=== PATIENT | female | born 1945 | race Caucasian/White ===

== ENCOUNTER → 2016-10-11 | Outpatient (CLI) | payer OTHER ==
[~2016-10-11] MED LIST: GLIP5TAB3 PO; ROSU5TAB PO
--- NOTE | 2016-10-12 06:15 | PAP/PSG TECHNICIAN REPORT ---
[facility] Low Pressure Firer Polysomnogram Report Study name: None Report date: 10/12/2016 Study date: 10/11/2016 Referring Physician: Dennis ROMERO M.D. Name: TINOMICA Interpreting Physician: Avani Romero M.D. Date of : 1945 Low Pressure Firer: Tim Briggs RPSGT. Sex: Female Age: 71 StudyType: PSG Weight: 298 lbs 17.75 INCHES Height: 71 years, Height 5' 6" Neck Circum: BMI: 48.09 Medications: ATIVAN 1 MG, METFORMIN ER 500 MG, ULTRAM 50 MG, GLUCOTROL XL 10 MG, ASPIRIN 81 MG, CRESTOR 5 MG, ACCUPRIL 5 MG, NEXIUM 20 MG Patient History PATIENT HAS HISTORY OF DAYTIME SLEEPINESS AND DIFFICULTY MAINTAINING SLEEP THROUGHOUT THE NIGHT. SHE USUALLY ONLY SLEEPS FOR A COUPLE HOURS AT A TIME AND WILL MOVE FROM RECLINER TO BED. SHE HAS GAINED A SIGNIFICANT AMOUNT OF WEIGHT OVER THE PAST 5 YEARS. SHE IS HERE TODAY FOR AN EVALUATION OF LASHAWN. ESS = 6 RM 7 Parameters Monitored NPSG: E1-M2, E2-M1, Fp1-M2, Fp2-M1, F3-M2, F4-M2, F4-M1, C3-M2, C4-M2, C4-M1, O1-M2, O2-M2, O2-M1, T3-M2, T4-M1, P3-M2, P4-M1, CHIN1, CHIN2, HR, EKG, Legs, PFLOW, SNOR, FLOW, CFLOW, Tidal Volume, THOR, ABDO, SpO2, PLTH, CPRESS, ETCO2 Wave, ETCO2, pH Sleep Architecture Sleep Stages Time at Lights Off 8:45:45 PM STAGES Time (min.) TST (%) Time at Lights On 4:30:45 AM Wake 168.0 -- Total Recording Time (TRT) 465.50 min. N1 64.0 22 Total Sleep Period (TSP) 392.0 min. N2 173.5 58 Total Sleep Time (TST) 297.0min. N3 29.5 10 Awake Time 168.5 min. REM 30.0 10 Wake after Sleep Onset 112.0 min. Sleep Efficiency (SE) 64 % Sleep Onset Latency (LUI) 56.0 min. Number of Stage 1 Shifts None Awakenings 23 Stage Changes 97 Number of REM periods 3 REM 30.0 10 REM Latency 207.0 min. NREM 267.0 90 Body Position Analysis Supine Right Left Side Prone Vertical Total Sleep Time (min.) 151.3 181.5 74.8 256.35 0.0 0.0 Total Sleep Time (%) 14% 61% 25% 86 0% N/A% Total Sleep Time REM (min.) 0.0 30.0 0.0 None 0.0 0.0 Total Sleep Time NREM (min.) 40.7 151.5 74.8 None 0.0 0.0 Intermittent Wake (min.) 110.7 52.8 4.5 None 0.0 0.0 Total Sleep Period (%) 24% None None None None None Arousals Myoclonus (PLM) * Events Count Index Events Count Index Spontaneous 37 7 Events Awake (PLMW) 170 60.7 Respiratory 86 17.6 Events Asleep w/ Arousal (PLMA) 28 5.7 PLM 28 6 Events Asleep w/o Arousal (PLMS) 250 50.5 Snoring 42 8 Total Asleep 278 56.2 Total 192 39 Total 448 58 Respiratory Analysis * CA OA MA CH H RERA Total Count 0 5 0 0 216 1 221 Index 0.0 1.0 0.0 0 43.6 0 44.8 Mean Duration 0.0 34.7 0.0 0.00 16.8 17.3 17.2 Longest Duration 0.0 42.6 0.0 0.00 0.0 17.3 54.3 Respiratory Event Summary Total Supine ~Supine Right Left Prone REM NREM Apneas Count 5 0 5 5 0 N/A 5 0 Index 1.0 0 1 1.7 0.0 N/A 10 0 Hypopneas (4% Desat) Count 216 66 150 122 28 N/A 29 187 Index 43.6 97.4 35 40.3 22.4 N/A 58.0 42.0 Apneas & All Hypopneas Count 221 66 155 127 28 N/A 34 187 Index 44.6 97 36 42 22 N/A 68.0 42.0 Respiratory Events (Binder Sorter+All Hyp+RERA) Count 221 66 156 127 29 N/A 34 187 Index 44.8 97 37 42.0 23.2 N/A 68.0 42.2 Respiratory Related Arousal Count 86 66 46 38 8 N/A 20 67 Index 17.6 61 11 13 6 N/A 40 15 Snoring Analysis Supine Right Left Prone REM NREM Total Snore duration 71.3 min Snores count 157 2,058 755 N/A 197 2,773 2,970 Snore mean duration 1.4 Sec Snores index 232 680 605 N/A 394.0 623.1 600.0 TST with snoring (%) 24.0% SpO2 Analysis Total REM NREM Awake <50% 0.0 min. 0.0 min. 0.0 min. 0.0 min. 51 - 60% 0.0 min. 0.0 min. 0.0 min. 0.0 min. 61 - 70% 0.1 min. 0.1 min. 0.0 min. 0.0 min. 71 - 80% 9.3 min. 5.4 min. 3.8 min. 0.1 min. 81 - 90% 271.8 min. 19.8 min. 217.6 min. 34.4 min. 91 - 100% 152.3 min. 2.2 min. 45.3 min. 104.9 min. Average 88 84 87 91 Minimum SpO2 70 70 77 80 Desaturation Event Index 39.5 76.0 47.4 20.7 # Desat. Events below 89% 249 37 179 33 Time(%) with Saturation below 89% 43.8 5.0 36.7 2.1 Time(min.) with Saturation below 89% 189.8 21.6 159.2 9.0 Heart Rate Analysis End Tidal CO2 Analysis Min (bpm) Max (bpm) Average (bpm) TSP (mins) % of TSP Awake 57 127 76 Above 55 mmHg 200.6 67.6 NREM 54 92 71 50-55 mmHg 26.9 9.1 REM 59 127 72 45-50 mmHg 15.5 5.2 Overall 54 127 72 40-45 mmHg 12.3 4.1 35-40 mmHg 8.7 2.9 30-35 mmHg 12.2 4.1 Average ETCO2 0.1 Supplemental O2 Values Minimum O2 level: None Value Start Time End Time Low Pressure Firer Comments Mrs. Meade slept in the right, left and supine positions. No cardiac arrhythmia noted. Leg movements noted. No bruxism noted. Snoring was noted and scored as a 3 on a scale of 1 through 5. (0=no snoring, 5=snoring loud enough to be heard through a closed door or down the riojas way) Mrs. Meade awoke to use the restroom 4 times during the night. Mrs. Meade stated I slept as well as I do when I am in my own bed. The final report will be interpreted and signed by a sleep physician. The completed physician report will then be placed in the patient medical record. Therapy (cm H2O) 0 TIB (min.) 465.0 TST (min.) 297.0 Sleep Onset (min.) 56.0 REM Onset From Sleep (min.) 207.0 Sleep Efficiency % 64 Wakefulness (%) 36 Wakefulness (min.) 168.5 NREM 1 (%) 22 NREM 1 (min.) 64.0 NREM 2 (%) 58 NREM 2 (min.) 173.5 NREM 3 (%) 10 NREM 3 (min.) 29.5 REM (%) 10 REM (min.) 30.0 # Arousals 192 Arousal Index 39 # Snore 2,970 Snore Index 600.0 AHI 44.6 AHI Supine 97 AHI Non-Supine 36 NREM AHI 42.0 REM AHI 68.0 RDI 44.8 # Obstructive Apnea 5 # Central Apnea 0 # Mixed Apnea 0 # Hypopneas 216 RERAs 1 Total Respiratory Events 232 Time Below SpO2 89% (min.) 180.8 Mean NREM SpO2 (%) 87 Mean REM SpO2 (%) 84 Mean Sleep SpO2 (%) 87 Min NREM SpO2 (%) 77 Min REM SpO2 (%) 70 Position Supine (min.) 151.3 Position Non-supine (min.) 256.3 LM Index Sleep 56.2 LM Index NREM 53.5 LM Index REM 80.0 Mean Heart Rate (bpm) 72 Min Heart Rate (bpm) 54
--- NOTE | 2016-10-23 07:12 | POLYSOMNOGRAPH REPORT ---
REFERRING PERSON: Dr. Ashley Romero. CURATOR [employer]: Tim Briggs. Ms. Meade is a 71-year-old female sent to the sleep lab for a baseline sleep study. She has difficulty with excessive daytime sleepiness and sleep maintenance insomnia. She often relocates from her bed to recliner during the night. She has gained a significant amount of weight over the past 5 years. [place] sleepiness scale score on the evening of this study is 6. BMI is 48.09. Following the technical and digital specifications of the [place] [employer] (AASM) a standard diagnostic polysomnogram was performed monitoring EEG, EOG, EMG (chin and leg deviations), oxygen saturation, body position, digital video, respiratory effort and airflow. The sleep Stage and event scoring was based on the AASM Manual for the Scoring of Sleep and Associated Events 2007 edition. Apneas are defined as a drop in the peak thermal sensor excursion by >90% of baseline for at least 10 seconds. Hypopneas were scored using the 4% oxygen desaturation rule (4A-[employer]ic[employer]) and a decrease in the nasal pressure excursions by >30% of baseline for at least 10 seconds. Respiratory effort-related arousal (RERA's) is defined as a sequence of breaths lasting at least 10 seconds characterized by increasing respiratory effort or flattening of the nasal pressure waveform leading to an arousal from sleep when the sequence of breaths does not meet criteria for an apnea or hypopnea. Apnea Hypopnea index (AHI) is defined as the number of apneas and hypopneas occurring in an hour of sleep. Respiratory disturbance index (RDI) is defined as the number of apneas, hypopneas, and RERA's occurring in an hour of sleep. Ms. Meade's total sleep period time was 392 minutes. Total sleep time was 297 minutes. Sleep efficiency was 64%. Latency to sleep onset was 56 minutes with wake after sleep onset of 112 minutes. Total non-REM sleep time was 267 minutes. She spent 22% of that time in N1 sleep, 58% in N2 sleep and 10% in N3 sleep. REM latency was 207 minutes. Total REM sleep time was 30 minutes or 10% of total sleep time. There were 192 cortical arousals from sleep. Thirty-seven of these arousals were spontaneous, 86 were due to respiratory events, 28 due to periodic limb movements of sleep and 42 were due to snoring. There were 278 periodic limb movements noted on this test. Limb movement index was 56.2. Limb movement with arousal index was 5.7. There were no central, 5 obstructive and no mixed apneas on this test. There were 216 hypopneas. Apnea-hypopnea index was 44.6, consistent with severe sleep apnea. 2970 snoring events were recorded. Total sleep time with snoring was 24%. Mean saturation during sleep was low at 88%. Saturations dropped as low as 70% with a respiratory event. The most significant desaturations occurred during an epoch of REM sleep. Saturations were less than 89 for 189.8 minutes of sleep time. There was no cardiac ectopy noted on this study. Heart rates ranged from a low of 54 beats per minute to a high of 127 beats per minute. End-tidal CO2 was recorded on this test. End-tidal CO2s were between 30 and 35 mmHg for 4.1% of total sleep period time, between 35 and 40 mmHg for 2.9%, between 40 and 45 mmHg for 4.1%, between 45 and 50 mmHg for 5.2%, between 50 and 55 mmHg for 9.1% and over 55 mmHg for 67.6% of total sleep period time. This is suggestive of obesity hypoventilation. IMPRESSION AND PLAN: A 71-year-old female with evidence of severe sleep apnea, significant nocturnal hypoxemia and end-tidal CO2 recording suggestive of obesity hypoventilation syndrome. 1. This patient would likely benefit from positive airway pressure therapy. She should return to the sleep lab for a full-night titration and then based on those results be started on equipment at home. A download from her machine should be reviewed in 1 month, both to check compliance as well as AHI and further pressure adjustments can be made at that time. 2. Should this patient be unwilling or unable to tolerate CPAP therapy, she should be referred to ear, nose and throat or oral surgery/dental medicine (if appropriate) to discuss alternative treatments for sleep-disordered breathing. She should be started on oxygen as she waits that evaluation. 3. Weight loss should be strongly encouraged.
== END | disposition home or self-care (01) ==
LOC: C.NEUR 20:00
PROVIDERS: ATTEND Family Medicine
DX: G47.34 Idiopathic sleep related nonobstructive alveolar hypoventilation (principal); G47.10 Hypersomnia, unspecified

== ENCOUNTER 2020-03-03 10:26 | Observation (INO) ==
[2020-03-03] MEDS ORDERED: NITROGLYCERIN 2% OINTMENT 30GM TUBE EXT STA (10:40)
[2020-03-03] MEDS ORDERED: ASPIRIN CHEW 324 MG PO STA (10:40)
--- NOTE | 2020-03-03 10:45 | Emergency Department Note ---
History of Present Illness General Chief complaint: Cardiac Assessment Stated complaint: CARDIAC ASSESSMENT Time Seen by Provider: 03/03/20 10:34 Source: patient History of Present Illness Provider complaint: Chest discomfort Onset (ago): day(s) Location: chest and left Radiation: neck and extremity (Left arm) Severity: mild Pain Consistency: + intermittent Maximum Pain Intensity: 0 Quality: + aching Relieved By: + none Exacerbated By: + none Associated symptoms: + shortness of breath; no chest pain, no fever/chills, no headaches and no nausea/vomiting Treatments prior to arrival: none This is a 74-year-old female who presents with chest discomfort for the past several days. She describes it as an aching sensation in the left side of her chest with radiation to her left arm and left neck. It is associated with shortness of breath. It is intermittent. No worsening or alleviating factors. Is not affected by food or exertion but she states she gets short of breath when she exerts herself. She denies any leg swelling or pain, fever, cough, abdominal pain, vomiting or diarrhea or known exposure to COVID-19. She has had no prior history of cardiac disease. She called her doctor's office today and they referred her to the emergency department. Home Medications Home Medications Medication Instructions Recorded Confirmed Type duloxetine 20 mg PO QAM 09/30/19 03/03/20 History glipizide 5 mg PO QAM 09/30/19 03/03/20 History levothyroxine 50 mcg PO QAM 09/30/19 03/03/20 History metformin 500 mg PO QAM 09/30/19 03/03/20 History quinapril 20 mg PO QAM 09/30/19 03/03/20 History aspirin [Aspir-81] 81 mg PO DAILY 03/03/20 03/03/20 History trazodone 50 mg PO HS PRN 03/03/20 03/03/20 History Allergies Allergy/AdvReac Type Severity Reaction Status Date / Time ranitidine Allergy Unknown HIVES, Unverified 03/03/20 10:41 REDNESS rosuvastatin Allergy Unknown Verified 03/03/20 12:37 simvastatin Allergy Unknown Verified 03/03/20 12:37 Past Med/Surg History Medical History Acid reflux (Chronic) Depression Diabetes HLD (hyperlipidemia) Hypertension Obesity (Chronic) LASHAWN on CPAP Surgical History (Updated 03/03/20 @ 13:55 by Mayte Dejesus PA-C) H/O: hysterectomy History of left knee replacement History of right knee joint replacement History of right oophorectomy History of tonsillectomy Family History (Updated 03/03/20 @ 13:55 by Mayte Dejesus PA-C) Sister Breast cancer Denies family history of Coronary heart disease Social History (Updated 03/03/20 @ 13:57 by Mayte Dejesus PA-C) Preferred Language: Bel[place]ian Communication Ability: Effective marital status: Current Living Situation: Alone current occupational status: employed 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 and A total of 10 systems reviewed and were otherwise negative Physical Exam Vital Signs Vital Signs - 24 hr 03/03/20 10:28 03/03/20 10:40 03/03/20 10:44 Temperature 36.8 C Temperature Source Oral Pulse Rate 79 80 67 Pulse Rate from SpO2 Sensor Pulse Rhythm Regular Respiratory Rate 20 20 19 Respiratory Effort / Characteristics Non-Labored Non-Labored Respiratory Depth Normal Normal Blood Pressure 162/94 H 159/88 H Blood Pressure Mean 116 108 Blood Pressure Position Sitting Pulse Oximetry 93 95 Oxygen Delivery Method Room Air Room Air Sepsis Recent Fever Within 48 Hours No Sepsis New/Unexplained Change in Mental Status No Sepsis Action Taken by Nursing No Action Required 03/03/20 10:46 03/03/20 11:00 03/03/20 11:15 Temperature Temperature Source Pulse Rate 67 65 70 Pulse Rate from SpO2 Sensor 67 64 71 Pulse Rhythm Respiratory Rate 18 17 20 Respiratory Effort / Characteristics Respiratory Depth Blood Pressure 160/97 H Blood Pressure Mean 127 Blood Pressure Position Pulse Oximetry 96 94 95 Oxygen Delivery Method Room Air Room Air Sepsis Recent Fever Within 48 Hours Sepsis New/Unexplained Change in Mental Status Sepsis Action Taken by Nursing 03/03/20 11:30 03/03/20 11:45 03/03/20 12:00 Temperature Temperature Source Pulse Rate 66 75 70 Pulse Rate from SpO2 Sensor 66 74 67 Pulse Rhythm Respiratory Rate 19 23 17 Respiratory Effort / Characteristics Respiratory Depth Blood Pressure 117/88 93/80 L Blood Pressure Mean 89 83 Blood Pressure Position Pulse Oximetry 95 94 95 Oxygen Delivery Method Room Air Room Air Room Air Sepsis Recent Fever Within 48 Hours Sepsis New/Unexplained Change in Mental Status Sepsis Action Taken by Nursing 03/03/20 12:15 03/03/20 12:30 Temperature Temperature Source Pulse Rate 75 62 Pulse Rate from SpO2 Sensor 75 62 Pulse Rhythm Respiratory Rate 24 16 Respiratory Effort / Characteristics Respiratory Depth Blood Pressure 150/97 H Blood Pressure Mean 122 Blood Pressure Position Pulse Oximetry 95 94 Oxygen Delivery Method Sepsis Recent Fever Within 48 Hours Sepsis New/Unexplained Change in Mental Status Sepsis Action Taken by Nursing Constitutional: Vital signs reviewed. Eyes: Pupils are equal round reactive to light. Conjunctiva are noninjected. ENT: Pharynx is clear without erythema or exudate. Mucous membranes are moist. Neck supple without meningeal signs. Respiratory: Clear to auscultation bilaterally. Breath sounds are equal bilaterally. Cardiovascular: Regular rate and rhythm. No rubs or gallops. GI: Soft, nondistended and nontender. Bowel sounds are present. Musculoskeletal: No peripheral edema. No lower extremity tenderness. Integumentary: No cyanosis. or jaundice. Neurological: The patient is awake and alert. No focal deficits. Psychiatric: Normal affect. Not anxious appearing. Course Administered Medications Discontinued Medications Aspirin (Aspirin) 324 mg PO NOW STA Stop: 03/03/20 10:41 Last Admin: 03/03/20 11:07 Dose: 324 mg Documented by: [id number] Fentanyl Citrate (Fentanyl Citrate) 25 mcg IV NOW STA Stop: 03/03/20 12:41 Last Admin: 03/03/20 13:02 Dose: 25 mcg Documented by: [id number] Nitroglycerin (Nitro-Bid 2%) 0.5 inch EXT NOW STA Stop: 03/03/20 10:41 Last Admin: 03/03/20 11:07 Dose: 0.5 inch Documented by: [id number] Ondansetron HCl (Zofran) 4 mg IV NOW STA Stop: 03/03/20 12:41 Last Admin: 03/03/20 13:02 Dose: 4 mg Documented by: [id number] Medical Decision Making Differential Diagnosis Unstable angina, CO, pleurisy, pneumonia, GERD Medical Records Attestation: I reviewed the patient's medical records. I did perform a limited focused review of portions of the patient's old chart on the electronic medical record. The patient has had no recent pertinent visits to this hospital. Home Medications Current Medication List: was personally reviewed by me Laboratory Data Attestation: I reviewed the patient's lab results. Result diagrams: 03/03/20 10:45 03/03/20 10:45 Lab Results 03/03/20 03/03/20 03/03/20 Range/Units 10:45 10:45 10:45 WBC 6.33 (4.8-10.8) K/uL RBC 4.32 (4.2-5.4) M/uL Hgb 13.1 (12.0-16.0) g/dL Hct 39.5 (37-47) % MCV 91.4 (80-100) fL MCH 30.3 (25-34) pg MCHC 33.2 (32-36) g/dL RDW Std Deviation 44.3 (36.4-46.3) fL RDW Coeff of Brijesh 13.3 (11.5-14.5) % Plt Count 232 (130-400) K/uL MPV 9.4 (7.4-10.4) fL Immature Gran % (Auto) 0.3 % Neut % (Auto) 63.2 % Lymph % (Auto) 26.1 % Prowers % (Auto) 8.4 % Eos % (Auto) 1.7 % Baso % (Auto) 0.3 % Immature Gran # (Auto) 0.02 (0.00-0.02) K/uL Neut # (Auto) 4.00 (1.4-6.5) K/uL Lymph # (Auto) 1.65 (1.2-3.4) K/uL Prowers # (Auto) 0.53 (0.11-0.59) K/uL Eos # (Auto) 0.11 (0-0.5) K/uL Baso # (Auto) 0.02 (0-0.2) K/uL PT 10.6 (9.0-12.0) Seconds INR 1.0 (0.9-1.1) APTT 27.9 (21.0-31.0) Seconds PTT Ratio 1.0 Sodium (136-145) mmol/L Potassium (3.5-5.1) mmol/L Chloride (98-107) mmol/L Carbon Dioxide (21-32) mmol/L Anion Gap (3-11) BUN (7-18) mg/dl Creatinine (0.6-1.2) mg/dl Est Cr Clr Drug Dosing ml/min Est GFR ( Amer) Est GFR (Non-Af Amer) BUN/Creatinine Ratio (10-20) Glucose (70-99) mg/dl Calcium (8.5-10.1) mg/dl Magnesium (1.8-2.4) mg/dl Total Bilirubin (0.2-1) mg/dl AST (15-37) U/L ALT (12-78) U/L Alkaline Phosphatase (45-117) U/L Troponin I Cancelled NT-Pro-B Natriuret Pep (0-900) pg/ml Total Protein (6.4-8.2) gm/dl Albumin (3.4-5.0) gm/dl Globulin (2.5-4.0) gm/dl Albumin/Globulin Ratio (0.9-2) TSH (0.300-4.500) uIu/ml 03/03/20 03/03/20 Range/Units 10:45 10:45 WBC (4.8-10.8) K/uL RBC (4.2-5.4) M/uL Hgb (12.0-16.0) g/dL Hct (37-47) % MCV (80-100) fL MCH (25-34) pg MCHC (32-36) g/dL RDW Std Deviation (36.4-46.3) fL RDW Coeff of Brijesh (11.5-14.5) % Plt Count (130-400) K/uL MPV (7.4-10.4) fL Immature Gran % (Auto) % Neut % (Auto) % Lymph % (Auto) % Prowers % (Auto) % Eos % (Auto) % Baso % (Auto) % Immature Gran # (Auto) (0.00-0.02) K/uL Neut # (Auto) (1.4-6.5) K/uL Lymph # (Auto) (1.2-3.4) K/uL Prowers # (Auto) (0.11-0.59) K/uL Eos # (Auto) (0-0.5) K/uL Baso # (Auto) (0-0.2) K/uL PT (9.0-12.0) Seconds INR (0.9-1.1) APTT (21.0-31.0) Seconds PTT Ratio Sodium 140 (136-145) mmol/L Potassium 4.1 (3.5-5.1) mmol/L Chloride 109 H (98-107) mmol/L Carbon Dioxide 27 (21-32) mmol/L Anion Gap 4.0 (3-11) BUN 17 (7-18) mg/dl Creatinine 0.94 (0.6-1.2) mg/dl Est Cr Clr Drug Dosing 70.3 ml/min Est GFR ( Amer) 68.8 Est GFR (Non-Af Amer) 59.3 BUN/Creatinine Ratio 17.7 (10-20) Glucose 155 H (70-99) mg/dl Calcium 8.5 (8.5-10.1) mg/dl Magnesium 1.9 (1.8-2.4) mg/dl Total Bilirubin 0.5 (0.2-1) mg/dl AST 15 (15-37) U/L ALT 19 (12-78) U/L Alkaline Phosphatase 68 (45-117) U/L Troponin I < 0.015 NT-Pro-B Natriuret Pep 41 (0-900) pg/ml Total Protein 7.1 (6.4-8.2) gm/dl Albumin 3.5 (3.4-5.0) gm/dl Globulin 3.6 (2.5-4.0) gm/dl Albumin/Globulin Ratio 1.0 (0.9-2) TSH 1.740 (0.300-4.500) uIu/ml Imaging Data Radiologist's Impression: XR chest 1V portable CLINICAL HISTORY: Chest Pain dyspnea COMPARISON STUDY: No previous studies for comparison. FINDINGS: Moderate cardiomegaly. Mild prominence of pulmonary vasculature. Diaphragms are smooth. IMPRESSION: Developing congestive heart failure. ACT 112: Negative or not required by law. The above report was generated using voice recognition software. It may contain grammatical, syntax or spelling errors. Electronically signed by: Alejandro York M.D. 03/03/2020 11:01 AM ECG Data Attestation: I personally reviewed and interpreted this ECG as follows: Indication: + chest pain Rate (beats per minute): 67 Rhythm: + normal sinus ECG Intervals/blocks: no Left bundle branch block ECG ST segments: no ST elevation ECG Findings: no PVCs Blood Pressure Blood Pressure Findings: Elevated blood pressure Blood Pressure Disposition: further management by hospitalist ALEIDA Correa I did evaluate the patient as noted above. The patient is presenting with chest discomfort for the past 3 days rating into her neck and her left arm. I did treat the patient with nitroglycerin paste and aspirin 324 mg p.o. IV access was established. I did place an order for continuous cardiac monitoring. The monitor showed normal sinus rhythm rate of 79. I did order and personally review the patient's 12-lead EKG as described above. She has no acute ischemic changes on her twelve-lead EKG. I did order and personally reviewed the images of the patient's chest x-ray as described above. Chest x-ray shows some congestive changes. I did order and review the patient's blood work as noted in the electronic medical record. CBC is unremarkable without leukocytosis or anemia. Electrolytes are unremarkable. First troponin is negative. I did reassess the patient. She states her chest pain is much better but she still has a little bit of discomfort. Her blood pressure dropped to 98 systolic and so the Nitropaste was discontinued. I did treat her with fentanyl 25 mcg IV and Zofran 4 mg IV. I did discuss her test results with her in detail and recomme nded hospitalization for repeat cardiac biomarkers and possible stress test in the morning. At first she did not wish to stay because she had to go to work but after further discussion she was willing to stay and so I did discuss the case with the hospitalist and case management specialist. Impression & Plan Chest pain Discharge Plan Visit Data *Final* Discharge Date/Time: 03/03/20 14:01 Chief Complaint: Cardiac Assessment Stated Complaint: CARDIAC ASSESSMENT ED Provider: Odell Pitts Discharge Problem: Chest pain Patient Disposition: Admitted As Inpatient Discharge Instructions Interventions: ED Discharge Assessment Last Done: 03/03/20 14:01 Discharge Problem: Chest pain Qualifiers: Chest pain type: unspecified Qualified Code(s): R07.9 - Chest pain, unspecified
--- NOTE | 2020-03-03 11:02 | XRay Report ---
XR chest 1V portable CLINICAL HISTORY: Chest Pain dyspnea COMPARISON STUDY: No previous studies for comparison. FINDINGS: Moderate cardiomegaly. Mild prominence of pulmonary vasculature. Diaphragms are smooth. IMPRESSION: Developing congestive heart failure. ACT 112: Negative or not required by law. The above report was generated using voice recognition software. It may contain grammatical, syntax or spelling errors. Electronically signed by: Alejandro York M.D. 03/03/2020 11:01 AM
[2020-03-03 11:04] LABS: Basophils # (auto) 0.02 K/uL (0-0.2); Basophils % (auto) 0.3 %; Eosinophils # (auto) 0.11 K/uL (0-0.5); Eosinophils % (auto) 1.7 %; Hematocrit (blood only) 39.5 % (37-47); Hemoglobin 13.1 g/dL (12.0-16.0); Immature Granulocytes # (auto) 0.02 K/uL (0.00-0.02); Immature Granulocytes % (auto) 0.3 %; Lymphocytes # (auto) 1.65 K/uL (1.2-3.4); Lymphocytes % (auto) 26.1 %; Mean Corpuscular Hemoglobin 30.3 pg (25-34); Mean Corpuscular Hgb Conc 33.2 g/dL (32-36); Mean Corpuscular Volume 91.4 fL (80-100); Mean Platelet Volume 9.4 fL (7.4-10.4); Monocytes # (auto) 0.53 K/uL (0.11-0.59); Monocytes % (auto) 8.4 %; Neutrophils % (auto) 63.2 %; Platelet Count 232 K/uL (130-400); RDW Coefficient of Variation 13.3 % (11.5-14.5); RDW Standard Deviation 44.3 fL (36.4-46.3); Red Blood Count 4.32 M/uL (4.2-5.4); White Blood Count 6.33 K/uL (4.8-10.8)
[2020-03-03 11:21] LABS: Alanine Aminotransferase 19 U/L (12-78); Albumin Level 3.5 gm/dl (3.4-5.0); Aspartate Aminotransferase 15 U/L (15-37); BUN Creatinine Ratio 17.7 (10-20); Blood Urea Nitrogen 17 mg/dl (7-18); Calcium 8.5 mg/dl (8.5-10.1); Carbon Dioxide 27 mmol/L (21-32); Chloride 109 mmol/L (98-107); Creatinine Clr Calc Pharmacy 70.3 ml/min; Est GFR (African American) 68.8; Est GFR (Non-African American) 59.3; Glucose 155 mg/dl (70-99); Potassium 4.1 mmol/L (3.5-5.1); Sodium 140 mmol/L (136-145)
[2020-03-03 11:26] LABS: Alkaline Phosphatase 68 U/L (45-117); Bilirubin,Total 0.5 mg/dl (0.2-1); Globulin 3.6 gm/dl (2.5-4.0); Partial Thromboplastin Time 27.9 Seconds (21.0-31.0); Prothrombin Time 10.6 Seconds (9.0-12.0); Total Protein 7.1 gm/dl (6.4-8.2); Troponin I < 0.015 ng/ml (0-0.045)
[2020-03-03] MEDS ORDERED: ONDANSETRON INJ 2 MG/ML 2 ML VIAL IV STA (12:40)
[2020-03-03] MEDS ORDERED: fentaNYL citrate 100 MCG/2 ML VIAL IV STA (12:40)
[2020-03-03 13:43] LABS: Magnesium 1.9 mg/dl (1.8-2.4); Thyroid Stimulating Hormone 1.74 uIu/ml (0.300-4.500)
--- NOTE | 2020-03-03 14:01 | History & Physical Report ---
Date of Service March 03, 2020 Assessment & Plan (1) Chest pain: This is a 74-year-old female who has significant PMH of HTN, HLD, T2DM, morbid obesity, depression, LASHAWN on CPAP who presents to ED secondary to chest pain off and on times several weeks. In ED she remained hemodynamically stable. CBC, CMP, TSH, proBNP relatively unremarkable except for mild hyperglycemia. Initial troponin was negative. EKG revealed normal sinus rhythm 61 beats per minutes with some flattening and inversion in V2 which was seen previously on EKG in 2007. Chest x-ray significant for developing CHF and moderate cardiomegaly. She did receive 324 mg chewable ASA as well as 0.5 inch Nitropaste. With Nitr opaste she did develop slight hypotension with systolic BPs in the 90s and this was since removed. Upon my evaluation she was chest pain-free. Pt with risk factors including T2DM, HTN, HLD, LASHAWN, AGE for CAD. CXR moderate cardiomegaly and developing CHF; however pt Pro BNP only 41 and no overt volume overload on exam. CP may be exacerbated due to recent fall as she was tender to palpation on my ex am. Admit under observation to rule out ACS/CAD. CP is not pleuritic. admit to tele cycle troponin q6h, repeat ecg obtain echocardiogram monitor vital signs if work up negative discharge home with PCP follow up in a.m. consider pharmacologic stress test in a.m. (2) Diabetes: T2DM NOT insulin dependent Last A1c 7.1 on 02/13/2020 On metformin and glipizide as outpatient Hold oral home hypoglycemics Lantus/NovoLog per protocol (3) Hypertension: blood pressure controlled continue quinapril (4) HLD (hyperlipidemia): Last lipid panel 02/13/2020 revealed total cholesterol 190, HDL 47, LDL 118, triglyceride 124 Patient with allergy to statin including myalgias Diet controlled (5) LASHAWN on CPAP: CPAP at HS last sleep medicine visit 04/2019 settings [id number] with a FFM (6) Depression: continue cymbalta (7) Obesity: Morbid obesity, BMI 44.9 encourage lifestyle modification (8) DVT prophylaxis: SQ Heparin Disposition: admit to tele Follow up: PCP Dr. Mullen upon discharge Pt was seen and examined in collaboration with Dr. Turner, please see addendum History of Present Illness Chief Complaint: Chest pain off and on x several weeks. Primary Care Provider: Chace Mullen MD This is a 74-year-old female who has significant PMH of HTN, HLD, T2DM, morbid obesity, depression, LASHAWN on CPAP who presents to ED secondary to chest pain off and on times several weeks. Chest pain is left-sided, described as a dull ache, waxes and wanes, occasional radiation to the neck, is not made worse with deep breathing, coughing or lying flat. Pain is approximately 5/10. Pain is not worse with exertion,meals and she is not able to pinpoint what makes it better or worse. Currently she is chest pain-free. She states she fell 1 week ago on her chest secondary to losing balance and chest pain has been worse ever since. She does have associated shortness of breath but this has been ongoing for years. She attributes this to being overweight. She does get LEBLANC even with some ADLs. She denies any peripheral edema, orthopnea or PND. She further denies any associated nausea or diaphoresis associated with the chest pain. She has no prior history of CAD or MA. She denies recent illness, fever, chills, sweats, lightheadedness, dizziness, syncope, palpitations, shortness of breath at rest, nausea, vomiting, abdominal pain, change in bowel or urinary habits. She does have sleep apnea and is compliant with her CPAP, although she highly dislikes it. She denies exposure of +COVID 19. No recent travel. In ED she remained hemodynamically stable. CBC, CMP, TSH, proBNP relatively unremarkable except for mild hyperglycemia. Initial troponin was negative. EKG revealed normal sinus rhythm 61 beats per minutes with some flattening and inversion in V2 which was seen previously on EKG in 2007. Chest x-ray significant for developing CHF and moderate cardiomegaly. She did receive 324 mg chewable ASA as well as 0.5 inch Nitropaste. With Nitropaste she did develop slight hypotension with systolic BPs in the 90s and this was since removed. Upon my evaluation she was chest pain-free. Allergies Allergy/AdvReac Type Severity Reaction Status Date / Time ranitidine Allergy Unknown HIVES, Unverified 03/03/20 10:41 REDNESS rosuvastatin Allergy Unknown Verified 03/03/20 12:37 simvastatin Allergy Unknown Verified 03/03/20 12:37 Home Medications Home Medications Medication Instructions Recorded Confirmed Type duloxetine 20 mg PO QAM 09/30/19 03/03/20 History glipizide 5 mg PO QAM 09/30/19 03/03/20 History levothyroxine 50 mcg PO QAM 09/30/19 03/03/20 History metformin 500 mg PO QAM 09/30/19 03/03/20 History quinapril 20 mg PO QAM 09/30/19 03/03/20 History aspirin [Aspir-81] 81 mg PO DAILY 03/03/20 03/03/20 History trazodone 50 mg PO HS PRN 03/03/20 03/03/20 History Past Med/Surg History Medical History Acid reflux (Chronic) Depression Diabetes HLD (hyperlipidemia) Hypertension Obesity (Chronic) LASHAWN on CPAP Surgical History (Updated 03/03/20 @ 13:55 by Mayte Dejesus PA-C) H/O: hysterectomy History of left knee replacement History of right knee joint replacement History of right oophorectomy History of tonsillectomy Family History (Updated 03/03/20 @ 13:55 by Mayte Dejesus PA-C) Sister Breast cancer Denies family history of Coronary heart disease Social History (Updated 03/03/20 @ 13:57 by Mayte Dejesus PA-C) Preferred Language: Japanese Communication Ability: Effective marital status: Current Living Situation: Alone current occupational status: employed 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 Feels Safe at Home: Yes Smoking Status: Never smoker Hx Alcohol Use: No Hx Substance Use: No Review of Systems Review of Systems: All systems reviewed & are unremarkable except as noted in HPI & below Physical Exam Physical Exam: Constitutional: WD/WN, morbidly obese, female, vitals as above, NAD, sitting up in bed, pleasant, conversing easily Head: Normocephalic, Atraumatic Eyes: PERRL, conjunctivae normal, anicteric sclerae ENMT: external ear and nose normal, oropharynx normal Neck: trachea midline, no thyromegaly normal visual inspection Respiratory: normal respiratory effort, lungs clear to auscultation, no wheeze, rales, rhonchi. Normal insp/exp effort, no accessory muscle use Cardiovascular: RRR, no murmur, no edema Vessels: no JVD or carotid bruit Chest: normal inspection of chest, + chest wall pain to palpation of L chest wall and L trapezius Abdomen: Obese abdomen, normal bowel sounds, soft, nontender, no hepatosplenomegaly Musculoskeletal: no cyanosis or clubbing, extremities motor strength 5/5 Skin: no rashes, warm and dry normal turgor Neurologic: PERRL, EOMI, accommodation nl, no face palsy, no dysarthria CN's II-XI intact bilaterally and moves all extremities Psychiatric: A+Ox3, euthymic affect Lymphatic: no cervical or axillary lymphadenopathy : deferred Results & Data Results & Data ([facility]) Vital Signs (Past 12 Hours) Vital Signs Temp Pulse Resp BP Pulse Ox 03/03/20 13:30 65 19 134/66 94 03/03/20 13:15 65 19 91 03/03/20 13:06 63 19 130/72 95 03/03/20 13:02 77 24 130/72 92 03/03/20 12:30 62 16 150/97 H 94 03/03/20 12:15 75 24 95 03/03/20 12:00 70 17 93/80 L 95 03/03/20 11:45 75 23 94 03/03/20 11:30 66 19 117/88 95 03/03/20 11:15 70 20 95 03/03/20 11:00 65 17 160/97 H 94 03/03/20 10:46 67 18 96 03/03/20 10:44 67 19 159/88 H 03/03/20 10:40 80 20 95 03/03/20 10:28 36.8 C 79 20 162/94 H 93 Laboratory Results Short CBC 03/03/20 Range/Units 10:45 WBC 6.33 (4.8-10.8) K/uL Hgb 13.1 (12.0-16.0) g/dL Hct 39.5 (37-47) % Plt Count 232 (130-400) K/uL BMP 03/03/20 10:45 Sodium 140 Potassium 4.1 Chloride 109 H Carbon Dioxide 27 BUN 17 Creatinine 0.94 Glucose 155 H Calcium 8.5 Cardiac Enzymes 03/03/20 03/03/20 Range/Units 10:45 10:45 Troponin I Cancelled < 0.015 Liver Function 03/03/20 Range/Units 10:45 Total Bilirubin 0.5 (0.2-1) mg/dl AST 15 (15-37) U/L ALT 19 (12-78) U/L Alkaline Phosphatase 68 (45-117) U/L Albumin 3.5 (3.4-5.0) gm/dl Diagnostic Findings CXR: IMPRESSION: Developing congestive heart failure. Medications Administered Discontinued Medications Aspirin (Aspirin) 324 mg PO NOW STA Stop: 03/03/20 10:41 Last Admin: 03/03/20 11:07 Dose: 324 mg Documented by: [id number] Fentanyl Citrate (Fentanyl Citrate) 25 mcg IV NOW STA Stop: 03/03/20 12:41 Last Admin: 03/03/20 13:02 Dose: 25 mcg Documented by: [id number] Nitroglycerin (Nitro-Bid 2%) 0.5 inch EXT NOW STA Stop: 03/03/20 10:41 Last Admin: 03/03/20 11:07 Dose: 0.5 inch Documented by: [id number] Ondansetron HCl (Zofran) 4 mg IV NOW STA Stop: 03/03/20 12:41 Last Admin: 03/03/20 13:02 Dose: 4 mg Documented by: [id number] ECG Rate (beats per minute): 67 Rhythm: normal sinus Additional Comments: Flattening and t wave inversion in lead V2, unchanged from ekg in 2007 Code Status & VTE Plan Code Status Full Code VTE Prophylaxis Plan VTE Prophylaxis will be ordered: Yes Supervising Physician Co-Signing Physician Notes I, Dr. Raudel Turner, have seen the patient with physician human resources office assistant an agree with the assessment and plan as above and would like to comment that on exam General: no acute distress Lungs: breathing on room air Chest: reports tenderness to palpation of left chest Heart: regular rhythm, bradycardia Abdomen: truncal obesity, soft, and nontender. Assessment and plan -main issues is that patient with chest discomfort and reports shortness of breath symptom. looks comfortable on room air. no hypoxia. chest pain is atyp ical and may be musculoskeletal in nature. initial troponin negative and EKG does not appear to be grossly ischemic. patient initially did not seem interested in cardiac workup and then she changed her mind for rule out ACS. will trend troponins, monitor on telemetry, obtain echocardiogram -agree with other assessment and plans as documented by physician human resources office assistant for management of other health conditions that can contribute to cardiac problems such as Hypertension, Obstructive sleep apnea on CPAP, and Type 2 diabetes mellitus (without usp current use of insulin) (1) Chest pain Chest pain type: unspecified Qualified Code(s): R07.9 - Chest pain, unspecified
[2020-03-03] MEDS ORDERED: GLUCOSE 10 TABS/TUBE PO PRN (14:33)
[2020-03-03] MEDS ORDERED: CARBOHYDRATES FOR HYPOGLYCEMIA PO PRN (14:33)
[2020-03-03] MEDS ORDERED: GLUCOSE 40% GEL 15 GM TUBE PO PRN (14:33)
[2020-03-03] MEDS ORDERED: DEXTROSE 50% 50 ML SYRINGE IV PRN (14:33)
[2020-03-03] MEDS ORDERED: GLUCAGON FOR INJ 1 MG VIAL SQ PRN (14:33)
[2020-03-03] MEDS ORDERED: TRAZODONE HCL 50 MG TAB PO PRN (14:33)
[2020-03-03] MEDS ORDERED: ONDANSETRON INJ 2 MG/ML 2 ML VIAL IV PRN (14:33)
[2020-03-03] MEDS ORDERED: ALUMINUM/MAGNESIUM SUSP 30 ML UDC PO PRN (14:33)
[2020-03-03] MEDS ORDERED: NITROGLYCERIN SL 0.4 MG/TAB TAB SL PRN (14:33)
[2020-03-03] MEDS ORDERED: ACETAMINOPHEN 325 MG TAB PO PRN (14:33)
--- NOTE | 2020-03-03 14:34 | Electrocardiogram Report ---
Test Reason : Blood Pressure : / mmHG Vent. Rate : 067 BPM Atrial Rate : 067 BPM P-R Int : 206 ms QRS Dur : 086 ms QT Int : 422 ms P-R-T Axes : 019 -12 036 degrees QTc Int : 445 ms Normal sinus rhythm with 1st degree A-V block Cannot rule out Anterior infarct , age undetermined Abnormal ECG When compared with ECG of 24-FEB-2008 18:39, No significant change was found Confirmed by Juan Cardona ([id number]) on 03/03/2020 2:34:17 PM Referred By: ED Confirmed By:Juan Cardona
[2020-03-03] MEDS: HEPARIN SOD 5,000 UNIT/0.5 ML VIAL SQ SCH ×2 (16:24→21:30)
[2020-03-03] MEDS: INSULIN ASPART 100 UNITS/ML 3 ML PEN SC SCH ×2 (16:24→21:30)
--- NOTE | 2020-03-03 16:52 | Electrocardiogram Report ---
Test Reason : Blood Pressure : / mmHG Vent. Rate : 059 BPM Atrial Rate : 059 BPM P-R Int : 206 ms QRS Dur : 088 ms QT Int : 452 ms P-R-T Axes : 032 000 045 degrees QTc Int : 447 ms Sinus bradycardia with 1st degree A-V block Otherwise normal ECG When compared with ECG of 03-MAR-2020 10:42, No significant change was found Confirmed by Juan Cardona ([id number]) on 03/03/2020 4:51:27 PM Referred By: Chace Mullen Confirmed By:Juan Cardona
[2020-03-03] MEDS: INSULIN GLARGINE SOLOSTAR 100 UNITS/ML 3 ML PEN SC SCH (21:30)
[2020-03-04 04:46] LABS: Albumin Level 3.4 gm/dl (3.4-5.0); BUN Creatinine Ratio 16.7 (10-20); Calcium 8.5 mg/dl (8.5-10.1); Creatinine Clr Calc Pharmacy 67.4 ml/min; Est GFR (African American) 65.4; Est GFR (Non-African American) 56.4; Potassium 4.6 mmol/L (3.5-5.1)
[2020-03-04 04:48] LABS: Hematocrit (blood only) 40.2 % (37-47); Hemoglobin 13.3 g/dL (12.0-16.0); Mean Corpuscular Hemoglobin 30.5 pg (25-34); Mean Corpuscular Hgb Conc 33.1 g/dL (32-36); Mean Corpuscular Volume 92.2 fL (80-100); Mean Platelet Volume 9.8 fL (7.4-10.4); Platelet Count 233 K/uL (130-400); RDW Coefficient of Variation 13.2 % (11.5-14.5); RDW Standard Deviation 44.5 fL (36.4-46.3); Red Blood Count 4.36 M/uL (4.2-5.4); White Blood Count 6.09 K/uL (4.8-10.8)
[2020-03-04 04:49] LABS: Albumin Globulin Ratio 0.9 (0.9-2); Bilirubin,Total 0.6 mg/dl (0.2-1); Globulin 3.8 gm/dl (2.5-4.0); Total Protein 7.2 gm/dl (6.4-8.2)
[2020-03-04] MEDS: HEPARIN SOD 5,000 UNIT/0.5 ML VIAL SQ SCH (06:18)
[2020-03-04] MEDS ORDERED: LEVOTHYROXINE SODIUM 50 MCG TABLET PO SCH (06:30)
[2020-03-04] MEDS: INSULIN GLARGINE SOLOSTAR 100 UNITS/ML 3 ML PEN SC SCH (08:42)
[2020-03-04] MEDS ORDERED: DULOXETINE HCL 20 MG CAP PO SCH (09:00)
[2020-03-04] MEDS ORDERED: ASPIRIN 81 MG ECTAB PO SCH (09:00)
[2020-03-04] MEDS ORDERED: ENALAPRIL MALEATE 10 MG TAB PO SCH (09:00)
[2020-03-04] MEDS: INSULIN ASPART 100 UNITS/ML 3 ML PEN SC SCH (09:49)
--- NOTE | 2020-03-04 09:55 | Hospitalist Progress Note ---
Date of Service March 04, 2020 Assessment & Plan (1) Chest pain: Atypical chest pain This is a 74-year-old female who has significant PMH of HTN, HLD, T2DM, morbid obesity, depression, LASHAWN on CPAP who presents to ED secondary to chest pain off and on times several weeks. In ED she remained hemodynamically stable. CBC, CMP, TSH, proBNP relatively unremarkable except for mild hyperglycemia. Initial troponin was negative. EKG revealed normal sinus rhythm 61 beats per minutes with some flattening and inversion in V2 which was seen previously on EKG in 2008. Chest x-ray significant for developing CHF and moderate cardiomegaly. She did receive 324 mg chewable ASA as well as 0.5 inch Nitropaste. With Nitropaste she did develop slight hypotension with systolic BPs in the 90s and this was since removed. Upon my evaluation she was chest pain-free. Pt with risk factors including T2DM, HTN, HLD, LASHAWN, AGE for CAD. CXR moderate cardiomegaly and developing CHF; however pt Pro BNP only 41 and no overt volume overload on exam. CP may be exacerbated due to recent fall as she was tender to palpation on exam. Troponins were negative and echocardiogram shows normal ejection fraction and no wall motion abnormalities. Chest pain symptoms likely musculoskeletal nature. No evidence for chest pain from cardiac etiology. No changes made to home medications on discharge Patient should follow up with outpatient primary medical doctor (2) Diabetes: Type 2 diabetes mellitus without complication without terminal gauger current of insulin Last A1c 7.1 on 02/13/2020 was giving sliding scale insulin while inpatient, can resume home dose diabetes mellitus medication on discharge (3) Hypertension: blood pressure controlled continue quinapril (4) HLD (hyperlipidemia): Last lipid panel 02/13/2020 revealed total cholesterol 190, HDL 47, LDL 118, triglyceride 124 Patient with allergy to statin including myalgias Diet controlled (5) LASHAWN on CPAP: CPAP at HS last sleep medicine visit 04/2019 settings [id number] with a FFM (6) Depression: continue cymbalta (7) Obesity: Morbid obesity, BMI 44.9 encourage lifestyle modification (8) DVT prophylaxis: SQ Heparin Admission and Anticipated Discharge Date Admission Date: March 03, 2020 Subjective no acute events overnight. no chest pain. no shortness of breath. no abdomen pain. no vomiting. no headache. no dizziness. discharge plans discussed at length Review of Systems Review of Systems: All systems reviewed & are unremarkable except as noted in Subjective Physical Exam Constitutional: + obese Eyes: PERRL, conjunctivae normal, anicteric sclerae EOM intact bilaterally ENMT: external ear and nose normal, oropharynx normal Neck: normal visual inspection Respiratory: normal respiratory effort, lungs clear to auscultation Cardiovascular: Rate/Rhythm: regular rate and regular rhythm Gastrointestinal (Abdomen): normal bowel sounds, soft, nontender, no h epatosplenomegaly Musculoskeletal: Head/Neck/Chest: normocephalic and head atraumatic Neurologic: PERRL, EOMI, accommodation nl, no face palsy, no dysarthria CN's II-XI intact bilaterally Psychiatric: A+Ox3, euthymic affect Results & Data Results & Data ([facility]) Vital Signs (Past 12 Hours) Vital Signs Temp Pulse Pulse Resp BP Pulse Ox 03/04/20 08:00 36.8 C 77 19 138/90 93 03/04/20 07:40 79 03/04/20 04:00 36.7 C 67 18 143/59 H 92 03/04/20 00:00 36.6 C 68 22 128/58 L 94 (1) Chest pain Chest pain type: unspecified Qualified Code(s): R07.9 - Chest pain, unspecified
--- NOTE | 2020-03-04 10:05 | Discharge Summary ---
Date of Service March 04, 2020 Admission HPI Per Admitting Provider This is a 74-year-old female who has significant PMH of HTN, HLD, T2DM, morbid obesity, depression, LASHAWN on CPAP who presents to ED secondary to chest pain off and on times several weeks. Chest pain is left-sided, described as a dull ache, waxes and wanes, occasional radiation to the neck, is not made worse with deep breathing, coughing or lying flat. Pain is approximately 5/10. Pain is not worse with exertion,meals and she is not able to pinpoint what makes it better or worse. Currently she is chest pain-free. She states she fell 1 week ago on her chest secondary to losing balance and chest pain has been worse ever since. She does have associated shortness of breath but this has been ongoing for years. She attributes this to being overweight. She does get LEBLANC even with some ADLs. She denies any peripheral edema, orthopnea or PND. She further denies any associated nausea or diaphoresis associated with the chest pain. She has no prior history of CAD or [place]. She denies recent illness, fever, chills, sweats, lightheadedness, dizziness, syncope, palpitations, shortness of breath at rest, nausea, vomiting, abdominal pain, change in bowel or urinary habits. She does have sleep apnea and is compliant with her CPAP, although she highly dislikes it. She denies exposure of +COVID 19. No recent travel. In ED she remained hemodynamically stable. CBC, CMP, TSH, proBNP relatively unremarkable except for mild hyperglycemia. Initial troponin was negative. EKG revealed normal sinus rhythm 61 beats per minutes with some flattening and inversion in V2 which was seen previously on EKG in 2007. Chest x-ray significant for developing CHF and moderate cardiomegaly. She did receive 324 mg chewable ASA as well as 0.5 inch Nitropaste. With Nitropaste she did develop slight hypotension with systolic BPs in the 90s and this was since removed. Upon my evaluation she was chest pain-free. Principal Diagnosis Atypical Chest Pain Type 2 diabetes mellitus without complication without assisted current of insulin Hypertension Obstructive sleep apnea with dependence on CPAP Discharge Exam Constitutional + obese Eyes PERRL, conjunctivae normal, anicteric sclerae EOM intact bilaterally ENMT external ear and nose normal, oropharynx normal Neck normal visual inspection Respiratory normal respiratory effort, lungs clear to auscultation Cardiovascular Rate/Rhythm: regular rate and regular rhythm Gastrointestinal (Abdomen) normal bowel sounds, soft, nontender, no hepatosplenomegaly Musculoskeletal Head/Neck/Chest: normocephalic and head atraumatic Neurologic PERRL, EOMI, accommodation nl, no face palsy, no dysarthria CN's II-XI intact bilaterally Psychiatric A+Ox3, euthymic affect Discharge Data Allergies Allergy/AdvReac Type Severity Reaction Status Date / Time ranitidine Allergy Unknown HIVES, Unverified 03/03/20 10:41 REDNESS rosuvastatin Allergy Unknown Verified 03/03/20 12:37 simvastatin Allergy Unknown Verified 03/03/20 12:37 Consultations 03/03/20 12:40 ED Decision to Admit Stat Hospital Course (1) Chest pain: Atypical chest pain This is a 74-year-old female who has significant PMH of HTN, HLD, T2DM, morbid obesity, depression, LASHAWN on CPAP who presents to ED secondary to chest pain off and on times several weeks. In ED she remained hemodynamically stable. CBC, CMP, TSH, proBNP relatively unremarkable except for mild hyperglycemia. Initial troponin was negative. EKG revealed normal sinus rhythm 61 beats per minutes with some flattening and inversion in V2 which was seen previously on EKG in 2007. Chest x-ray significant for developing CHF and moderate cardiomegaly. She did receive 324 mg chewable ASA as well as 0.5 inch Nitropaste. With Nitropaste she did develop slight hypotension with systolic BPs in the 90s and this was since removed. Upon my evaluation she was chest pain-free. Pt with risk factors including T2DM, HTN, HLD, LASHAWN, AGE for CAD. CXR moderate cardiomegaly and developing CHF; however pt Pro BNP only 41 and no overt volume overload on exam. CP may be exacerbated due to recent fall as she was tender to palpation on exam. Troponins were negative and echocardiogram shows normal ejection fraction and no wall motion abnormalities. Chest pain symptoms likely musculoskeletal nature. No evidence for chest pain from cardiac etiology. No changes made to home medications on discharge Patient should follow up with outpatient primary medical doctor (2) Diabetes: Type 2 diabetes mellitus without complication without assisted current of insulin Last A1c 7.1 on 02/13/2020 was giving sliding scale insulin while inpatient, can resume home dose diabetes mellitus medication on discharge (3) Hypertension: blood pressure controlled continue quinapril (4) HLD (hyperlipidemia): Last lipid panel 02/13/2020 revealed total cholesterol 190, HDL 47, LDL 118, triglyceride 124 Patient with allergy to statin including myalgias Diet controlled (5) LASHAWN on CPAP: CPAP at HS last sleep medicine visit 04/2019 settings [id number] with a FFM (6) Depression: continue cymbalta (7) Obesity: Morbid obesity, BMI 44.9 encourage lifestyle modification (8) DVT prophylaxis: SQ Heparin Total Time Total Time Spent Total Time Spent (In Minutes): 40 minutes Total Time Includes: Examination of the Patient, Discharge Planning, Medication Reconciliation and Communication With Other Providers Discharge Plan Discharge Items Patient Disposition: Home - Self-Care Reason For Visit: ATYPICAL CHEST PAIN Discharge Diagnosis: Atypical chest pain Type 2 diabetes mellitus without complication without terminal computer operator current of insulin Hypertension Obstructive sleep apnea with dependence on CPAP Activity: Resume your previous activity Non-emergency contact: Primary Care Provider Call non-emergency contact if: you have any medication questions Follow-up/Referrals: Chace Mullen MD [Primary Care Provider] - Diet: Carb Consistent or DM2 Addtl Attending Provider Instructions: This is a 74-year-old female who has significant PMH of HTN, HLD, T2DM, morbid obesity, depression, LASHAWN on CPAP who presents to ED secondary to chest pain off and on times several weeks. In ED she remained hemodynamically stable. CBC, CMP, TSH, proBNP relatively unremarkable except for mild hyperglycemia. Initial troponin was negative. EKG revealed normal sinus rhythm 61 beats per minutes with some flattening and inversion in V2 which was seen previously on EKG in 2008. Chest x-ray significant for developing CHF and moderate cardiomegaly. She did receive 324 mg chewable ASA as well as 0.5 inch Nitropaste. With Nit ropaste she did develop slight hypotension with systolic BPs in the 90s and this was since removed. Upon my evaluation she was chest pain-free. Pt with risk factors including T2DM, HTN, HLD, LASHAWN, AGE for CAD. CXR moderate cardiomegaly and developing CHF; however pt Pro BNP only 41 and no overt volume overload on exam. CP may be exacerbated due to recent fall as she was tender to palpation on exam. Troponins were negative and echocardiogram shows normal ejection fraction and no wall motion abnormalities. Chest pain symptoms likely musculoskeletal nature. No evidence for chest pain from cardiac etiology. No changes made to home medications on discharge Patient should follow up with outpatient primary medical doctor Pending Studies at Discharge: No Stand-Alone Forms: My [facility] [employer], Smoking Cessation Medications and DC Order Prescriptions: Continued glipizide 5 mg tablet extended release 24hr 5 mg PO QAM RF: 0 levothyroxine 50 mcg tablet 50 mcg PO QAM RF: 0 quinapril 20 mg tablet 20 mg PO QAM RF: 0 metformin 500 mg tablet extended release 24 hr 500 mg PO QAM RF: 0 duloxetine 20 mg capsule,delayed release(DR/EC) 20 mg PO QAM RF: 0 trazodone 50 mg tablet 50 mg PO HS PRN (Reason: Sleep) RF: 0 aspirin [Aspir-81] 81 mg Tablet,Delayed Release (Dr/Ec) 81 mg PO DAILY RF: 0 Discharge Orders: Discharge Order (Routine); Ordered 03/04/20 Ordered By: Raudel Turner Admission Data Admit Date/Time: 03/03/20 12:54 Attending Provider: Raudel Turner Admit Provider: Raudel Turner Primary Care Provider: Chace Mullen Other Providers: Raudel Turner
--- NOTE | 2020-03-05 06:17 | Electrocardiogram Report ---
Test Reason : Blood Pressure : / mmHG Vent. Rate : 063 BPM Atrial Rate : 063 BPM P-R Int : 214 ms QRS Dur : 094 ms QT Int : 420 ms P-R-T Axes : 045 -15 041 degrees QTc Int : 429 ms Sinus rhythm with 1st degree A-V block Cannot rule out Anterior infarct , age undetermined Abnormal ECG When compared with ECG of 03-MAR-2020 15:23, No significant change was found Confirmed by Alejandro Gupta ([id number]) on 03/05/2020 6:16:59 AM Referred By: Chace Mullen Confirmed By:Alejandro Gupta
== END 2020-03-04 10:29 | disposition home or self-care (01) ==
LOC: ED 10:26 → 1E 10:26

== ENCOUNTER 2022-09-07 18:52 | Inpatient (IN) ==
[2022-09-07] MEDS ORDERED: SODIUM CHLORIDE 0.9% 500 ML IV SCH (19:45)
--- NOTE | 2022-09-07 19:50 | Emergency Department Note ---
Impression & Plan Syncope, Weakness, Abnormal EKG, Elevated troponin I level, Hypomagnesemia, Acute UTI (urinary tract infection) ED Provider Note NAME: MICA JIMÉNEZ AGE: 77 SEX: F : 1945 ARRIVES VIA: Ambulance INFORMANT: Patient, ED PROVIDER(S): Elias Gill DO CHIEF COMPLAINT: Syncope HPI: The patient is a 77-year-old female who presented to the emergency department for an evaluation after having a syncopal episode. The patient had a syncopal episode while trying to get out of her vehicle. She was recently in our facility and discharged after short procedure to have a stent placed in her right ureter for ureteral calculi. The patient states that she has been taking pain medication but she is not taken any medication over the last 24 hours. She denies having any fever. She denies having any chest pain or difficulty b reathing at this time. She denies having any black or bloody bowel moods. She denies having any lower extremity swelling. The patient states that she has been compliant with her outpatient medications otherwise. The patient does not normally wear oxygen at home. ROS: See above HPI for pertinent positives & negatives. A total of 10 systems reviewed and were otherwise negative. PAST MEDICAL HISTORY: See Below PAST SURGICAL HISTORY: See Below FAMILY HISTORY: See Below SOCIAL HISTORY: See Below HOME MEDICATIONS: See Below ALLERGIES: See Below VITALS: See Below PHYSICAL EXAMINATION: GENERAL: The patient is awake and alert. The patient answers questions appropriately. She follows commands well. EYES: The conjunctivae are clear. The pupils are round and reactive. EARS, NOSE, MOUTH AND THROAT: The nose is without any evidence of any deformity. NECK: The neck is nontender and supple. RESPIRATORY: Normal respiratory effort is noted there is no evidence of wheezing rhonchi or rales CARDIOVASCULAR: Regular rate and rhythm noted there no murmurs rubs or gallops normal S1 normal S2. GASTROINTESTINAL: The abdomen is soft. Abdomen is nontender. MUSCULOSKELETAL/EXTREMITIES: There is no evidence of gross deformity full range of motion is noted in the hips and shoulders. SKIN: There is no obvious evidence of any rash. There is no calf tenderness or pedal edema noted. NEUROLOGIC: Patient is awake alert and oriented x3 strength is symmetric patellar reflexes are 2+ bilaterally MEDICAL DECISION MAKING: The patient is a 77-year-old female who presented to the emergency department for an evaluation after having a syncopal episode. The patient was recently discharged from our facility after having a right ureteral stent placed for ureteral calculi. The patient was trying to get out of her vehicle when she had a syncopal episode. The patient initially arrived at the emergency department with tachycardia. She was also somewhat somnolent and her oxygen saturation would drift down below 90 at times. I do not know if this is delayed effects from the patient's sedation for the procedure. I discussed patient's laboratory and radiographic studies with her. Because of the syncope as well as the hypoxia a D-dimer was ordered which was very elevated. This led to a CT of the chest. The CT of the chest does not appear to be consistent with pulmonary emboli. The patient was reevaluated and was much more awake and alert. She does not complain of any back pain at this time. The patient was not hypoxic on room air. She was requesting to be discharged home as she has been in the hospital many times recently because of this kidney stone issue. This reason I did recommend that she rest and avoiding strenuous activity. She was encouraged to call her family doctor in the morning to schedule recheck but return immediately if symptoms change worsen or the need arise. The patient did have an elevation in her high-sensitivity troponin. She recently had a cardiac event and I feel that this could be the reason for the slight elevation today. It is certainly lower than her previous troponin measurements. She also has some changes to her EKG which are likely evolution of her previous cardiac process that occurred in July of this year. Once the patient was discharged to the waiting room her daughter came to pick her up. Her daughter found her to be somewhat confused and she did not appear to be at her baseline. Her daughter brought her back into the emergency department. On reevaluation the patient is now agreeable to being evaluated by the hospitalist for inpatient management. I discussed her condition with the on-call [facility] hospitalist. They have agreed to evaluate the patient in the emergency department for further management and disposition. Triage Nursing notes reviewed. Prior medical records reviewed Vital Signs: reviewed and remarkable for no significant abnormalities Differential diagnosis: Vasovagal event, dehydration, infection, hypoglycemia, electrolyte abno rmalities, cardiac sources, intracerebral event, pulmonary embolism, seizure, toxicologic, neurologic, as well as other pathologies. ER treatment provided: See below Diagnostics interpreted by me: ECG: EKG was obtained in the emergency department. My interpretation is sinus tachycardia at 124 bpm. There were no ectopic beats noted. Anterior Q waves are noted. Very poor R wave progression was noted. This was compared to a tracing from July 14, 2022. The poor R wave progression is new compared to the earlier tracing. Cardiac Monitoring: An order was placed for continuous cardiac monitoring. The monitor shows a rate of 95 bpm with sinus rhythm. Laboratory studies: As stated above and show below. Imaging studies: See below Consultation(s): I discussed this case with Dr. Arias who is on-call for the [facility] hospitalist group. Past Med/Surg History Medical History Acid reflux Anxiety Depression Diabetes NIDDM HLD (hyperlipidemia) Hypertension Hypothyroidism Kidney stones Nausea and vomiting after administration of anesthetic agent Obesity LASHAWN on CPAP Septic shock treated at [facility] inpatient r/t kidney stones and UTI Surgical History H/O: hysterectomy vaginal hysterectomy History of appendectomy History of cataract surgery bilateral History of colonoscopy History of cystoscopy most recent 08/14/22 [facility] with bilateral stent placement History of left knee replacement History of right knee joint replacement History of right oophorectomy History of tonsillectomy Family History Sister Breast cancer Other No family history of adverse response to anesthesia Denies family history of Coronary heart disease Social History Smoking Status: Never smoker Second Hand Exposure: No; Hx Alcohol Use: Yes Alcohol type: hard liquor Hx Substance Use: No Preferred Language: Georgian Communication Ability: Effective [place] Machine Operator Required: No Beliefs That Will Affect Care: None marital status: Single Current Living Situation: Alone current occupational status: employed 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 Feels Safe at Home: Yes Assistive Devices: CPAP Allergies Allergies Allergy/AdvReac Type Severity Reaction Status Date / Time rosuvastatin Allergy Intermediate itching/hiv Verified 09/07/22 12:29 es simvastatin Allergy Intermediate itching/hiv Verified 09/07/22 12:29 es ranitidine Allergy Unknown HIVES, Verified 09/07/22 12:29 REDNESS Home Meds Home Medications Medication Instructions Recorded Confirmed duloxetine 20 mg capsule,delayed 20 mg PO QAM 09/30/19 09/07/22 release glipizide 5 mg tablet, extended 10 mg PO QAM 09/30/19 09/07/22 release 24 hr levothyroxine 50 mcg tablet 50 mcg PO QAM 09/30/19 09/07/22 metformin 500 mg tablet,extended 1,000 mg PO QAM 09/30/19 09/07/22 release 24 hr quinapril 20 mg tablet 20 mg PO QAM 09/30/19 09/07/22 dulaglutide 0.75 mg/0.5 mL 0.75 mg subcut Q7D 07/14/22 09/07/22 subcutaneous pen injector (Trulicity) ezetimibe 10 mg tablet 10 mg PO QAM 07/14/22 09/07/22 latanoprost 0.005 % eye drops 1 drp ophthalmic (eye) HS 07/14/22 09/07/22 L.acidop,casei,lactis,rham-B.lact,agnes 2 cap PO QAM 08/07/22 09/07/22 625 mg (10 billion cell) capsule (Advanced Probiotic) Previous Rx's Medication Instructions Recorded tamsulosin 0.4 mg capsule 0.4 mg PO QAM #30 caps 08/03/22 phenazopyridine 200 mg tablet 200 mg PO Q8H PRN pain #10 tabs 08/14/22 (Pyridium) tamsulosin 0.4 mg capsule 0.4 mg PO HS #30 caps 08/14/22 cephalexin 500 mg capsule 500 mg PO BID 7 days #14 caps 09/07/22 phenazopyridine 200 mg tablet 200 mg PO Q8H PRN pain #10 tabs 09/07/22 (Pyridium) Results & Data (ED) Vital Signs Vital Signs - 24 hr 09/07/22 18:43 09/07/22 19:15 09/07/22 19:31 Temperature 36.8 C Temperature Source Oral Pulse Rate 117 H 116 H Pulse Rate [Right] 119 H Pulse Rate from SpO2 Sensor Respiratory Rate 15 Respiratory Effort / Characteristics Respiratory Depth Normal Blood Pressure Blood Pressure [Right Arm] Blood Pressure Mean Blood Pressure Mean [Right Arm] Pulse Oximetry 95 91 91 Oxygen Delivery Method Room Air Room Air Room Air Sepsis New/Unexplained Change in Mental Status N/A Sepsis Action Taken by Nursing No Action Required 09/07/22 21:15 09/07/22 19:08 09/07/22 19:10 Temperature Temperature Source Pulse Rate 123 H 123 H Pulse Rate [Right] 100 H Pulse Rate from SpO2 Sensor 124 H 123 H Respiratory Rate 14 25 H 22 Respiratory Effort / Characteristics Respiratory Depth Normal Blood Pressure Blood Pressure [Right Arm] 107/63 Blood Pressure Mean Blood Pressure Mean [Right Arm] 77 Pulse Oximetry 92 91 91 Oxygen Delivery Method Room Air Sepsis New/Unexplained Change in Mental Status Sepsis Action Taken by Nursing 09/07/22 19:20 09/07/22 19:30 09/07/22 19:40 Temperature Temperature Source Pulse Rate 120 H 117 H 120 H Pulse Rate [Right] Pulse Rate from SpO2 Sensor 119 H 118 H 123 H Respiratory Rate 27 H 30 H 30 H Respiratory Effort / Characteristics Respiratory Depth Blood Pressure Blood Pressure [Right Arm] Blood Pressure Mean Blood Pressure Mean [Right Arm] Pulse Oximetry 89 L 87 L 90 Oxygen Delivery Method Sepsis New/Unexplained Change in Mental Status Sepsis Action Taken by Nursing 09/07/22 20:04 09/07/22 20:04 09/07/22 20:10 Temperature Temperature Source Pulse Rate 103 H 106 H Pulse Rate [Right] Pulse Rate from SpO2 Sensor 106 H Respiratory Rate 19 27 H Respiratory Effort / Characteristics Respiratory Depth Blood Pressure 112/61 Blood Pressure [Right Arm] Blood Pressure Mean 78 Blood Pressure Mean [Right Arm] Pulse Oximetry 88 L Oxygen Delivery Method Sepsis New/Unexplained Change in Mental Status Sepsis Action Taken by Nursing 09/07/22 20:20 09/07/22 20:30 09/07/22 20:40 Temperature Temperature Source Pulse Rate 104 H 105 H 109 H Pulse Rate [Right] Pulse Rate from SpO2 Sensor 105 H 105 H 106 H Respiratory Rate 27 H 27 H 23 Respiratory Effort / Characteristics Respiratory Depth Blood Pressure Blood Pressure [Right Arm] Blood Pressure Mean Blood Pressure Mean [Right Arm] Pulse Oximetry 91 91 91 Oxygen Delivery Method Sepsis New/Unexplained Change in Mental Status Sepsis Action Taken by Nursing 09/07/22 20:50 09/07/22 21:00 09/07/22 21:10 Temperature Temperature Source Pulse Rate 102 H 98 H 98 H Pulse Rate [Right] Pulse Rate from SpO2 Sensor 102 H 100 H 101 H Respiratory Rate 26 H 24 26 H Respiratory Effort / Characteristics Respiratory Depth Blood Pressure Blood Pressure [Right Arm] Blood Pressure Mean Blood Pressure Mean [Right Arm] Pulse Oximetry 93 93 93 Oxygen Delivery Method Sepsis New/Unexplained Change in Mental Status Sepsis Action Taken by Nursing 09/07/22 21:20 09/07/22 21:20 09/07/22 21:37 Temperature Temperature Source Pulse Rate 99 H Pulse Rate [Right] Pulse Rate from SpO2 Sensor 101 H Respiratory Rate 27 H Respiratory Effort / Characteristics Respiratory Depth Blood Pressure 107/63 Blood Pressure [Right Arm] Blood Pressure Mean 77 Blood Pressure Mean [Right Arm] Pulse Oximetry 92 Oxygen Delivery Method Sepsis New/Unexplained Change in Mental Status Sepsis Action Taken by Nursing 09/07/22 21:40 09/07/22 21:50 09/07/22 22:00 Temperature Temperature Source Pulse Rate 96 H 101 H 95 H Pulse Rate [Right] Pulse Rate from SpO2 Sensor 116 H 101 H 99 H Respiratory Rate 28 H 26 H 27 H Respiratory Effort / Characteristics Respiratory Depth Blood Pressure Blood Pressure [Right Arm] Blood Pressure Mean Blood Pressure Mean [Right Arm] Pulse Oximetry 82 L 93 93 Oxygen Delivery Method Sepsis New/Unexplained Change in Mental Status Sepsis Action Taken by Nursing 09/07/22 22:10 09/07/22 22:20 09/07/22 22:30 Temperature Temperature Source Pulse Rate 94 H 94 H 90 Pulse Rate [Right] Pulse Rate from SpO2 Sensor Respiratory Rate 22 27 H 25 H Respiratory Effort / Characteristics Respiratory Depth Blood Pressure Blood Pressure [Right Arm] Blood Pressure Mean Blood Pressure Mean [Right Arm] Pulse Oximetry Oxygen Delivery Method Sepsis New/Unexplained Change in Mental Status Sepsis Action Taken by Nursing 09/07/22 22:40 09/08/22 00:03 09/07/22 22:48 Temperature Temperature Source Pulse Rate 92 H 87 Pulse Rate [Right] 98 H Pulse Rate from SpO2 Sensor Respiratory Rate 25 H 16 19 Respiratory Effort / Characteristics Non-Labored Respiratory Depth Normal Blood Pressure Blood Pressure [Right Arm] 97/57 L Blood Pressure Mean Blood Pressure Mean [Right Arm] 70 Pulse Oximetry 94 Oxygen Delivery Method Room Air Sepsis New/Unexplained Change in Mental Status Sepsis Action Taken by Nursing 09/07/22 23:54 09/08/22 00:55 09/08/22 00:55 Temperature Temperature Source Pulse Rate 88 Pulse Rate [Right] Pulse Rate from SpO2 Sensor Respiratory Rate 19 Respiratory Effort / Characteristics Respiratory Depth Blood Pressure 97/57 L 66/47 L Blood Pressure [Right Arm] Blood Pressure Mean 70 53 Blood Pressure Mean [Right Arm] Pulse Oximetry Oxygen Delivery Method Sepsis New/Unexplained Change in Mental Status Sepsis Action Taken by Nursing 09/08/22 01:00 09/08/22 01:04 09/08/22 01:04 Temperature Temperature Source Pulse Rate 80 81 Pulse Rate [Right] Pulse Rate from SpO2 Sensor 82 83 Respiratory Rate 24 23 Respiratory Effort / Characteristics Respiratory Depth Blood Pressure 57/45 L Blood Pressure [Right Arm] Blood Pressure Mean 49 Blood Pressure Mean [Right Arm] Pulse Oximetry 93 91 Oxygen Delivery Method Sepsis New/Unexplained Change in Mental Status Sepsis Action Taken by Nursing 09/08/22 01:05 09/08/22 01:05 09/08/22 01:10 Temperature Temperature Source Pulse Rate 78 82 Pulse Rate [Right] Pulse Rate from SpO2 Sensor 79 76 Respiratory Rate 27 H 13 Respiratory Effort / Characteristics Respiratory Depth Blood Pressure 63/40 L Blood Pressure [Right Arm] Blood Pressure Mean 47 Blood Pressure Mean [Right Arm] Pulse Oximetry 93 90 Oxygen Delivery Method Sepsis New/Unexplained Change in Mental Status Sepsis Action Taken by Nursing 09/08/22 01:13 09/08/22 01:13 09/08/22 01:20 Temperature Temperature Source Pulse Rate 81 83 Pulse Rate [Right] Pulse Rate from SpO2 Sensor 78 86 Respiratory Rate 18 22 Respiratory Effort / Characteristics Respiratory Depth Blood Pressure 64/43 L Blood Pressure [Right Arm] Blood Pressure Mean 50 Blood Pressure Mean [Right Arm] Pulse Oximetry 96 97 Oxygen Delivery Method Sepsis New/Unexplained Change in Mental Status Sepsis Action Taken by Nursing 09/08/22 01:29 09/08/22 01:29 09/08/22 01:30 Temperature Temperature Source Pulse Rate 83 82 Pulse Rate [Right] Pulse Rate from SpO2 Sensor 84 84 Respiratory Rate 22 20 Respiratory Effort / Characteristics Respiratory Depth Blood Pressure 72/45 L Blood Pressure [Right Arm] Blood Pressure Mean 54 Blood Pressure Mean [Right Arm] Pulse Oximetry 95 96 Oxygen Delivery Method Sepsis New/Unexplained Change in Mental Status Sepsis Action Taken by Nursing 09/08/22 01:39 09/08/22 01:39 09/08/22 01:40 Temperature Temperature Source Pulse Rate 82 83 Pulse Rate [Right] Pulse Rate from SpO2 Sensor 82 85 Respiratory Rate 19 24 Respiratory Effort / Characteristics Respiratory Depth Blood Pressure 86/49 L Blood Pressure [Right Arm] Blood Pressure Mean 61 Blood Pressure Mean [Right Arm] Pulse Oximetry 94 95 Oxygen Delivery Method Sepsis New/Unexplained Change in Mental Status Sepsis Action Taken by Residential Medications Current Medication List: was personally reviewed by me Laboratory Data Attestation: I reviewed the patient's lab results. Result diagrams: 09/08/22 07:45 09/08/22 05:55 Lab Results 09/07/22 09/07/22 09/07/22 Range/Units Unknown Unknown Unknown WBC 7.31 (4.8-10.8) K/ul RBC 3.85 L (3.93-5.22) M/uL Hgb 11.0 L (12.0-16.0) g/dl Hct 34.7 (34.1-44.9) % MCV 90.1 (80.0-100.0) fL MCH 28.6 (25.0-34.0) pg MCHC 31.7 L (32.0-36.0) g/dL RDW Std Deviation 45.2 (36.4-46.3) fL RDW Coeff of Brijesh 13.9 (11.5-14.5) % Plt Count 333 (130-400) K/uL MPV 8.7 L (9.4-12.3) fL Immature Gran % (Auto) 0.7 % Neut % (Auto) 96.3 % Lymph % (Auto) 2.1 % [place] % (Auto) 0.3 % Eos % (Auto) 0.3 % Baso % (Auto) 0.3 % Neut # (Auto) 7.05 H (1.4-6.5) K/uL Lymph # (Auto) 0.15 L (1.2-3.4) K/uL [place] # (Auto) 0.02 L (0.24-0.82) K/uL Eos # (Auto) 0.02 (0-0.50) K/uL Baso # (Auto) 0.02 (0-0.2) K/uL Immature Gran # (Auto) 0.05 H (0.00-0.02) K/uL Toxic Vacuolation 2+ PT 11.4 Cancelled (9.0-12.0) Seconds INR 1.1 Cancelled (0.9-1.1) APTT 24.8 Cancelled (21.0-31.0) Seconds PTT Ratio 0.9 Cancelled D-Dimer > 93386 H* (0-500) ug/L FEU VBG pH (7.36-7.41) VBG pCO2 (38-50) mmHg VBG pO2 mmHg VBG HCO3 mmol/L VBG O2 Saturation % VBG Base Excess mEq/L Sodium (136-145) mmol/L Potassium (3.5-5.1) mmol/L Chloride (98-107) mmol/L Carbon Dioxide (21-32) mmol/L Anion Gap (3-11) BUN (6-23) mg/dl Creatinine (0.6-1.2) mg/dl Est Cr Clr Drug Dosing ml/min Est GFR ( Amer) ml/min Est GFR (Non-Af Amer) ml/min BUN/Creatinine Ratio (10-20) Glucose (70-99(Fasting)) mg/dl Lactate (0.4-2.0) mmol/L Calcium (8.5-10.1) mg/dl Magnesium (1.7-2.4) mg/dl Total Bilirubin (0.2-1.0) mg/dl AST (13-39) U/L ALT (7-52) U/L Alkaline Phosphatase (34-104) U/L Total Creatine Kinase (26-192) U/L Troponin I High Sens (0-14) pg/ml Total Protein (6.0-8.3) gm/dl Albumin (3.4-5.0) gm/dl Globulin (2.5-4.0) gm/dl Albumin/Globulin Ratio (0.9-2) Procalcitonin (0-0.5) ng/ml TSH (0.300-4.500) uIu/ml Free T4 (0.61-1.60) ng/dl Urine Color Urine Appearance (Clear) Urine pH (4.5-7.5) Ur Specific Dennis (1.000-1.030) Urine Protein (Negative) Urine Glucose (UA) (Negative) Urine Ketones (Negative) Urine Blood (Negative) Urine Nitrite (Negative) Urine Bilirubin (Negative) Urine Urobilinogen (Negative) Ur Leukocyte Esterase (Negative) Urine WBC (Auto) (0-5) /hpf Urine RBC (Auto) (0-4) /hpf U Hyaline Cast (Auto) (0-5) /lpf U Epithel Cells (Auto) (0-5) /lpf Urine Bacteria (Auto) (Negative) SARS-CoV-2, RNA, NAAT (NEGATIVE) 09/07/22 09/07/22 09/08/22 Range/Units Unknown Unknown 01:00 WBC (4.8-10.8) K/ul RBC (3.93-5.22) M/uL Hgb (12.0-16.0) g/dl Hct (34.1-44.9) % MCV (80.0-100.0) fL MCH (25.0-34.0) pg MCHC (32.0-36.0) g/dL RDW Std Deviation (36.4-46.3) fL RDW Coeff of Brijesh (11.5-14.5) % Plt Count (130-400) K/uL MPV (9.4-12.3) fL Immature Gran % (Auto) % Neut % (Auto) % Lymph % (Auto) % [place] % (Auto) % Eos % (Auto) % Baso % (Auto) % Neut # (Auto) (1.4-6.5) K/uL Lymph # (Auto) (1.2-3.4) K/uL [place] # (Auto) (0.24-0.82) K/uL Eos # (Auto) (0-0.50) K/uL Baso # (Auto) (0-0.2) K/uL Immature Gran # (Auto) (0.00-0.02) K/uL Toxic Vacuolation PT (9.0-12.0) Seconds INR (0.9-1.1) APTT (21.0-31.0) Seconds PTT Ratio D-Dimer (0-500) ug/L FEU VBG pH (7.36-7.41) VBG pCO2 (38-50) mmHg VBG pO2 mmHg VBG HCO3 mmol/L VBG O2 Saturation % VBG Base Excess mEq/L Sodium 135 L (136-145) mmol/L Potassium 3.9 (3.5-5.1) mmol/L Chloride 101 (98-107) mmol/L Carbon Dioxide 21 (21-32) mmol/L Anion Gap 13 H (3-11) BUN 16 (6-23) mg/dl Creatinine 1.58 H (0.6-1.2) mg/dl Est Cr Clr Drug Dosing 39.1 ml/min Est GFR ( Amer) 35.9 ml/min Est GFR (Non-Af Amer) 31.0 ml/min BUN/Creatinine Ratio 10.1 (10-20) Glucose 176 H (70-99(Fasting)) mg/dl Lactate (0.4-2.0) mmol/L Calcium 8.8 (8.5-10.1) mg/dl Magnesium 1.4 L (1.7-2.4) mg/dl Total Bilirubin 0.5 (0.2-1.0) mg/dl AST 13 (13-39) U/L ALT 7 (7-52) U/L Alkaline Phosphatase 84 (34-104) U/L Total Creatine Kinase (26-192) U/L Troponin I High Sens 35.3 H D (0-14) pg/ml Total Protein 7.0 (6.0-8.3) gm/dl Albumin 3.2 L (3.4-5.0) gm/dl Globulin 3.8 (2.5-4.0) gm/dl Albumin/Globulin Ratio 0.8 L (0.9-2) Procalcitonin (0-0.5) ng/ml TSH 4.687 H (0.300-4.500) uIu/ml Free T4 0.96 (0.61-1.60) ng/dl Urine Color Urine Appearance (Clear) Urine pH (4.5-7.5) Ur Specific Dennis (1.000-1.030) Urine Protein (Negative) Urine Glucose (UA) (Negative) Urine Ketones (Negative) Urine Blood (Negative) Urine Nitrite (Negative) Urine Bilirubin (Negative) Urine Urobilinogen (Negative) Ur Leukocyte Esterase (Negative) Urine WBC (Auto) (0-5) /hpf Urine RBC (Auto) (0-4) /hpf U Hyaline Cast (Auto) (0-5) /lpf U Epithel Cells (Auto) (0-5) /lpf Urine Bacteria (Auto) (Negative) SARS-CoV-2, RNA, NAAT NEGATIVE (NEGATIVE) 09/08/22 09/08/22 09/08/22 Range/Units 01:03 01:23 01:27 WBC (4.8-10.8) K/ul RBC (3.93-5.22) M/uL Hgb (12.0-16.0) g/dl Hct (34.1-44.9) % MCV (80.0-100.0) fL MCH (25.0-34.0) pg MCHC (32.0-36.0) g/dL RDW Std Deviation (36.4-46.3) fL RDW Coeff of Brijesh (11.5-14.5) % Plt Count (130-400) K/uL MPV (9.4-12.3) fL Immature Gran % (Auto) % Neut % (Auto) % Lymph % (Auto) % [place] % (Auto) % Eos % (Auto) % Baso % (Auto) % Neut # (Auto) (1.4-6.5) K/uL Lymph # (Auto) (1.2-3.4) K/uL [place] # (Auto) (0.24-0.82) K/uL Eos # (Auto) (0-0.50) K/uL Baso # (Auto) (0-0.2) K/uL Immature Gran # (Auto) (0.00-0.02) K/uL Toxic Vacuolation PT (9.0-12.0) Seconds INR (0.9-1.1) APTT (21.0-31.0) Seconds PTT Ratio D-Dimer (0-500) ug/L FEU VBG pH 7.31 L (7.36-7.41) VBG pCO2 40 (38-50) mmHg VBG pO2 65 mmHg VBG HCO3 20 mmol/L VBG O2 Saturation 92.6 % VBG Base Excess -5.8 mEq/L Sodium (136-145) mmol/L Potassium (3.5-5.1) mmol/L Chloride (98-107) mmol/L Carbon Dioxide (21-32) mmol/L Anion Gap (3-11) BUN (6-23) mg/dl Creatinine (0.6-1.2) mg/dl Est Cr Clr Drug Dosing ml/min Est GFR ( Amer) ml/min Est GFR (Non-Af Amer) ml/min BUN/Creatinine Ratio (10-20) Glucose (70-99(Fasting)) mg/dl Lactate 4.6 H* (0.4-2.0) mmol/L Calcium (8.5-10.1) mg/dl Magnesium (1.7-2.4) mg/dl Total Bilirubin (0.2-1.0) mg/dl AST (13-39) U/L ALT (7-52) U/L Alkaline Phosphatase (34-104) U/L Total Creatine Kinase (26-192) U/L Troponin I High Sens (0-14) pg/ml Total Protein (6.0-8.3) gm/dl Albumin (3.4-5.0) gm/dl Globulin (2.5-4.0) gm/dl Albumin/Globulin Ratio (0.9-2) Procalcitonin (0-0.5) ng/ml TSH (0.300-4.500) uIu/ml Free T4 (0.61-1.60) ng/dl Urine Color Red Urine Appearance Cloudy A (Clear) Urine pH 6.0 (4.5-7.5) Ur Specific Dennis 1.012 (1.000-1.030) Urine Protein 3+ H (Negative) Urine Glucose (UA) Negative (Negative) Urine Ketones Negative (Negative) Urine Blood 3+ H (Negative) Urine Nitrite Negative (Negative) Urine Bilirubin Negative (Negative) Urine Urobilinogen Negative (Negative) Ur Leukocyte Esterase 3+ H (Negative) Urine WBC (Auto) >30 H (0-5) /hpf Urine RBC (Auto) >30 H (0-4) /hpf U Hyaline Cast (Auto) 0 (0-5) /lpf U Epithel Cells (Auto) 20-30 H (0-5) /lpf Urine Bacteria (Auto) 4+ H (Negative) SARS-CoV-2, RNA, NAAT (NEGATIVE) 09/08/22 09/08/22 Range/Units 01:27 01:27 WBC (4.8-10.8) K/ul RBC (3.93-5.22) M/uL Hgb (12.0-16.0) g/dl Hct (34.1-44.9) % MCV (80.0-100.0) fL MCH (25.0-34.0) pg MCHC (32.0-36.0) g/dL RDW Std Deviation (36.4-46.3) fL RDW Coeff of Brijesh (11.5-14.5) % Plt Count (130-400) K/uL MPV (9.4-12.3) fL Immature Gran % (Auto) % Neut % (Auto) % Lymph % (Auto) % [place] % (Auto) % Eos % (Auto) % Baso % (Auto) % Neut # (Auto) (1.4-6.5) K/uL Lymph # (Auto) (1.2-3.4) K/uL [place] # (Auto) (0.24-0.82) K/uL Eos # (Auto) (0-0.50) K/uL Baso # (Auto) (0-0.2) K/uL Immature Gran # (Auto) (0.00-0.02) K/uL Toxic Vacuolation PT (9.0-12.0) Seconds INR (0.9-1.1) APTT (21.0-31.0) Seconds PTT Ratio D-Dimer (0-500) ug/L FEU VBG pH (7.36-7.41) VBG pCO2 (38-50) mmHg VBG pO2 mmHg VBG HCO3 mmol/L VBG O2 Saturation % VBG Base Excess mEq/L Sodium 133 L (136-145) mmol/L Potassium 3.7 (3.5-5.1) mmol/L Chloride 103 (98-107) mmol/L Carbon Dioxide 20 L (21-32) mmol/L Anion Gap 10 (3-11) BUN 18 (6-23) mg/dl Creatinine 1.97 H D (0.6-1.2) mg/dl Est Cr Clr Drug Dosing 31.4 ml/min Est GFR ( Amer) 27.5 ml/min Est GFR (Non-Af Amer) 23.8 ml/min BUN/Creatinine Ratio 9.1 L (10-20) Glucose 113 H (70-99(Fasting)) mg/dl Lactate (0.4-2.0) mmol/L Calcium 7.8 L (8.5-10.1) mg/dl Magnesium (1.7-2.4) mg/dl Total Bilirubin (0.2-1.0) mg/dl AST (13-39) U/L ALT (7-52) U/L Alkaline Phosphatase (34-104) U/L Total Creatine Kinase 53 (26-192) U/L Troponin I High Sens 80.6 H* D (0-14) pg/ml Total Protein (6.0-8.3) gm/dl Albumin (3.4-5.0) gm/dl Globulin (2.5-4.0) gm/dl Albumin/Globulin Ratio (0.9-2) Procalcitonin > 200.00 H (0-0.5) ng/ml TSH (0.300-4.500) uIu/ml Free T4 (0.61-1.60) ng/dl Urine Color Urine Appearance (Clear) Urine pH (4.5-7.5) Ur Specific Dennis (1.000-1.030) Urine Protein (Negative) Urine Glucose (UA) (Negative) Urine Ketones (Negative) Urine Blood (Negative) Urine Nitrite (Negative) Urine Bilirubin (Negative) Urine Urobilinogen (Negative) Ur Leukocyte Esterase (Negative) Urine WBC (Auto) (0-5) /hpf Urine RBC (Auto) (0-4) /hpf U Hyaline Cast (Auto) (0-5) /lpf U Epithel Cells (Auto) (0-5) /lpf Urine Bacteria (Auto) (Negative) SARS-CoV-2, RNA, NAAT (NEGATIVE) Administered Medications Duloxetine HCl (Duloxetine Hcl 20 Mg Cap) 20 mg PO [facility] Stop: 10/08/22 08:59 Last Admin: 09/08/22 08:25 Dose: 20 mg Documented By: WOLF Ezetimibe (Ezetimibe 10 Mg Tablet) 10 mg PO [facility] Stop: 10/08/22 08:59 Last Admin: 09/08/22 08:25 Dose: 10 mg Documented By: WOLF Piperacillin Sod/Tazobactam (Sod 4.5 gm/ Dextrose) 120 mls @ 30 mls/hr IV Q8H [facility]; Protocol Stop: 09/18/22 07:59 Last Admin: 09/08/22 07:16 Dose: 30 mls/hr Documented By: WOLF Insulin Aspart (Insulin Aspart Per Unit) [address] [facility] Stop: 10/08/22 02:09 Last Admin: 09/08/22 03:49 Dose: Not Given Documented By: AUBREY Levothyroxine Sodium (Levothyroxine Sodium 50 Mcg Tablet) 50 mcg PO DAILYBB PAM Stop: 10/08/22 06:29 Last Admin: 09/08/22 06:37 Dose: 50 mcg Documented By: AUBREY Discontinued Medications Acetaminophen (Acetaminophen 500 Mg Tab) 1,000 mg PO NOW STA Stop: 09/07/22 20:36 Last Admin: 09/07/22 20:43 Dose: 1,000 mg Documented By: JULIANN Sodium Chloride (Nss) 500 mls @ 999 mls/hr IV .Q31M PAM Stop: 09/07/22 20:15 Last Infusion: 09/07/22 22:02 Dose: 0 mls/hr Documented By: Admin: 09/07/22 20:01 Dose: 999 mls/hr Documented By: JULIANN Magnesium Sulfate/Dextrose (Magnesium Sulfate / D5w) 1 gm in 100 mls @ 100 mls/hr IV NOW STA Stop: 09/07/22 21:10 Last Infusion: 09/07/22 22:02 Dose: 0 mls/hr Documented By: Admin: 09/07/22 20:24 Dose: 100 mls/hr Documented By: JULIANN Sodium Chloride (Nss) 500 mls @ 999 mls/hr IV .Q31M ONE Stop: 09/08/22 00:25 Last Infusion: 09/08/22 00:32 Dose: 0 mls/hr Documented By: Admin: 09/08/22 00:04 Dose: 999 mls/hr Documented By: SUSAN Sodium Chloride (Nss 1000ml) 500 mls @ 999 mls/hr IV .Q31M ONE Stop: 09/08/22 01:12 Last Infusion: 09/08/22 01:38 Dose: 0 mls/hr Documented By: Admin: 09/08/22 00:57 Dose: 999 mls/hr Documented By: KELLI Magnesium Sulfate/Dextrose (Magnesium Sulfate / D5w) 1 gm in 100 mls @ 50 mls/hr IV Q2H PAM Stop: 09/08/22 04:59 Last Infusion: 09/08/22 06:04 Dose: 0 mls/hr Documented By: Admin: 09/08/22 04:04 Dose: 50 mls/hr Documented By: Infusion: 09/08/22 04:04 Dose: 0 mls/hr Documented By: Admin: 09/08/22 02:08 Dose: 50 mls/hr Documented By: SUSAN Piperacillin Sod/Tazobactam Sod (Zosyn) 4.5 gm in 120 mls @ 240 mls/hr IV NOW ONE Stop: 09/08/22 01:26 Last Infusion: 09/08/22 02:37 Dose: 0 mls/hr Documented By: Admin: 09/08/22 02:01 Dose: 240 mls/hr Documented By: SUSAN Sodium Chloride (Nss) 500 mls @ 999 mls/hr IV .Q31M ONE Stop: 09/08/22 01:41 Last Infusion: 09/08/22 02:37 Dose: 0 mls/hr Documented By: Admin: 09/08/22 02:09 Dose: 999 mls/hr Documented By: SUSAN Lactated Ringer's (Lr) 1,000 mls @ 500 mls/hr IV .Q2H ONE Stop: 09/08/22 03:11 Last Infusion: 09/08/22 04:52 Dose: 0 mls/hr Documented By: Admin: 09/08/22 02:34 Dose: 250 mls/hr Documented By: SUSAN Lactated Ringer's (Lr) 1,000 mls @ 200 mls/hr IV .Q5H ONE Stop: 09/08/22 09:29 Last Infusion: 09/08/22 07:02 Dose: 200 mls/hr Documented By: Admin: 09/08/22 04:52 Dose: 200 mls/hr Documented By: AUBREY Ioversol (Optiray 320 500ml) 78 ml IV ONCE ONE Stop: 09/07/22 21:35 Last Admin: 09/07/22 21:34 Dose: 78 ml Documented By: SOLIS Magnesium Sulfate/Dextrose (Magnesium Sulfate 1gm / D5w Bag) Confirm Administered Dose 1 gm IV .STK-MED ONE Stop: 09/08/22 01:01 Last Admin: 09/08/22 01:38 Dose: Not Given Documented By: SUSAN Midodrine (Midodrine Hcl 2.5 Mg Tab) 2.5 mg PO NOW STA Stop: 09/08/22 03:01 Last Admin: 09/08/22 03:42 Dose: 2.5 mg Documented By: AUBREY Tramadol HCl (Tramadol Hcl 50 Mg Tablet) 25 mg PO NOW STA Stop: 09/08/22 02:09 Last Admin: 09/08/22 02:26 Dose: 25 mg Documented By: AW Imaging Data Radiologist's Impression: KUB X-Ray 09/07/22 19:31 KUB CLINICAL HISTORY: Ureteral stent. FINDINGS: 4 AP, portable, supine abdominal radiographs are correlated with abdominal CT dated 07/14/2022. There is a nonobstructed abdominal bowel gas pattern. A right ureteral stent is in place. No calcifications are clearly identified in the right ureter along the course of the stent. There are several nonobstructing calculi projecting over the right kidney which measure up to 7 mm. No left renal calculi are clearly identified. There are numerous phleboliths in the pelvis. The skeletal structures are osteopenic and appear intact. There is moderate lumbosacral spondylosis. IMPRESSION: 1. A right ureteral stent is in place. No calcifications are clearly seen in the right ureter along the course of the stent. 2. Additional nonobstructing calculi project over the right kidney. 3. Nonobstructed abdominal bowel gas pattern. Electronically signed by: Kang Escobar M.D. 09/07/2022 8:26 PM Chest CTA 09/07/22 21:11 CT angio chest PE protocol CT DOSE: 1094.74 mGy.cm HISTORY: 77 years-old Female with PE. Acute shortness of breath TECHNIQUE: Multiple CTA images of the chest were obtained after the intravenous administration of 78 ml Optiray. Coronal and sagittal MIPS were obtained from the axial data set and were submitted for review. All measurements were obtained according to NASCET criteria. A dose lowering technique was utilized adhering to the principles of ALARA. COMPARISON: CT abdomen and pelvis 09/08/2022, 09/30/2019. FINDINGS: CTA: The heart is mildly enlarged. Unremarkable thoracic aorta without aneurysm or dissection. Descending thoracic aortic tortuosity. The opacified pulmonary artery is unremarkable. The segmental and subsegmental branches are not well evaluated secondary to contrast bolus timing and respiratory motion artifact. CT CHEST: Unremarkable thyroid. No lymphadenopathy identified. No pneumothorax, pleural effusion, airspace consolidation or overt pulmonary edema. Mild dependent subsegmental bibasilar atelectasis. Scattered bilateral solid pulmonary nodules (please see bookmarks) measuring up to 6 mm within the right lower lobe. This largest nodule appears stable from 2019. Unremarkable soft tissues. No acute fracture. Degenerative changes of the shoulders and spine. IMPRESSION: 1. No pulmonary emboli are identified. 2. No pleural effusion or airspace consolidation typical for pneumonia. 3. Scattered bilateral subcentimeter pulmonary nodules measure up to 6 mm. Follow-up guidelines provided below. 4. Please refer to the CT abdomen and pelvis study of same day for additional findings. Please refer to below summary of Fleischner criteria recommendations for follow- up of incidental CT nodules (Syd Isaac, Guidelines for management of small pulmonary nodules detected on CT scans: A statement from the Fleischner Society, Radiology 237: [phone].) SOLID NODULES Multiple nodules size: <6 mm * Low risk patients: no routine follow-up * high risk patients: optional CT at 12 months Note: newly detected indeterminate nodule in persons 35 years of age or older. * Low risk patients: minimal or absent history of smoking and/or other known risk factors * high risk patients: history of smoking or of other known risk factors (e.g. first degree relative with lung cancer, or exposure to asbestos, radon, uranium) * if a nodule up to 8 mm is partly solid or is ground glass further follow-up is required after 24 months to exclude possible slow growing adenocarcinoma (CEDRIC) ACT 112: Negative or not required by law. The above report was generated using voice recognition software. It may contain grammatical, syntax or spelling errors. Electronically signed by: Vic Garcia M.D. 09/08/2022 7:57 AM Abdomen/Pelvis CT 09/08/22 01:11 CT OF THE ABDOMEN AND PELVIS WITHOUT CONTRAST CLINICAL HISTORY: Right flank pain. COMPARISON STUDY: CT of the abdomen and pelvis July 14, 2022. KUB September 07, 2022.. TECHNIQUE: Axial images of the abdomen and pelvis were obtained without IV contrast. Images were reviewed in the axial, sagittal, and coronal planes. Automated exposure control was utilized for the study. A dose lowering technique was utilized adhering to the principles of ALARA. FINDINGS: A few nodules within the lower lungs were present on prior CT of July 14, 2022. A 6 lm right lower lobe nodule on image 44 of 493 is new since that exam. Cardiomegaly is present. There is a hiatal hernia. No pneumatosis, free air or portal venous gas is present. Right ureteral stent is appropriately positioned. There is gas within the right collecting system from recent procedure. There is no right hydronephrosis. Stranding within the right renal sinus is present. There are multiple right renal calculi as well as calculi within the right renal pelvis that measure up to 6 mm. No ureteral calculi are identified although this exam is compromised by motion artifact. Renal hyperdensity is due to recent contrast-enhanced chest CT. Note is made of a 6.3 x 2.5 x 5.6 cm right subcapsular renal fluid collection which contains layering hyperdense material. No additional fluid collections are present. There is moderate bilateral renal atrophy. Faint radiodensities within the left collecting system could reflect excreted contrast although calculi could appear similar. There is a 2 mm calculus within lower pole of the left kidney. There are no left ureteral calculi. Left-sided parapelvic cysts are noted. There is no definite hydronephrosis. Rush balloon within the bladder is present. The bladder is collapsed. There are no bladder calculi. Unenhanced images of the liver, adrenal glands and pancreas are unremarkable. Mild splenomegaly is unchanged. The gallbladder is not distended. There is no evidence for a bowel obstruction. Diverticulosis is noted without evidence for acute diverticulitis. A moderate amount stool within the colon is present. No acute fracture within the visualized skeletal structures is present. Prominent retroperitoneal lymph nodes are likely reactive. IMPRESSION: 1. Right ureteral stent in place with collecting system gas related to recent procedure. No hydronephrosis. Multiple right renal pelvis calculi and right- sided nephrolithiasis. No ureteral calculi. 2. 6.3 x 2.5 x 5.6 cm right subcapsular renal fluid collection which contains layering hyperdense material. A subcapsular hematoma is favored. A urinoma containing excreted contrast could appear similar. 3. Small left renal calculi, as above. No left ureteral calculi. Apparent left collecting system dilatation which is likely related to parapelvic cysts. Mild left hydronephrosis could appear similar. 4. No bowel obstruction. No bowel wall thickening on unenhanced exam. 5. Mildly distended gallbladder. ACT 112: Negative or not required by law. Electronically signed by: Kyle Allen M.D. 09/08/2022 7:[address] 09/08/22 01:11 CT head/brain wo con CLINICAL HISTORY: 77 years-old Female with AMS. Acutely altered mental status TECHNIQUE: Multiple axial CT images of the head were obtained without contrast. A dose lowering technique was utilized adhering to the principles of ALARA. CT DOSE: 2875.54 mGy.cm COMPARISON: None. FINDINGS: No acute intracranial hemorrhage, midline shift, intracranial mass, hydrocephalus, territorial ischemia or abnormal extra-axial collection. Motion degraded exam. Involutional changes with ventriculomegaly. White matter hypodensities suggest chronic microvascular ischemic disease. Cerebral vascular calcifications. The calvarium is intact. Prior bilateral lens repair. The paranasal sinuses, mastoid air cells, and middle ear cavities are clear. IMPRESSION: 1. No acute intracranial abnormality. 2. Involutional changes with ventriculomegaly, likely on an ex vacuo basis. 3. White matter hypodensities suggest chronic microvascular ischemic disease. ACT 112: Negative or not required by law. The above report was generated using voice recognition software. It may contain grammatical, syntax or spelling errors. Electronically signed by: Vic Garcia M.D. 09/08/2022 6:57 AM Patient: MICA JIMÉNEZ (Female) : 43 Status: ER Date: 09/07/22 21:38 Room #: History: SOB Slices: [phone] Priors: Tech: Sindy Villar @ [phone] Exams: CTA CHEST Contrast: IV Amt: 78ml Accession Numbers: [id number] Referring Physician: ELIAS GILL Preliminary Findings Only See Final Report For Complete Findings CTA CHEST: Impression: No pulmonary embolism identified. Scattered nodules are seen in the lungs measuring less than 6 mm. Recommend follow-up CT chest in 12 months if patient is at high risk for malignancy per Fleischner criteria. Radiologist: King Corrales MD Study ready at 21:46 and initial results transmitted at 22:00 Discharge Plan Visit Data Chief Complaint: Syncope Stated Complaint: SYNCOPE ED Provider: Elias Gill Discharge Problem: Syncope, Weakness, Abnormal EKG, Elevated troponin I level, Hypomagnesemia, Acute UTI (urinary tract infection) Patient Disposition: Admitted As Inpatient Condition: Good Discharge Instructions Interventions: ED Discharge Assessment Last Done: 09/08/22 02:11
[2022-09-07 19:55] LABS: Hematocrit (blood only) 34.7 % (34.1-44.9); Mean Corpuscular Hemoglobin 28.6 pg (25.0-34.0); Mean Corpuscular Hgb Conc 31.7 g/dL (32.0-36.0); Mean Corpuscular Volume 90.1 fL (80.0-100.0); Mean Platelet Volume 8.7 fL (9.4-12.3); Platelet Count 333 K/uL (130-400); RDW Coefficient of Variation 13.9 % (11.5-14.5); RDW Standard Deviation 45.2 fL (36.4-46.3); Red Blood Count 3.85 M/uL (3.93-5.22); White Blood Count 7.31 K/ul (4.8-10.8)
[2022-09-07 20:08] LABS: Albumin Globulin Ratio 0.8 (0.9-2); Albumin Level 3.2 gm/dl (3.4-5.0); BUN Creatinine Ratio 10.1 (10-20); Bilirubin,Total 0.5 mg/dl (0.2-1.0); Calcium 8.8 mg/dl (8.5-10.1); Creatinine Clr Calc Pharmacy 39.1 ml/min; Est GFR (African American) 35.9 ml/min; Globulin 3.8 gm/dl (2.5-4.0); Magnesium 1.4 mg/dl (1.7-2.4); Potassium 3.9 mmol/L (3.5-5.1)
[2022-09-07 20:11] LABS: Troponin I High Sensitivity 35.3 pg/ml (0-14)
[2022-09-07] MEDS ORDERED: MAGNESIUM SULFATE / D5W 1 GM/100 ML BAG IV STA (20:11)
[2022-09-07 20:16] LABS: INR 1.1 (0.9-1.1); Partial Thromboplastin Ratio 0.9; Partial Thromboplastin Time 24.8 Seconds (21.0-31.0); Prothrombin Time 11.4 Seconds (9.0-12.0)
[2022-09-07 20:20] LABS: Thyroid Stimulating Hormone 4.687 uIu/ml (0.300-4.500)
--- NOTE | 2022-09-07 20:24 | XRay Report ---
SINGLE VIEW CHEST CLINICAL HISTORY: Syncope. FINDINGS: An AP, portable, upright chest radiograph is compared to study dated 07/16/2022. The examina tion is degraded by portable technique, apical lordotic positioning, and patient rotation. The heart is enlarged. There is prominence of the pulmonary vasculature. The lungs and pleural spaces are mayra r noting mild bibasilar scarring/atelectasis. No pneumothorax is seen. The skeletal structures are os teopenic. The bony thorax is grossly intact. IMPRESSION: Cardiomegaly with prominence of the pulmonary vasculature. Correlate clinically for evide nce of fluid overload/mild congestive change. ACT 112: Negative or not required by law. Electronically signed by: Kang Escobar M.D. 09/07/2022 8:23 PM
--- NOTE | 2022-09-07 20:27 | XRay Report ---
KUB CLINICAL HISTORY: Ureteral stent. FINDINGS: 4 AP, portable, supine abdominal radiographs are correlated with abdominal CT dated 07/14/20 22. There is a nonobstructed abdominal bowel gas pattern. A right ureteral stent is in place. No calc ifications are clearly identified in the right ureter along the course of the stent. There are severa l nonobstructing calculi projecting over the right kidney which measure up to 7 mm. No left renal ede culi are clearly identified. There are numerous phleboliths in the pelvis. The skeletal structures ar e osteopenic and appear intact. There is moderate lumbosacral spondylosis. IMPRESSION: 1. A right ureteral stent is in place. No calcifications are clearly seen in the right ureter along t he course of the stent. 2. Additional nonobstructing calculi project over the right kidney. 3. Nonobstructed abdominal bowel gas pattern. Electronically signed by: Kang Escobar M.D. 09/07/2022 8:26 PM
[2022-09-07 20:35] LABS: Basophils # (auto) 0.02 K/uL (0-0.2); Basophils % (auto) 0.3 %; Eosinophils # (auto) 0.02 K/uL (0-0.50); Eosinophils % (auto) 0.3 %; Immature Granulocytes # (auto) 0.05 K/uL (0.00-0.02); Immature Granulocytes % (auto) 0.7 %; Lymphocytes # (auto) 0.15 K/uL (1.2-3.4); Lymphocytes % (auto) 2.1 %; Monocytes # (auto) 0.02 K/uL (0.24-0.82); Monocytes % (auto) 0.3 %; Neutrophils # (auto) 7.05 K/uL (1.4-6.5); Neutrophils % (auto) 96.3 %; Toxic Vacuolation 2+
[2022-09-07] MEDS ORDERED: ACETAMINOPHEN 500 MG TAB PO STA (20:35)
[2022-09-07 20:59] LABS: T4 Free Thyroxine 0.96 ng/dl (0.61-1.60)
[2022-09-07 21:13] LABS: D Dimer > 35200 ug/L FEU (0-500)
[2022-09-07] MEDS ORDERED: OPTIRAY 320 500ml IV ONE (21:34)
[2022-09-07] MEDS ORDERED: SODIUM CHLORIDE 0.9% 500 ML IV ONE (23:55)
[2022-09-08] MEDS ORDERED: SODIUM CHLORIDE 0.9% 1000ML 500 ML IV ONE (00:42)
[2022-09-08] MEDS ORDERED: PIPERACILLIN/TAZOBACTAM 4.5 GM/120 ML BAG IV ONE (00:57)
[2022-09-08] MEDS ORDERED: MAGNESIUM SULFATE 1GM / D5W BAG IV ONE (01:00)
[2022-09-08] MEDS ORDERED: SODIUM CHLORIDE 0.9% 500 ML IV ONE (01:11)
[2022-09-08] MEDS ORDERED: LACTATED RINGER'S 1,000 ML IV ONE ×2 (01:12→04:30)
--- NOTE | 2022-09-08 01:12 | History & Physical Report ---
Date of Service September 08, 2022 Assessment & Plan (1) Hypotension: Plan: Multifactorial : Hypovolemia Complicated UTI, possible sepsis, recent urologic procedure, history recurrent urolithiasis ARF on CKD secondary to illness Troponin elevation secondary to illness in the setting of kidney dysfunction Syncope secondary to illness, postanesthetic effect past hx PSVT valvular heart disease (mild MR/TR, TTE 2021) DM2 on oral medications, reasonable control as of recent hemoglobin A1c of 7.5 last July 2022 hyperlipidemia/statin intolerance hypothyroidism, TSH slightly elevated chronic anemia, hemoglobin at baseline anxiety/mood disorder, at baseline PCU CS,, Zosyn Monitor creatinine and lactic acid response to IVF Hold BP meds, Flomax for now Midodrine 1 dose now (Patient refusing IV vasopressors) Follow troponin, TTE if with progression Urology consult Re: Postop eval Basal bolus insulin, ISS BG goal 1 10-1 40, carb count coverage DVT prophylaxis. Heparin subcu DNR as per patient. Patient [id number] (Ms. Nimisha Meade) updated of plan of care. She requests updates from providers through [phone]. Total critical care time was 45 minutes. Text document was generated using [employer] voice recognition software. It may contain grammatical or spelling errors. Kindly contact undersigned for clarification of any documentation item in question. History of Present Illness Chief Complaint: Syncope as per records Cannot remember as per patient Primary Care Provider: Sindy Weber DO History obtained from patient, family, and records. Patient is a reliable historian. Medical history significant for PSVT, hypertension, valvular heart disease (mild MR/TR, TTE 2021), DM2 on oral medications, hyperlipidemia/statin intolerance, hypothyroidism, CRI (baseline creatinine 1.3), chronic anemia (baseline hemoglobin 9-10), LASHAWN on CPAP, GERD, recurrent urolithiasis, anxiety/mood disorder. Last confinement July 2022 for septic shock secondary to complicated UTI secondary to obstructive uropathy. E. coli on CS. Patient underwent emergent cystoscopy and bilateral ureteral stent placement. Initial ICU stay for pressor Rx. PSVT during confinement. Yesterday, patient underwent elective cystoscopy, left stent removal, right ureteric dilatation with stent exchange at same-day surgery. Patient discharged home with Keflex prescription. Patient noted to be unresponsive on the way home from the hospital after the procedure. No witnessed seizures. EMS called to patient's home. Patient brought to the ER for evaluation last night. Patient denies headache, chest pain, SOB. Usual stent discomfort as per patient. Patient does not recall passing out upon return home from same-day surgery. Abnormal troponin and D-dimer on initial ER testing. CT chest initial read results as follows: No pulmonaryembolismidentified. Scattered nodules are seen in the lungs measuring less than 6 mm. Recommend follow-up CT chest in 12 months if patient is at high risk for malignancyper Fleischner criteria. Patient insisted on returning home despite recommendation of ER provider for patient to be admitted. Patient [id number] was not comfortable taking patient home upon return to ER to orange picker patient at the waiting room. Patient looked weak. SBP 60-90s upon return to ER. Gross hematuria noted on Rush catheter placement. IVF boluses, Zosyn administered at the ER. Patient denies headache, chest pain, SOB. Complaining of usual stent pain. Medical History as above Surgical History : Knee surgery, partial hysterectomy, cataract surgery, right oophorectomy, tonsillectomy, urologic procedures Family History : Breast cancer, Hodgkin's lymphoma, leukemia, asthma, Paz sarcoma Personal/Social history : Non-smoker, occasional EtOH intake, retired [employer] Allergies Allergy/AdvReac Type Severity Reaction Status Date / Time rosuvastatin Allergy Intermediate itching/hiv Verified 09/07/22 12:29 es simvastatin Allergy Intermediate itching/hiv Verified 09/07/22 12:29 es ranitidine Allergy Unknown HIVES, Verified 09/07/22 12:29 REDNESS Home Medications Medication Instructions Recorded Confirmed Type duloxetine 20 mg capsule,delayed 20 mg PO QAM 09/30/19 09/07/22 History release glipizide 5 mg tablet, extended 10 mg PO QAM 09/30/19 09/07/22 History release 24 hr levothyroxine 50 mcg tablet 50 mcg PO QAM 09/30/19 09/07/22 History metformin 500 mg tablet,extended 1,000 mg PO QAM 09/30/19 09/07/22 History release 24 hr quinapril 20 mg tablet 20 mg PO QAM 09/30/19 09/07/22 History dulaglutide 0.75 mg/0.5 mL 0.75 mg subcut Q7D 07/14/22 09/07/22 History subcutaneous pen injector (Trulicity) ezetimibe 10 mg tablet 10 mg PO QAM 07/14/22 09/07/22 History latanoprost 0.005 % eye drops 1 drp ophthalmic (eye) HS 07/14/22 09/07/22 History tamsulosin 0.4 mg capsule 0.4 mg PO QAM #30 caps 08/03/22 09/07/22 Rx L.acidop,casei,lactis,rham-B.lact,agnes 2 cap PO QAM 08/07/22 09/07/22 History 625 mg (10 billion cell) capsule (Advanced Probiotic) phenazopyridine 200 mg tablet 200 mg PO Q8H PRN pain #10 tabs 08/14/22 09/07/22 Rx (Pyridium) tamsulosin 0.4 mg capsule 0.4 mg PO HS #30 caps 08/14/22 09/07/22 Rx cephalexin 500 mg capsule 500 mg PO BID 7 days #14 caps 09/07/22 09/07/22 Rx phenazopyridine 200 mg tablet 200 mg PO Q8H PRN pain #10 tabs 09/07/22 09/07/22 Rx (Pyridium) Past Med/Surg History Medical History Acid reflux Anxiety Depression Diabetes NIDDM HLD (hyperlipidemia) Hypertension Hypothyroidism Kidney stones Nausea and vomiting after administration of anesthetic agent Obesity LASHAWN on CPAP Septic shock treated at [facility] inpatient r/t kidney stones and UTI Surgical History H/O: hysterectomy vaginal hysterectomy History of appendectomy History of cataract surgery bilateral History of colonoscopy History of cystoscopy most recent 08/14/22 [facility] with bilateral stent placement History of left knee replacement History of right knee joint replacement History of right oophorectomy History of tonsillectomy Family History Sister Breast cancer Other No family history of adverse response to anesthesia Denies family history of Coronary heart disease Social History Smoking Status: Never smoker Second Hand Exposure: No; Hx Alcohol Use: Yes Alcohol type: hard liquor Hx Substance Use: No Preferred Language: Egyptian Communication Ability: Effective Customer Service Agent Required: No Beliefs That Will Affect Care: None marital status: Single Current Living Situation: Alone current occupational status: employed 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 Feels Safe at Home: Yes Assistive Devices: CPAP Review of Systems Review of Systems: As per HPI, all other systems reviewed and negative Physical Exam Physical Exam: GENERAL: Slightly uncomfortable, pleasant, morbidly obese, no respiratory distress SKIN: Pallor , warm HEENT: Pale palpebral conjunctivae, no ptosis, dry buccal mucosa NECK : Supple, short neck, no tenderness CHEST : CTA, no tenderness HEART : RRR, no obvious murmurs ABDOMEN: Some distention, minimal hypogastric tenderness EXTREMITIES : Minimal LE swelling, no LE tenderness, no other conspicuous deformities noted NEUROLOGIC : Coherent, no facial asymmetry, gait and stance not assessed Results & Data Results & Data ([facility]) Vital Signs (Past 12 Hours) Vital Signs Temp Pulse Pulse Resp BP BP Pulse Ox 09/08/22 01:10 82 13 90 09/08/22 01:05 63/40 L 09/08/22 01:05 78 27 H 93 09/08/22 01:04 81 23 91 09/08/22 01:04 57/45 L 09/08/22 01:00 80 24 93 09/08/22 00:55 88 19 09/08/22 00:55 66/47 L 09/07/22 23:54 97/57 L 09/07/22 22:48 87 19 09/08/22 00:03 98 H 16 97/57 L 94 09/07/22 22:40 92 H 25 H 09/07/22 22:30 90 25 H 09/07/22 22:20 94 H 27 H 09/07/22 22:10 94 H 22 09/07/22 22:00 95 H 27 H 93 09/07/22 21:50 101 H 26 H 93 09/07/22 21:40 96 H 28 H 82 L 09/07/22 21:37 92 09/07/22 21:20 99 H 27 H 09/07/22 21:20 107/63 09/07/22 21:10 98 H 26 H 93 09/07/22 21:00 98 H 24 93 09/07/22 20:50 102 H 26 H 93 09/07/22 20:40 109 H 23 91 09/07/22 20:30 105 H 27 H 91 09/07/22 20:20 104 H 27 H 91 09/07/22 20:10 106 H 27 H 88 L 09/07/22 20:04 103 H 19 09/07/22 20:04 112/61 09/07/22 19:40 120 H 30 H 90 09/07/22 19:30 117 H 30 H 87 L 09/07/22 19:20 120 H 27 H 89 L 09/07/22 19:10 123 H 22 91 09/07/22 19:08 123 H 25 H 91 09/07/22 21:15 100 H 14 107/63 92 09/07/22 19:31 116 H 91 09/07/22 19:15 119 H 91 09/07/22 18:43 36.8 C 117 H 15 95 O2 Del Method 09/08/22 01:10 09/08/22 01:05 09/08/22 01:05 09/08/22 01:04 09/08/22 01:04 09/08/22 01:00 09/08/22 00:55 09/08/22 00:55 09/07/22 23:54 09/07/22 22:48 09/08/22 00:03 Room Air 09/07/22 22:40 09/07/22 22:30 09/07/22 22:20 09/07/22 22:10 09/07/22 22:00 09/07/22 21:50 09/07/22 21:40 09/07/22 21:37 09/07/22 21:20 09/07/22 21:20 09/07/22 21:10 09/07/22 21:00 09/07/22 20:50 09/07/22 20:40 09/07/22 20:30 09/07/22 20:20 09/07/22 20:10 09/07/22 20:04 09/07/22 20:04 09/07/22 19:40 09/07/22 19:30 09/07/22 19:20 09/07/22 19:10 09/07/22 19:08 09/07/22 21:15 Room Air 09/07/22 19:31 Room Air 09/07/22 19:15 Room Air 09/07/22 18:43 Room Air Laboratory Results Laboratory Results WBC 7.31 K/ul (4.8-10.8) 09/07/22 Unknown RBC 3.85 M/uL (3.93-5.22) L 09/07/22 Unknown Hgb 11.0 g/dl (12.0-16.0) L 09/07/22 Unknown Hct 34.7 % (34.1-44.9) 09/07/22 Unknown MCV 90.1 fL (80.0-100.0) 09/07/22 Unknown MCH 28.6 pg (25.0-34.0) 09/07/22 Unknown MCHC 31.7 g/dL (32.0-36.0) L 09/07/22 Unknown RDW Std Deviation 45.2 fL (36.4-46.3) 09/07/22 Unknown RDW Coeff of Brijesh 13.9 % (11.5-14.5) 09/07/22 Unknown Plt Count 333 K/uL (130-400) 09/07/22 Unknown MPV 8.7 fL (9.4-12.3) L 09/07/22 Unknown Immature Gran % (Auto) 0.7 % 09/07/22 Unknown Neut % (Auto) 96.3 % 09/07/22 Unknown Lymph % (Auto) 2.1 % 09/07/22 Unknown [place] % (Auto) 0.3 % 09/07/22 Unknown Eos % (Auto) 0.3 % 09/07/22 Unknown Baso % (Auto) 0.3 % 09/07/22 Unknown Neut # (Auto) 7.05 K/uL (1.4-6.5) H 09/07/22 Unknown Lymph # (Auto) 0.15 K/uL (1.2-3.4) L 09/07/22 Unknown [place] # (Auto) 0.02 K/uL (0.24-0.82) L 09/07/22 Unknown Eos # (Auto) 0.02 K/uL (0-0.50) 09/07/22 Unknown Baso # (Auto) 0.02 K/uL (0-0.2) 09/07/22 Unknown Immature Gran # (Auto) 0.05 K/uL (0.00-0.02) H 09/07/22 Unknown Toxic Vacuolation 2+ 09/07/22 Unknown PT 11.4 Seconds (9.0-12.0) 09/07/22 Unknown PT Cancelled 09/07/22 Unknown INR 1.1 (0.9-1.1) 09/07/22 Unknown INR Cancelled 09/07/22 Unknown APTT 24.8 Seconds (21.0-31.0) 09/07/22 Unknown APTT Cancelled 09/07/22 Unknown PTT Ratio 0.9 09/07/22 Unknown PTT Ratio Cancelled 09/07/22 Unknown D-Dimer > 53345 ug/L FEU (0-500) H* 09/07/22 Unknown Sodium 135 mmol/L (136-145) L 09/07/22 Unknown Potassium 3.9 mmol/L (3.5-5.1) 09/07/22 Unknown Chloride 101 mmol/L (98-107) 09/07/22 Unknown Carbon Dioxide 21 mmol/L (21-32) 09/07/22 Unknown Anion Gap 13 (3-11) H 09/07/22 Unknown BUN 16 mg/dl (6-23) 09/07/22 Unknown Creatinine 1.58 mg/dl (0.6-1.2) H 09/07/22 Unknown Est Cr Clr Drug Dosing 39.1 ml/min 09/07/22 Unknown Est GFR ( Amer) 35.9 ml/min 09/07/22 Unknown Est GFR (Non-Af Amer) 31.0 ml/min 09/07/22 Unknown BUN/Creatinine Ratio 10.1 (10-20) 09/07/22 Unknown Glucose 176 mg/dl (70-99(Fasting)) H 09/07/22 Unknown Calcium 8.8 mg/dl (8.5-10.1) 09/07/22 Unknown Magnesium 1.4 mg/dl (1.7-2.4) L 09/07/22 Unknown Total Bilirubin 0.5 mg/dl (0.2-1.0) 09/07/22 Unknown AST 13 U/L (13-39) 09/07/22 Unknown ALT 7 U/L (7-52) 09/07/22 Unknown Alkaline Phosphatase 84 U/L (34-104) 09/07/22 Unknown Troponin I High Sens 35.3 pg/ml (0-14) H D 09/07/22 Unknown Total Protein 7.0 gm/dl (6.0-8.3) 09/07/22 Unknown Albumin 3.2 gm/dl (3.4-5.0) L 09/07/22 Unknown Globulin 3.8 gm/dl (2.5-4.0) 09/07/22 Unknown Albumin/Globulin Ratio 0.8 (0.9-2) L 09/07/22 Unknown TSH 4.687 uIu/ml (0.300-4.500) H 09/07/22 Unknown Free T4 0.96 ng/dl (0.61-1.60) 09/07/22 Unknown Impressions KUB X-Ray 09/07/22 19:31 KUB CLINICAL HISTORY: Ureteral stent. FINDINGS: 4 AP, portable, supine abdominal radiographs are correlated with abdominal CT dated 07/14/2022. There is a nonobstructed abdominal bowel gas pattern. A right ureteral stent is in place. No calcifications are clearly identified in the right ureter along the course of the stent. There are several nonobstructing calculi projecting over the right kidney which measure up to 7 mm. No left renal calculi are clearly identified. There are numerous phleboliths in the pelvis. The skeletal structures are osteopenic and appear intact. There is moderate lumbosacral spondylosis. IMPRESSION: 1. A right ureteral stent is in place. No calcifications are clearly seen in the right ureter along the course of the stent. 2. Additional nonobstructing calculi project over the right kidney. 3. Nonobstructed abdominal bowel gas pattern. Electronically signed by: Kang Escobar M.D. 09/07/2022 8:26 PM Chest X-Ray 09/07/22 19:32 SINGLE VIEW CHEST CLINICAL HISTORY: Syncope. FINDINGS: An AP, portable, upright chest radiograph is compared to study dated 07/16/2022. The examination is degraded by portable technique, apical lordotic positioning, and patient rotation. The heart is enlarged. There is prominence of the pulmonary vasculature. The lungs and pleural spaces are clear noting mild bibasilar scarring/atelectasis. No pneumothorax is seen. The skeletal structures are osteopenic. The bony thorax is grossly intact. IMPRESSION: Cardiomegaly with prominence of the pulmonary vasculature. Correlate clinically for evidence of fluid overload/mild congestive change. ACT 112: Negative or not required by law. Electronically signed by: Kang Escobar M.D. 09/07/2022 8:[address] head initial read: No ICH, mass effect or edema. No evidence of acute cortical stroke. Periventricular small vessel ischemic change. Moderate generalized brain atrophy. Visualized sinuses reviewtrace mucosal thickening of the right ethmoid, otherwise paranasal sinuses and mastoid air cells are clear. CT chest initial read: No pulmonaryembolismidentified. Scattered nodules are seen in the lungs measuring less than 6 mm. Recommend follow-up CT chest in 12 months if patient is at high risk for malignancyper Fleischner criteria. CT abdomen pelvis initial read: Mild bilateral subpleural lower lobe atelectasis. Normal cardiac size with coronaryarterycalcifications. Normal liver. Over distended gallbladder. Normal pancreas, spleen and bilateral adrenal glands. Mild hiatal hernia otherwise unremarkable stomach. Nonspecific small bowel. Diverticulosis throughout the colon with no signs of diverticulitis. Nonvisualized appendixwith no inflammation to suggest appendicitis. No free fluid. There is a right-sided ureteral stent in place. There is a right perinephric stranding with hypodense peripheral fluid collection along the subcapsular region of the right kidneywhich mayindicate sequela of previous subcapsular hemorrhage. No high densityseen to suggest acute hemorrhage. Differential diagnosis in pyelonephritis. There is questionable air within the right renal collecting system, which mayindicate recent procedure, differential diagnosis includes air producing infectious process. There are several stoneswithin the right kidneylargest averaging 6 mm. The left kidneyreveals mild left perinephric stranding with fullness of the left ureter, nonspecific. There is no stone along the trajectoryof the left ureter. The urinarybladder is decompressed Via Foleycatheter and therefore difficult to characterize. Degenerative disease of the spin EKG as per my interpretation : Rate 125, sinus tachycardia, LAD, LAFB, no ischemia
[2022-09-08 01:39] LABS: Base Excess VBG -5.8 mEq/L; HCO3 VBG 20 mmol/L; Oxygen Saturation VBG 92.6 %; PCO2 VBG 40 mmHg (38-50); PO2 VBG 65 mmHg; pH VBG 7.31 (7.36-7.41)
[2022-09-08 02:00] LABS: Appearance Urine Cloudy (Clear); Bacteria Urine Automated 4+ (Negative); Bilirubin Urine Negative (Negative); Blood Urine 3+ (Negative); Epithelial Cell Urine Auto 20-30 /lpf (0-5); Glucose Urine UA Negative (Negative); Ketones Urine Negative (Negative); Leukocyte Esterase Urine 3+ (Negative); Nitrite Urine Negative (Negative); Protein Urine 3+ (Negative); RBC Urine Automated >30 /hpf (0-4); Specific Gravity Urine 1.012 (1.000-1.030); Urobilinogen Urine Negative (Negative); WBC Urine Automated >30 /hpf (0-5)
[2022-09-08] MEDS: MAGNESIUM SULFATE / D5W 1 GM/100 ML BAG IV SCH ×2 (02:08→04:04)
[2022-09-08] MEDS ORDERED: traMADol HCL 50 MG TABLET PO STA (02:08)
[2022-09-08] MEDS ORDERED: PROMETHAZINE HCL 12.5 MG in SODIUM CHLORIDE 0.9% 50 ML IV PRN (02:10)
[2022-09-08] MEDS ORDERED: DEXTROSE 50% 50 ML SYRINGE IV PRN (02:10)
[2022-09-08] MEDS ORDERED: PHENAZOPYRIDINE HCL 100 MG TAB PO PRN (02:10)
[2022-09-08] MEDS ORDERED: GLUCOSE 40% GEL 15 GM TUBE PO PRN (02:10)
[2022-09-08] MEDS ORDERED: GLUCAGON FOR INJ 1 MG VIAL SQ PRN (02:10)
[2022-09-08] MEDS ORDERED: GLUCOSE 10 TAB/TUBE PO PRN (02:10)
[2022-09-08] MEDS ORDERED: CARBOHYDRATES FOR HYPOGLYCEMIA PO PRN (02:10)
[2022-09-08 02:17] LABS: Troponin I High Sensitivity 80.6 pg/ml (0-14)
[2022-09-08 02:19] LABS: Color Urine Red
[2022-09-08 02:29] LABS: Cast Urine Automated 0 /lpf (0-5)
[2022-09-08 02:36] LABS: BUN Creatinine Ratio 9.1 (10-20); Calcium 7.8 mg/dl (8.5-10.1); Creatinine Clr Calc Pharmacy 31.4 ml/min; Est GFR (African American) 27.5 ml/min; Est GFR (Non-African American) 23.8 ml/min; Potassium 3.7 mmol/L (3.5-5.1)
[2022-09-08] MEDS ORDERED: MIDODRINE HCL 2.5 MG TAB PO STA (03:00)
[2022-09-08] MEDS: INSULIN ASPART PER UNIT SC SCH ×4 (03:49→16:43)
--- NOTE | 2022-09-08 05:05 | Urology Consultation ---
Date of Consultation September 08, 2022 Assessment & Plan (1) Hydronephrosis with urinary obstruction due to ureteral calculus: Due to the patient's syncopal episode she is being admitted on the [facility] service Urology has been asked to see due to recent procedure There is concern the patient may have underlying urinary tract infection/early sepsis Agree with treating patient with broad-spectrum antibiotics in form of Zosyn which have been administered Agree with intravenous fluid resuscitation Blood and urine cultures have been obtained. Results of these can be followed and antibiotics to be tailored based on these results Is unclear if this is the cause of patient's underlying syncopal episode. We will defer further evaluation of patient's syncope to the primary service. Supervising Physician Co-Signing Physician Notes Reviewed chart, vitals, labs and imaging. Agree with plan. Left hydronephrosis not unexpected after stent removal. Right stent in appropriate position, may have hematoma vs urinoma from procedure but no intervention necessary at this time. Broad spectrum antibiotics and resuscitation. Will discuss case with Dr. Armijo in the morning. History of Present Illness Reason for Consultation: Recent cystoscopy/postoperative evaluation Attending Physician: Josiah Bhakta MD History of Present Illness This is a 77-year-old female who underwent a cystoscopy with removal of left ureteral stent and at the same time underwent a right ureteroscopy with dilatation of the ureter and exchange of a stent on the right side. This was performed Dr. Armijo on 09/07/2022. The patient was to be discharged home after the above-noted procedure. Upon discharge when the patient was trying to get out of her vehicle she had a syncopal episode prompting reevaluation in the emergency department. I question the patient about her syncopal episode and she cannot provide any details. To the best of her knowledge she did not experience any chest pain or shortness of breath prior to her syncopal episode. To the best of her knowledge she also says she is not experiencing any significant back or flank pain prior to this syncopal episode. To the best of her knowledge she has not had any fevers, shakes, or chills. When the patient rate arrived at the emergency department she was found to be tachycardic and somewhat somnolent. The patient underwent diagnostic studies which included a CT scan of the abdomen and pelvis. This showed the patient had a right ureteral stent in place with some perinephric stranding. There is concern the patient had a peripheral fluid collection which may indicate a pre vious subcapsular hematoma but no acute hemorrhage was noted. There was air within the right renal collecting system but this could be sequelae from her above-noted procedure. A CT scan of the head showed no acute intracranial hemorrhage or acute stroke. A CT scan of the chest showed no evidence of pulmonary emboli. Labs include a CBC were white blood cell count and hematocrit were noted to be normal. There was a slight decrease in her hemoglobin at 11.0. Platelet count was noted to be normal. Chemistry profile showed sodium was 133 with a potassium of 3.7. Her BUN was within normal rates and her creatinine was 1.9. Review of labs show the patient's creatinine has run anywhere from 1.5-3.2 over the past several weeks. She was noted to have an elevated lactic acid level at 4.6. There is no elevation of LFTs. There was a slight elevation of her troponin 80.6. Urinalysis showed cloudy urine which was negative for nitrite. There was 3+ leukocyte Estrace and greater than 30 white blood cells per high-power field on the study. There is also 4+ bacteria. A COVID test was negative. The patient was tentatively scheduled for discharge from the emergency department however the patient was again found to be somewhat somnolent and confused not at her baseline and admission was therefore recommended. At the time of my interview with the patient emergency department she was resting comfortably in bed. Again she could not provide any further details regarding her above-noted syncopal episode. At the time of my interview she denied any nausea or vomiting. She denies any abdominal pain at the present time. She denies any back or flank pain. She feels as though she has been urinating without difficulty and denies any dysuria or hematuria. Allergies Allergy/AdvReac Type Severity Reaction Status Date / Time rosuvastatin Allergy Intermediate itching/hiv Verified 09/07/22 12:29 es simvastatin Allergy Intermediate itching/hiv Verified 09/07/22 12:29 es ranitidine Allergy Unknown HIVES, Verified 09/07/22 12:29 REDNESS Home Medications Medication Instructions Recorded Confirmed Type duloxetine 20 mg capsule,delayed 20 mg PO QAM 09/30/19 09/07/22 History release glipizide 5 mg tablet, extended 10 mg PO QAM 09/30/19 09/07/22 History release 24 hr levothyroxine 50 mcg tablet 50 mcg PO QAM 09/30/19 09/07/22 History metformin 500 mg tablet,extended 1,000 mg PO QAM 09/30/19 09/07/22 History release 24 hr quinapril 20 mg tablet 20 mg PO QAM 09/30/19 09/07/22 History dulaglutide 0.75 mg/0.5 mL 0.75 mg subcut Q7D 07/14/22 09/07/22 History subcutaneous pen injector (Trulicity) ezetimibe 10 mg tablet 10 mg PO QAM 07/14/22 09/07/22 History latanoprost 0.005 % eye drops 1 drp ophthalmic (eye) HS 07/14/22 09/07/22 History tamsulosin 0.4 mg capsule 0.4 mg PO QAM #30 caps 08/03/22 09/07/22 Rx L.acidop,casei,lactis,rham-B.lact,agnes 2 cap PO QAM 08/07/22 09/07/22 History 625 mg (10 billion cell) capsule (Advanced Probiotic) phenazopyridine 200 mg tablet 200 mg PO Q8H PRN pain #10 tabs 08/14/22 09/07/22 Rx (Pyridium) tamsulosin 0.4 mg capsule 0.4 mg PO HS #30 caps 08/14/22 09/07/22 Rx cephalexin 500 mg capsule 500 mg PO BID 7 days #14 caps 09/07/22 09/07/22 Rx phenazopyridine 200 mg tablet 200 mg PO Q8H PRN pain #10 tabs 09/07/22 09/07/22 Rx (Pyridium) Patient History Medical History Acid reflux Anxiety Depression Diabetes NIDDM HLD (hyperlipidemia) Hypertension Hypothyroidism Kidney stones Nausea and vomiting after administration of anesthetic agent Obesity LASHAWN on CPAP Septic shock treated at [facility] inpatient r/t kidney stones and UTI Surgical History H/O: hysterectomy vaginal hysterectomy History of appendectomy History of cataract surgery bilateral History of colonoscopy History of cystoscopy most recent 08/14/22 [facility] with bilateral stent placement History of left knee replacement History of right knee joint replacement History of right oophorectomy History of tonsillectomy Family History Sister Breast cancer Other No family history of adverse response to anesthesia Denies family history of Coronary heart disease Social History Smoking Status: Never smoker Second Hand Exposure: No; Hx Alcohol Use: No Hx Substance Use: No Preferred Language: Portuguese Communication Ability: Effective Photography Sales Associate Required: No Beliefs That Will Affect Care: None marital status: Single Current Living Situation: Alone current occupational status: employed 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 Feels Safe at Home: Yes Assistive Devices: Walker Assistive Devices Comment: has a walker, "does not use much" Review of Systems Constitutional: no fever and no chills Eyes: + corrective lenses Ear, Nose, Mouth, Throat: no ear pain Respiratory: no cough and no dyspnea Cardiovascular: no chest pain Gastrointestinal: no abdominal pain, no nausea and no vomiting Genitourinary: no dysuria and no hematuria Musculoskeletal: no back pain Integumentary: no rash Neurologic: no localized weakness Physical Exam Constitutional: WD/WN, vitals as above Eyes: no conjunctival abnormality ENMT: Ears: no hearing impairment and no external ear abnormality Mouth: no oropharynx abnormality Neck: trachea midline Respiratory: normal respiratory effort; no respiratory distress and no labored breathing Cardiovascular: Rate/Rhythm: regular rate and regular rhythm Vessels: dorsalis pedis pulses present Gastrointestinal (Abdomen): Soft, nonrigid, nondistended, nontender to palpation Musculoskeletal: No calf tenderness Skin: no rashes Neurologic: moves all extremities Psychiatric: A+Ox3, euthymic affect Genitourinary: no CVA tenderness Results & Data ([facility]) Vital Signs (Past 12 Hours) Vital Signs Temp Pulse Pulse Resp BP BP Pulse Ox 09/08/22 04:30 85 22 93/46 L 98 09/08/22 04:00 65 20 94/51 L 97 09/08/22 04:00 94/51 L 09/08/22 03:45 78 24 93/54 L 98 09/08/22 03:30 70 22 95 09/08/22 03:30 95/56 L 09/08/22 03:15 76 20 87 L 09/08/22 03:15 88/57 L 09/08/22 03:00 74 24 80/44 L 95 09/08/22 03:46 09/08/22 02:45 68 15 96 09/08/22 02:45 66/45 L 09/08/22 02:30 81/42 L 09/08/22 02:30 70 21 81/42 L 96 09/08/22 02:20 74 20 95 09/08/22 02:15 52 L 22 93 09/08/22 02:15 63/42 L 09/08/22 02:10 69 22 94 09/08/22 02:01 78/38 L 09/08/22 02:01 79 20 94 09/08/22 02:00 0 L 13 94 09/08/22 01:59 92 09/08/22 01:40 83 24 95 09/08/22 01:39 82 19 94 09/08/22 01:39 86/49 L 09/08/22 01:30 82 20 96 09/08/22 01:29 83 22 95 09/08/22 01:29 72/45 L 09/08/22 01:20 83 22 97 09/08/22 01:13 64/43 L 09/08/22 01:13 81 18 96 09/08/22 01:10 82 13 90 09/08/22 01:05 63/40 L 09/08/22 01:05 78 27 H 93 09/08/22 01:04 81 23 91 09/08/22 01:04 57/45 L 09/08/22 01:00 80 24 93 09/08/22 00:55 88 19 09/08/22 00:55 66/47 L 09/07/22 23:54 97/57 L 09/07/22 22:48 87 19 09/08/22 00:03 98 H 16 97/57 L 94 09/07/22 22:40 92 H 25 H 09/07/22 22:30 90 25 H 09/07/22 22:20 94 H 27 H 09/07/22 22:10 94 H 22 09/07/22 22:00 95 H 27 H 93 09/07/22 21:50 101 H 26 H 93 09/07/22 21:40 96 H 28 H 82 L 09/07/22 21:37 92 09/07/22 21:20 99 H 27 H 09/07/22 21:20 107/63 09/07/22 21:10 98 H 26 H 93 09/07/22 21:00 98 H 24 93 09/07/22 20:50 102 H 26 H 93 09/07/22 20:40 109 H 23 91 09/07/22 20:30 105 H 27 H 91 09/07/22 20:20 104 H 27 H 91 09/07/22 20:10 106 H 27 H 88 L 09/07/22 20:04 103 H 19 09/07/22 20:04 112/61 09/07/22 19:40 120 H 30 H 90 09/07/22 19:30 117 H 30 H 87 L 09/07/22 19:20 120 H 27 H 89 L 09/07/22 19:10 123 H 22 91 09/07/22 19:08 123 H 25 H 91 09/07/22 21:15 100 H 14 107/63 92 09/07/22 19:31 116 H 91 09/07/22 19:15 119 H 91 09/07/22 18:43 36.8 C 117 H 15 95 Pulse Ox O2 Del Method O2 Del Method O2 Flow Rate O2 Flow Rate 09/08/22 04:30 09/08/22 04:00 09/08/22 04:00 09/08/22 03:45 Oxymask 3 09/08/22 03:30 09/08/22 03:30 09/08/22 03:15 09/08/22 03:15 09/08/22 03:00 Nasal Cannula 2 09/08/22 03:46 98 Oxymask 3 09/08/22 02:45 09/08/22 02:45 09/08/22 02:30 09/08/22 02:30 09/08/22 02:20 09/08/22 02:15 09/08/22 02:15 09/08/22 02:10 09/08/22 02:01 09/08/22 02:01 09/08/22 02:00 09/08/22 01:59 09/08/22 01:40 09/08/22 01:39 09/08/22 01:39 09/08/22 01:30 09/08/22 01:29 09/08/22 01:29 09/08/22 01:20 09/08/22 01:13 09/08/22 01:13 09/08/22 01:10 09/08/22 01:05 09/08/22 01:05 09/08/22 01:04 09/08/22 01:04 09/08/22 01:00 09/08/22 00:55 09/08/22 00:55 09/07/22 23:54 09/07/22 22:48 09/08/22 00:03 Room Air 09/07/22 22:40 09/07/22 22:30 09/07/22 22:20 09/07/22 22:10 09/07/22 22:00 09/07/22 21:50 09/07/22 21:40 09/07/22 21:37 09/07/22 21:20 09/07/22 21:20 09/07/22 21:10 09/07/22 21:00 09/07/22 20:50 09/07/22 20:40 09/07/22 20:30 09/07/22 20:20 09/07/22 20:10 09/07/22 20:04 09/07/22 20:04 09/07/22 19:40 09/07/22 19:30 09/07/22 19:20 09/07/22 19:10 09/07/22 19:08 09/07/22 21:15 Room Air 09/07/22 19:31 Room Air 09/07/22 19:15 Room Air 09/07/22 18:43 Room Air PG Care Time/CCT Total # of Minutes Spent Total Time Spent with Patient: Total time spent is greater than 50% in coordination of care (as documented) at patient's floor/unit and/or counseling patient: Coding Level of Care Code 25329 Inpt Consult Level 4 Diagnoses Hydronephrosis with urinary obstruction due to ureteral calculus N13.2
[2022-09-08 06:27] LABS: BUN Creatinine Ratio 8.8 (10-20); Calcium 8.1 mg/dl (8.5-10.1); Creatinine Clr Calc Pharmacy 27.2 ml/min; Est GFR (African American) 23.2 ml/min; Magnesium 2.1 mg/dl (1.7-2.4)
[2022-09-08 06:36] LABS: Troponin I High Sensitivity 158.2 pg/ml (0-14)
[2022-09-08] MEDS: LEVOTHYROXINE SODIUM 50 MCG TABLET PO SCH (06:37)
--- NOTE | 2022-09-08 06:58 | CT Scan Report ---
CT head/brain wo con CLINICAL HISTORY: 77 years-old Female with AMS. Acutely altered mental status TECHNIQUE: Multiple axial CT images of the head were obtained without contrast. A dose lowering tech nique was utilized adhering to the principles of ALARA. CT DOSE: 2875.54 mGy.cm COMPARISON: None. FINDINGS: No acute intracranial hemorrhage, midline shift, intracranial mass, hydrocephalus, territorial ischem ia or abnormal extra-axial collection. Motion degraded exam. Involutional changes with ventriculomega ly. White matter hypodensities suggest chronic microvascular ischemic disease. Cerebral vascular calc ifications. The calvarium is intact. Prior bilateral lens repair. The paranasal sinuses, mastoid air cells, and m iddle ear cavities are clear. IMPRESSION: 1. No acute intracranial abnormality. 2. Involutional changes with ventriculomegaly, likely on an ex vacuo basis. 3. White matter hypodensities suggest chronic microvascular ischemic disease. ACT 112: Negative or not required by law. The above report was generated using voice recognition software. It may contain grammatical, syntax o r spelling errors. Electronically signed by: Vic Garcia M.D. 09/08/2022 6:57 AM
[2022-09-08] MEDS ORDERED: LACTATED RINGER'S 1,000 ML IV SCH (07:00)
[2022-09-08] MEDS: PIPERACILLIN/TAZOBACTAM 4.5 GM in DEXTROSE 5% 100 ML IV SCH ×2 (07:16→16:42)
--- NOTE | 2022-09-08 07:21 | CT Scan Report ---
CT OF THE ABDOMEN AND PELVIS WITHOUT CONTRAST CLINICAL HISTORY: Right flank pain. COMPARISON STUDY: CT of the abdomen and pelvis July 14, 2022. KUB September 07, 2022.. TECHNIQUE: Axial images of the abdomen and pelvis were obtained without IV contrast. Images were revi ewed in the axial, sagittal, and coronal planes. Automated exposure control was utilized for the daljit dy. A dose lowering technique was utilized adhering to the principles of ALARA. FINDINGS: A few nodules within the lower lungs were present on prior CT of July 14, 2022. A 6 lm ri ght lower lobe nodule on image 44 of 493 is new since that exam. Cardiomegaly is present. There is a hiatal hernia. No pneumatosis, free air or portal venous gas is present. Right ureteral stent is appr opriately positioned. There is gas within the right collecting system from recent procedure. There is no right hydronephrosis. Stranding within the right renal sinus is present. There are multiple right renal calculi as well as calculi within the right renal pelvis that measure up to 6 mm. No ureteral calculi are identified although this exam is compromised by motion artifact. Renal hyperdensity is du e to recent contrast-enhanced chest CT. Note is made of a 6.3 x 2.5 x 5.6 cm right subcapsular renal fluid collection which contains layering hyperdense material. No additional fluid collections are pre sent. There is moderate bilateral renal atrophy. Faint radiodensities within the left collecting syst em could reflect excreted contrast although calculi could appear similar. There is a 2 mm calculus wi thin lower pole of the left kidney. There are no left ureteral calculi. Left-sided parapelvic cysts a re noted. There is no definite hydronephrosis. Rush balloon within the bladder is present. The bladd er is collapsed. There are no bladder calculi. Unenhanced images of the liver, adrenal glands and pancreas are unremarkable. Mild splenomegaly is un changed. The gallbladder is not distended. There is no evidence for a bowel obstruction. Diverticulos is is noted without evidence for acute diverticulitis. A moderate amount stool within the colon is pr esent. No acute fracture within the visualized skeletal structures is present. Prominent retroperiton eal lymph nodes are likely reactive. IMPRESSION: 1. Right ureteral stent in place with collecting system gas related to recent procedure. No hydroneph rosis. Multiple right renal pelvis calculi and right-sided nephrolithiasis. No ureteral calculi. 2. 6.3 x 2.5 x 5.6 cm right subcapsular renal fluid collection which contains layering hyperdense mat erial. A subcapsular hematoma is favored. A urinoma containing excreted contrast could appear similar . 3. Small left renal calculi, as above. No left ureteral calculi. Apparent left collecting system dila tation which is likely related to parapelvic cysts. Mild left hydronephrosis could appear similar. 4. No bowel obstruction. No bowel wall thickening on unenhanced exam. 5. Mildly distended gallbladder. ACT 112: Negative or not required by law. Electronically signed by: Kyle Allen M.D. 09/08/2022 7:19 AM
--- NOTE | 2022-09-08 07:58 | CT Scan Report ---
CT angio chest PE protocol CT DOSE: 1094.74 mGy.cm HISTORY: 77 years-old Female with PE. Acute shortness of breath TECHNIQUE: Multiple CTA images of the chest were obtained after the intravenous administration of 78 ml Optiray. Coronal and sagittal MIPS were obtained from the axial data set and were submitted for [employer]. All measurements were obtained according to NASCET criteria. A dose lowering technique was ut ilized adhering to the principles of ALARA. COMPARISON: CT abdomen and pelvis 09/08/2022, 09/30/2019. FINDINGS: CTA: The heart is mildly enlarged. Unremarkable thoracic aorta without aneurysm or dissection. Descending thoracic aortic tortuosity. The opacified pulmonary artery is unremarkable. The segmental and subsegm ental branches are not well evaluated secondary to contrast bolus timing and respiratory motion artif act. CT CHEST: Unremarkable thyroid. No lymphadenopathy identified. No pneumothorax, pleural effusion, airspace cons olidation or overt pulmonary edema. Mild dependent subsegmental bibasilar atelectasis. Scattered bila teral solid pulmonary nodules (please see bookmarks) measuring up to 6 mm within the right lower lobe . This largest nodule appears stable from 2019. Unremarkable soft tissues. No acute fracture. Degenerative changes of the shoulders and spine. IMPRESSION: 1. No pulmonary emboli are identified. 2. No pleural effusion or airspace consolidation typical for pneumonia. 3. Scattered bilateral subcentimeter pulmonary nodules measure up to 6 mm. Follow-up guidelines provi ded below. 4. Please refer to the CT abdomen and pelvis study of same day for additional findings. Please refer to below summary of Fleischner criteria recommendations for follow-up of incidental CT n odules (Syd Isaac, Guidelines for management of small pulmonary nodules detected on CT scans: A sta tement from the Fleischner Society, Radiology 237: [id number].) SOLID NODULES Multiple nodules size: <6 mm * Low risk patients: no routine follow-up * high risk patients: optional CT at 12 months Note: newly detected indeterminate nodule in persons 35 years of age or older. * Low risk patients: minimal or absent history of smoking and/or other known risk factors * high risk patients: history of smoking or of other known risk factors (e.g. first degree relative with lung cancer, or exposure to asbestos, radon, uranium) * if a nodule up to 8 mm is partly solid or is ground glass further follow-up is required after 24 m onths to exclude possible slow growing adenocarcinoma (CEDRIC) ACT 112: Negative or not required by law. The above report was generated using voice recognition software. It may contain grammatical, syntax o r spelling errors. Electronically signed by: Vic Garcia M.D. 09/08/2022 7:57 AM
[2022-09-08 08:15] LABS: Hemoglobin 9.2 g/dl (12.0-16.0); Mean Corpuscular Hemoglobin 28.8 pg (25.0-34.0); Mean Corpuscular Hgb Conc 31.7 g/dL (32.0-36.0); Mean Corpuscular Volume 90.9 fL (80.0-100.0); Mean Platelet Volume 8.9 fL (9.4-12.3); Platelet Count 266 K/uL (130-400); RDW Coefficient of Variation 14.2 % (11.5-14.5); RDW Standard Deviation 47.4 fL (36.4-46.3); Red Blood Count 3.19 M/uL (3.93-5.22); White Blood Count 28.57 K/ul (4.8-10.8)
[2022-09-08] MEDS: EZETIMIBE 10 MG TABLET PO SCH (08:25)
[2022-09-08] MEDS: DULoxetine HCL 20 MG CAP PO SCH (08:25)
[2022-09-08 08:44] LABS: Basophils # (auto) 0.07 K/uL (0-0.2); Basophils % (auto) 0.2 %; Echinocytes 1+; Eosinophils # (auto) 0.04 K/uL (0-0.50); Eosinophils % (auto) 0.1 %; Immature Granulocytes # (auto) 1.47 K/uL (0.00-0.02); Immature Granulocytes % (auto) 5.1 %; Lymphocytes # (auto) 0.43 K/uL (1.2-3.4); Lymphocytes % (auto) 1.5 %; Monocytes # (auto) 1.04 K/uL (0.24-0.82); Monocytes % (auto) 3.6 %; Neutrophils # (auto) 25.52 K/uL (1.4-6.5); Neutrophils % (auto) 89.5 %
[2022-09-08] MEDS: traMADol HCL 50 MG TABLET PO PRN (10:32)
--- NOTE | 2022-09-08 11:22 | Urology Progress Note ---
Date of Service September 08, 2022 Assessment & Plan (1) Acute UTI (urinary tract infection): (2) Hydronephrosis with urinary obstruction due to ureteral calculus: Plan 77yo F admitted with suspected early sepsis, complicated UTI. She is s/p cystoscopy with removal of left ureteral stent, right ureteroscopy with dilatation of the ureter and right ureteral stent exchange with Dr. Armijo on 09/07/2022. - CT a/p reviewed - Right stent in good position, right subcapsular fluid alena ection most likely inflammation, hematoma or urinoma possible. - Afebrile, labs reviewed - WBC 28.57, Creatinine 2.27. - Urine and blood cultures are pending. - Maintain Rush catheter for maximum drainage. - Continue supportive care and antibiotic therapy, follow cultures. - Urology will follow. Case reviewed with Dr. Armijo. Admission and Anticipated Discharge Date Admission Date: September 08, 2022 Subjective Pt examined at bedside this AM in ICU with Dr. Armijo. Awake, resting in bed on arrival. No acute distress. Denies any pain or discomfort. Rush catheter intact. Review of Systems Constitutional: as per Subjective / HPI Genitourinary: as per Subjective / HPI Physical Exam Constitutional: no acute distress Respiratory: no respiratory distress and no labored breathing Psychiatric: Orientation: alert and oriented x 3 Genitourinary: Rush catheter intact Results & Data ([facility]) Vital Signs (Past 12 Hours) Vital Signs Temp Pulse Pulse Resp BP BP Pulse Ox 09/08/22 11:00 60 16 88 L 09/08/22 11:00 98/70 L 09/08/22 10:53 106/86 09/08/22 10:53 64 20 09/08/22 10:51 66 24 98/70 L 90 09/08/22 10:30 73 24 09/08/22 11:04 36.5 C 09/08/22 09:45 77 20 88 L 09/08/22 09:31 98 H 20 78 L 09/08/22 09:31 106/65 09/08/22 09:30 63 22 91 09/08/22 09:15 69 23 91 09/08/22 09:00 61 24 92 09/08/22 09:00 95/57 L 09/08/22 08:45 68 23 95 09/08/22 08:30 76 23 96 09/08/22 08:30 66 20 106/56 L 97 09/08/22 07:30 69 19 91/52 L 99 09/08/22 07:15 79 20 99 09/08/22 07:00 77 20 98 09/08/22 07:00 62 20 102/52 L 97 09/08/22 06:38 09/08/22 06:00 79 20 98/60 L 99 09/08/22 05:45 80 22 94/56 L 97 09/08/22 05:30 76 20 91/58 L 97 09/08/22 05:15 78 20 108/59 L 95 09/08/22 05:00 72 20 94/59 L 96 09/08/22 04:30 85 22 93/46 L 98 09/08/22 04:00 65 20 94/51 L 97 09/08/22 04:00 94/51 L 09/08/22 03:45 78 24 93/54 L 98 09/08/22 03:30 70 22 95 09/08/22 03:30 95/56 L 09/08/22 03:15 76 20 87 L 09/08/22 03:15 88/57 L 09/08/22 03:00 74 24 80/44 L 95 09/08/22 03:46 09/08/22 02:45 68 15 96 09/08/22 02:45 66/45 L 09/08/22 02:30 81/42 L 09/08/22 02:30 70 21 81/42 L 96 09/08/22 02:20 74 20 95 09/08/22 02:15 52 L 22 93 09/08/22 02:15 63/42 L 09/08/22 02:10 69 22 94 09/08/22 02:01 78/38 L 09/08/22 02:01 79 20 94 09/08/22 02:00 0 L 13 94 09/08/22 01:59 92 09/08/22 01:40 83 24 95 09/08/22 01:39 82 19 94 09/08/22 01:39 86/49 L 09/08/22 01:30 82 20 96 09/08/22 01:29 83 22 95 09/08/22 01:29 72/45 L 09/08/22 01:20 83 22 97 09/08/22 01:13 64/43 L 12/02/22 01:13 81 18 96 09/08/22 01:10 82 13 90 09/08/22 01:05 63/40 L 09/08/22 01:05 78 27 H 93 09/08/22 01:04 81 23 91 09/08/22 01:04 57/45 L 09/08/22 01:00 80 24 93 09/08/22 00:55 88 19 09/08/22 00:55 66/47 L 09/07/22 23:54 97/57 L 09/08/22 00:03 98 H 16 97/57 L 94 Pulse Ox O2 Del Method O2 Del Method O2 Flow Rate O2 Flow Rate 09/08/22 11:00 09/08/22 11:00 09/08/22 10:53 09/08/22 10:53 09/08/22 10:51 09/08/22 10:30 09/08/22 11:04 09/08/22 09:45 09/08/22 09:31 09/08/22 09:31 09/08/22 09:30 09/08/22 09:15 09/08/22 09:00 09/08/22 09:00 09/08/22 08:45 09/08/22 08:30 09/08/22 08:30 Room Air 09/08/22 07:30 Room Air 09/08/22 07:15 09/08/22 07:00 09/08/22 07:00 Oxymask 09/08/22 06:38 Oxymask 3 09/08/22 06:00 09/08/22 05:45 09/08/22 05:30 09/08/22 05:15 09/08/22 05:00 09/08/22 04:30 09/08/22 04:00 09/08/22 04:00 09/08/22 03:45 Oxymask 3 09/08/22 03:30 09/08/22 03:30 09/08/22 03:15 09/08/22 03:15 09/08/22 03:00 Nasal Cannula 2 09/08/22 03:46 98 Oxymask 3 09/08/22 02:45 09/08/22 02:45 09/08/22 02:30 09/08/22 02:30 09/08/22 02:20 09/08/22 02:15 09/08/22 02:15 09/08/22 02:10 09/08/22 02:01 09/08/22 02:01 09/08/22 02:00 09/08/22 01:59 09/08/22 01:40 09/08/22 01:39 09/08/22 01:39 09/08/22 01:30 09/08/22 01:29 09/08/22 01:29 09/08/22 01:20 09/08/22 01:13 09/08/22 01:13 09/08/22 01:10 09/08/22 01:05 09/08/22 01:05 09/08/22 01:04 09/08/22 01:04 09/08/22 01:00 09/08/22 00:55 09/08/22 00:55 09/07/22 23:54 09/08/22 00:03 Room Air PG Care Time/CCT Total # of Minutes Spent Total Time Spent with Patient: Total time spent is greater than 50% in coordination of care (as documented) at patient's floor/unit and/or counseling patient: Coding Level of Care Code None Diagnoses Acute UTI (urinary tract infection) N39.0 Hydronephrosis with urinary obstruction due to ureteral calculus N13.2
--- NOTE | 2022-09-08 11:26 | Electrocardiogram Report ---
Test Reason : Blood Pressure : / mmHG Vent. Rate : 124 BPM Atrial Rate : 124 BPM P-R Int : 208 ms QRS Dur : 088 ms QT Int : 312 ms P-R-T Axes : 021 -39 027 degrees QTc Int : 448 ms Sinus tachycardia Left axis deviation Anterolateral infarct (cited on or before 04-MAR-2020) Abnormal ECG Confirmed by Armando Fisher ([id number]) on 09/08/2022 11:26:16 AM Referred By: Sindy Weber Confirmed By:Gabriel Fisher
[2022-09-08] MEDS: LACTATED RINGER'S 1,000 ML IV SCH (12:25)
--- NOTE | 2022-09-08 15:12 | Hospitalist Progress Note ---
Date of Service September 08, 2022 Assessment & Plan (1) Sepsis: (2) Hypotension: (3) Complicated UTI (urinary tract infection): (4) Hematuria: (5) CHRIS (acute kidney injury): Plan: Patient had undergone a cystoscopy with removal of left ureteral stent along with right ureteroscopy with dilation of ureter and exchange of a stent on right side on 09/07 Was getting discharged back home; had a syncopal event when trying to get out of the vehicle Presented to the ED Was hypotensive, tachycardic on presentation. Rush placed; found to have hematuria Leukocytosis present, lactic acidosis present CT abdomen showed perinephric fluid collection on the right side. Urinalysis shows 4+ bacteria, 3+ leukocyte esterase Plan; Continue on IV fluids with LR at 100 cc/h -On IV Zosyn; follow-up on urine and blood culture. -Hemoglobin down from 11 to 9.2; 6 X 2.5 X 5.6 cm right subcapsular renal fluid; possible subcapsular hematoma. Will monitor hemoglobin every 8 hours. Urology recommends to monitor Hb; if Hb drops more; to obtain repeat CT. -Trend lactate (6) Demand ischemia: Plan: High-sensitivity troponin elevated to 200s No complaint of chest pain Echo shows EF of 60 to 65% with borderline concentric left ventricular hypertrophy. Plan Chronic conditions; Type 2 diabetes mellitusholding p.o. meds; continue insulin Hypertensionhold off on antihypertensive for now. CODE STATUS DNR/DNI DVT prophylaxis on hold due to hematuria. Admission and Anticipated Discharge Date Admission Date: September 08, 2022 Subjective Patient seen and examined at bedside. She is sitting up on the bed comfortably; not in any distress. She reports back pain and mild shortness of breath. No fever or chills. Rush in place draining red urine Review of Systems Review of Systems: All systems reviewed & are unremarkable except as noted in Subjective Physical Exam Physical Exam: Constitutional: Awake, alert orient x3; not in distress. Morbidly obese Respiratory: normal respiratory effort, lungs clear to auscultation, no wheeze, rales, rhonchi. Normal insp/exp effort, no accessory muscle use Cardiovascular: RRR, no murmur, no edema Vessels: no JVD or carotid bruit Chest: normal inspection of chest Abdomen: normal bowel sounds, soft, nontender, no hepatosplenomegaly. Rush in place draining red urine Musculoskeletal: no cyanosis or clubbing, extremities motor strength 5/5 Skin: no rashes, warm and dry normal turgor Neurologic: PERRL, EOMI, accommodation nl, no face palsy, no dysarthria CN's II- XI intact bilaterally and moves all extremities Psychiatric: A+Ox3, euthymic affect Lymphatic: no cervical or axillary lymphadenopathy : deferred Results & Data Results & Data ([facility]) Vital Signs (Past 12 Hours) Vital Signs Temp Pulse Resp BP Pulse Ox Pulse Ox O2 Del Method 09/08/22 11:00 62 09/08/22 11:24 Room Air 09/08/22 11:00 60 16 88 L 09/08/22 11:00 98/70 L 09/08/22 10:53 106/86 09/08/22 10:53 64 20 09/08/22 10:51 66 24 98/70 L 90 09/08/22 10:30 73 24 09/08/22 11:04 36.5 C 09/08/22 09:45 77 20 88 L 09/08/22 09:31 98 H 20 78 L 09/08/22 09:31 106/65 09/08/22 09:30 63 22 91 09/08/22 09:15 69 23 91 09/08/22 09:00 61 24 92 09/08/22 09:00 95/57 L 09/08/22 08:45 68 23 95 09/08/22 08:30 76 23 96 09/08/22 08:30 66 20 106/56 L 97 Room Air 09/08/22 07:30 69 19 91/52 L 99 Room Air 09/08/22 07:15 79 20 99 09/08/22 07:00 77 20 98 09/08/22 07:00 62 20 102/52 L 97 Oxymask 09/08/22 06:38 Oxymask 09/08/22 06:00 79 20 98/60 L 99 09/08/22 05:45 80 22 94/56 L 97 09/08/22 05:30 76 20 91/58 L 97 09/08/22 05:15 78 20 108/59 L 95 09/08/22 05:00 72 20 94/59 L 96 09/08/22 04:30 85 22 93/46 L 98 09/08/22 04:00 65 20 94/51 L 97 09/08/22 04:00 94/51 L 09/08/22 03:45 78 24 93/54 L 98 Oxymask 09/08/22 03:30 70 22 95 09/08/22 03:30 95/56 L 09/08/22 03:15 76 20 87 L 09/08/22 03:15 88/57 L 09/08/22 03:46 98 O2 Del Method O2 Flow Rate O2 Flow Rate 09/08/22 11:00 09/08/22 11:24 09/08/22 11:00 09/08/22 11:00 09/08/22 10:53 09/08/22 10:53 09/08/22 10:51 09/08/22 10:30 09/08/22 11:04 09/08/22 09:45 09/08/22 09:31 09/08/22 09:31 09/08/22 09:30 09/08/22 09:15 09/08/22 09:00 09/08/22 09:00 09/08/22 08:45 09/08/22 08:30 09/08/22 08:30 09/08/22 07:30 09/08/22 07:15 09/08/22 07:00 09/08/22 07:00 09/08/22 06:38 3 09/08/22 06:00 09/08/22 05:45 09/08/22 05:30 09/08/22 05:15 09/08/22 05:00 09/08/22 04:30 09/08/22 04:00 09/08/22 04:00 09/08/22 03:45 3 09/08/22 03:30 09/08/22 03:30 09/08/22 03:15 09/08/22 03:15 09/08/22 03:46 Oxymask 3 Laboratory Results Laboratory Results WBC 28.57 K/ul (4.8-10.8) H D 09/08/22 07:45 RBC 3.19 M/uL (3.93-5.22) L 09/08/22 07:45 Hgb 9.2 g/dl (12.0-16.0) L 09/08/22 07:45 Hct 29.0 % (34.1-44.9) L 09/08/22 07:45 MCV 90.9 fL (80.0-100.0) 09/08/22 07:45 MCH 28.8 pg (25.0-34.0) 09/08/22 07:45 MCHC 31.7 g/dL (32.0-36.0) L 09/08/22 07:45 RDW Std Deviation 47.4 fL (36.4-46.3) H 09/08/22 07:45 RDW Coeff of Brijesh 14.2 % (11.5-14.5) 09/08/22 07:45 Plt Count 266 K/uL (130-400) 09/08/22 07:45 MPV 8.9 fL (9.4-12.3) L 09/08/22 07:45 Immature Gran % (Auto) 5.1 % 09/08/22 07:45 Neut % (Auto) 89.5 % 09/08/22 07:45 Lymph % (Auto) 1.5 % 09/08/22 07:45 Iron % (Auto) 3.6 % 09/08/22 07:45 Eos % (Auto) 0.1 % 09/08/22 07:45 Baso % (Auto) 0.2 % 09/08/22 07:45 Neut # (Auto) 25.52 K/uL (1.4-6.5) H 09/08/22 07:45 Lymph # (Auto) 0.43 K/uL (1.2-3.4) L 09/08/22 07:45 Iron # (Auto) 1.04 K/uL (0.24-0.82) H 09/08/22 07:45 Eos # (Auto) 0.04 K/uL (0-0.50) 09/08/22 07:45 Baso # (Auto) 0.07 K/uL (0-0.2) 09/08/22 07:45 Immature Gran # (Auto) 1.47 K/uL (0.00-0.02) H 09/08/22 07:45 Absolute Nucleated RBC Cancelled 09/08/22 05:55 Nucleated RBC % (auto) Cancelled 09/08/22 05:55 Neutrophils % (Manual) Cancelled 09/08/22 05:55 Band Neutrophils % Cancelled 09/08/22 05:55 Lymphocytes % (Manual) Cancelled 09/08/22 05:55 Prolymphocyte % Cancelled 09/08/22 05:55 Reactive Lymphs % (Man) Cancelled 09/08/22 05:55 Monocytes % (Manual) Cancelled 09/08/22 05:55 Eosinophils % (Manual) Cancelled 09/08/22 05:55 Basophils % (Manual) Cancelled 09/08/22 05:55 Metamyelocytes % (Man) Cancelled 09/08/22 05:55 Myelocytes % (Man) Cancelled 09/08/22 05:55 Promyelocytes % (Man) Cancelled 09/08/22 05:55 Blast Cells % (Manual) Cancelled 09/08/22 05:55 Plasma Cell % (Manual) Cancelled 09/08/22 05:55 Other Cells % Cancelled 09/08/22 05:55 Nucleated RBC % Cancelled 09/08/22 05:55 Neutrophils # (Manual) Cancelled 09/08/22 05:55 Band Neutrophils # Cancelled 09/08/22 05:55 Total Absolute Neuts Cancelled 09/08/22 05:55 Lymphocytes # (Manual) Cancelled 09/08/22 05:55 Prolymphocyte # Cancelled 09/08/22 05:55 Reactive Lymphs # Cancelled 09/08/22 05:55 Total Abs Lymphocytes Cancelled 09/08/22 05:55 Monocytes # (Manual) Cancelled 09/08/22 05:55 Eosinophils # (Manual) Cancelled 09/08/22 05:55 Basophils # (Manual) Cancelled 09/08/22 05:55 Metamyelocytes # (Man) Cancelled 09/08/22 05:55 Myelocytes # (Manual) Cancelled 09/08/22 05:55 Promyelocytes # (Man) Cancelled 09/08/22 05:55 Blast Cells # (Man) Cancelled 09/08/22 05:55 Plasma Cell # (Manual) Cancelled 09/08/22 05:55 Other Cells # Cancelled 09/08/22 05:55 Nucleated RBCs # (Man) Cancelled 09/08/22 05:55 Hypersegmented Neuts Cancelled 09/08/22 05:55 Hyposegmented Neuts Cancelled 09/08/22 05:55 Hypogranular Neuts Cancelled 09/08/22 05:55 Large Granular Lymphs Cancelled 09/08/22 05:55 # Lrg Granular Lymphs Cancelled 09/08/22 05:55 Hairy Cells Cancelled 09/08/22 05:55 Smudge Cells Cancelled 09/08/22 05:55 Toxic Granulation Cancelled 09/08/22 05:55 Toxic Vacuolation Cancelled 09/08/22 05:55 Dohle Bodies Cancelled 09/08/22 05:55 Puneet Rods Cancelled 09/08/22 05:55 Platelet Estimate Cancelled 09/08/22 05:55 Hypogranular Platelets Cancelled 09/08/22 05:55 Clumped Platelets Cancelled 09/08/22 05:55 Giant Platelets Cancelled 09/08/22 05:55 Platelet Satelliting Cancelled 09/08/22 05:55 RBC Morphology Cancelled 09/08/22 05:55 Polychromasia Cancelled 09/08/22 05:55 Hypochromasia Cancelled 09/08/22 05:55 Poikilocytosis Cancelled 09/08/22 05:55 Basophilic Stippling Cancelled 09/08/22 05:55 Anisocytosis Cancelled 09/08/22 05:55 Microcytosis Cancelled 09/08/22 05:55 Macrocytosis Cancelled 09/08/22 05:55 Spherocytes Cancelled 09/08/22 05:55 Pappenheimer Bodies Cancelled 09/08/22 05:55 Sickle Cells Cancelled 09/08/22 05:55 Target Cells Cancelled 09/08/22 05:55 Tear Drop Cells Cancelled 09/08/22 05:55 Ovalocytes Cancelled 09/08/22 05:55 Stomatocytes Cancelled 09/08/22 05:55 Broussard[place] Bodies Cancelled 09/08/22 05:55 Echinocytes 1+ 09/08/22 07:45 Acanthocytes (Spur) Cancelled 09/08/22 05:55 Rouleaux Cancelled 09/08/22 05:55 RBC Agglutinates Cancelled 09/08/22 05:55 Schistocytes Cancelled 09/08/22 05:55 Sezary Cell Cancelled 09/08/22 05:55 PT 11.4 Seconds (9.0-12.0) 09/07/22 Unknown PT Cancelled 09/07/22 Unknown INR 1.1 (0.9-1.1) 09/07/22 Unknown INR Cancelled 09/07/22 Unknown APTT 24.8 Seconds (21.0-31.0) 09/07/22 Unknown APTT Cancelled 09/07/22 Unknown PTT Ratio 0.9 09/07/22 Unknown PTT Ratio Cancelled 09/07/22 Unknown D-Dimer > 98601 ug/L FEU (0-500) H* 09/07/22 Unknown VBG pH 7.31 (7.36-7.41) L 09/08/22 01:27 VBG pCO2 40 mmHg (38-50) 09/08/22 01:27 VBG pO2 65 mmHg 09/08/22 01:27 VBG HCO3 20 mmol/L 09/08/22 01:27 VBG O2 Saturation 92.6 % 09/08/22 01:27 VBG Base Excess -5.8 mEq/L 09/08/22 01:27 Sodium 131 mmol/L (136-145) L 09/08/22 05:55 Potassium 4.0 mmol/L (3.5-5.1) 09/08/22 05:55 Chloride 101 mmol/L (98-107) 09/08/22 05:55 Carbon Dioxide 21 mmol/L (21-32) 09/08/22 05:55 Anion Gap 9 (3-11) 09/08/22 05:55 BUN 20 mg/dl (6-23) 09/08/22 05:55 Creatinine 2.27 mg/dl (0.6-1.2) H D 09/08/22 05:55 Est Cr Clr Drug Dosing 27.2 ml/min 09/08/22 05:55 Est GFR ( Amer) 23.2 ml/min 09/08/22 05:55 Est GFR (Non-Af Amer) 20.0 ml/min 09/08/22 05:55 BUN/Creatinine Ratio 8.8 (10-20) L 09/08/22 05:55 Glucose 119 mg/dl (70-99(Fasting)) H 09/08/22 05:55 POC Glucose 146 mg/dl (70-99) H 09/08/22 11:33 Lactate 3.3 mmol/L (0.4-2.0) H* 09/08/22 09:54 Calcium 8.1 mg/dl (8.5-10.1) L 09/08/22 05:55 Magnesium 2.1 mg/dl (1.7-2.4) 09/08/22 05:55 Total Bilirubin 0.5 mg/dl (0.2-1.0) 09/07/22 Unknown AST 13 U/L (13-39) 09/07/22 Unknown ALT 7 U/L (7-52) 09/07/22 Unknown Alkaline Phosphatase 84 U/L (34-104) 09/07/22 Unknown Total Creatine Kinase 53 U/L (26-192) 09/08/22 01:27 Troponin I High Sens 202.6 pg/ml (0-14) H* D 09/08/22 09:46 Total Protein 7.0 gm/dl (6.0-8.3) 09/07/22 Unknown Albumin 3.2 gm/dl (3.4-5.0) L 09/07/22 Unknown Globulin 3.8 gm/dl (2.5-4.0) 09/07/22 Unknown Albumin/Globulin Ratio 0.8 (0.9-2) L 09/07/22 Unknown Procalcitonin > 200.00 ng/ml (0-0.5) H 09/08/22 01:27 TSH 4.687 uIu/ml (0.300-4.500) H 09/07/22 Unknown Free T4 0.96 ng/dl (0.61-1.60) 09/07/22 Unknown Urine Color Red 09/08/22 01:23 Urine Appearance Cloudy (Clear) A 09/08/22 01:23 Urine pH 6.0 (4.5-7.5) 09/08/22 01:23 Ur Specific [place] 1.012 (1.000-1.030) 09/08/22 01:23 Urine Protein 3+ (Negative) H 09/08/22 01:23 Urine Glucose (UA) Negative (Negative) 09/08/22 01:23 Urine Ketones Negative (Negative) 09/08/22 01:23 Urine Blood 3+ (Negative) H 09/08/22 01:23 Urine Nitrite Negative (Negative) 09/08/22 01: Urine Bilirubin Negative (Negative) 09/08/22 01:23 Urine Urobilinogen Negative (Negative) 09/08/22 01:23 Ur Leukocyte Esterase 3+ (Negative) H 09/08/22 01:23 Urine WBC (Auto) >30 /hpf (0-5) H 09/08/22 01:23 Urine RBC (Auto) >30 /hpf (0-4) H 09/08/22 01:23 U Hyaline Cast (Auto) 0 /lpf (0-5) 09/08/22 01:23 U Epithel Cells (Auto) 20-30 /lpf (0-5) H 09/08/22 01:23 Urine Bacteria (Auto) 4+ (Negative) H 09/08/22 01:23 SARS-CoV-2, RNA, NAAT NEGATIVE (NEGATIVE) 09/08/22 01:00 Blood Parasites ID Cancelled 09/08/22 05:55 Blood Type O Positive 09/08/22 05:55 Antibody Screen NEGATIVE 09/08/22 05:55 Impressions KUB X-Ray 09/07/22 19:31 KUB CLINICAL HISTORY: Ureteral stent. FINDINGS: 4 AP, portable, supine abdominal radiographs are correlated with abdominal CT dated 07/14/2022. There is a nonobstructed abdominal bowel gas pattern. A right ureteral stent is in place. No calcifications are clearly identified in the right ureter along the course of the stent. There are several nonobstructing calculi projecting over the right kidney which measure up to 7 mm. No left renal calculi are clearly identified. There are numerous phleboliths in the pelvis. The skeletal structures are osteopenic and appear intact. There is moderate lumbosacral spondylosis. IMPRESSION: 1. A right ureteral stent is in place. No calcifications are clearly seen in the right ureter along the course of the stent. 2. Additional nonobstructing calculi project over the right kidney. 3. Nonobstructed abdominal bowel gas pattern. Electronically signed by: Kang Escobar M.D. 09/07/2022 8:26 PM Chest X-Ray 09/07/22 19:32 SINGLE VIEW CHEST CLINICAL HISTORY: Syncope. FINDINGS: An AP, portable, upright chest radiograph is compared to study dated 07/16/2022. The examination is degraded by portable technique, apical lordotic positioning, and patient rotation. The heart is enlarged. There is prominence of the pulmonary vasculature. The lungs and pleural spaces are clear noting mild bibasilar scarring/atelectasis. No pneumothorax is seen. The skeletal structures are osteopenic. The bony thorax is grossly intact. IMPRESSION: Cardiomegaly with prominence of the pulmonary vasculature. Correlate clinically for evidence of fluid overload/mild congestive change. ACT 112: Negative or not required by law. Electronically signed by: Kang Escobar M.D. 09/07/2022 8:23 PM Chest CTA 09/07/22 21:11 CT angio chest PE protocol CT DOSE: 1094.74 mGy.cm HISTORY: 77 years-old Female with PE. Acute shortness of breath TECHNIQUE: Multiple CTA images of the chest were obtained after the intravenous administration of 78 ml Optiray. Coronal and sagittal MIPS were obtained from the axial data set and were submitted for review. All measurements were obtained according to NASCET criteria. A dose lowering technique was utilized adhering to the principles of ALARA. COMPARISON: CT abdomen and pelvis 09/08/2022, 09/30/2019. FINDINGS: CTA: The heart is mildly enlarged. Unremarkable thoracic aorta without aneurysm or dissection. Descending thoracic aortic tortuosity. The opacified pulmonary artery is unremarkable. The segmental and subsegmental branches are not well evaluated secondary to contrast bolus timing and respiratory motion artifact. CT CHEST: Unremarkable thyroid. No lymphadenopathy identified. No pneumothorax, pleural effusion, airspace consolidation or overt pulmonary edema. Mild dependent subsegmental bibasilar atelectasis. Scattered bilateral solid pulmonary nodules (please see bookmarks) measuring up to 6 mm within the right lower lobe. This largest nodule appears stable from 2019. Unremarkable soft tissues. No acute fracture. Degenerative changes of the shoulders and spine. IMPRESSION: 1. No pulmonary emboli are identified. 2. No pleural effusion or airspace consolidation typical for pneumonia. 3. Scattered bilateral subcentimeter pulmonary nodules measure up to 6 mm. Follow-up guidelines provided below. 4. Please refer to the CT abdomen and pelvis study of same day for additional findings. Please refer to below summary of Fleischner criteria recommendations for follow- up of incidental CT nodules (Syd Isaac, Guidelines for management of small pulmonary nodules detected on CT scans: A statement from the Fleischner Society, Radiology 237: [phone].) SOLID NODULES Multiple nodules size: <6 mm * Low risk patients: no routine follow-up * high risk patients: optional CT at 12 months Note: newly detected indeterminate nodule in persons 35 years of age or older. * Low risk patients: minimal or absent history of smoking and/or other known risk factors * high risk patients: history of smoking or of other known risk factors (e.g. first degree relative with lung cancer, or exposure to asbestos, radon, uranium) * if a nodule up to 8 mm is partly solid or is ground glass further follow-up is required after 24 months to exclude possible slow growing adenocarcinoma (CEDRIC) ACT 112: Negative or not required by law. The above report was generated using voice recognition software. It may contain grammatical, syntax or spelling errors. Electronically signed by: Vic Garcia M.D. 09/08/2022 7:57 AM Abdomen/Pelvis CT 09/08/22 01:11 CT OF THE ABDOMEN AND PELVIS WITHOUT CONTRAST CLINICAL HISTORY: Right flank pain. COMPARISON STUDY: CT of the abdomen and pelvis July 14, 2022. KUB September 07, 2022.. TECHNIQUE: Axial images of the abdomen and pelvis were obtained without IV contrast. Images were reviewed in the axial, sagittal, and coronal planes. Automated exposure control was utilized for the study. A dose lowering technique was utilized adhering to the principles of ALARA. FINDINGS: A few nodules within the lower lungs were present on prior CT of July 14, 2022. A 6 lm right lower lobe nodule on image 44 of 493 is new since that exam. Cardiomegaly is present. There is a hiatal hernia. No pneumatosis, free air or portal venous gas is present. Right ureteral stent is appropriately positioned. There is gas within the right collecting system from recent procedure. There is no right hydronephrosis. Stranding within the right renal sinus is present. There are multiple right renal calculi as well as calculi with in the right renal pelvis that measure up to 6 mm. No ureteral calculi are identified although this exam is compromised by motion artifact. Renal hyperdensity is due to recent contrast-enhanced chest CT. Note is made of a 6.3 x 2.5 x 5.6 cm right subcapsular renal fluid collection which contains layering hyperdense material. No additional fluid collections are present. There is moderate bilateral renal atrophy. Faint radiodensities within the left collecting system could reflect excreted contrast although calculi could appear similar. There is a 2 mm calculus within lower pole of the left kidney. There are no left ureteral calculi. Left-sided parapelvic cysts are noted. There is no definite hydronephrosis. Rush balloon within the bladder is present. The bladder is collapsed. There are no bladder calculi. Unenhanced images of the liver, adrenal glands and pancreas are unremarkable. Mild splenomegaly is unchanged. The gallbladder is not distended. There is no evidence for a bowel obstruction. Diverticulosis is noted without evidence for acute diverticulitis. A moderate amount stool within the colon is present. No acute fracture within the visualized skeletal structures is present. Prominent retroperitoneal lymph nodes are likely reactive. IMPRESSION: 1. Right ureteral stent in place with collecting system gas related to recent procedure. No hydronephrosis. Multiple right renal pelvis calculi and right- sided nephrolithiasis. No ureteral calculi. 2. 6.3 x 2.5 x 5.6 cm right subcapsular renal fluid collection which contains layering hyperdense material. A subcapsular hematoma is favored. A urinoma containing excreted contrast could appear similar. 3. Small left renal calculi, as above. No left ureteral calculi. Apparent left collecting system dilatation which is likely related to parapelvic cysts. Mild left hydronephrosis could appear similar. 4. No bowel obstruction. No bowel wall thickening on unenhanced exam. 5. Mildly distended gallbladder. ACT 112: Negative or not required by law. Electronically signed by: Kyle Allen M.D. 09/08/2022 7:[address] 09/08/22 01:11 CT head/brain wo con CLINICAL HISTORY: 77 years-old Female with AMS. Acutely altered mental status TECHNIQUE: Multiple axial CT images of the head were obtained without contrast. A dose lowering technique was utilized adhering to the principles of ALARA. CT DOSE: 2875.54 mGy.cm COMPARISON: None. FINDINGS: No acute intracranial hemorrhage, midline shift, intracranial mass, hydrocephalus, territorial ischemia or abnormal extra-axial collection. Motion degraded exam. Involutional changes with ventriculomegaly. White matter hypodensities suggest chronic microvascular ischemic disease. Cerebral vascular calcifications. The calvarium is intact. Prior bilateral lens repair. The paranasal sinuses, mastoid air cells, and middle ear cavities are clear. IMPRESSION: 1. No acute intracranial abnormality. 2. Involutional changes with ventriculomegaly, likely on an ex vacuo basis. 3. White matter hypodensities suggest chronic microvascular ischemic disease. ACT 112: Negative or not required by law. The above report was generated using voice recognition software. It may contain grammatical, syntax or spelling errors. Electronically signed by: Vic Garcia M.D. 09/08/2022 6:57 AM
[2022-09-08 16:20] LABS: Hematocrit (blood only) 28.6 % (34.1-44.9)
[2022-09-08] MEDS: ACETAMINOPHEN 325 MG TAB PO PRN (16:42)
[2022-09-08] MEDS: LATANOPROST 0.005% OP SOLN 2.5 ML BTL OP SCH (21:00)
[2022-09-08 23:26] LABS: Hematocrit (blood only) 26.8 % (34.1-44.9); Hemoglobin 8.6 g/dl (12.0-16.0)
[2022-09-09] MEDS: LACTATED RINGER'S 1,000 ML IV SCH ×2 (00:01→08:18)
[2022-09-09] MEDS: PIPERACILLIN/TAZOBACTAM 4.5 GM in DEXTROSE 5% 100 ML IV SCH ×4 (00:02→23:54)
[2022-09-09] MEDS: INSULIN ASPART PER UNIT SC SCH ×5 (00:09→20:39)
[2022-09-09 05:19] LABS: Hematocrit (blood only) 26.5 % (34.1-44.9); Hemoglobin 8.4 g/dl (12.0-16.0); Mean Corpuscular Hemoglobin 28.6 pg (25.0-34.0); Mean Corpuscular Hgb Conc 31.7 g/dL (32.0-36.0); Mean Corpuscular Volume 90.1 fL (80.0-100.0); Mean Platelet Volume 8.7 fL (9.4-12.3); Platelet Count 201 K/uL (130-400); RDW Coefficient of Variation 14.2 % (11.5-14.5); RDW Standard Deviation 46.4 fL (36.4-46.3); Red Blood Count 2.94 M/uL (3.93-5.22); White Blood Count 20.74 K/ul (4.8-10.8)
[2022-09-09] MEDS: LEVOTHYROXINE SODIUM 50 MCG TABLET PO SCH (05:39)
[2022-09-09 05:46] LABS: Albumin Globulin Ratio 0.8 (0.9-2); Albumin Level 2.8 gm/dl (3.4-5.0); Bilirubin,Total 0.5 mg/dl (0.2-1.0); Calcium 8.2 mg/dl (8.5-10.1); Creatinine Clr Calc Pharmacy 29.7 ml/min; Est GFR (African American) 25.8 ml/min; Est GFR (Non-African American) 22.2 ml/min; Globulin 3.3 gm/dl (2.5-4.0); Potassium 4.6 mmol/L (3.5-5.1); Total Protein 6.1 gm/dl (6.0-8.3)
[2022-09-09 05:50] LABS: Basophils # (auto) 0.05 K/uL (0-0.2); Basophils % (auto) 0.2 %; Eosinophils # (auto) 0.06 K/uL (0-0.50); Eosinophils % (auto) 0.3 %; Immature Granulocytes # (auto) 1.68 K/uL (0.00-0.02); Immature Granulocytes % (auto) 8.1 %; Lymphocytes # (auto) 0.59 K/uL (1.2-3.4); Lymphocytes % (auto) 2.8 %; Monocytes # (auto) 0.55 K/uL (0.24-0.82); Monocytes % (auto) 2.7 %; Neutrophils # (auto) 17.81 K/uL (1.4-6.5); Neutrophils % (auto) 85.9 %; RBC Morphology Unremarkable
[2022-09-09] MEDS: EZETIMIBE 10 MG TABLET PO SCH (08:15)
[2022-09-09] MEDS: DULoxetine HCL 20 MG CAP PO SCH (08:15)
--- NOTE | 2022-09-09 08:33 | Urology Progress Note ---
Date of Service September 09, 2022 Assessment & Plan (1) Hematuria: Plan: Urine has cleared. There are some question of a subcapsular hematoma on CT scan. Decrease in hemoglobin could be related to this, although I suspect a large component is dilutional as she has gotten 4 to 5 L of fluid. Would recommend continuing to monitor hemoglobin. Should be okay for catheter removal today. (2) Complicated UTI (urinary tract infection): Plan: UTI with preliminary gram-negative rods. She seems to be doing well on Zosyn. We recommend following cultures and tailoring as necessary. Blood cultures neg ative at 24 hours. (3) Sepsis: Plan: Overall seems to be recovering. Lactate, creatinine and leukocytosis are gradually improving. They could be reasonable to stop supplemental IV fluids today, allow her access to oral intake. She should also be getting up out of bed to the chair and ambulating if she feels up to it. Admission and Anticipated Discharge Date Admission Date: September 08, 2022 Subjective Feeling okay, having some flank pain. No issues with catheter overnight, urine has cleared Leukocytosis is improving (WBC down to 20.74 from 28.57) Hemoglobin slightly down as well (8.4 from 9.2) Creatinine improving (2.08 from 2.27) Lactate has been improving as well. Urine culture from 09/08 with preliminary gram-negative rods. Blood cultures negative at 24 hours. She remains on Zosyn. Physical Exam Physical Exam: Resting in bed, NAD Respiratory: Breathing comfortably on room air, no audible wheezing Cardiovascular: Regular rate on telemetry Genitourinary: Rush catheter in good position draining clear yellow urine. Results & Data ([facility]) Vital Signs (Past 12 Hours) Vital Signs Temp Pulse Pulse Resp BP BP Pulse Ox 09/09/22 07:46 09/09/22 07:00 36.7 C 71 21 99/81 L 97 09/09/22 07:38 09/09/22 03:00 36.7 C 72 22 95/61 L 96 09/08/22 23:00 36.6 C 79 16 116/74 96 09/09/22 05:00 79 16 129/73 92 09/09/22 04:00 70 20 95 09/09/22 03:00 72 22 95/61 L 96 09/09/22 02:00 44 L 18 99/68 L 97 09/09/22 01:39 70 23 94 09/09/22 01:00 82 22 115/63 100 09/09/22 00:00 68 17 108/69 88 L 09/08/22 23:00 79 16 116/74 96 09/08/22 22:00 70 24 82/54 L 94 09/08/22 21:00 67 21 86/46 L 92 09/09/22 00:00 73 Pulse Ox O2 Del Method O2 Del Method FiO2 09/09/22 07:46 Room Air, CPAP 09/09/22 07:00 Room Air 09/09/22 07:38 97 Room Air 09/09/22 03:00 CPAP 09/08/22 23:00 Room Air 09/09/22 05:00 09/09/22 04:00 09/09/22 03:00 09/09/22 02:00 09/09/22 01:39 21 09/09/22 01:00 09/09/22 00:00 09/08/22 23:00 09/08/22 22:00 09/08/22 21:00 09/09/22 00:00 PG Care Time/CCT Total # of Minutes Spent Total Time Spent with Patient: Total time spent is greater than 50% in coordination of care (as documented) at patient's floor/unit and/or counseling patient: Coding Level of Care Code 29620 Subseq Hosp Care Lvl 2 Diagnoses Hematuria R31.9 Complicated UTI (urinary tract infection) N39.0 Sepsis A41.9
--- NOTE | 2022-09-09 10:48 | Hospitalist Progress Note ---
Date of Service September 09, 2022 Assessment & Plan (1) Sepsis: (2) Hypotension: (3) Complicated UTI (urinary tract infection): (4) Hematuria: (5) CHRIS (acute kidney injury): Plan: Patient had undergone a cystoscopy with removal of left ureteral stent along with right ureteroscopy with dilation of ureter and exchange of a stent on right side on 09/07 Was getting discharged back home; had a syncopal event when trying to get out of the vehicle Presented to the ED Was hypotensive, tachycardic on presentation. Vásquez placed; found to have hematuria Leukocytosis present, lactic acidosis present CT abdomen showed perinephric fluid collection on the right side. Urinalysis shows 4+ bacteria, 3+ leukocyte esterase Urine Cx- G -ve bacilli. Blood Cx- NGTD On 09/09, creatinine downtrended. Urine output improved. Hematuria cleared. Blood pressure improved. Plan; Stop Iv fluids. encourage oral hydration. - Continue on zosyn. Will await final culture and sensitivity results. - remove vásquez. - monitor Hb and hemodynamics. (6) Demand ischemia: Plan: High-sensitivity troponin elevated to 200s No complaint of chest pain Echo shows EF of 60 to 65% with borderline concentric left ventricular hypertrophy. Plan Chronic conditions; Type 2 diabetes mellitusholding p.o. meds; continue insulin Hypertensionhold off on antihypertensive for now. CODE STATUS DNR/DNI DVT prophylaxis on hold due to hematuria. Will restart tomorrow if she does not have any hematuria. Admission and Anticipated Discharge Date Admission Date: September 08, 2022 Subjective Patient seen and examined in the ICU. She is comfortably sitting up on the bed; not in any distress. Blood pressure has improved. Urine output clear; no sign of hematuria today. Review of Systems Review of Systems: All systems reviewed & are unremarkable except as noted in Subjective Physical Exam Physical Exam: Constitutional: Awake, alert orient x3; not in distress. Morbidly obese Respiratory: normal respiratory effort, lungs clear to auscultation, no wheeze, rales, rhonchi. Normal insp/exp effort, no accessory muscle use Cardiovascular: RRR, no murmur, no edema Vessels: no JVD or carotid bruit Chest: normal inspection of chest Abdomen: normal bowel sounds, soft, nontender, no hepatosplenomegaly. Vásquez in place draining red urine Musculoskeletal: no cyanosis or clubbing, extremities motor strength 5/5 Skin: no rashes, warm and dry normal turgor Neurologic: PERRL, EOMI, accommodation nl, no face palsy, no dysarthria CN's II- XI intact bilaterally and moves all extremities Psychiatric: A+Ox3, euthymic affect Lymphatic: no cervical or axillary lymphadenopathy : deferred Results & Data Results & Data ([facility]) Vital Signs (Past 12 Hours) Vital Signs Temp Pulse Pulse Resp BP BP Pulse Ox 09/09/22 10:00 66 27 H 121/68 91 09/09/22 09:01 68 24 132/87 93 09/09/22 08:00 65 19 143/92 H 94 09/09/22 07:00 68 23 99/81 L 94 09/09/22 06:00 65 25 H 126/77 95 09/09/22 08:00 74 09/09/22 07:46 09/09/22 07:00 36.7 C 71 21 99/81 L 97 09/09/22 07:38 09/09/22 03:00 36.7 C 72 22 95/61 L 96 09/08/22 23:00 36.6 C 79 16 116/74 96 09/09/22 05:00 79 16 129/73 92 09/09/22 04:00 70 20 95 09/09/22 03:00 72 22 95/61 L 96 09/09/22 02:00 44 L 18 99/68 L 97 09/09/22 01:39 70 23 94 09/09/22 01:00 82 22 115/63 100 09/09/22 00:00 68 17 108/69 88 L 09/08/22 23:00 79 16 116/74 96 09/09/22 00:00 73 Pulse Ox O2 Del Method O2 Del Method FiO2 09/09/22 10:00 09/09/22 09:01 09/09/22 08:00 09/09/22 07:00 09/09/22 06:00 09/09/22 08:00 09/09/22 07:46 Room Air, CPAP 09/09/22 07:00 Room Air 09/09/22 07:38 97 Room Air 09/09/22 03:00 CPAP 09/08/22 23:00 Room Air 09/09/22 05:00 09/09/22 04:00 09/09/22 03:00 09/09/22 02:00 09/09/22 01:39 21 09/09/22 01:00 09/09/22 00:00 09/08/22 23:00 09/09/22 00:00 Laboratory Results Laboratory Results WBC 20.74 K/ul (4.8-10.8) H 09/09/22 05:09 RBC 2.94 M/uL (3.93-5.22) L 09/09/22 05:09 Hgb 8.4 g/dl (12.0-16.0) L 09/09/22 05:09 Hct 26.5 % (34.1-44.9) L 09/09/22 05:09 MCV 90.1 fL (80.0-100.0) 09/09/22 05:09 MCH 28.6 pg (25.0-34.0) 09/09/22 05:09 MCHC 31.7 g/dL (32.0-36.0) L 09/09/22 05:09 RDW Std Deviation 46.4 fL (36.4-46.3) H 09/09/22 05:09 RDW Coeff of Brijesh 14.2 % (11.5-14.5) 09/09/22 05:09 Plt Count 201 K/uL (130-400) 09/09/22 05:09 MPV 8.7 fL (9.4-12.3) L 09/09/22 05:09 Immature Gran % (Auto) 8.1 % 09/09/22 05:09 Neut % (Auto) 85.9 % 09/09/22 05:09 Lymph % (Auto) 2.8 % 09/09/22 05:09 Sutter % (Auto) 2.7 % 09/09/22 05:09 Eos % (Auto) 0.3 % 09/09/22 05:09 Baso % (Auto) 0.2 % 09/09/22 05:09 Neut # (Auto) 17.81 K/uL (1.4-6.5) H 09/09/22 05:09 Lymph # (Auto) 0.59 K/uL (1.2-3.4) L 09/09/22 05:09 Sutter # (Auto) 0.55 K/uL (0.24-0.82) 09/09/22 05:09 Eos # (Auto) 0.06 K/uL (0-0.50) 09/09/22 05:09 Baso # (Auto) 0.05 K/uL (0-0.2) 09/09/22 05:09 Immature Gran # (Auto) 1.68 K/uL (0.00-0.02) H 09/09/22 05:09 Absolute Nucleated RBC Cancelled 09/08/22 05:55 Nucleated RBC % (auto) Cancelled 09/08/22 05:55 Neutrophils % (Manual) Cancelled 09/08/22 05:55 Band Neutrophils % Cancelled 09/08/22 05:55 Lymphocytes % (Manual) Cancelled 09/08/22 05:55 Prolymphocyte % Cancelled 09/08/22 05:55 Reactive Lymphs % (Man) Cancelled 09/08/22 05:55 Monocytes % (Manual) Cancelled 09/08/22 05:55 Eosinophils % (Manual) Cancelled 09/08/22 05:55 Basophils % (Manual) Cancelled 09/08/22 05:55 Metamyelocytes % (Man) Cancelled 09/08/22 05:55 Myelocytes % (Man) Cancelled 09/08/22 05:55 Promyelocytes % (Man) Cancelled 09/08/22 05:55 Blast Cells % (Manual) Cancelled 09/08/22 05:55 Plasma Cell % (Manual) Cancelled 09/08/22 05:55 Other Cells % Cancelled 09/08/22 05:55 Nucleated RBC % Cancelled 09/08/22 05:55 Neutrophils # (Manual) Cancelled 09/08/22 05:55 Band Neutrophils # Cancelled 09/08/22 05:55 Total Absolute Neuts Cancelled 09/08/22 05:55 Lymphocytes # (Manual) Cancelled 09/08/22 05:55 Prolymphocyte # Cancelled 09/08/22 05:55 Reactive Lymphs # Cancelled 09/08/22 05:55 Total Abs Lymphocytes Cancelled 09/08/22 05:55 Monocytes # (Manual) Cancelled 09/08/22 05:55 Eosinophils # (Manual) Cancelled 09/08/22 05:55 Basophils # (Manual) Cancelled 09/08/22 05:55 Metamyelocytes # (Man) Cancelled 09/08/22 05:55 Myelocytes # (Manual) Cancelled 09/08/22 05:55 Promyelocytes # (Man) Cancelled 09/08/22 05:55 Blast Cells # (Man) Cancelled 09/08/22 05:55 Plasma Cell # (Manual) Cancelled 09/08/22 05:55 Other Cells # Cancelled 09/08/22 05:55 Nucleated RBCs # (Man) Cancelled 09/08/22 05:55 Hypersegmented Neuts Cancelled 09/08/22 05:55 Hyposegmented Neuts Cancelled 09/08/22 05:55 Hypogranular Neuts Cancelled 09/08/22 05:55 Large Granular Lymphs Cancelled 09/08/22 05:55 # Lrg Granular Lymphs Cancelled 09/08/22 05:55 Hairy Cells Cancelled 09/08/22 05:55 Smudge Cells Cancelled 09/08/22 05:55 Toxic Granulation Cancelled 09/08/22 05:55 Toxic Vacuolation Cancelled 09/08/22 05:55 Dohle Bodies Cancelled 09/08/22 05:55 Puneet Rods Cancelled 09/08/22 05:55 Platelet Estimate Cancelled 09/08/22 05:55 Hypogranular Platelets Cancelled 09/08/22 05:55 Clumped Platelets Cancelled 09/08/22 05:55 Giant Platelets Cancelled 09/08/22 05:55 Platelet Satelliting Cancelled 09/08/22 05:55 RBC Morphology Unremarkable 09/09/22 05:09 Polychromasia Cancelled 09/08/22 05:55 Hypochromasia Cancelled 09/08/22 05:55 Poikilocytosis Cancelled 09/08/22 05:55 Basophilic Stippling Cancelled 09/08/22 05:55 Anisocytosis Cancelled 09/08/22 05:55 Microcytosis Cancelled 09/08/22 05:55 Macrocytosis Cancelled 09/08/22 05:55 Spherocytes Cancelled 09/08/22 05:55 Pappenheimer Bodies Cancelled 09/08/22 05:55 Sickle Cells Cancelled 09/08/22 05:55 Target Cells Cancelled 09/08/22 05:55 Tear Drop Cells Cancelled 09/08/22 05:55 Ovalocytes Cancelled 09/08/22 05:55 Stomatocytes Cancelled 09/08/22 05:55 [place] Bodies Cancelled 09/08/22 05:55 Echinocytes 1+ 09/08/22 07:45 Acanthocytes (Spur) Cancelled 09/08/22 05:55 Rouleaux Cancelled 09/08/22 05:55 RBC Agglutinates Cancelled 09/08/22 05:55 Schistocytes Cancelled 09/08/22 05:55 Sezary Cell Cancelled 09/08/22 05:55 PT 11.4 Seconds (9.0-12.0) 09/07/22 Unknown PT Cancelled 09/07/22 Unknown INR 1.1 (0.9-1.1) 09/07/22 Unknown INR Cancelled 09/07/22 Unknown APTT 24.8 Seconds (21.0-31.0) 09/07/22 Unknown APTT Cancelled 09/07/22 Unknown PTT Ratio 0.9 09/07/22 Unknown PTT Ratio Cancelled 09/07/22 Unknown D-Dimer > 91974 ug/L FEU (0-500) H* 09/07/22 Unknown VBG pH 7.31 (7.36-7.41) L 09/08/22 01:27 VBG pCO2 40 mmHg (38-50) 09/08/22 01:27 VBG pO2 65 mmHg 09/08/22 01:27 VBG HCO3 20 mmol/L 09/08/22 01:27 VBG O2 Saturation 92.6 % 09/08/22 01:27 VBG Base Excess -5.8 mEq/L 09/08/22 01:27 Sodium 132 mmol/L (136-145) L 09/09/22 05:09 Potassium 4.6 mmol/L (3.5-5.1) 09/09/22 05:09 Chloride 100 mmol/L (98-107) 09/09/22 05:09 Carbon Dioxide 25 mmol/L (21-32) 09/09/22 05:09 Anion Gap 7 (3-11) 09/09/22 05:09 BUN 27 mg/dl (6-23) H 09/09/22 05:09 Creatinine 2.08 mg/dl (0.6-1.2) H 09/09/22 05:09 Est Cr Clr Drug Dosing 29.7 ml/min 09/09/22 05:09 Est GFR ( Amer) 25.8 ml/min 09/09/22 05:09 Est GFR (Non-Af Amer) 22.2 ml/min 09/09/22 05:09 BUN/Creatinine Ratio 13.0 (10-20) 09/09/22 05:09 Glucose 105 mg/dl (70-99(Fasting)) H 09/09/22 05:09 POC Glucose 105 mg/dl (70-99) H 09/09/22 07:32 Lactate 2.8 mmol/L (0.4-2.0) H* 09/08/22 17:54 Calcium 8.2 mg/dl (8.5-10.1) L 09/09/22 05:09 Magnesium 2.1 mg/dl (1.7-2.4) 09/08/22 05:55 Total Bilirubin 0.5 mg/dl (0.2-1.0) 09/09/22 05:09 AST 17 U/L (13-39) 09/09/22 05:09 ALT 9 U/L (7-52) 09/09/22 05:09 Alkaline Phosphatase 61 U/L (34-104) 09/09/22 05:09 Total Creatine Kinase 53 U/L (26-192) 09/08/22 01:27 Troponin I High Sens 236.2 pg/ml (0-14) H* 09/08/22 22:58 Total Protein 6.1 gm/dl (6.0-8.3) 09/09/22 05:09 Albumin 2.8 gm/dl (3.4-5.0) L 09/09/22 05:09 Globulin 3.3 gm/dl (2.5-4.0) 09/09/22 05:09 Albumin/Globulin Ratio 0.8 (0.9-2) L 09/09/22 05:09 Procalcitonin > 200.00 ng/ml (0-0.5) H 09/08/22 01:27 TSH 4.687 uIu/ml (0.300-4.500) H 09/07/22 Unknown Free T4 0.96 ng/dl (0.61-1.60) 09/07/22 Unknown Urine Color Red 09/08/22 01: Urine Appearance Cloudy (Clear) A 09/08/22 01: Urine pH 6.0 (4.5-7.5) 09/08/22:23 Ur Specific [place] 1.012 (1.000-1.030) 09/08/22 01:23 Urine Protein 3+ (Negative) H 09/08/22 01:23 Urine Glucose (UA) Negative (Negative) 09/08/22: Urine Ketones Negative (Negative) 09/08/22 01: Urine Blood 3+ (Negative) H 09/08/22 01: Urine Nitrite Negative (Negative) 09/08/22: Urine Bilirubin Negative (Negative) 09/08/22: Urine Urobilinogen Negative (Negative) 09/08/22: Ur Leukocyte Esterase 3+ (Negative) H 09/08/22 01:23 Urine WBC (Auto) >30 /hpf (0-5) H 09/08/22 01: Urine RBC (Auto) >30 /hpf (0-4) H 09/08/22 01: U Hyaline Cast (Auto) 0 /lpf (0-5) 09/08/22 01: U Epithel Cells (Auto) 20-30 /lpf (0-5) H 09/08/22 01:23 Urine Bacteria (Auto) 4+ (Negative) H 09/08/22 01:23 SARS-CoV-2, RNA, NAAT NEGATIVE (NEGATIVE) 09/08/22 01:00 Blood Parasites ID Cancelled 09/08/22 05:55 Blood Type O Positive 09/08/22 05:55 Antibody Screen NEGATIVE 09/08/22 05:55 Impressions KUB X-Ray 09/07/22 19:31 KUB CLINICAL HISTORY: Ureteral stent. FINDINGS: 4 AP, portable, supine abdominal radiographs are correlated with abdominal CT dated 07/14/2022. There is a nonobstructed abdominal bowel gas pattern. A right ureteral stent is in place. No calcifications are clearly identified in the right ureter along the course of the stent. There are several nonobstructing calculi projecting over the right kidney which measure up to 7 mm. No left renal calculi are clearly identified. There are numerous phleboliths in the pelvis. The skeletal structures are osteopenic and appear intact. There is moderate lumbosacral spondylosis. IMPRESSION: 1. A right ureteral stent is in place. No calcifications are clearly seen in the right ureter along the course of the stent. 2. Additional nonobstructing calculi project over the right kidney. 3. Nonobstructed abdominal bowel gas pattern. Electronically signed by: Kang Escobar M.D. 09/07/2022 8:26 PM Chest X-Ray 09/07/22 19:32 SINGLE VIEW CHEST CLINICAL HISTORY: Syncope. FINDINGS: An AP, portable, upright chest radiograph is compared to study dated 07/16/2022. The examination is degraded by portable technique, apical lordotic positioning, and patient rotation. The heart is enlarged. There is prominence of the pulmonary vasculature. The lungs and pleural spaces are clear noting mild bibasilar scarring/atelectasis. No pneumothorax is seen. The skeletal structures are osteopenic. The bony thorax is grossly intact. IMPRESSION: Cardiomegaly with prominence of the pulmonary vasculature. Correlate clinically for evidence of fluid overload/mild congestive change. ACT 112: Negative or not required by law. Electronically signed by: Kang Escobar M.D. 09/07/2022 8:23 PM Chest CTA 09/07/22 21:11 CT angio chest PE protocol CT DOSE: 1094.74 mGy.cm HISTORY: 77 years-old Female with PE. Acute shortness of breath TECHNIQUE: Multiple CTA images of the chest were obtained after the intravenous administration of 78 ml Optiray. Coronal and sagittal MIPS were obtained from the axial data set and were submitted for review. All measurements were obtained according to NASCET criteria. A dose lowering technique was utilized adhering to the principles of ALARA. COMPARISON: CT abdomen and pelvis 09/08/2022, 09/30/2019. FINDINGS: CTA: The heart is mildly enlarged. Unremarkable thoracic aorta without aneurysm or dissection. Descending thoracic aortic tortuosity. The opacified pulmonary artery is unremarkable. The segmental and subsegmental branches are not well evaluated secondary to contrast bolus timing and respiratory motion artifact. CT CHEST: Unremarkable thyroid. No lymphadenopathy identified. No pneumothorax, pleural effusion, airspace consolidation or overt pulmonary edema. Mild dependent subsegmental bibasilar atelectasis. Scattered bilateral solid pulmonary nodules (please see bookmarks) measuring up to 6 mm within the right lower lobe. This largest nodule appears stable from 2019. Unremarkable soft tissues. No acute fracture. Degenerative changes of the shoulders and spine. IMPRESSION: 1. No pulmonary emboli are identified. 2. No pleural effusion or airspace consolidation typical for pneumonia. 3. Scattered bilateral subcentimeter pulmonary nodules measure up to 6 mm. Follow-up guidelines provided below. 4. Please refer to the CT abdomen and pelvis study of same day for additional findings. Please refer to below summary of Fleischner criteria recommendations for follow- up of incidental CT nodules (Syd Isaac, Guidelines for management of small pulmonary nodules detected on CT scans: A statement from the Fleischner Society, Radiology 237: [phone].) SOLID NODULES Multiple nodules size: <6 mm * Low risk patients: no routine follow-up * high risk patients: optional CT at 12 months Note: newly detected indeterminate nodule in persons 35 years of age or older. * Low risk patients: minimal or absent history of smoking and/or other known risk factors * high risk patients: history of smoking or of other known risk factors (e.g. first degree relative with lung cancer, or exposure to asbestos, radon, uranium) * if a nodule up to 8 mm is partly solid or is ground glass further follow-up is required after 24 months to exclude possible slow growing adenocarcinoma (CEDRIC) ACT 112: Negative or not required by law. The above report was generated using voice recognition software. It may contain grammatical, syntax or spelling errors. Electronically signed by: Vic Garcia M.D. 09/08/2022 7:57 AM Abdomen/Pelvis CT 09/08/22 01:11 CT OF THE ABDOMEN AND PELVIS WITHOUT CONTRAST CLINICAL HISTORY: Right flank pain. COMPARISON STUDY: CT of the abdomen and pelvis July 14, 2022. KUB September 07, 2022.. TECHNIQUE: Axial images of the abdomen and pelvis were obtained without IV contrast. Images were reviewed in the axial, sagittal, and coronal planes. Automated exposure control was utilized for the study. A dose lowering technique was utilized adhering to the principles of ALARA. FINDINGS: A few nodules within the lower lungs were present on prior CT of July 14, 2022. A 6 lm right lower lobe nodule on image 44 of 493 is new since that exam. Cardiomegaly is present. There is a hiatal hernia. No pneumatosis, free air or portal venous gas is present. Right ureteral stent is appropriately positioned. There is gas within the right collecting system from recent procedure. There is no right hydronephrosis. Stranding within the right renal sinus is present. There are multiple right renal calculi as well as calculi within the right renal pelvis that measure up to 6 mm. No ureteral calculi are identified although this exam is compromised by motion artifact. Renal hyperdensity is due to recent contrast-enhanced chest CT. Note is made of a 6.3 x 2.5 x 5.6 cm right subcapsular renal fluid collection which contains layering hyperdense material. No additional fluid collections are present. There is moderate bilateral renal atrophy. Faint radiodensities within the left collecting system could reflect excreted contrast although calculi could appear similar. There is a 2 mm calculus within lower pole of the left kidney. There are no left ureteral calculi. Left-sided parapelvic cysts are noted. There is no definite hydronephrosis. Vásquez balloon within the bladder is present. The bladder is collapsed. There are no bladder calculi. Unenhanced images of the liver, adrenal glands and pancreas are unremarkable. Mild splenomegaly is unchanged. The gallbladder is not distended. There is no evidence for a bowel obstruction. Diverticulosis is noted without evidence for acute diverticulitis. A moderate amount stool within the colon is present. No acute fracture within the visualized skeletal structures is present. Prominent retroperitoneal lymph nodes are likely reactive. IMPRESSION: 1. Right ureteral stent in place with collecting system gas related to recent procedure. No hydronephrosis. Multiple right renal pelvis calculi and right- sided nephrolithiasis. No ureteral calculi. 2. 6.3 x 2.5 x 5.6 cm right subcapsular renal fluid collection which contains layering hyperdense material. A subcapsular hematoma is favored. A urinoma containing excreted contrast could appear similar. 3. Small left renal calculi, as above. No left ureteral calculi. Apparent left collecting system dilatation which is likely related to parapelvic cysts. Mild left hydronephrosis could appear similar. 4. No bowel obstruction. No bowel wall thickening on unenhanced exam. 5. Mildly distended gallbladder. ACT 112: Negative or not required by law. Electronically signed by: Kyle Allen M.D. 09/08/2022 7:[address] 09/08/22 01:11 CT head/brain wo con CLINICAL HISTORY: 77 years-old Female with AMS. Acutely altered mental status TECHNIQUE: Multiple axial CT images of the head were obtained without contrast. A dose lowering technique was utilized adhering to the principles of ALARA. CT DOSE: 2875.54 mGy.cm COMPARISON: None. FINDINGS: No acute intracranial hemorrhage, midline shift, intracranial mass, hydrocephalus, territorial ischemia or abnormal extra-axial collection. Motion degraded exam. Involutional changes with ventriculomegaly. White matter hypodensities suggest chronic microvascular ischemic disease. Cerebral vascular calcifications. The calvarium is intact. Prior bilateral lens repair. The paranasal sinuses, mastoid air cells, and middle ear cavities are clear. IMPRESSION: 1. No acute intracranial abnormality. 2. Involutional changes with ventriculomegaly, likely on an ex vacuo basis. 3. White matter hypodensities suggest chronic microvascular ischemic disease. ACT 112: Negative or not required by law. The above report was generated using voice recognition software. It may contain grammatical, syntax or spelling errors. Electronically signed by: Vic Garcia M.D. 09/08/2022 6:57 AM
[2022-09-09] MEDS: ACETAMINOPHEN 325 MG TAB PO PRN ×2 (11:46→20:41)
[2022-09-09 17:50] LABS: A calco-baum cmplx NotReported Not Detected (NotDetected); Bact fragilis Not Reported Not Detected (NotDetected); C auris Not Reported Not Detected (NotDetected); Calbicans Not Reported Not Detected (NotDetected); Candida glabrata Not Reported Not Detected (NotDetected); Candida krusei Not Reported Not Detected (NotDetected); Cneoformans/gatti Not Reported Not Detected (NotDetected); Cparapsilosis Not Reported Not Detected (NotDetected); Ctropicalis Not Reported Not Detected (NotDetected); E cloacae compx Not Reported Not Detected (NotDetected); Efaecalis Not Reported Not Detected (NotDetected); Efaecium Not Reported Not Detected (NotDetected); Enterobacterales Not Reported Not Detected (NotDetected); Escherichia coli Not Reported Not Detected (NotDetected); H influenzae Not Reported Not Detected (NotDetected); K aerogenes Not Reported Not Detected (NotDetected); Koxytoca Not Reported Not Detected (NotDetected); Kpneumoniae grp Not Reported Not Detected (NotDetected); Lmonocyt Not Reported Not Detected (NotDetected); N meningitidis Not Reported Not Detected (NotDetected); P aeruginosa Not Reported Not Detected (NotDetected); Proteus spp Not Reported Not Detected (NotDetected); Salmonella spp Not Reported Not Detected (NotDetected); Smarcescens Not Reported Not Detected (NotDetected); Staph lugdunensis Not Reported Not Detected (NotDetected); Staph spp. Not Reported Not Detected (NotDetected); Staphaureus Not Reported Not Detected (NotDetected); Staphepi Not Reported Not Detected (NotDetected); Stenmaltophilia Not Reported Not Detected (NotDetected); Strep agal(GrpB) Not Reported Not Detected (NotDetected); Strep pneum Not Reported Not Detected (NotDetected); Strep pyog (GrpA) Not Reported Not Detected (NotDetected); Strep spp Not Reported Not Detected (NotDetected)
[2022-09-09] MEDS: LATANOPROST 0.005% OP SOLN 2.5 ML BTL OP SCH (20:42)
[2022-09-10] MEDS: LEVOTHYROXINE SODIUM 50 MCG TABLET PO SCH (05:43)
[2022-09-10 07:19] LABS: Hematocrit (blood only) 27.7 % (34.1-44.9); Hemoglobin 8.9 g/dl (12.0-16.0); Mean Corpuscular Hemoglobin 28.4 pg (25.0-34.0); Mean Corpuscular Hgb Conc 32.1 g/dL (32.0-36.0); Mean Corpuscular Volume 88.5 fL (80.0-100.0); Platelet Count 227 K/uL (130-400); RDW Coefficient of Variation 13.9 % (11.5-14.5); RDW Standard Deviation 45.2 fL (36.4-46.3); Red Blood Count 3.13 M/uL (3.93-5.22)
[2022-09-10 07:42] LABS: Basophils # (auto) 0.05 K/uL (0-0.2); Basophils % (auto) 0.3 %; Eosinophils # (auto) 0.19 K/uL (0-0.50); Eosinophils % (auto) 1.2 %; Immature Granulocytes # (auto) 0.18 K/uL (0.00-0.02); Immature Granulocytes % (auto) 1.1 %; Lymphocytes # (auto) 0.71 K/uL (1.2-3.4); Lymphocytes % (auto) 4.4 %; Monocytes # (auto) 0.46 K/uL (0.24-0.82); Monocytes % (auto) 2.9 %; Neutrophils # (auto) 14.41 K/uL (1.4-6.5); Neutrophils % (auto) 90.1 %
[2022-09-10 07:50] LABS: BUN Creatinine Ratio 13.6 (10-20); Calcium 8.2 mg/dl (8.5-10.1); Creatinine Clr Calc Pharmacy 33.1 ml/min; Est GFR (African American) 27.4 ml/min; Est GFR (Non-African American) 23.6 ml/min; Potassium 4.1 mmol/L (3.5-5.1)
[2022-09-10] MEDS: EZETIMIBE 10 MG TABLET PO SCH (07:59)
[2022-09-10] MEDS: DULoxetine HCL 20 MG CAP PO SCH (07:59)
[2022-09-10] MEDS: INSULIN ASPART PER UNIT SC SCH ×4 (08:06→20:25)
[2022-09-10] MEDS: PIPERACILLIN/TAZOBACTAM 4.5 GM in DEXTROSE 5% 100 ML IV SCH ×2 (08:06→16:04)
--- NOTE | 2022-09-10 08:33 | Urology Progress Note ---
Date of Service September 10, 2022 Assessment & Plan (1) Hematuria: Plan: Urine has cleared. Hemoglobin has increased; low suspicion for ongoing bleeding/subcapsular hematoma. (2) Complicated UTI (urinary tract infection): Plan: Urine cultures with E. coli. At this point I think it be reasonable to transition her to oral antibiotics. (3) Sepsis: Plan: Blood cultures with gram-positive rods. Clinically she is improving. She should continue to work to get out of bed and ambulate. No longer requiring fluid resuscitation. I think it would be reasonable to transition to oral antibiotics and see how she does. Admission and Anticipated Discharge Date Admission Date: September 08, 2022 Subjective Feeling okay, denies any significant pain. Still having some urinary leakage, especially with Valsalva Has been up moving around a little bit Labs are improving (WBC now 16 down from 20, creatinine 1.98.) Blood culture from 09/08 with gram-positive bacilli, urine from 09/08 with E. coli. She remains on Zosyn. Physical Exam Physical Exam: Resting in bed, NAD Respiratory: Breathing comfortably on room air, no audible wheezing Results & Data ([facility]) Vital Signs (Past 12 Hours) Vital Signs Temp Pulse Pulse Resp BP BP Pulse Ox 09/10/22 07:25 36.7 C 60 18 131/74 93 09/10/22 03:50 36.7 C 75 18 125/80 92 09/10/22 00:05 65 26 H 96 09/09/22 23:27 79 119/60 93 09/09/22 22:15 85 09/09/22 23:07 36.7 C 83 18 94/58 L 92 O2 Del Method FiO2 09/10/22 07:25 Room Air 09/10/22 03:50 Room Air 09/10/22 00:05 21 09/09/22 23:27 Room Air 09/09/22 22:15 09/09/22 23:07 Room Air PG Care Time/CCT Total # of Minutes Spent Total Time Spent with Patient: Total time spent is greater than 50% in coordination of care (as documented) at patient's floor/unit and/or counseling patient: Coding Level of Care Code 58275 Subseq Hosp Care Lvl 2 Diagnoses Hematuria R31.9 Complicated UTI (urinary tract infection) N39.0 Sepsis A41.9
[2022-09-10] MEDS: ACETAMINOPHEN 325 MG TAB PO PRN ×2 (08:48→16:03)
--- NOTE | 2022-09-10 11:42 | Hospitalist Progress Note ---
Date of Service September 10, 2022 Assessment & Plan (1) Sepsis: (2) Hypotension: (3) Complicated UTI (urinary tract infection): (4) Hematuria: (5) Anaerobic bacteremia: (6) CHRIS (acute kidney injury): Plan: Patient had undergone a cystoscopy with removal of left ureteral stent along with right ureteroscopy with dilation of ureter and exchange of a stent on right side on 09/07 Was getting discharged back home; had a syncopal event when trying to get out of the vehicle Presented to the ED Was hypotensive, tachycardic on presentation. Rush placed; found to have hematuria Leukocytosis present, lactic acidosis present on admission. CT abdomen showed perinephric fluid collection on the right side. Urinalysis shows 4+ bacteria, 3+ leukocyte esterase Urine Cx- G - E.coli, pansensitive Blood culture 2 out of 4 bottles was positive for lactobacillus species On 09/09, creatinine downtrended. Urine output improved. Hematuria cleared. Blood pressure improved. Plan; Patient is currently on Zosyn; E. coli sensitive to Zosyn. Given her blood culture results; will obtain repeat blood culture. -Will obtain ID consult to determine whether the blood cultures results should be taken into account and be treated. -Encourage oral hydration and mobilization. -Outpatient follow-up with urology at discharge (7) Acute blood loss anemia: Plan: Hb on admission; [address] abdomen shows perinephric fluid collection on the right side; possible subcasular hematoma. Also had hematuria on admission Monitor for now; follow up with PCP. (8) Demand ischemia: Plan: High-sensitivity troponin elevated to 200s No complaint of chest pain Echo shows EF of 60 to 65% with borderline concentric left ventricular hypertrophy. Plan Chronic conditions; Type 2 diabetes mellitusholding p.o. meds; continue insulin Hypertensionhold off on antihypertensive for now. CODE STATUS DNR/DNI DVT prophylaxis heparin Admission and Anticipated Discharge Date Admission Date: September 08, 2022 Subjective Patient seen and examined at bedside. She is comfortable; not in any distress. She has been able to void without any difficulty and has been getting out of the bed. Review of Systems Review of Systems: All systems reviewed & are unremarkable except as noted in Subjective Physical Exam Physical Exam: Constitutional: Awake, alert orient x3; not in distress. Morbidly obese Respiratory: normal respiratory effort, lungs clear to auscultation, no wheeze, rales, rhonchi. Normal insp/exp effort, no accessory muscle use Cardiovascular: RRR, no murmur, no edema Vessels: no JVD or carotid bruit Chest: normal inspection of chest Abdomen: normal bowel sounds, soft, nontender, no hepatosplenomegaly. Rush in place draining red urine Musculoskeletal: no cyanosis or clubbing, extremities motor strength 5/5 Skin: no rashes, warm and dry normal turgor Neurologic: PERRL, EOMI, accommodation nl, no face palsy, no dysarthria CN's II- XI intact bilaterally and moves all extremities Psychiatric: A+Ox3, euthymic affect Lymphatic: no cervical or axillary lymphadenopathy : deferred Results & Data Results & Data ([facility]) Vital Signs (Past 12 Hours) Vital Signs Temp Pulse Pulse Resp BP Pulse Ox O2 Del Method 09/10/22 11:27 36.7 C 72 18 130/73 93 Room Air 09/10/22 10:00 Room Air 09/10/22 08:00 73 09/10/22 07:25 36.7 C 60 18 131/74 93 Room Air 09/10/22 03:50 36.7 C 75 18 125/80 92 Room Air 09/10/22 00:05 65 26 H 96 FiO2 09/10/22 11:27 09/10/22 10:00 09/10/22 08:00 09/10/22 07:25 09/10/22 03:50 09/10/22 00:05 21 Laboratory Results Laboratory Results WBC 16.00 K/ul (4.8-10.8) H 09/10/22 06:45 RBC 3.13 M/uL (3.93-5.22) L 09/10/22 06:45 Hgb 8.9 g/dl (12.0-16.0) L 09/10/22 06:45 Hct 27.7 % (34.1-44.9) L 09/10/22 06:45 MCV 88.5 fL (80.0-100.0) 09/10/22 06:45 MCH 28.4 pg (25.0-34.0) 09/10/22 06:45 MCHC 32.1 g/dL (32.0-36.0) 09/10/22 06:45 RDW Std Deviation 45.2 fL (36.4-46.3) 09/10/22 06:45 RDW Coeff of Brijesh 13.9 % (11.5-14.5) 09/10/22 06:45 Plt Count 227 K/uL (130-400) 09/10/22 06:45 MPV 9.0 fL (9.4-12.3) L 09/10/22 06:45 Immature Gran % (Auto) 1.1 % 09/10/22 06:45 Neut % (Auto) 90.1 % 09/10/22 06:45 Lymph % (Auto) 4.4 % 09/10/22 06:45 Luna % (Auto) 2.9 % 09/10/22 06:45 Eos % (Auto) 1.2 % 09/10/22 06:45 Baso % (Auto) 0.3 % 09/10/22 06:45 Neut # (Auto) 14.41 K/uL (1.4-6.5) H 09/10/22 06:45 Lymph # (Auto) 0.71 K/uL (1.2-3.4) L 09/10/22 06:45 Luna # (Auto) 0.46 K/uL (0.24-0.82) 09/10/22 06:45 Eos # (Auto) 0.19 K/uL (0-0.50) 09/10/22 06:45 Baso # (Auto) 0.05 K/uL (0-0.2) 09/10/22 06:45 Immature Gran # (Auto) 0.18 K/uL (0.00-0.02) H 09/10/22 06:45 Absolute Nucleated RBC Cancelled 09/08/22 05:55 Nucleated RBC % (auto) Cancelled 09/08/22 05:55 Neutrophils % (Manual) Cancelled 09/08/22 05:55 Band Neutrophils % Cancelled 09/08/22 05:55 Lymphocytes % (Manual) Cancelled 09/08/22 05:55 Prolymphocyte % Cancelled 09/08/22 05:55 Reactive Lymphs % (Man) Cancelled 09/08/22 05:55 Monocytes % (Manual) Cancelled 09/08/22 05:55 Eosinophils % (Manual) Cancelled 09/08/22 05:55 Basophils % (Manual) Cancelled 09/08/22 05:55 Metamyelocytes % (Man) Cancelled 09/08/22 05:55 Myelocytes % (Man) Cancelled 09/08/22 05:55 Promyelocytes % (Man) Cancelled 09/08/22 05:55 Blast Cells % (Manual) Cancelled 09/08/22 05:55 Plasma Cell % (Manual) Cancelled 09/08/22 05:55 Other Cells % Cancelled 09/08/22 05:55 Nucleated RBC % Cancelled 09/08/22 05:55 Neutrophils # (Manual) Cancelled 09/08/22 05:55 Band Neutrophils # Cancelled 09/08/22 05:55 Total Absolute Neuts Cancelled 09/08/22 05:55 Lymphocytes # (Manual) Cancelled 09/08/22 05:55 Prolymphocyte # Cancelled 09/08/22 05:55 Reactive Lymphs # Cancelled 09/08/22 05:55 Total Abs Lymphocytes Cancelled 09/08/22 05:55 Monocytes # (Manual) Cancelled 09/08/22 05:55 Eosinophils # (Manual) Cancelled 09/08/22 05:55 Basophils # (Manual) Cancelled 09/08/22 05:55 Metamyelocytes # (Man) Cancelled 09/08/22 05:55 Myelocytes # (Manual) Cancelled 09/08/22 05:55 Promyelocytes # (Man) Cancelled 09/08/22 05:55 Blast Cells # (Man) Cancelled 09/08/22 05:55 Plasma Cell # (Manual) Cancelled 09/08/22 05:55 Other Cells # Cancelled 09/08/22 05:55 Nucleated RBCs # (Man) Cancelled 09/08/22 05:55 Hypersegmented Neuts Cancelled 09/08/22 05:55 Hyposegmented Neuts Cancelled 09/08/22 05:55 Hypogranular Neuts Cancelled 09/08/22 05:55 Large Granular Lymphs Cancelled 09/08/22 05:55 # Lrg Granular Lymphs Cancelled 09/08/22 05:55 Hairy Cells Cancelled 09/08/22 05:55 Smudge Cells Cancelled 09/08/22 05:55 Toxic Granulation Cancelled 09/08/22 05:55 Toxic Vacuolation Cancelled 09/08/22 05:55 Dohle Bodies Cancelled 09/08/22 05:55 Puneet Rods Cancelled 09/08/22 05:55 Platelet Estimate Cancelled 09/08/22 05:55 Hypogranular Platelets Cancelled 09/08/22 05:55 Clumped Platelets Cancelled 09/08/22 05:55 Giant Platelets Cancelled 09/08/22 05:55 Platelet Satelliting Cancelled 09/08/22 05:55 RBC Morphology Unremarkable 09/09/22 05:09 Polychromasia Cancelled 09/08/22 05:55 Hypochromasia Cancelled 09/08/22 05:55 Poikilocytosis Cancelled 09/08/22 05:55 Basophilic Stippling Cancelled 09/08/22 05:55 Anisocytosis Cancelled 09/08/22 05:55 Microcytosis Cancelled 09/08/22 05:55 Macrocytosis Cancelled 09/08/22 05:55 Spherocytes Cancelled 09/08/22 05:55 Pappenheimer Bodies Cancelled 09/08/22 05:55 Sickle Cells Cancelled 09/08/22 05:55 Target Cells Cancelled 09/08/22 05:55 Tear Drop Cells Cancelled 09/08/22 05:55 Ovalocytes Cancelled 09/08/22 05:55 Stomatocytes Cancelled 09/08/22 05:55 [place] Bodies Cancelled 09/08/22 05:55 Echinocytes 1+ 09/08/22 07:45 Acanthocytes (Spur) Cancelled 09/08/22 05:55 Rouleaux Cancelled 09/08/22 05:55 RBC Agglutinates Cancelled 09/08/22 05:55 Schistocytes Cancelled 09/08/22 05:55 Sezary Cell Cancelled 09/08/22 05:55 PT 11.4 Seconds (9.0-12.0) 09/07/22 Unknown PT Cancelled 09/07/22 Unknown INR 1.1 (0.9-1.1) 09/07/22 Unknown INR Cancelled 09/07/22 Unknown APTT 24.8 Seconds (21.0-31.0) 09/07/22 Unknown APTT Cancelled 09/07/22 Unknown PTT Ratio 0.9 09/07/22 Unknown PTT Ratio Cancelled 09/07/22 Unknown D-Dimer > 79654 ug/L FEU (0-500) H* 09/07/22 Unknown VBG pH 7.31 (7.36-7.41) L 09/08/22 01:27 VBG pCO2 40 mmHg (38-50) 09/08/22 01:27 VBG pO2 65 mmHg 09/08/22 01:27 VBG HCO3 20 mmol/L 09/08/22 01:27 VBG O2 Saturation 92.6 % 09/08/22 01:27 VBG Base Excess -5.8 mEq/L 09/08/22 01:27 Sodium 134 mmol/L (136-145) L 09/10/22 06:45 Potassium 4.1 mmol/L (3.5-5.1) 09/10/22 06:45 Chloride 102 mmol/L (98-107) 09/10/22 06:45 Carbon Dioxide 25 mmol/L (21-32) 09/10/22 06:45 Anion Gap 7 (3-11) 09/10/22 06:45 BUN 27 mg/dl (6-23) H 09/10/22 06:45 Creatinine 1.98 mg/dl (0.6-1.2) H 09/10/22 06:45 Est Cr Clr Drug Dosing 33.1 ml/min 09/10/22 06:45 Est GFR ( Amer) 27.4 ml/min 09/10/22 06:45 Est GFR (Non-Af Amer) 23.6 ml/min 09/10/22 06:45 BUN/Creatinine Ratio 13.6 (10-20) 09/10/22 06:45 Glucose 109 mg/dl (70-99(Fasting)) H 09/10/22 06:45 POC Glucose 144 mg/dl (70-99) H 09/10/22 11:25 Lactate 2.8 mmol/L (0.4-2.0) H* 09/08/22 17:54 Calcium 8.2 mg/dl (8.5-10.1) L 09/10/22 06:45 Magnesium 2.1 mg/dl (1.7-2.4) 09/08/22 05:55 Total Bilirubin 0.5 mg/dl (0.2-1.0) 09/09/22 05:09 AST 17 U/L (13-39) 09/09/22 05:09 ALT 9 U/L (7-52) 09/09/22 05:09 Alkaline Phosphatase 61 U/L (34-104) 09/09/22 05:09 Total Creatine Kinase 53 U/L (26-192) 09/08/22 01:27 Troponin I High Sens 236.2 pg/ml (0-14) H* 09/08/22 22:58 Total Protein 6.1 gm/dl (6.0-8.3) 09/09/22 05:09 Albumin 2.8 gm/dl (3.4-5.0) L 09/09/22 05:09 Globulin 3.3 gm/dl (2.5-4.0) 09/09/22 05:09 Albumin/Globulin Ratio 0.8 (0.9-2) L 09/09/22 05:09 Procalcitonin > 200.00 ng/ml (0-0.5) H 09/08/22 01:27 TSH 4.687 uIu/ml (0.300-4.500) H 09/07/22 Unknown Free T4 0.96 ng/dl (0.61-1.60) 09/07/22 Unknown Urine Color Red 09/08/22 01: Urine Appearance Cloudy (Clear) A 09/08/22 01: Urine pH 6.0 (4.5-7.5) 09/08/22 01:23 Ur Specific [place] 1.012 (1.000-1.030) 09/08/22 01:23 Urine Protein 3+ (Negative) H 09/08/22 01:23 Urine Glucose (UA) Negative (Negative) 09/08/22 01: Urine Ketones Negative (Negative) 09/08/22 01: Urine Blood 3+ (Negative) H 09/08/22 01: Urine Nitrite Negative (Negative) 09/08/22 01: Urine Bilirubin Negative (Negative) 09/08/22 01: Urine Urobilinogen Negative (Negative) 09/08/22 01: Ur Leukocyte Esterase 3+ (Negative) H 09/08/22 01:23 Urine WBC (Auto) >30 /hpf (0-5) H 09/08/22 01:23 Urine RBC (Auto) >30 /hpf (0-4) H 09/08/22 01:23 U Hyaline Cast (Auto) 0 /lpf (0-5) 09/08/22 01:23 U Epithel Cells (Auto) 20-30 /lpf (0-5) H 09/08/22 01:23 Urine Bacteria (Auto) 4+ (Negative) H 09/08/22 01:23 Nasal Screen MRSA (PCR) Negative (Negative) 09/09/22 09:43 SARS-CoV-2, RNA, NAAT NEGATIVE (NEGATIVE) 09/08/22 01:00 Bld Cult ID Panel PCR PCR Panel Negative (NotDetected) 09/08/22 01:03 Blood Parasites ID Cancelled 09/08/22 05:55 Blood Type O Positive 09/08/22 05:55 Antibody Screen NEGATIVE 09/08/22 05:55 Impressions KUB X-Ray 09/07/22 19:31 KUB CLINICAL HISTORY: Ureteral stent. FINDINGS: 4 AP, portable, supine abdominal radiographs are correlated with abdominal CT dated 07/14/2022. There is a nonobstructed abdominal bowel gas pattern. A right ureteral stent is in place. No calcifications are clearly identified in the right ureter along the course of the stent. There are several nonobstructing calculi projecting over the right kidney which measure up to 7 mm. No left renal calculi are clearly identified. There are numerous phleboliths in the pelvis. The skeletal structures are osteopenic and appear intact. There is moderate lumbosacral spondylosis. IMPRESSION: 1. A right ureteral stent is in place. No calcifications are clearly seen in the right ureter along the course of the stent. 2. Additional nonobstructing calculi project over the right kidney. 3. Nonobstructed abdominal bowel gas pattern. Electronically signed by: Kang Escobar M.D. 09/07/2022 8:26 PM Chest X-Ray 09/07/22 19:32 SINGLE VIEW CHEST CLINICAL HISTORY: Syncope. FINDINGS: An AP, portable, upright chest radiograph is compared to study dated 07/16/2022. The examination is degraded by portable technique, apical lordotic positioning, and patient rotation. The heart is enlarged. There is prominence of the pulmonary vasculature. The lungs and pleural spaces are clear noting mild bibasilar scarring/atelectasis. No pneumothorax is seen. The skeletal structures are osteopenic. The bony thorax is grossly intact. IMPRESSION: Cardiomegaly with prominence of the pulmonary vasculature. Correlate clinically for evidence of fluid overload/mild congestive change. ACT 112: Negative or not required by law. Electronically signed by: Kang Escobar M.D. 09/07/2022 8:23 PM Chest CTA 09/07/22 21:11 CT angio chest PE protocol CT DOSE: 1094.74 mGy.cm HISTORY: 77 years-old Female with PE. Acute shortness of breath TECHNIQUE: Multiple CTA images of the chest were obtained after the intravenous administration of 78 ml Optiray. Coronal and sagittal MIPS were obtained from the axial data set and were submitted for review. All measurements were obtained according to NASCET criteria. A dose lowering technique was utilized adhering to the principles of ALARA. COMPARISON: CT abdomen and pelvis 09/08/2022, 09/30/2019. FINDINGS: CTA: The heart is mildly enlarged. Unremarkable thoracic aorta without aneurysm or dissection. Descending thoracic aortic tortuosity. The opacified pulmonary artery is unremarkable. The segmental and subsegmental branches are not well evaluated secondary to contrast bolus timing and respiratory motion artifact. CT CHEST: Unremarkable thyroid. No lymphadenopathy identified. No pneumothorax, pleural effusion, airspace consolidation or overt pulmonary edema. Mild dependent subsegmental bibasilar atelectasis. Scattered bilateral solid pulmonary nodules (please see bookmarks) measuring up to 6 mm within the right lower lobe. This largest nodule appears stable from 2019. Unremarkable soft tissues. No acute fracture. Degenerative changes of the shoulders and spine. IMPRESSION: 1. No pulmonary emboli are identified. 2. No pleural effusion or airspace consolidation typical for pneumonia. 3. Scattered bilateral subcentimeter pulmonary nodules measure up to 6 mm. Follow-up guidelines provided below. 4. Please refer to the CT abdomen and pelvis study of same day for additional findings. Please refer to below summary of Fleischner criteria recommendations for follow- up of incidental CT nodules (Syd Isaac, Guidelines for management of small pulmonary nodules detected on CT scans: A statement from the Fleischner Society, Radiology 237: [phone].) SOLID NODULES Multiple nodules size: <6 mm * Low risk patients: no routine follow-up * high risk patients: optional CT at 12 months Note: newly detected indeterminate nodule in persons 35 years of age or older. * Low risk patients: minimal or absent history of smoking and/or other known risk factors * high risk patients: history of smoking or of other known risk factors (e.g. first degree relative with lung cancer, or exposure to asbestos, radon, uranium) * if a nodule up to 8 mm is partly solid or is ground glass further follow-up is required after 24 months to exclude possible slow growing adenocarcinoma (CEDRIC) ACT 112: Negative or not required by law. The above report was generated using voice recognition software. It may contain grammatical, syntax or spelling errors. Electronically signed by: Vic Garcia M.D. 09/08/2022 7:57 AM Abdomen/Pelvis CT 09/08/22 01:11 CT OF THE ABDOMEN AND PELVIS WITHOUT CONTRAST CLINICAL HISTORY: Right flank pain. COMPARISON STUDY: CT of the abdomen and pelvis July 14, 2022. KUB September 07, 2022.. TECHNIQUE: Axial images of the abdomen and pelvis were obtained without IV contrast. Images were reviewed in the axial, sagittal, and coronal planes. Automated exposure control was utilized for the study. A dose lowering tech nique was utilized adhering to the principles of ALARA. FINDINGS: A few nodules within the lower lungs were present on prior CT of July 14, 2022. A 6 lm right lower lobe nodule on image 44 of 493 is new since that exam. Cardiomegaly is present. There is a hiatal hernia. No pneumatosis, free air or portal venous gas is present. Right ureteral stent is appropriately positioned. There is gas within the right collecting system from recent procedure. There is no right hydronephrosis. Stranding within the right renal sinus is present. There are multiple right renal calculi as well as calculi within the right renal pelvis that measure up to 6 mm. No ureteral calculi are identified although this exam is compromised by motion artifact. Renal hyperdensity is due to recent contrast-enhanced chest CT. Note is made of a 6.3 x 2.5 x 5.6 cm right subcapsular renal fluid collection which contains layering hyperdense material. No additional fluid collections are present. There is moderate bilateral renal atrophy. Faint radiodensities within the left collecting system could reflect excreted contrast although calculi could appear similar. There is a 2 mm calculus within lower pole of the left kidney. There are no left ureteral calculi. Left-sided parapelvic cysts are noted. There is no definite hydronephrosis. Rush balloon within the bladder is present. The bladder is collapsed. There are no bladder calculi. Unenhanced images of the liver, adrenal glands and pancreas are unremarkable. Mild splenomegaly is unchanged. The gallbladder is not distended. There is no evidence for a bowel obstruction. Diverticulosis is noted without evidence for acute diverticulitis. A moderate amount stool within the colon is present. No acute fracture within the visualized skeletal structures is present. Prominent retroperitoneal lymph nodes are likely reactive. IMPRESSION: 1. Right ureteral stent in place with collecting system gas related to recent procedure. No hydronephrosis. Multiple right renal pelvis calculi and right- sided nephrolithiasis. No ureteral calculi. 2. 6.3 x 2.5 x 5.6 cm right subcapsular renal fluid collection which contains layering hyperdense material. A subcapsular hematoma is favored. A urinoma containing excreted contrast could appear similar. 3. Small left renal calculi, as above. No left ureteral calculi. Apparent left collecting system dilatation which is likely related to parapelvic cysts. Mild left hydronephrosis could appear similar. 4. No bowel obstruction. No bowel wall thickening on unenhanced exam. 5. Mildly distended gallbladder. ACT 112: Negative or not required by law. Electronically signed by: Kyle Allen M.D. 09/08/2022 7:[address] 09/08/22 01:11 CT head/brain wo con CLINICAL HISTORY: 77 years-old Female with AMS. Acutely altered mental status TECHNIQUE: Multiple axial CT images of the head were obtained without contrast. A dose lowering technique was utilized adhering to the principles of ALARA. CT DOSE: 2875.54 mGy.cm COMPARISON: None. FINDINGS: No acute intracranial hemorrhage, midline shift, intracranial mass, hydrocephalus, territorial ischemia or abnormal extra-axial collection. Motion degraded exam. Involutional changes with ventriculomegaly. White matter hypodensities suggest chronic microvascular ischemic disease. Cerebral vascular calcifications. The calvarium is intact. Prior bilateral lens repair. The paranasal sinuses, mastoid air cells, and middle ear cavities are clear. IMPRESSION: 1. No acute intracranial abnormality. 2. Involutional changes with ventriculomegaly, likely on an ex vacuo basis. 3. White matter hypodensities suggest chronic microvascular ischemic disease. ACT 112: Negative or not required by law. The above report was generated using voice recognition software. It may contain grammatical, syntax or spelling errors. Electronically signed by: Vic Garcia M.D. 09/08/2022 6:57 AM
[2022-09-10] MEDS: HEPARIN SOD 5,000 UNIT/0.5 ML VIAL SQ SCH ×2 (14:37→22:08)
[2022-09-10] MEDS: traMADol HCL 50 MG TABLET PO PRN ×2 (18:32→22:12)
[2022-09-10] MEDS: LATANOPROST 0.005% OP SOLN 2.5 ML BTL OP SCH (20:19)
[2022-09-10 22:20] LABS: A calco-baum cmplx NotReported Not Detected (NotDetected); Bact fragilis Not Reported Not Detected (NotDetected); C auris Not Reported Not Detected (NotDetected); Candida glabrata Not Reported Not Detected (NotDetected); Candida krusei Not Reported Not Detected (NotDetected); Cneoformans/gatti Not Reported Not Detected (NotDetected); Cparapsilosis Not Reported Not Detected (NotDetected); Ctropicalis Not Reported Not Detected (NotDetected); E cloacae compx Not Reported Not Detected (NotDetected); Efaecalis Not Reported Not Detected (NotDetected); Efaecium Not Reported Not Detected (NotDetected); Enterobacterales Not Reported Not Detected (NotDetected); Escherichia coli Not Reported Not Detected (NotDetected); H influenzae Not Reported Not Detected (NotDetected); K aerogenes Not Reported Not Detected (NotDetected); Koxytoca Not Reported Not Detected (NotDetected); Kpneumoniae grp Not Reported Not Detected (NotDetected); Lmonocyt Not Reported Not Detected (NotDetected); N meningitidis Not Reported Not Detected (NotDetected); P aeruginosa Not Reported Not Detected (NotDetected); Proteus spp Not Reported Not Detected (NotDetected); Salmonella spp Not Reported Not Detected (NotDetected); Smarcescens Not Reported Not Detected (NotDetected); Staph lugdunensis Not Reported Not Detected (NotDetected); Staph spp. Not Reported Not Detected (NotDetected); Staphaureus Not Reported Not Detected (NotDetected); Staphepi Not Reported Not Detected (NotDetected); Stenmaltophilia Not Reported Not Detected (NotDetected); Strep agal(GrpB) Not Reported Not Detected (NotDetected); Strep pneum Not Reported Not Detected (NotDetected); Strep pyog (GrpA) Not Reported Not Detected (NotDetected); Strep spp Not Reported Not Detected (NotDetected)
[2022-09-10 22:28] LABS: Calbicans Not Reported DETECTED (NotDetected); Candida albicans DETECTED (NotDetected)
--- NOTE | 2022-09-10 23:05 | Communication Note ---
Date of Service: September 10, 2022 Notified by RN of yeast on blood cultures on admission AP Fungemia Follow final blood CS Caspofungin Repeat blood CS in a.m. Await ID opinion.
[2022-09-10] MEDS ORDERED: CASPOFUNGIN 70 MG in SODIUM CHLORIDE 0.9% 250 ML IV STA (23:16)
[2022-09-11] MEDS: PIPERACILLIN/TAZOBACTAM 4.5 GM in DEXTROSE 5% 100 ML IV SCH ×4 (00:30→23:59)
[2022-09-11] MEDS: traMADol HCL 50 MG TABLET PO PRN ×2 (04:03→23:28)
[2022-09-11] MEDS: ACETAMINOPHEN 325 MG TAB PO PRN (04:03)
[2022-09-11] MEDS: LEVOTHYROXINE SODIUM 50 MCG TABLET PO SCH (05:58)
[2022-09-11] MEDS: HEPARIN SOD 5,000 UNIT/0.5 ML VIAL SQ SCH ×3 (05:58→21:18)
[2022-09-11 06:53] LABS: Hematocrit (blood only) 31.5 % (34.1-44.9); Hemoglobin 9.9 g/dl (12.0-16.0); Mean Corpuscular Hemoglobin 27.7 pg (25.0-34.0); Mean Corpuscular Hgb Conc 31.4 g/dL (32.0-36.0); Mean Corpuscular Volume 88.2 fL (80.0-100.0); Platelet Count 266 K/uL (130-400); RDW Coefficient of Variation 13.8 % (11.5-14.5); RDW Standard Deviation 44.8 fL (36.4-46.3); Red Blood Count 3.57 M/uL (3.93-5.22)
[2022-09-11 07:17] LABS: BUN Creatinine Ratio 12.3 (10-20); Calcium 8.7 mg/dl (8.5-10.1); Creatinine Clr Calc Pharmacy 33.7 ml/min; Est GFR (African American) 27.9 ml/min; Potassium 4.2 mmol/L (3.5-5.1)
[2022-09-11 07:24] LABS: Basophils # (auto) 0.05 K/uL (0-0.2); Basophils % (auto) 0.4 %; Echinocytes 1+; Eosinophils # (auto) 0.13 K/uL (0-0.50); Immature Granulocytes % (auto) 2.4 %; Lymphocytes # (auto) 1.02 K/uL (1.2-3.4); Lymphocytes % (auto) 8.2 %; Monocytes # (auto) 0.54 K/uL (0.24-0.82); Monocytes % (auto) 4.4 %; Neutrophils # (auto) 10.36 K/uL (1.4-6.5); Neutrophils % (auto) 83.6 %; Polychromasia 1+
[2022-09-11] MEDS: DULoxetine HCL 20 MG CAP PO SCH (08:13)
[2022-09-11] MEDS: EZETIMIBE 10 MG TABLET PO SCH (08:13)
[2022-09-11] MEDS: INSULIN ASPART PER UNIT SC SCH ×4 (08:16→21:04)
--- NOTE | 2022-09-11 09:10 | Urology Progress Note ---
Date of Service September 11, 2022 Assessment & Plan (1) Hematuria: (2) Complicated UTI (urinary tract infection): Plan: Patient afebrile, lab work reviewedcreatinine and WBC downtrending, hemoglobin improved to 9.9. Urine has cleared. Hemoglobin has increased; low suspicion for ongoing bleeding/subcapsular hematoma. Blood culture from 09/08 with yeast, urine from 09/08 with E. coli. She remains on Zosyn, Caspofungin added. Repeat blood cultures are pending. Tolerating right ureteral stent with minimal bother. Continue supportive care, antibiotics, and management per primary service. Expected clinical course reviewed, all questions answered. We will arrange outpatient follow-up with our service for further management. will follow peripherally. Contact our service with any questions or changes in patient's status. Admission and Anticipated Discharge Date Admission Date: September 08, 2022 Subjective Patient seen and examined at bedside this morning. She is awake and sitting up in bedside chair. Subjectively doing okay. She reports some right flank discomfort. Voiding spontaneously. No dysuria or hematuria. Has been up moving around a little bit. No fever or chills. No nausea or vomiting. Labs are improving (WBC now 12.40, creatinine 1.95) Blood culture from 09/08 with yeast, urine from 09/08 with E. coli. She remains on Zosyn. Caspofungin added. Repeat blood cultures from 09/10 and 09/11 are pending. Review of Systems Constitutional: as per Subjective / HPI Gastrointestinal: as per Subjective / HPI Genitourinary: as per Subjective / HPI Physical Exam Constitutional: well developed and well nourished; no acute distress Respiratory: normal respiratory effort; no respiratory distress and no labored breathing Gastrointestinal (Abdomen): Inspection/Auscultation: abdomen normal to inspection; abdomen not distended Psychiatric: Orientation: alert and oriented x 3 Results & Data ([facility]) Vital Signs (Past 12 Hours) Vital Signs Temp Pulse Pulse Resp BP Pulse Ox O2 Del Method 09/11/22 07:41 94 H 09/11/22 06:57 36.9 C 79 18 102/71 92 Room Air 09/11/22 03:20 36.8 C 100 H 18 131/83 92 Room Air 09/10/22 22:58 36.6 C 82 18 146/91 H 95 Room Air PG Care Time/CCT Total # of Minutes Spent Total Time Spent with Patient: Total time spent is greater than 50% in coordination of care (as documented) at patient's floor/unit and/or counseling patient: Coding Level of Care Code 24509 Subseq Hosp Care Lvl 2 Diagnoses Hematuria R31.9 Complicated UTI (urinary tract infection) N39.0
--- NOTE | 2022-09-11 17:11 | Electrocardiogram Report ---
Test Reason : Blood Pressure : / mmHG Vent. Rate : 076 BPM Atrial Rate : 079 BPM P-R Int : 000 ms QRS Dur : 094 ms QT Int : 400 ms P-R-T Axes : 000 -07 063 degrees QTc Int : 450 ms Poor data quality, interpretation may be adversely affected Normal sinus rhythm with 1st degree A-V block Low voltage QRS Nonspecific T wave abnormality Abnormal ECG When compared with ECG of 07-SEP-2022 19:05, Vent. rate has decreased BY 48 BPM Criteria for Anterior infarct are no longer Present Criteria for Anterolateral infarct are no longer Present T wave inversion now evident in Anterior leads Confirmed by Juan Cardona ([id number]) on 09/11/2022 5:10:59 PM Referred By: Sindy Weber Confirmed By:Juan Cardona
--- NOTE | 2022-09-11 18:20 | Hospitalist Progress Note ---
Date of Service September 11, 2022 Assessment & Plan (1) Sepsis: (2) Hypotension: (3) Complicated UTI (urinary tract infection): (4) Hematuria: (5) Anaerobic bacteremia: (6) CHRIS (acute kidney injury): Plan: Complicated UTI Patient had undergone a cystoscopy with removal of left ureteral stent along with right ureteroscopy with dilation of ureter and exchange of a stent on right side on 09/07 Was getting discharged back home; had a syncopal event when trying to get out of the vehicle Presented to the ED Was hypotensive, tachycardic on presentation. Rush placed; found to have hematuria Leukocytosis present, lactic acidosis present on admission. CT abdomen showed perinephric fluid collection on the right side. Urinalysis shows 4+ bacteria, 3+ leukocyte esterase Urine Cx- G - E.coli, pansensitive Blood culture 2 out of 4 bottles was positive for lactobacillus species Repeat blood cx no growth WBC continue to trend down to 12K Currently on IV Zosyn ID consult pending -Outpatient follow-up with urology at discharge CHRIS Creatinine peaked to 2.2 Received gentle IVF on admission Creatinine 1.9 today continue to avoid nephrotoxic agents Continue monitor Fungemia Blood cx grew mone albicans She was starting on caspofungin Repeat blood cx pending Waiting for ID if it is true infection (7) Acute blood loss anemia: Plan: Hb on admission; [address] abdomen shows perinephric fluid collection on the right side; possible subcasular hematoma. Also had hematuria on admission Monitor for now; follow up with PCP. (8) Demand ischemia: Plan: High-sensitivity troponin elevated to 200s No complaint of chest pain Echo shows EF of 60 to 65% with borderline concentric left ventricular hypertrophy. Plan Type 2 diabetes mellitus Recent Hba1c 7.5 on 07/29 Continue to hold PO diabetes Continue Lantus and insulin sliding scale Continue monitor BS Hypertension BP starts to elevate Continue to hold Quinapril due to elevate creatinine continue to monitor BP CODE STATUS DNR/DNI DVT prophylaxis heparin Admission and Anticipated Discharge Date Admission Date: September 08, 2022 Subjective Pt was seen and examined for follow up Sitting in chair with no acute distress She said that she has mild pain while seating She said that she is feeling better Review of Systems Review of Systems: All systems reviewed & are unremarkable except as noted in Subjective Physical Exam 2 Physical Exam: General- No acute distress Head- atraumatic Eyes- PERRL, EOMI, ENT- oropharynx clear Neck- supple, no JVD Lungs- clear to auscultation Heart- regular rhythm; no murmur Abdomen- normal bowel sounds, soft, nontender Extremities- no calf tenderness Neuro- alert, oriented x 3; PERRL, EOMI; no facial palsy; no dysarthria Skin- warm & dry Results & Data Results & Data ([facility]) Vital Signs (Past 12 Hours) Vital Signs Temp Pulse Pulse Resp BP Pulse Ox O2 Del Method 09/11/22 16:44 36.5 C 82 18 158/85 H 94 Room Air 09/11/22 15:00 85 09/11/22 11:25 36.5 C 72 18 128/78 95 Room Air 09/11/22 07:41 94 H 09/11/22 06:57 36.9 C 79 18 102/71 92 Room Air
[2022-09-11] MEDS: LATANOPROST 0.005% OP SOLN 2.5 ML BTL OP SCH (21:18)
[2022-09-12] MEDS ORDERED: CASPOFUNGIN 50 MG in SODIUM CHLORIDE 0.9% 250 ML IV SCH
[2022-09-12] MEDS: LEVOTHYROXINE SODIUM 50 MCG TABLET PO SCH (06:18)
[2022-09-12] MEDS: HEPARIN SOD 5,000 UNIT/0.5 ML VIAL SQ SCH ×3 (06:18→21:14)
[2022-09-12] MEDS: INSULIN ASPART PER UNIT SC SCH ×4 (07:52→21:08)
[2022-09-12] MEDS: PIPERACILLIN/TAZOBACTAM 4.5 GM in DEXTROSE 5% 100 ML IV SCH ×2 (07:53→17:18)
[2022-09-12] MEDS: DULoxetine HCL 20 MG CAP PO SCH (07:53)
[2022-09-12] MEDS: EZETIMIBE 10 MG TABLET PO SCH (07:53)
[2022-09-12 09:09] LABS: Hematocrit (blood only) 31.1 % (34.1-44.9); Hemoglobin 9.9 g/dl (12.0-16.0); Mean Corpuscular Hemoglobin 28.4 pg (25.0-34.0); Mean Corpuscular Hgb Conc 31.8 g/dL (32.0-36.0); Mean Corpuscular Volume 89.4 fL (80.0-100.0); Mean Platelet Volume 8.8 fL (9.4-12.3); Platelet Count 243 K/uL (130-400); RDW Coefficient of Variation 14.1 % (11.5-14.5); RDW Standard Deviation 45.8 fL (36.4-46.3); Red Blood Count 3.48 M/uL (3.93-5.22); White Blood Count 9.86 K/ul (4.8-10.8)
[2022-09-12 09:32] LABS: BUN Creatinine Ratio 11.2 (10-20); Calcium 8.6 mg/dl (8.5-10.1); Creatinine Clr Calc Pharmacy 31.8 ml/min; Est GFR (African American) 26.1 ml/min; Est GFR (Non-African American) 22.5 ml/min; Potassium 4.2 mmol/L (3.5-5.1)
[2022-09-12] MEDS: LATANOPROST 0.005% OP SOLN 2.5 ML BTL OP SCH (21:11)
[2022-09-12] MEDS: ACETAMINOPHEN 325 MG TAB PO PRN (22:22)
--- NOTE | 2022-09-12 23:08 | Hospitalist Progress Note ---
Date of Service September 12, 2022 Assessment & Plan (1) Sepsis: (2) Hypotension: (3) Complicated UTI (urinary tract infection): (4) Hematuria: (5) Anaerobic bacteremia: (6) CHRIS (acute kidney injury): Plan: Bacteremia Complicated UTI Patient had undergone a cystoscopy with removal of left ureteral stent along with right ureteroscopy with dilation of ureter and exchange of a stent on right side on 09/07 Was getting discharged back home; had a syncopal event when trying to get out of the vehicle Presented to the ED Was hypotensive, tachycardic on presentation. Rush placed; found to have hematuria Leukocytosis present, lactic acidosis present on admission. CT abdomen showed perinephric fluid collection on the right side. Urinalysis shows 4+ bacteria, 3+ leukocyte esterase Urine Cx- G - E.coli, pansensitive Blood culture 2 out of 4 bottles was positive for lactobacillus species Repeat blood cx no growth WBC normalized at 9.8K ID recommended continue IV Zosyn for total of 10 days course to cover both E. coli and lactobacillus species (end date 09/17) Spoke to cardiology to review echocardiogram that was done on 09/08/22-as per cardiology no evidence of vegetation noted on echocardiogram Outpatient follow-up with urology on discharge Not sure if patient will be able to administer IV Zosyn at home, will discuss this option with case management cannot assess baseline creatinine CHRIS on CKD Creatinine 2.06 today Received gentle IVF on admission continue to avoid nephrotoxic agents Continue monitor BMP Fungemia Blood cx grew mone albicans She was starting on caspofungin Repeat blood cx no growth ID on board recommend to discontinue caspofungin then started on fluconazole 800 mg daily to complete a total of 14 days course Lung nodules CT chest showed scattered bilateral subcentimeter pulmonary nodules measure up to [address] finding discussed with patient at bedside Will need outpatient follow-up CT chest follow-up pulmonary nodules (7) Acute blood loss anemia: Plan: Hb on admission; [address] abdomen shows perinephric fluid collection on the right side; possible subcasular hematoma. Also had hematuria on admission Monitor for now; follow up with PCP. (8) Demand ischemia: Plan: High-sensitivity troponin elevated to 200s No complaint of chest pain Echo shows EF of 60 to 65% with borderline concentric left ventricular hypertrophy. Plan Type 2 diabetes mellitus Recent Hba1c 7.5 on 07/29 Continue to hold PO diabetes Continue Lantus and insulin sliding scale Continue monitor BS Hypertension BP has been fluctuated Continue to hold Quinapril due to elevate creatinine continue to monitor BP CODE STATUS DNR/DNI DVT prophylaxis heparin Admission and Anticipated Discharge Date Admission Date: September 08, 2022 Subjective Pt was seen and examined for follow up bacteremia/ infected wound Sitting in chair with no acute distress watching TV Patient said that she feels bored and is looking forward to go home She is not interested to go to SNF or rehab to complete the course of the IV and probably will antibiotic Denies any chest pain, palpitation, dizziness, shortness of breath. Review of Systems Review of Systems: All systems reviewed & are unremarkable except as noted in Subjective Physical Exam Physical Exam: General- No acute distress Head- atraumatic Eyes- PERRL, EOMI, ENT- oropharynx clear Neck- supple, no JVD Lungs- clear to auscultation Heart- regular rhythm; no murmur Abdomen- normal bowel sounds, soft, nontender Extremities- no calf tenderness Neuro- alert, oriented x 3; PERRL, EOMI; no facial palsy; no dysarthria Skin- warm & dry Results & Data Results & Data ([facility]) Vital Signs (Past 12 Hours) Vital Signs Temp Pulse Resp BP BP Pulse Ox O2 Del Method 09/12/22 19:21 37 C 79 18 175/96 H 93 Room Air 09/12/22 15:22 36.8 C 72 17 153/96 H 95 Room Air 09/12/22 11:55 37.5 C 81 17 158/81 H 97 Room Air
[2022-09-13] MEDS: PIPERACILLIN/TAZOBACTAM 4.5 GM in DEXTROSE 5% 100 ML IV SCH ×3 (00:07→16:40)
[2022-09-13] MEDS: LEVOTHYROXINE SODIUM 50 MCG TABLET PO SCH (05:37)
[2022-09-13] MEDS: HEPARIN SOD 5,000 UNIT/0.5 ML VIAL SQ SCH ×3 (05:37→20:24)
[2022-09-13 07:38] LABS: BUN Creatinine Ratio 10.6 (10-20); Calcium 8.8 mg/dl (8.5-10.1); Creatinine Clr Calc Pharmacy 36.4 ml/min; Est GFR (African American) 30.7 ml/min; Est GFR (Non-African American) 26.5 ml/min; Potassium 3.9 mmol/L (3.5-5.1)
[2022-09-13] MEDS: INSULIN ASPART PER UNIT SC SCH ×4 (07:44→20:24)
[2022-09-13] MEDS: DULoxetine HCL 20 MG CAP PO SCH (08:00)
[2022-09-13] MEDS: EZETIMIBE 10 MG TABLET PO SCH (08:00)
[2022-09-13] MEDS ORDERED: FLUCONAZOLE 100 MG TAB PO SCH (09:00)
--- NOTE | 2022-09-13 15:20 | Hospitalist Progress Note ---
Date of Service September 13, 2022 Assessment & Plan (1) Sepsis: (2) Hypotension: (3) Complicated UTI (urinary tract infection): (4) Hematuria: (5) Anaerobic bacteremia: (6) CHRIS (acute kidney injury): Plan: Bacteremia Complicated UTI Patient had undergone a cystoscopy with removal of left ureteral stent along with right ureteroscopy with dilation of ureter and exchange of a stent on right side on 09/07 Was getting discharged back home; had a syncopal event when trying to get out of the vehicle Presented to the ED Was hypotensive, tachycardic on presentation. Rush placed; found to have hematuria Leukocytosis present, lactic acidosis present on admission. CT abdomen showed perinephric fluid collection on the right side. Urinalysis shows 4+ bacteria, 3+ leukocyte esterase Urine Cx- G - E.coli, pansensitive Blood culture 2 out of 4 bottles was positive for lactobacillus species Repeat blood cx no growth WBC normalized at 9.8K ID recommended continue IV Zosyn for total of 10 days course to cover both E. coli and lactobacillus species (end date 09/17) Spoke to cardiology to review echocardiogram that was done on 09/08/22-as per cardiology no evidence of vegetation noted on echocardiogram Outpatient follow-up with urology on discharge Not sure if patient will be able to administer IV Zosyn at home Script given to case management to work on outpatient abx infusion CHRIS on CKD Creatinine 1.5 on admission Creatinine 1.8 today, baseline creatinine 1.3 Received Contrast on admission (CTA chest) Received gentle IVF on admission continue to avoid nephrotoxic agents Continue monitor BMP Fungemia Blood cx grew mone albicans She was starting on caspofungin Repeat blood cx no growth so far ID on board recommend to discontinue caspofungin, then transition to renal dose fluconazole 400 mg daily to complete a total of 14 days course Lung nodules CT chest showed scattered bilateral subcentimeter pulmonary nodules measure up to [address] finding discussed with patient at bedside Will need outpatient follow-up CT chest follow-up pulmonary nodules (7) Acute blood loss anemia: Plan: Hb on admission; [address] abdomen shows perinephric fluid collection on the right side; possible subcasular hematoma. Also had hematuria on admission Monitor for now; follow up with PCP. (8) Demand ischemia: Plan: High-sensitivity troponin elevated to 200s No complaint of chest pain Echo shows EF of 60 to 65% with borderline concentric left ventricular hypertrophy. Plan Type 2 diabetes mellitus Recent Hba1c 7.5 on 07/29 Continue to hold PO diabetes Continue Lantus and insulin sliding scale Continue monitor BS Hypertension BP has been fluctuated Continue to hold Quinapril due to elevate creatinine continue to monitor BP CODE STATUS DNR/DNI DVT prophylaxis heparin Disposition Plan to discharge home with HH services once case management arranges for abx home infusion Admission and Anticipated Discharge Date Admission Date: September 08, 2022 Subjective Pt was seen and examined for follow up bacteremia Sitting in chair with no acute distress watching TV She said that she feels ok She said that she does have friends that can help her to administer the IV abx Script already given to case management to arrange for IV abx on discharge Spoke to daughter over the phone in details and answered all her questions Case management will call daughter in the morning Denies any chest pain, palpitation, dizziness, shortness of breath. Review of Systems Review of Systems: All systems reviewed & are unremarkable except as noted in Subjective Physical Exam Physical Exam: General- No acute distress Head- atraumatic Eyes- PERRL, EOMI, ENT- oropharynx clear Neck- supple, no JVD Lungs- clear to auscultation Heart- regular rhythm; no murmur Abdomen- normal bowel sounds, soft, nontender Extremities- no calf tenderness Neuro- alert, oriented x 3; PERRL, EOMI; no facial palsy; no dysarthria Skin- warm & dry Results & Data Results & Data ([facility]) Vital Signs (Past 12 Hours) Vital Signs Temp Pulse Pulse Resp BP BP Pulse Ox 09/13/22 12:20 169/88 H 09/13/22 11:57 36.5 C 72 20 184/90 H 95 09/13/22 07:58 36.4 C L 75 18 168/88 H 94 09/13/22 07:56 09/13/22 06:57 70 09/13/22 03:28 36.7 C 71 18 150/78 H 94 O2 Del Method 09/13/22 12:20 09/13/22 11:57 Room Air 09/13/22 07:58 Room Air 09/13/22 07:56 Room Air 09/13/22 06:57 09/13/22 03:28 Room Air
[2022-09-13] MEDS ORDERED: hydrALAZINE HCL 20 MG/ML VIAL IV PRN (16:07)
[2022-09-13] MEDS: LATANOPROST 0.005% OP SOLN 2.5 ML BTL OP SCH (20:23)
[2022-09-14] MEDS: PIPERACILLIN/TAZOBACTAM 4.5 GM in DEXTROSE 5% 100 ML IV SCH ×2 (00:08→09:11)
[2022-09-14] MEDS: traMADol HCL 50 MG TABLET PO PRN (00:08)
[2022-09-14] MEDS: HEPARIN SOD 5,000 UNIT/0.5 ML VIAL SQ SCH (05:15)
[2022-09-14] MEDS: LEVOTHYROXINE SODIUM 50 MCG TABLET PO SCH (05:15)
[2022-09-14 07:10] LABS: Hematocrit (blood only) 29.8 % (34.1-44.9); Hemoglobin 9.6 g/dl (12.0-16.0); Mean Corpuscular Hemoglobin 28.2 pg (25.0-34.0); Mean Corpuscular Hgb Conc 32.2 g/dL (32.0-36.0); Mean Corpuscular Volume 87.4 fL (80.0-100.0); Mean Platelet Volume 8.8 fL (9.4-12.3); Platelet Count 254 K/uL (130-400); RDW Coefficient of Variation 14.1 % (11.5-14.5); RDW Standard Deviation 44.6 fL (36.4-46.3); Red Blood Count 3.41 M/uL (3.93-5.22); White Blood Count 10.71 K/ul (4.8-10.8)
[2022-09-14 07:39] LABS: BUN Creatinine Ratio 9.4 (10-20); Calcium 8.7 mg/dl (8.5-10.1); Creatinine Clr Calc Pharmacy 38.4 ml/min; Est GFR (African American) 32.7 ml/min; Est GFR (Non-African American) 28.2 ml/min; Potassium 3.5 mmol/L (3.5-5.1)
[2022-09-14] MEDS ORDERED: FLUCONAZOLE 100 MG TAB PO SCH (09:00)
[2022-09-14] MEDS: DULoxetine HCL 20 MG CAP PO SCH (09:14)
[2022-09-14] MEDS: EZETIMIBE 10 MG TABLET PO SCH (09:14)
[2022-09-14] MEDS: INSULIN ASPART PER UNIT SC SCH ×2 (09:26→12:03)
--- NOTE | 2022-09-14 11:40 | Discharge Summary ---
Date of Service September 14, 2022 Admission HPI Per Admitting Provider History obtained from patient, family, and records. Patient is a reliable historian. Medical history significant for PSVT, hypertension, valvular heart disease (mild MR/TR, TTE 2021), DM2 on oral medications, hyperlipidemia/statin intolerance, hypothyroidism, CRI (baseline creatinine 1.3), chronic anemia (baseline hemoglobin 9-10), LASHAWN on CPAP, GERD, recurrent urolithiasis, anxiety/mood disorder. Last confinement July 2022 for septic shock secondary to complicated UTI secondary to obstructive uropathy. E. coli on CS. Patient underwent emergent cystoscopy and bilateral ureteral stent placement. Initial ICU stay for pressor Rx. PSVT during confinement. Yesterday, patient underwent elective cystoscopy, left stent removal, right ureteric dilatation with stent exchange at same-day surgery. Patient discharged home with Keflex prescription. Patient noted to be unresponsive on the way home from the hospital after the procedure. No witnessed seizures. EMS called to patient's home. Patient brought to the ER for evaluation last night. Patient denies headache, chest pain, SOB. Usual stent discomfort as per patient. Patient does not recall passing out upon return home from same-day surgery. Abnormal troponin and D-dimer on initial ER testing. CT chest initial read results as follows: No pulmonaryembolismidentified. Scattered nodules are seen in the lungs measuring less than 6 mm. Recommend follow-up CT chest in 12 months if patient is at high risk for malignancyper Fleischner criteria. Patient insisted on returning home despite recommendation of ER provider for patient to be admitted. Patient [id number] was not comfortable taking patient home upon return to ER to sisal picker patient at the waiting room. Patient looked weak. SBP 60-90s upon return to ER. Gross hematuria noted on Rush catheter placement. IVF boluses, Zosyn administered at the ER. Patient denies headache, chest pain, SOB. Complaining of usual stent pain. Medical History as above Surgical History : Knee surgery, partial hysterectomy, cataract surgery, right oophorectomy, tonsillectomy, urologic procedures Family History : Breast cancer, Hodgkin's lymphoma, leukemia, asthma, Paz sarcoma Personal/Social history : Non-smoker, occasional EtOH intake, retired [employer] Admission Exam Per Admitting Provider GENERAL: Slightly uncomfortable, pleasant, morbidly obese, no respiratory distress SKIN: Pallor , warm HEENT: Pale palpebral conjunctivae, no ptosis, dry buccal mucosa NECK : Supple, short neck, no tenderness CHEST : CTA, no tenderness HEART : RRR, no obvious murmurs ABDOMEN: Some distention, minimal hypogastric tenderness EXTREMITIES : Minimal LE swelling, no LE tenderness, no other conspicuous deformities noted NEUROLOGIC : Coherent, no facial asymmetry, gait and stance not assessed Principal Diagnosis Bacteremia Complicated UTI CHRIS on CKD Fungemia Demand ischemia Discharge Exam General- No acute distress Head- atraumatic Eyes- PERRL, EOMI, ENT- oropharynx clear Neck- supple, no JVD Lungs- clear to auscultation Heart- regular rhythm; no murmur Abdomen- normal bowel sounds, soft, nontender Extremities- no calf tenderness Neuro- alert, oriented x 3; PERRL, EOMI; no facial palsy; no dysarthria Skin- warm & dry Discharge Data Allergies Allergy/AdvReac Type Severity Reaction Status Date / Time rosuvastatin Allergy Intermediate itching/hiv Verified 09/07/22 12:29 es simvastatin Allergy Intermediate itching/hiv Verified 09/07/22 12:29 es ranitidine Allergy Unknown HIVES, Verified 09/07/22 12:29 REDNESS Consultations 09/08/22 00:47 ED Decision to Admit Stat 09/08/22 03:12 Consult Urology Routine 09/10/22 11:07 Consult Infectious Diseases Routine Ordered Studies 09/07/22 21:11 CT angio chest PE protocol Urgent 09/08/22 01:11 CT abd pelvis wo con Stat CT head/brain wo con Stat Hospital Course (1) Sepsis: (2) Hypotension: (3) Complicated UTI (urinary tract infection): (4) Hematuria: (5) Anaerobic bacteremia: (6) CHRIS (acute kidney injury): (7) Acute blood loss anemia: (8) Demand ischemia: Plan Patient had undergone a cystoscopy with removal of left ureteral stent along with right ureteroscopy with dilation of ureter and exchange of a stent on right side on 09/07. She was getting discharged back home; had a syncopal event when trying to get out of the vehicle and was brought to the ED. On presentation to the ED, she was hypotensive, tachycardic on presentation. Rush placed; found to have hematuria. Leukocytosis and lactic acidosis present on admission. Patient was admitted to PCU for further care. Patient's urine culture was positive for E. coli. Her blood culture was positive for lactobacillus in 2 out of 4 bottles during the admission. She was treated with IV Zosyn during the hospitalization. ID recommended to continue IV Zosyn for 10-day course to cover for both E. coli and lactobacillus. On the day after discharge, discussion was done with infectious disease; was okay with trial of oral third-generation antibiotic with caution. Patient was discharged on 4 more days of cefdinir. Patient's blood culture was also positive for Linda albicans. She underwent transthoracic echo as per recommendation by infectious disease; no sign of vegetation on the echo. She was recommended to be placed on fluconazole for total of 14 days. She was also found to have acute kidney injury on CKD. Her creatinine down trended during the hospitalization from 2.2 to 1.7 on discharge. Patient's home medication quinapril, metformin and glipizide were kept on hold due to the CHRIS. She was started on amlodipine for high blood pressure. She will follow-up with her primary care doctor next week and get a repeat BMP. On admission, CT abdomen had shown perinephric fluid collection on the right side, likely related to recent procedure. Urology was on board. Patient to ve outpatient follow-up with urology. Total Time Total Time Spent Total Time Spent (In Minutes): 40 Total Time Includes: Examination of the Patient, Discharge Planning, Medication Reconciliation, Communication With Other Providers and Other Discharge Plan Discharge Items Patient Disposition: Home - Self-Care Reason For Visit: HYPOTENSION Discharge Diagnosis: Bacteremia Complicated UTI CHRIS on CKD Fungemia Demand ischemia Condition on Discharge: Good Activity: Resume your previous activity Non-emergency contact: Primary Care Provider Call non-emergency contact if: you have any medication questions and your symptoms worsen Follow-up/Referrals: Sindy Weber DO [Primary Care Provider] - Diet: Regular Addtl Attending Provider Instructions: You are admitted to the hospital and treated for following conditions: 1) E. coli UTI and Lactobacillus in blood cx: -You were treated with IV antibiotic( Zosyn) while you were here. A prescription for cefdinir 300 mg twice daily is sent to your pharmacy to be taken for 4 more days. 2) Linda albicans in blood culture -You are started on antifungal (Fluconazole). Please continue to take fluconazole 400 mg once daily for 9 more days. 3) Acute kidney injury: You were treated with IV hydration. Your creatinine today at discharge is 1.71. It was 2.27 on admission. Please do not take glipizide, metformin and quinapril as your kidney function is not back to baseline. You will need BMP when you see your primary care doctor and reintroduce the medication depending on the kidney function. Your blood glucose was in the range of 1 20-140 while you were hospitalized. You are started on amlodipine 5 mg for high blood pressure as an alternative to quinapril. Please measure blood pressure at home and follow-up with her primary care doctor. You have follow-up with your primary care doctor on 18 September at 1 PM. Please follow-up with urology. Pending Studies at Discharge: No Stand-Alone Forms: My [facility] [employer], Smoking Cessation Medications and DC Order Prescriptions: New acetaminophen 325 mg Tablet 650 mg PO Q4H PRN (Reason: pain) Qty: 30 0RF cefdinir 300 mg capsule 300 mg PO BID 4 Days Qty: 8 0RF amlodipine 5 mg tablet 5 mg PO DAILY Qty: 30 0RF fluconazole 200 mg tablet 400 mg PO DAILY 9 Days Qty: 18 0RF Continued tamsulosin 0.4 mg capsule 0.4 mg PO HS Qty: 30 0RF levothyroxine 50 mcg tablet 50 mcg PO QAM duloxetine 20 mg capsule,delayed release(DR/EC) 20 mg PO QAM Advanced Probiotic 625 mg (10 billion cell) capsule 2 cap PO QAM phenazopyridine [Pyridium] 200 mg tablet 200 mg PO Q8H PRN (Reason: pain) Qty: 10 0RF phenazopyridine [Pyridium] 200 mg tablet 200 mg PO Q8H PRN (Reason: pain) Qty: 10 0RF latanoprost 0.005 % drops 1 drp ophthalmic (eye) HS Rx Instructions: Both eyes ezetimibe 10 mg tablet 10 mg PO QAM Trulicity 0.75 mg/0.5 mL pen injector 0.75 mg SUBCUT Q7D Discontinued glipizide 5 mg tablet extended release 24hr 10 mg PO QAM Rx Instructions: Take 30 minutes before a meal daily quinapril 20 mg tablet 20 mg PO QAM metformin 500 mg tablet extended release 24 hr 1,000 mg PO QAM cephalexin 500 mg capsule 500 mg PO BID 7 Days Qty: 14 0RF Discharge Orders: Discharge Order (Routine); Ordered 09/14/22 Ordered By: Josiah Bhakta Admission Data Admit Date/Time: 09/08/22 01:47 Attending Provider: Josiah Bhakta Admit Provider: Michael Reeves Primary Care Provider: Sindy Weber Other Providers: Michael Reeves ; Sly Jimenez ; Ubaldo Goode ; Armando Hilton ; Fariha Conklin ; Jd Armijo ; Cathy Pate ; Daniela Bhardwaj ; Xu Gore ; Latisha Page ; Gudelia Gordon ; Odell Rivas ; Benoit Palomo ; Manuel Arndt ; Bijan Mcgraw ; Elías Arreguin I. ; Giovani Romero II ; Shruti Morris ; Alejandro Garcia ; Ibrahima Parrish ; Tracee Gaffney ; Josiah Bhakta ; [facility] ; [facility] Other Interventions: Discharge Summary Assessment (RN) Last Done: 09/14/22 11:26
== END 2022-09-14 13:18 | disposition home or self-care (01) | DRG 872 ==
LOC: ED 18:52 → EDINP 09-08 01:47 → SUATTDRO 09-08 01:47 → 1E 09-08 02:11 → 2E 09-09 19:05

== ENCOUNTER 2024-06-26 11:15 | Inpatient (IN) ==
[2024-06-26 11:49] LABS: Hematocrit (blood only) 40.6 % (37.0-47.0); Hemoglobin 13.1 g/dl (12.0-16.0); Mean Corpuscular Hemoglobin 29.2 pg (25.0-34.0); Mean Corpuscular Hgb Conc 32.3 g/dL (32.0-36.0); Mean Corpuscular Volume 90.6 fL (80.0-100.0); Mean Platelet Volume 9.6 fL (9.4-12.4); Platelet Count 225 K/uL (130-400); RDW Coefficient of Variation 12.8 % (11.5-14.5); Red Blood Count 4.48 M/uL (4.20-5.40); White Blood Count 15.78 K/ul (4.8-10.8)
[2024-06-26 12:04] LABS: Alanine Aminotransferase 9 U/L (7-52); Albumin Globulin Ratio 1.3 (0.9-2); Albumin Level 4.4 gm/dl (3.4-5.0); Alkaline Phosphatase 94 U/L (34-104); Anion Gap 8 (3-11); Aspartate Aminotransferase 15 U/L (13-39); BUN Creatinine Ratio 16.8 (10-20); Bilirubin,Total 0.7 mg/dl (0.2-1.0); Blood Urea Nitrogen 24 mg/dl (6-23); Calcium 9.6 mg/dl (8.6-10.3); Carbon Dioxide 27 mmol/L (21-32); Chloride 101 mmol/L (98-107); Est GFR (Non-African American) 34.5 ml/min; Globulin 3.3 gm/dl (2.5-4.0); Glucose 168 mg/dl (70-99(Fasting)); Potassium 4.7 mmol/L (3.5-5.1); Sodium 136 mmol/L (136-145); Total Protein 7.7 gm/dl (6.0-8.3)
[2024-06-26 12:08] LABS: Basophils # (auto) 0.04 K/uL (0.00-0.20); Basophils % (auto) 0.3 %; Eosinophils # (auto) 0.08 K/uL (0.00-0.50); Eosinophils % (auto) 0.5 %; Immature Granulocytes # (auto) 0.07 K/uL (0.01-0.20); Immature Granulocytes % (auto) 0.4 %; Lymphocytes # (auto) 0.32 K/uL (1.20-3.40); Monocytes # (auto) 0.46 K/uL (0.11-0.59); Monocytes % (auto) 2.9 %; Neutrophils # (auto) 14.81 K/uL (1.40-6.50); Neutrophils % (auto) 93.9 %
--- NOTE | 2024-06-26 12:24 | Emergency Department Note ---
Impression & Plan Pyelonephritis of right kidney, Failure of outpatient treatment ED Provider Note Name: MICA JIMÉNEZ Age: 79 Sex: Female Arrives Via: Walk-In Informant: Patient and patient's daughter ED Provider: Xu Berg MD Chief Complaint: Infection Impression: As per impressions above Medical Decision Makin-year-old female history of CKD, renal stones, previous kidney infections arrives for evaluation of fevers, chills, urinary symptoms last several days now severe weakness fatigue body aches. On arrival tachycardic febrile with rigors. Blood cultures obtained and she was empirically given IV Rocephin for treatment of possible sepsis. Laboratory workup does reveal an elevated white blood cell count. Patient is not hypotensive she does not require 30/kg IV fluids but rather was given 1 L normal saline bolus as to avoid fluid overload. I did review the chart which reveals E. coli UTI which is fluoroquinolone resistant. Patient did have an episode of which she said was itching following the Rocephin. On examination though she says she thinks she had a panic attack. It is resolved on my evaluation. Given patient's history of septic shock hospitalized previously in ICU for UTIs and her findings on arrival I think it is in the best interest of the patient to bring her in for further management and monitoring. Hospitalist consulted for further management Triage/Nursing Notes reviewed by Me External Chart Review by me: 05/20/2024 urology visit outpatient note reviewed by me discussing her previous infections and kidney issues. Differential:Renal colic, pyelonephritis, UTI, infected stone, sepsis, intra- abdominal infection, other causes of sepsis amongst others. Vital Signs: reviewed and remarkable for febrile, tachycardic Interventions: Normal Saline bolus 1 L IV, Rocephin 2 g IV, Tylenol 1 g IV Labs:ED labs Reviewed by me and remarkable for elevated white blood cell count EKG:As per my interpretation. Indication sepsis. Normal sinus rhythm with first-degree AV block at 94 bpm QTc of 442. There is no ectopy nor ischemia. When compared to EKG of 09/11/2022 there is no significant change. Cardiac/Tele Monitoring: Cardiac Monitoring: An Order was placed for continuous cardiac monitoring. The monitor shows a rate of 110 with a sinus tach rhythm. Consults:Discussed with [facility] hospitalist who will bring in for further management. Plan: Disposition:Hospitalization. Condition: Good History of Present Illness: 79-year-old female arrives for evaluation of illness. Patient with a long history of kidney disease including kidney infections, renal stones, CKD. Notes increasing urinary symptoms over the last few days. Diagnosed with UTI yesterday and started on Macrobid. Noticing worsening pains aches fatigue at home. Arrives to the ER for further evaluation. Primarily discomfort is in the right flank. Associated with fevers, chills. Denies any falls, trauma, injuries. No nausea, vomiting, other abdominal pain, other concerning signs or symptoms. Other than Macrobid no as needed medications taken at home. Past Medical History:See Below Home Medications:See Below Allergies:See Below Vitals:Blood Pressure: 136/65, Pulse 115, RR 20, T 37.8C, O2 94% on RA Physical Exam: GENERAL: Patient is unwell appearing and in moderate distress. Rigors noted RESPIRATORY: No dyspnea. Clear to auscultation and equal bilaterally. CARDIOVASCULAR: Tachy.No murmur appreciated. GASTROINTESTINAL: Abdomen soft, non-tender, no peritonitis. BACK: No midline tenderness, mild right CVA tenderness EXTREMITIES: Normal motion all extremities, no cyanosis, no edema. NEUROLOGIC: Alert and oriented. No focal neurologic deficits appreciated SKIN: No rash, no jaundice, no diaphoresis. PSYCH: Appropriate GCS: 15 ED Course: Times/Reassessments: Patient's heart rate is much improved with IV fluids and Tylenol. She is agreeable to hospitalization. Xu Berg MD Past Med/Surg History Problem List (Updated 06/26/24 @ 16:37 by Xu Berg MD) Failure of outpatient treatment (Acute) Pyelonephritis of right kidney (Acute) Sepsis Recurrent UTI (urinary tract infection) Encounter for pre-operative examination Acute blood loss anemia Anaerobic bacteremia Hematuria Demand ischemia Complicated UTI (urinary tract infection) Acute UTI (urinary tract infection) (Acute) Hypotension Hypomagnesemia (Acute) Elevated troponin I level (Acute) Abnormal EKG (Acute) Weakness (Acute) Syncope (Acute) Acute UTI (Acute) Hydronephrosis with urinary obstruction due to ureteral calculus (Acute) Septic shock treated at [facility] inpatient r/t kidney stones and UTI Acute left flank pain CHRIS (acute kidney injury) UTI (urinary tract infection) Left ureteral calculus DVT prophylaxis Chest pain (Acute) Arthritis Kidney stones recurrent kidney stones. Sepsis 09/08/22 after last cystoscopy procedure @ [facility]--pt admitted and treated--resolved LASHAWN on CPAP Depression HLD (hyperlipidemia) Diabetes NIDDM Hypertension Obesity (Chronic) BMI 43.5 Acid reflux (Chronic) Medical History History of anesthesia reaction SVT (supraventricular tachycardia) Glaucoma CKD (chronic kidney disease) stage 3, GFR 30-59 ml/min Hx of renal calculi Nausea and vomiting after administration of anesthetic agent Hypothyroidism Anxiety Surgical History Hx of cardiac catheterization S/P cystoscopy with ureteral stent placement History of cystoscopy History of cataract surgery History of appendectomy History of colonoscopy History of tonsillectomy History of right oophorectomy History of right knee joint replacement H/O: hysterectomy History of left knee replacement Family History Sister Breast cancer Other No family history of adverse response to anesthesia Denies family history of Coronary heart disease Social History Smoking Status: Never smoker Second Hand Exposure: Yes (hx in the workplace years ago); Do You Dip or Chew Tobacco: No; Hx Alcohol Use: Yes Alcohol type: hard liquor Hx Substance Use: No Preferred Language: Kinyarwanda Communication Ability: Effective Beer Runner Required: No Beliefs That Will Affect Care: None marital status: Current Living Situation: Alone current occupational status: employed 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 Feels Safe at Home: Yes Assistive Devices: Glasses Allergies Allergies Allergy/AdvReac Type Severity Reaction Status Date / Time ranitidine Allergy Intermediate HIVES, Verified 05/21/24 08:52 REDNESS rosuvastatin Allergy Intermediate itching/hiv Verified 05/21/24 08:52 es simvastatin Allergy Intermediate itching/hiv Verified 05/21/24 08:52 es Home Meds Home Medications Medication Instructions Recorded Confirmed levothyroxine 50 mcg tablet 50 mcg PO QAM 09/30/19 06/26/24 dulaglutide 0.75 mg/0.5 mL 0.75 mg subcut Q7D diabetes 07/14/22 06/26/24 subcutaneous pen injector (Trulicity) ezetimibe 10 mg tablet 10 mg PO QAM 07/14/22 06/26/24 latanoprost 0.005 % eye drops 1 drp ophthalmic (eye) HS 07/14/22 06/26/24 amlodipine 5 mg tablet 5 mg PO QAM 09/29/22 06/26/24 naproxen sodium 220 mg tablet 220 mg PO Q12H PRN Pain 05/17/23 06/26/24 (Aleve) cholecalciferol (vitamin D3) 50 50 mcg PO QAM 05/28/23 06/26/24 mcg (2,000 unit) capsule (Vitamin D3) lisinopril 20 mg tablet 20 mg PO QAM 09/17/23 06/26/24 trazodone 50 mg tablet 50 mg PO HS 06/26/24 06/26/24 Previous Rx's Medication Instructions Recorded nitrofurantoin 100 mg PO Q12H 5 days #10 caps 06/24/24 monohydrate/macrocrystals 100 mg capsule (Macrobid) Results & Data (ED) Vital Signs Vital Signs - 24 hr 06/26/24 11:21 06/26/24 12:54 06/26/24 13:06 Temperature 37.8 C H Temperature Source Temporal Artery Scan Pulse Rate 115 H 87 88 Pulse Rate from SpO2 Sensor 90 Respiratory Rate 20 29 H Respiratory Effort / Characteristics Non-Labored Spontaneous Respiratory Depth Normal Respiratory Pattern Regular Blood Pressure 136/65 124/92 Blood Pressure Mean 88 102 Blood Pressure Position Sitting Pulse Oximetry 94 95 Oxygen Delivery Method Room Air Room Air Sepsis Recent Fever Within 48 Hours Yes Sepsis New/Unexplained Change in Mental Status No Sepsis Action Taken by Nursing No Action Required 06/26/24 13:30 06/26/24 14:00 06/26/24 15:33 Temperature Temperature Source Pulse Rate 85 85 88 Pulse Rate from SpO2 Sensor 88 85 Respiratory Rate 14 21 29 H Respiratory Effort / Characteristics Respiratory Depth Respiratory Pattern Blood Pressure 117/92 121/99 Blood Pressure Mean 100 106 Blood Pressure Position Pulse Oximetry 90 96 Oxygen Delivery Method Sepsis Recent Fever Within 48 Hours Sepsis New/Unexplained Change in Mental Status Sepsis Action Taken by Nursing Laboratory Data 06/26/24 11:35 06/26/24 11:35 Lab Results 06/26/24 06/26/24 Range/Units 11:35 12:54 WBC 15.78 H (4.8-10.8) K/ul RBC 4.48 (4.20-5.40) M/uL Hgb 13.1 (12.0-16.0) g/dl Hct 40.6 (37.0-47.0) % MCV 90.6 (80.0-100.0) fL MCH 29.2 (25.0-34.0) pg MCHC 32.3 (32.0-36.0) g/dL RDW Std Deviation 42.0 (36.4-46.3) fL RDW Coeff of Brijesh 12.8 (11.5-14.5) % Plt Count 225 (130-400) K/uL MPV 9.6 (9.4-12.4) fL Immature Gran % (Auto) 0.4 % Neut % (Auto) 93.9 % Lymph % (Auto) 2.0 % Barnes % (Auto) 2.9 % Eos % (Auto) 0.5 % Baso % (Auto) 0.3 % Neut # (Auto) 14.81 H (1.40-6.50) K/uL Lymph # (Auto) 0.32 L (1.20-3.40) K/uL Barnes # (Auto) 0.46 (0.11-0.59) K/uL Eos # (Auto) 0.08 (0.00-0.50) K/uL Baso # (Auto) 0.04 (0.00-0.20) K/uL Immature Gran # (Auto) 0.07 (0.01-0.20) K/uL Sodium 136 (136-145) mmol/L Potassium 4.7 (3.5-5.1) mmol/L Chloride 101 (98-107) mmol/L Carbon Dioxide 27 (21-32) mmol/L Anion Gap 8 (3-11) BUN 24 H (6-23) mg/dl Creatinine 1.43 H (0.6-1.2) mg/dl Est Cr Clr Drug Dosing Not Reportable Est GFR ( Amer) 40.0 ml/min Est GFR (Non-Af Amer) 34.5 ml/min BUN/Creatinine Ratio 16.8 (10-20) Glucose 168 H (70-99(Fasting)) mg/dl Lactate 1.1 (0.4-2.0) mmol/L Calcium 9.6 (8.6-10.3) mg/dl Total Bilirubin 0.7 (0.2-1.0) mg/dl AST 15 (13-39) U/L ALT 9 (7-52) U/L Alkaline Phosphatase 94 (34-104) U/L Total Protein 7.7 (6.0-8.3) gm/dl Albumin 4.4 (3.4-5.0) gm/dl Globulin 3.3 (2.5-4.0) gm/dl Albumin/Globulin Ratio 1.3 (0.9-2) Procalcitonin < 0.02 (0-0.5) ng/ml Administered Medications Discontinued Medications Sodium Chloride (Nss) 1,000 mls @ 999 mls/hr IV .Q1H1M ONE Stop: 06/26/24 13:21 Last Infusion: 06/26/24 14:01 Dose: Infused Documented By: Admin: 06/26/24 12:28 Dose: 999 mls/hr Documented By: CEF Acetaminophen (Ofirmev) 1,000 mg in 100 mls @ 400 mls/hr IV NOW STA Stop: 06/26/24 12:35 Last Infusion: 06/26/24 12:48 Dose: Infused Documented By: Admin: 06/26/24 12:31 Dose: 400 mls/hr Documented By: CEF Ceftriaxone Sodium (Rocephin) 2,000 mg in 50 mls @ 100 mls/hr IV NOW STA Stop: 06/26/24 12:50 Last Infusion: 06/26/24 13:27 Dose: Infused Documented By: Admin: 06/26/24 12:51 Dose: 100 mls/hr Documented By: CEF Imaging Data Radiologist's Impression: Abdomen/Pelvis CT 06/26/24 14:[address] WITHOUT CONTRAST CT DOSE: 1718.86 mGy.cm HISTORY: Acute sepsis with generalized abdominal pain sepsis, r/o obstructive stone TECHNIQUE: Multiaxial CT images of the abdomen and pelvis were performed without contrast. A dose lowering technique was utilized adhering to the principles of ALARA. COMPARISON STUDY: 04/14/2023 FINDINGS: Cardiomegaly. Mild bibasilar atelectasis. There are a few scattered by basilar solid pulmonary nodules measuring up to 3-4 mm which are of low clinical suspicion abdomen appear stable. No free air. The unenhanced spleen, mildly atrophic pancreas, gallbladder, adrenal glands and liver appear unremarkable. Cortical thinning of the kidneys. Mild bilateral perinephric stranding. Punctate nonobstructing calculus of the posterior interpolar left kidney. There is bilateral pelviectasis with mild urothelial thickening of the renal pelves. No ureteral calculi identified. Urinary bladder wall thickening with partial distention. Hysterectomy. Atherosclerosis of the aorta without aneurysm. No pathologically enlarged lymph nodes identified. Mild nonspecific distal esophageal wall thickening. Colonic diverticulosis. No evidence of acute diverticulitis. Mild to moderate colonic fecal retention. No CT evidence of acute appendicitis. Mild irregularity along the anterosuperior endplate of L1 with mild superior endplate compression and no significant paravertebral edema represents a change from prior study. There is less than 20% vertebral body height loss. IMPRESSION: 1. Punctate nonobstructing left renal calculus. 2. No ureteral calculi or hydronephrosis. 3. Equivocal urothelial thickening of the renal collecting systems. Correlate with urinalysis. 4. Colonic diverticulosis. 5. Minimal superior endplate compression deformity at L1 with less than 20% vertebral body height loss and no retropulsion. This is age-indeterminate however is new from 04/14/2023. Correlate with point tenderness. ACT 112: Negative or not required by law. The above report was generated using voice recognition software. It may contain grammatical, syntax or spelling errors. Electronically signed by: Vic Garcia M.D. 06/26/2024 3:55 PM Discharge Plan Visit Data Chief Complaint: Urinary Symptoms Stated Complaint: UTI, BONES ACHE ED Provider: Xu Berg Discharge Problem: Pyelonephritis of right kidney, Failure of outpatient treatment Forms Stand Alone Forms: [employer] Prescriptions Prescriptions: No Action nitrofurantoin monohyd/m-cryst [Macrobid] 100 mg capsule 100 mg PO Q12H 5 Days Qty: 10 0RF Rx Instructions: must administer with a meal/food levothyroxine 50 mcg tablet 50 mcg PO QAM amlodipine 5 mg tablet 5 mg PO QAM naproxen sodium [Aleve] 220 mg Tablet 220 mg PO Q12H PRN (Reason: Pain) cholecalciferol (vitamin D3) [Vitamin D3] 50 mcg (2,000 unit) Capsule 50 mcg PO QAM lisinopril 20 mg Tablet 20 mg PO QAM latanoprost 0.005 % drops 1 drp ophthalmic (eye) HS Rx Instructions: Both eyes ezetimibe 10 mg tablet 10 mg PO QAM Trulicity 0.75 mg/0.5 mL pen injector 0.75 mg SUBCUT Q7D Patient Comments: on sundays trazodone 50 mg tablet 50 mg PO HS Referrals Referrals: Sindy Weber DO [Outside Practitioners] -
[2024-06-26] MEDS: SODIUM CHLORIDE 0.9% 1,000 ML IV ONE (12:28)
[2024-06-26] MEDS: ACETAMINOPHEN 1,000 MG/100 ML VIAL IV STA (12:31)
[2024-06-26] MEDS: cefTRIAXone SODIUM 2,000 MG/50 ML BAG IV STA (12:51)
--- NOTE | 2024-06-26 14:10 | History & Physical Report ---
Date of Service June 26, 2024 Assessment & Plan (1) Sepsis: Plan: This is an 79 y/o female with history of recurrent UTI, nephrolithiasis, episode of septic shock secondary to complicated UTI/obstructive uropathy, hypothyroidism, LASHAWN on CPAP, GERD, DM2 on Trulicity, CKD, PSVT, HTN, hyperlipidemia/statin intolerance, and other history as outlined below who presents to the ED today with worsening malaise, aches, chills since yesterday. Outpatient urine culture from 06/23 is growing >100,000 CFU/ml of E. coli so patient was started on Macrobid 100 mg BID yesterday and has taken two doses thus far. Upon presentation to the ED today, she meets sepsis criteria based on tachycardia, leukocytosis, and known UTI. Lactate was normal. Creatinine is at baseline. Pt received one liter of IVF in the ED with marked improvement in her clinical status - HR normalized, BP remains normotensive, reports feeling improved. Pt was referred for admission for further management of complicated UTI with early sepsis. - Admit to med telemetry - Urgent non-contrast CT abd/pelvis to evaluate for potential obstructive uropathy in view of pt's complex urologic history - Received one dose of ceftriaxone in the ED - pt noted some itching towards the end of the dose but is unsure if this is related, has tolerated ceftriaxone previously. Further antibiotics to be determined pending CT - Will keep patient NPO for now until CT results back - may need to consult with urology pending results - Gentle IVF at 80 cc/hr for at least one more liter - Labs in the AM - CBC, BMP (2) Complicated UTI (urinary tract infection): Plan: See plan for #1 (3) LASHAWN on CPAP: Plan: Chronic, stable Continue CPAP at HS (4) Diabetes: Plan: Last A1c on 04/24/24 was 7.2 Diabetic diet once no longer NPO BSG ACHS Insulin sliding scale (5) Hypertension: Plan: Chronic, stable Continue outpatient regimen with holds for SBP <100 Plan Pt seen and reviewed with collaborating physician, Dr. Croonel. Plan of care discussed and as outlined above. Code status; DNR/DNI DVT prophylaxis: subq heparin Admit to med telemetry, eventual PT/OT evaluations prior to d/c Milagro Bo PA-C History of Present Illness Chief Complaint: "it hurts all over" Primary Care Provider: NO PCP This is an 79 y/o female with history of recurrent UTI, nephrolithiasis, episode of septic shock secondary to complicated UTI/obstructive uropathy, hypothyroidism, LASHAWN on CPAP, GERD, DM2 on Trulicity, CKD, PSVT, HTN, hyperlipidemia/statin intolerance, and other history as outlined below who presents to the ED today with worsening malaise, aches, chills since yesterday. Pt reports 2-3 days ago she developed right flank pain, which she has had with UTIs previously so she went for a urine culture on 06/23. She was started on nitrofurantoin yesterday and had two doses, with last dose this morning. Overnight, she developed chills, nausea, generalized achiness, fatigue, and continued right flank pain so she came to the ED for evaluation. Outpatient urine culture from 06/23 shows >100,000 CFU/ml of E. coli that is resistant to ampicillin, ciprofloxacin, and levofloxacin, intermediate to amp/sulbactam. Upon initial evaluated in the ED, she was found to be tachycardic with a temp of 37.8C, leukocytosis on labs, normal lactate. She was given IVF and IV Rocephin with clinical improvement. Currently, pt's main concern is the generalized aches and pains that she attributes to her arthritis. She denies dysuria, hematuria, urinary frequency, or suprapubic pain/pressure. She checks her sugars regularly at home and reports no unexplained elevations. Her last urology follow-up with Dr. Armijo was in May, and she was reportedly doing well with no evidence of stone on renal ultrasound. Allergies Allergy/AdvReac Type Severity Reaction Status Date / Time ranitidine Allergy Intermediate HIVES, Verified 05/21/24 08:52 REDNESS rosuvastatin Allergy Intermediate itching/hiv Verified 05/21/24 08:52 es simvastatin Allergy Intermediate itching/hiv Verified 05/21/24 08:52 es Home Medications Medication Instructions Recorded Confirmed Type levothyroxine 50 mcg tablet 50 mcg PO QAM 09/30/19 06/26/24 History dulaglutide 0.75 mg/0.5 mL 0.75 mg subcut Q7D diabetes 07/14/22 06/26/24 [facility] ezetimibe 10 mg tablet 10 mg PO QAM 07/14/22 06/26/24 History latanoprost 0.005 % eye drops 1 drp ophthalmic (eye) HS 07/14/22 06/26/24 H istory amlodipine 5 mg tablet 5 mg PO QAM 09/29/22 06/26/24 History naproxen sodium 220 mg tablet 220 mg PO Q12H PRN Pain 05/17/23 06/26/24 History (Aleve) cholecalciferol (vitamin D3) 50 50 mcg PO QAM 05/28/23 06/26/24 History mcg (2,000 unit) capsule (Vitamin D3) lisinopril 20 mg tablet 20 mg PO QAM 09/17/23 06/26/24 History nitrofurantoin 100 mg PO Q12H 5 days #10 caps 06/24/24 06/26/24 Rx monohydrate/macrocrystals 100 mg capsule (Macrobid) trazodone 50 mg tablet 50 mg PO HS 06/26/24 06/26/24 History Past Med/Surg History Problem List (Updated 06/26/24 @ 16:37 by Xu Berg MD) Failure of outpatient treatment (Acute) Pyelonephritis of right kidney (Acute) Sepsis Recurrent UTI (urinary tract infection) Encounter for pre-operative examination Acute blood loss anemia Anaerobic bacteremia Hematuria Demand ischemia Complicated UTI (urinary tract infection) Acute UTI (urinary tract infection) (Acute) Hypotension Hypomagnesemia (Acute) Elevated troponin I level (Acute) Abnormal EKG (Acute) Weakness (Acute) Syncope (Acute) Acute UTI (Acute) Hydronephrosis with urinary obstruction due to ureteral calculus (Acute) Septic shock treated at [facility] inpatient r/t kidney stones and UTI Acute left flank pain CHRIS (acute kidney injury) UTI (urinary tract infection) Left ureteral calculus DVT prophylaxis Chest pain (Acute) Arthritis Kidney stones recurrent kidney stones. Sepsis 09/08/22 after last cystoscopy procedure @ [facility]--pt admitted and treated--r esolved LASHAWN on CPAP Depression HLD (hyperlipidemia) Diabetes NIDDM Hypertension Obesity (Chronic) BMI 43.5 Acid reflux (Chronic) Medical History History of anesthesia reaction SVT (supraventricular tachycardia) Glaucoma CKD (chronic kidney disease) stage 3, GFR 30-59 ml/min Hx of renal calculi Nausea and vomiting after administration of anesthetic agent Hypothyroidism Anxiety Surgical History Hx of cardiac catheterization S/P cystoscopy with ureteral stent placement History of cystoscopy History of cataract surgery History of appendectomy History of colonoscopy History of tonsillectomy History of right oophorectomy History of right knee joint replacement H/O: hysterectomy History of left knee replacement Family History Sister Breast cancer Other No family history of adverse response to anesthesia Denies family history of Coronary heart disease Social History Smoking Status: Never smoker Second Hand Exposure: Yes (hx in the workplace years ago); Do You Dip or Chew Tobacco: No; Hx Alcohol Use: Yes Alcohol type: hard liquor Hx Substance Use: No Preferred Language: Latvian Communication Ability: Effective Tire Specialist Required: No Beliefs That Will Affect Care: None marital status: Current Living Situation: Alone current occupational status: employed 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 Feels Safe at Home: Yes Assistive Devices: Glasses Review of Systems Review of Systems: All systems reviewed & are unremarkable except as noted in Subjective Physical Exam Physical Exam: General: awake, alert, NAD HEENT: no scleral icterus, moist oral mucosa Heart: RRR Lungs: CTA bilaterally Abdomen: soft, obese, +BS, +right flank tenderness Extremities: no pedal edema, distal pulses intact and equal Skin: warm, dry, no jaundice Neurologic: no confusion or dysarthria, moving all extremities Results & Data Results & Data Vital Signs (Past 12 Hours) Vital Signs Temp Pulse Resp BP Pulse Ox O2 Del Method 06/26/24 12:54 87 06/26/24 11:21 37.8 C H 115 H 20 136/65 94 Room Air Laboratory Results Lab Results 06/26/24 06/26/24 Range/Units 11:35 12:54 WBC 15.78 H (4.8-10.8) K/ul RBC 4.48 (4.20-5.40) M/uL Hgb 13.1 (12.0-16.0) g/dl Hct 40.6 (37.0-47.0) % MCV 90.6 (80.0-100.0) fL MCH 29.2 (25.0-34.0) pg MCHC 32.3 (32.0-36.0) g/dL RDW Std Deviation 42.0 (36.4-46.3) fL RDW Coeff of Brijesh 12.8 (11.5-14.5) % Plt Count 225 (130-400) K/uL MPV 9.6 (9.4-12.4) fL Immature Gran % (Auto) 0.4 % Neut % (Auto) 93.9 % Lymph % (Auto) 2.0 % Garrett % (Auto) 2.9 % Eos % (Auto) 0.5 % Baso % (Auto) 0.3 % Neut # (Auto) 14.81 H (1.40-6.50) K/uL Lymph # (Auto) 0.32 L (1.20-3.40) K/uL Garrett # (Auto) 0.46 (0.11-0.59) K/uL Eos # (Auto) 0.08 (0.00-0.50) K/uL Baso # (Auto) 0.04 (0.00-0.20) K/uL Immature Gran # (Auto) 0.07 (0.01-0.20) K/uL Sodium 136 (136-145) mmol/L Potassium 4.7 (3.5-5.1) mmol/L Chloride 101 (98-107) mmol/L Carbon Dioxide 27 (21-32) mmol/L Anion Gap 8 (3-11) BUN 24 H (6-23) mg/dl Creatinine 1.43 H (0.6-1.2) mg/dl Est Cr Clr Drug Dosing Not Reportable Est GFR ( Amer) 40.0 ml/min Est GFR (Non-Af Amer) 34.5 ml/min BUN/Creatinine Ratio 16.8 (10-20) Glucose 168 H (70-99(Fasting)) mg/dl Lactate 1.1 (0.4-2.0) mmol/L Calcium 9.6 (8.6-10.3) mg/dl Total Bilirubin 0.7 (0.2-1.0) mg/dl AST 15 (13-39) U/L ALT 9 (7-52) U/L Alkaline Phosphatase 94 (34-104) U/L Total Protein 7.7 (6.0-8.3) gm/dl Albumin 4.4 (3.4-5.0) gm/dl Globulin 3.3 (2.5-4.0) gm/dl Albumin/Globulin Ratio 1.3 (0.9-2) Procalcitonin < 0.02 (0-0.5) ng/ml Medications Administered Discontinued Medications Sodium Chloride (Nss) 1,000 mls @ 999 mls/hr IV .Q1H1M ONE Stop: 06/26/24 13:21 Last Infusion: 06/26/24 14:01 Dose: Infused Documented By: Admin: 06/26/24 12:28 Dose: 999 mls/hr Documented By: CEF Acetaminophen (Ofirmev) 1,000 mg in 100 mls @ 400 mls/hr IV NOW STA Stop: 06/26/24 12:35 Last Infusion: 06/26/24 12:48 Dose: Infused Documented By: Admin: 06/26/24 12:31 Dose: 400 mls/hr Documented By: CEF Ceftriaxone Sodium (Rocephin) 2,000 mg in 50 mls @ 100 mls/hr IV NOW STA Stop: 06/26/24 12:50 Last Infusion: 06/26/24 13:27 Dose: Infused Documented By: Admin: 06/26/24 12:51 Dose: 100 mls/hr Documented By: CEF Supervising Physician Co-Signing Physician Notes Pt was seen and examined by myself, Natty Coronel MD on the day of service. Care was coordinated with April Bo PA-C. 79-year-old female with past medical history significant for recurrent obstructive kidney stones with stent placement, septic shock presenting with concern for another urinary tract infection. States that she has been having chills and shakes at home, did see her PCP who ordered a UA that was suggestive of infection. She was started on Macrobid yesterday.However given worsening symptoms presented for further evaluation. On exam patient is alert, oriented, resting comfortably. On presentation tachycardic with leukocytosis of about 15,000, patient noting fevers at home. Patient meets criteria for sepsis in the setting of a complicated urinary tract infection. Abdomen is soft and tender in the right upper and lower quadrants. Given sepsis CT abdomen pelvis obtained CT abdomen pelvis with no obstructive kidney stones, or hydronephrosis Urine culture from June 23 growing E. coli resistant to fluoroquinolones Continue with IV Rocephin Follow blood cultures that are pending Otherwise as above. 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
[2024-06-26] MEDS ORDERED: CARBOHYDRATES FOR HYPOGLYCEMIA PO PRN (14:31)
[2024-06-26] MEDS ORDERED: DEXTROSE 50% 50 ML SYRINGE IV PRN (14:31)
[2024-06-26] MEDS ORDERED: GLUCAGON FOR INJ 1 MG VIAL SQ PRN (14:31)
[2024-06-26] MEDS ORDERED: GLUCOSE 40% GEL 15 GM TUBE PO PRN (14:31)
[2024-06-26] MEDS ORDERED: GLUCOSE 10 TAB/TUBE PO PRN (14:31)
--- NOTE | 2024-06-26 14:49 | Electrocardiogram Report ---
Test Reason : Blood Pressure : */* mmHG Vent. Rate : 94 BPM Atrial Rate : 94 BPM P-R Int : 252 ms QRS Dur : 88 ms QT Int : 354 ms P-R-T Axes : 51 -17 38 degrees QTcB Int : 442 ms Sinus rhythm with 1st degree A-V block Possible Old Anterolateral infarct Abnormal ECG When compared with ECG of 11-Sep-2022 11:32, Borderline criteria for Anterior infarct are now Present Nonspecific T wave abnormality no longer present Confirmed by Don Larry ([id number]) on 06/26/2024 2:49:44 PM Referred By: REFERRED SELF Confirmed By: Don Larry
--- NOTE | 2024-06-26 15:56 | CT Scan Report ---
ABDOMEN AND PELVIS CT WITHOUT CONTRAST CT DOSE: 1718.86 mGy.cm HISTORY: Acute sepsis with generalized abdominal pain sepsis, r/o obstructive stone TECHNIQUE: Multiaxial CT images of the abdomen and pelvis were performed without contrast. A dose lo wering technique was utilized adhering to the principles of ALARA. COMPARISON STUDY: 04/14/2023 FINDINGS: Cardiomegaly. Mild bibasilar atelectasis. There are a few scattered by basilar solid pulmon margarito nodules measuring up to 3-4 mm which are of low clinical suspicion abdomen appear stable. No free air. The unenhanced spleen, mildly atrophic pancreas, gallbladder, adrenal glands and liver appear u nremarkable. Cortical thinning of the kidneys. Mild bilateral perinephric stranding. Punctate nonobst ructing calculus of the posterior interpolar left kidney. There is bilateral pelviectasis with mild u rothelial thickening of the renal pelves. No ureteral calculi identified. Urinary bladder wall thicke pawan with partial distention. Hysterectomy. Atherosclerosis of the aorta without aneurysm. No patholo gically enlarged lymph nodes identified. Mild nonspecific distal esophageal wall thickening. Colonic diverticulosis. No evidence of acute dive rticulitis. Mild to moderate colonic fecal retention. No CT evidence of acute appendicitis. Mild irre gularity along the anterosuperior endplate of L1 with mild superior endplate compression and no signi ficant paravertebral edema represents a change from prior study. There is less than 20% vertebral bod y height loss. IMPRESSION: 1. Punctate nonobstructing left renal calculus. 2. No ureteral calculi or hydronephrosis. 3. Equivocal urothelial thickening of the renal collecting systems. Correlate with urinalysis. 4. Colonic diverticulosis. 5. Minimal superior endplate compression deformity at L1 with less than 20% vertebral body height los s and no retropulsion. This is age-indeterminate however is new from 04/14/2023. Correlate with point t enderness. ACT 112: Negative or not required by law. The above report was generated using voice recognition software. It may contain grammatical, syntax o r spelling errors. Electronically signed by: Vic Garcia M.D. 06/26/2024 3:55 PM
[2024-06-26] MEDS: INSULIN ASPART PER UNIT CHARGE SC SCH (18:43)
[2024-06-26] MEDS: SODIUM CHLORIDE 0.9% 1,000 ML IV SCH (20:26)
[2024-06-26] MEDS: LATANOPROST 0.005% OP SOLN 2.5 ML BTL OPB SCH (20:32)
[2024-06-26] MEDS: traZODone HCL 50 MG TAB PO SCH (20:32)
[2024-06-26] MEDS: HEPARIN SOD 5,000 UNIT/0.5 ML VIAL SQ SCH (21:23)
[2024-06-27 03:33] LABS: Appearance Urine Clear (Clear); Bacteria Urine Automated None Seen (None Seen); Bilirubin Urine Negative (Negative); Blood Urine Negative (Negative); Cast Urine Automated 0-2 /lpf (0-2); Color Urine Yellow; Epithelial Cell Urine Auto 0-2 /hpf (0-2); Glucose Urine UA Negative (Negative); Ketones Urine Negative (Negative); Leukocyte Esterase Urine 1+ (Negative); Nitrite Urine Negative (Negative); Protein Urine Negative (Negative); RBC Urine Automated 0-2 /hpf (0-2); Specific Gravity Urine 1.011 (1.000-1.030); Urobilinogen Urine Negative (Negative); WBC Urine Automated 0-5 /hpf (0-5)
[2024-06-27 05:53] LABS: Basophils # (auto) 0.03 K/uL (0.00-0.20); Basophils % (auto) 0.3 %; Eosinophils # (auto) 0.29 K/uL (0.00-0.50); Hematocrit (blood only) 34.1 % (37.0-47.0); Hemoglobin 11.2 g/dl (12.0-16.0); Immature Granulocytes # (auto) 0.04 K/uL (0.01-0.20); Immature Granulocytes % (auto) 0.4 %; Lymphocytes # (auto) 0.74 K/uL (1.20-3.40); Lymphocytes % (auto) 7.6 %; Mean Corpuscular Hemoglobin 29.7 pg (25.0-34.0); Mean Corpuscular Hgb Conc 32.8 g/dL (32.0-36.0); Mean Corpuscular Volume 90.5 fL (80.0-100.0); Mean Platelet Volume 9.7 fL (9.4-12.4); Monocytes # (auto) 0.42 K/uL (0.11-0.59); Monocytes % (auto) 4.3 %; Neutrophils # (auto) 8.23 K/uL (1.40-6.50); Neutrophils % (auto) 84.4 %; Platelet Count 196 K/uL (130-400); RDW Coefficient of Variation 12.9 % (11.5-14.5); RDW Standard Deviation 42.3 fL (36.4-46.3); Red Blood Count 3.77 M/uL (4.20-5.40); White Blood Count 9.75 K/ul (4.8-10.8)
[2024-06-27 06:05] LABS: BUN Creatinine Ratio 15.6 (10-20); Calcium 8.7 mg/dl (8.6-10.3); Creatinine Clr Calc Pharmacy 45.3 ml/min; Est GFR (African American) 42.9 ml/min; Potassium 4.2 mmol/L (3.5-5.1)
[2024-06-27] MEDS: LEVOTHYROXINE SODIUM 50 MCG TABLET PO SCH (06:32)
[2024-06-27] MEDS: lisinopril 20 MG TAB PO SCH (08:26)
[2024-06-27] MEDS: CHOLECALCIFEROL 25 MCG (1000 UNITS) TAB PO SCH (08:26)
[2024-06-27] MEDS: EZETIMIBE 10 MG TAB PO SCH (08:26)
[2024-06-27] MEDS: amLODIPine BESYLATE 5 MG TAB PO SCH (12:00)
[2024-06-27] MEDS: cefTRIAXone SODIUM 2,000 MG/50 ML BAG IV SCH (12:17)
--- NOTE | 2024-06-27 12:19 | Hospitalist Progress Note ---
Date of Service June 27, 2024 Assessment & Plan (1) Sepsis: Plan 79 y/o female with history of recurrent UTI, nephrolithiasis, episode of septic shock secondary to complicated UTI/obstructive uropathy, hypothyroidism, LASHAWN on CPAP, GERD, DM2 on Trulicity, CKD, PSVT, HTN, hyperlipidemia/statin intolerance, and other history as outlined below who presents to the ED with worsening malaise, aches, chills since 1 day ago [employer]. Outpatient urine culture from 06/23 is growing >100,000 CFU/ml of E. coli so patient was started on Macrobid 100 mg BID and has taken two doses before arrival. Upon presentation to the ED, she met sepsis criteria based on tachycardia, leukocytosis, and known UTI. Lactate was normal. Creatinine is at baseline. Pt received one liter of IVF in the ED with marked improvement in her clinical status - HR normalized, BP remains normotensive, reports feeling improved. Pt was referred for admission for further management of complicated UTI with early sepsis. She is being managed for the following: Sepsis POA 2/2 Complicated UTI - c/i w/ septic picture. CTAP reviewed. - c/w rocephin 06/26. - f/u blood culture. - pt reports feeling better. LASHAWN on CPAP: Chronic, stable, Continue CPAP at Diabetes: Last A1c on 04/24/24 was 7.2. Diabetic diet. SSI while inpatient. Hypertension: Chronic, stable. Continue outpatient regimen with holds for SBP <100 Code status; DNR/DNI DVT prophylaxis: subq heparin PT/OT eval, likely dc once bl cx neg 48 hrs. Admission and Anticipated Discharge Date Admission Date: June 26, 2024 Subjective Patient was seen and examined at bedside. Patient was sitting up in chair, on room air, NAD, resting comfortably. Patient reports feeling better, reports improvement in her lower back pain. Patient reports eating okay and moving bowels okay. Physical Exam Physical Exam: General: awake, alert, NAD HEENT: no scleral icterus, moist oral mucosa Heart: RRR Lungs: CTA bilaterally Abdomen: soft, obese, +BS, +right flank tenderness --> Improving. Extremities: no pedal edema, distal pulses intact and equal Skin: warm, dry, no jaundice Neurologic: no confusion or dysarthria, moving all extremities Results & Data Results & Data Vital Signs (Past 12 Hours) Vital Signs Temp Pulse Pulse Resp BP BP Pulse Ox 06/27/24 11:30 37.0 C 61 18 122/69 95 06/27/24 07:38 37.0 C 83 18 142/86 H 93 06/27/24 04:10 94 06/27/24 04:10 23 06/27/24 03:49 84 27 H 93 06/27/24 02:42 37.4 C 90 18 127/73 93 O2 Del Method FiO2 06/27/24 11:30 Room Air 06/27/24 07:38 Room Air 06/27/24 04:10 CPAP 06/27/24 04:10 CPAP 06/27/24 03:49 21 06/27/24 02:42 CPAP (1) Sepsis Sepsis type: sepsis due to unspecified organism Sepsis acute organ dysfunction status: without acute organ dysfunction Qualified Code(s): A41.9 - Sepsis, unspecified organism
[2024-06-27] MEDS: ACETAMINOPHEN 325 MG TAB PO PRN (20:37)
[2024-06-27] MEDS: DICLOFENAC SOD 1% GEL 100 GM TUBE EXT PRN (21:38)
[2024-06-27] MEDS: MELATONIN 3 MG TAB PO PRN (22:08)
[2024-06-27] MEDS: oxyCODONE HCL IR 5 MG TAB (IMMEDIATE RELEASE) PO STA (22:08)
[2024-06-28 06:43] LABS: Hematocrit (blood only) 39.8 % (37.0-47.0); Hemoglobin 12.6 g/dl (12.0-16.0); Mean Corpuscular Hemoglobin 29.1 pg (25.0-34.0); Mean Corpuscular Hgb Conc 31.7 g/dL (32.0-36.0); Mean Corpuscular Volume 91.9 fL (80.0-100.0); Platelet Count 217 K/uL (130-400); RDW Coefficient of Variation 12.8 % (11.5-14.5); RDW Standard Deviation 42.9 fL (36.4-46.3); Red Blood Count 4.33 M/uL (4.20-5.40); White Blood Count 5.01 K/ul (4.8-10.8)
[2024-06-28 07:05] LABS: BUN Creatinine Ratio 17.8 (10-20); Calcium 9.2 mg/dl (8.6-10.3); Creatinine Clr Calc Pharmacy 38.5 ml/min; Est GFR (African American) 35.7 ml/min; Est GFR (Non-African American) 30.8 ml/min; Magnesium 1.9 mg/dl (1.7-2.4); Potassium 4.4 mmol/L (3.5-5.1)
--- NOTE | 2024-06-28 08:52 | Cardiology Consultation ---
Date of Consultation June 28, 2024 Assessment & Plan (1) Second degree AV block, Mobitz type I: (2) Second degree Mobitz type II incomplete atrioventricular block: (3) Acute UTI (urinary tract infection): (4) Sepsis: Plan Assessment: 79 year old female admitted for acute UTI, sepsis. Found to have asymptomatic transient Second degree AV block both mobitz I and II Plan: -Patient's underlying rhythm upon review of telemetry shows SR with intermittent Second degree Mobitz I with very short transient episodes of Mobitz II, 2-3 complexes. Remains asymptomatic. -No prior history of heart block. -suspect in the setting of acute infectious process. -Serum electrolytes within normal limits. HS troponin negative -Admission EKG with no acute ST-T wave changes. -Can not exclude untreated sleep apnea as a contributing factor. -Continue with close monitoring on telemetry -Continue with IV Rocephin as managed by primary team. -Continue Lisinopril and Amlodipine at this time. -Will reassess telemetry in the morning -If intermittent episodes resolve, may give consideration to outpatient ZIO monitor for further monitoring OP Case has been discussed with Dr. Scott. Further recommendations regarding plan of care as per his assessment. I spent a total of 40 minutes on the date of service in preparation, delivery, documentation of the care provided to the patient excluding any time spent in the performance of separately billed services. KERON Torres [facility] Cardiology [facility] Supervising Physician Co-Signing Physician Notes I have reviewed the advanced practitioner's documentation on the date of service referenced in note, and I agree with, and take responsibility for the plan of care. I spent a total of [30] minutes coordinating, documenting, and providing care for this patient excluding time spent in the performance of separately billed services or time spent by another provider. 79 F admitted with UTI sepsis, LASHAWN, known history of Mobitz type 1 block , overnight showed episodes of Mobitz second degree AV block during night secondary to sleep apnea , has not used bipap at night through out . Telemetry reviewed morning heart rate stable Avoid AVN blockers Use Bipap overnight. Zio monitor as outpatient will monitor telemetry History of Present Illness Reason for Consultation: heart block Requesting Physician: [facility] hospitalist Attending Physician: Filiberto Cottrell MD History of Present Illness HPI: Patient is a 79 year old female with PMHx as stated below that presented to the ED with worsening UTI symptoms. patient has a known history of recurrent UTI's. She had a recent UA collected by PCP office that was suggestive of infection and therefore started on oral antibiotics on 2 days prior to admission. Patient reports that her symptoms seem to get worse including fever with chills prompting her to present. Cardiology has been consulted for concerns of high grade heart block. History includes: 1. SVT in the setting of severe urosepsis, no recurrence 2. Recurrent renal calculi 3. Diabetes 4. Dyslipidemia with statin intolerance 5. Hypertension 6. Depression 7. Abnormal nuclear stress test - false positive 8. Normal coronary arteries per cath January 2023. last seen by General cardiology OP 01/24/2023 EKG on admission 01/25/24: SR with 1st degree AVB, possible old anterolateral infarct. Rate 94bpm EKG obtained this morning SR with second degree Mobitz type I AVB. Rate 57bpm Patient is resting comfortably in bed at time of visit. Denies any cardiac comp laints. No chest pain, pressure, palpitations, no dizziness or lightheadedness, no syncope and no edema. history of LASHAWN in which she wears a CPAP at home, but is not tolerating here. For echocardiogram today Allergies Allergy/AdvReac Type Severity Reaction Status Date / Time ranitidine Allergy Intermediate HIVES, Verified 05/21/24 08:52 REDNESS rosuvastatin Allergy Intermediate itching/hiv Verified 05/21/24 08:52 es simvastatin Allergy Intermediate itching/hiv Verified 05/21/24 08:52 es Home Medications Medication Instructions Recorded Confirmed Type levothyroxine 50 mcg tablet 50 mcg PO QAM 09/30/19 06/26/24 History dulaglutide 0.75 mg/0.5 mL 0.75 mg subcut Q7D diabetes 07/14/22 06/26/24 History subcutaneous pen injector (Trulicity) ezetimibe 10 mg tablet 10 mg PO QAM 07/14/22 06/26/24 History latanoprost 0.005 % eye drops 1 drp ophthalmic (eye) HS 07/14/22 06/26/24 History amlodipine 5 mg tablet 5 mg PO QAM 09/29/22 06/26/24 History naproxen sodium 220 mg tablet 220 mg PO Q12H PRN Pain 05/17/23 06/26/24 History (Aleve) cholecalciferol (vitamin D3) 50 50 mcg PO QAM 05/28/23 06/26/24 History mcg (2,000 unit) capsule (Vitamin D3) lisinopril 20 mg tablet 20 mg PO QAM 09/17/23 06/26/24 History nitrofurantoin 100 mg PO Q12H 5 days #10 caps 06/24/24 06/26/24 Rx monohydrate/macrocrystals 100 mg capsule (Macrobid) trazodone 50 mg tablet 50 mg PO HS 06/26/24 06/26/24 History Patient History Medical History History of anesthesia reaction SVT (supraventricular tachycardia) Glaucoma CKD (chronic kidney disease) stage 3, GFR 30-59 ml/min Hx of renal calculi Nausea and vomiting after administration of anesthetic agent Hypothyroidism Anxiety Surgical History Hx of cardiac catheterization S/P cystoscopy with ureteral stent placement History of cystoscopy History of cataract surgery History of appendectomy History of colonoscopy History of tonsillectomy History of right oophorectomy History of right knee joint replacement H/O: hysterectomy History of left knee replacement Family History Sister Breast cancer Other No family history of adverse response to anesthesia Denies family history of Coronary heart disease Social History Smoking Status: Never smoker Second Hand Exposure: No; Do You Dip or Chew Tobacco: No; Tobacco Cessation Education Requested by Patient: No Hx Alcohol Use: No Hx Substance Use: No Preferred Language: Wolof Communication Ability: Effective Director Sanitation Bureau Required: No Beliefs That Will Affect Care: None marital status: Current Living Situation: Alone current occupational status: employed 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 Other Information That Helps Us Care for You: No Feels Safe at Home: Yes Safety Concerns: Feels Safe At This Time Assistive Devices: Cane, CPAP and Glasses Review of Systems Review of Systems: All systems reviewed & are unremarkable except as noted in HPI & below Physical Exam Constitutional: + obese; no acute distress and not ill a ppearing Neck: normal visual inspection and trachea midline Respiratory: normal respiratory effort, lungs clear to auscultation no r espiratory distress, no labored breathing and no cough Auscultation: lungs clear to auscultation bilaterally Cardiovascular: Rate/Rhythm: regular rate and + bradycardic (intermittent second degree type I and II) Heart Sounds: normal S1 and normal S2; no murmur Vessels: dorsalis pedis pulses present; no JVD Extremities: no edema Skin: no rashes, warm and dry Psychiatric: A+Ox3, euthymic affect Results & Data Vital Signs (Past 12 Hours) Vital Signs Temp Pulse Pulse Resp BP BP Pulse Ox 06/28/24 08:00 06/28/24 07:59 36.7 C 62 18 121/72 95 06/28/24 07:23 73 06/28/24 03:13 36.4 C L 69 18 157/91 H 92 06/28/24 01:15 73 20 91 06/28/24 00:11 36.8 C 71 20 111/67 92 06/27/24 22:53 60 06/27/24 21:29 O2 Del Method 06/28/24 08:00 Room Air, CPAP 06/28/24 07:59 Room Air 06/28/24 07:23 06/28/24 03:13 Room Air 06/28/24 01:15 06/28/24 00:11 Room Air 06/27/24 22:53 06/27/24 21:29 Room Air Laboratory Results Cardiac Enzymes 06/28/24 Range/Units 06:13 Troponin I High Sens 5.9 (0-14) pg/ml CBC 06/28/24 Range/Units 06:13 WBC 5.01 (4.8-10.8) K/ul RBC 4.33 (4.20-5.40) M/uL Hgb 12.6 (12.0-16.0) g/dl Hct 39.8 (37.0-47.0) % Plt Count 217 (130-400) K/uL Comprehensive Metabolic Panel 06/28/24 Range/Units 06:13 Sodium 137 (136-145) mmol/L Potassium 4.4 (3.5-5.1) mmol/L Chloride 103 (98-107) mmol/L Carbon Dioxide 26 (21-32) mmol/L BUN 28 H (6-23) mg/dl Creatinine 1.57 H (0.6-1.2) mg/dl Glucose 111 H (70-99(Fasting)) mg/dl Calcium 9.2 (8.6-10.3) mg/dl Intake and Output 06/28/24 06/28/24 06/28/24 06:59 14:59 22:59 Intake Total 200 / 1830 50 / 530 480 / 530 Output Total 150 / 150 Balance 200 / 1380 50 / 380 330 / 380 Intake: IV 50 / 50 [id number] SODIUM 2,000 mg In 50 / 50 50 ml @ 100 mls/hr IV Q24H [facility] Rx#:[id number] Oral 200 / 780 480 / 480 Output: Urine 150 / 150 Other: # Unmeasured Voids 2 Weight 124.2 kg Weight Measurement Method Standing Scale Diagnostic Findings Echocardiogram today: LVEF 55-60% Mild concentric LVH RV mild to moderately dilated (4) Sepsis Sepsis acute organ dysfunction status: without acute organ dysfunction Sepsis type: sepsis due to unspecified organism Qualified Code(s): A41.9 - Sepsis, unspecified organism
[2024-06-28 10:21] LABS: Troponin I High Sensitivity 5.9 pg/ml (0-14)
[2024-06-28 10:31] LABS: Thyroid Stimulating Hormone 5.259 uIu/ml (0.300-4.500)
[2024-06-28 11:06] LABS: T4 Free Thyroxine 1.02 ng/dl (0.61-1.60)
--- NOTE | 2024-06-28 16:28 | Hospitalist Progress Note ---
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 Outpatient urine culture from 06/23 is growing >100,000 CFU/ml of E. coli so patient was started on Macrobid 100 mg BID and has taken two doses before arrival. Upon presentation to the ED, she met sepsis criteria based on tachycardia, leukocytosis, and known UTI. Lactate was normal. Creatinine is at baseline. Pt received one liter of IVF in the ED with marked improvement in her clinical status - HR normalized, BP remains normotensive, reports feeling improved. Pt was referred for admission for further management of complicated UTI with early sepsis. She is being managed for the following: Sepsis POA 2/2 Complicated UTI - c/i w/ septic picture. CTAP reviewed. - c/w rocephin 06/26. - f/u blood culture. No growth so far - pt reports feeling better. Second degree HB: Telereview w/ mobitz 1, pt w/ complain of skipping heart beat, has HR dropped to 30s on tele review. Cardio consult. echo. continue tele monitoring. LASHAWN on CPAP: Chronic, stable, Continue CPAP at HS Diabetes: Last A1c on 04/24/24 was 7.2. Diabetic diet. SSI while inpatient. Hypertension: Chronic, stable. Continue outpatient regimen with holds for SBP <100 Code status; DNR/DNI DVT prophylaxis: subq heparin PT/OT eval pending. await cardio eval. Admission and Anticipated Discharge Date Admission Date: June 26, 2024 Subjective Patient was seen and examined at bedside. Patient was lying in bed, on room air, NAD, resting comfortably. Patient reports feeling better, reports improvement in her lower back pain. Patient reports eating okay and moving bowels okay. Telemetry reveals 2nd degree AV pietro, Mobitz I. Pt no current chest complaints but complains of sensation of skipping beats on/off. HR dipped into 30s overnight and in AM occasionally. cardio consulted, echo ordered. Physical Exam Physical Exam: General: awake, alert, NAD HEENT: no scleral icterus, moist oral mucosa Heart: RRR Lungs: CTA bilaterally Abdomen: soft, obese, +BS, +right flank tenderness --> Improving. Extremities: no pedal edema, distal pulses intact and equal Skin: warm, dry, no jaundice Neurologic: no confusion or dysarthria, moving all extremities Results & Data Results & Data Vital Signs (Past 12 Hours) Vital Signs Temp Pulse Pulse Resp BP Pulse Ox O2 Del Method 06/28/24 11:20 37.0 C 65 18 108/72 94 Room Air 06/28/24 08:00 Room Air, CPAP 06/28/24 07:59 36.7 C 62 18 121/72 95 Room Air 06/28/24 07:23 73 (1) Sepsis Sepsis type: sepsis due to unspecified organism Sepsis acute organ dysfunction status: without acute organ dysfunction Qualified Code(s): A41.9 - Sepsis, unspecified organism
[2024-06-28] MEDS: MICONAZOLE NITRATE POWDER 85 GM EXT PRN (18:24)
[2024-06-28] MEDS: NAPROXEN 250 MG TAB PO PRN (23:23)
[2024-06-29 06:21] LABS: Mean Corpuscular Hemoglobin 29.3 pg (25.0-34.0); Mean Corpuscular Hgb Conc 32.4 g/dL (32.0-36.0); Mean Corpuscular Volume 90.5 fL (80.0-100.0); Mean Platelet Volume 9.8 fL (9.4-12.4); Platelet Count 233 K/uL (130-400); RDW Coefficient of Variation 12.7 % (11.5-14.5); RDW Standard Deviation 41.6 fL (36.4-46.3); Red Blood Count 4.09 M/uL (4.20-5.40); White Blood Count 5.27 K/ul (4.8-10.8)
[2024-06-29 06:35] LABS: BUN Creatinine Ratio 21.8 (10-20); Calcium 9.7 mg/dl (8.6-10.3); Creatinine Clr Calc Pharmacy 41.2 ml/min; Est GFR (African American) 38.7 ml/min; Est GFR (Non-African American) 33.4 ml/min; Magnesium 1.9 mg/dl (1.7-2.4); Phosphorus 3.8 mg/dl (2.5-4.9); Potassium 4.6 mmol/L (3.5-5.1)
--- NOTE | 2024-06-29 08:14 | Cardiology Progress Note ---
Date of Service June 29, 2024 Assessment & Plan (1) Second degree AV block, Mobitz type I: (2) Second degree Mobitz type II incomplete atrioventricular block: (3) Acute UTI (urinary tract infection): (4) Sepsis: Plan Assessment: 79 year old female admitted for acute UTI, sepsis. Found to have asymptomatic transient Second degree AV block both mobitz I and II Plan: -Patient's underlying rhythm upon review of telemetry shows SR with intermittent Second degree Mobitz I with very short transient episodes of Mobitz II, 2-3 complexes. Remains asymptomatic. -No prior history of heart block. -suspect in the setting of acute infectious process. -Serum electrolytes within normal limits. HS troponin negative -Admission EKG with no acute ST-T wave changes. -Can not exclude untreated sleep apnea as a contributing factor. -Continue with close monitoring on telemetry -Continue with IV Rocephin as managed by primary team. -Continue Lisinopril and Amlodipine at this time. -Will reassess telemetry in the morning -If intermittent episodes resolve, may give consideration to outpatient ZIO monitor for further monitoring OP Case has been discussed with Dr. Scott. Further recommendations regarding plan of care as per his assessment. I spent a total of 40 minutes on the date of service in preparation, delivery, documentation of the care provided to the patient excluding any time spent in the performance of separately billed services. KERON Torres [facility] Cardiology [facility] Admission and Anticipated Discharge Date Admission Date: June 26, 2024 Subjective 06/29/2024: Patient seen and examined in follow up today. Feeling Labs, vitals, diagnostics, telemetry and documentation reviewed. Telemetry reviewed showing Physical Exam Constitutional: + obese; no acute distress and not ill a ppearing Neck: normal visual inspection and trachea midline Respiratory: normal respiratory effort, lungs clear to auscultation no respiratory distress, no labored breathing and no cough Auscultation: lungs clear to auscultation bilaterally Cardiovascular: Rate/Rhythm: regular rate and + bradycardic (intermittent second degree type I and II) Heart Sounds: normal S1 and normal S2; no murmur Vessels: dorsalis pedis pulses present; no JVD Extremities: no edema Skin: no rashes, warm and dry Psychiatric: A+Ox3, euthymic affect Results & Data Vital Signs (Past 12 Hours) Vital Signs Temp Pulse Pulse Resp BP Pulse Ox O2 Del Method 06/29/24 03:26 36.6 C 72 20 104/51 L 93 Room Air 06/28/24 23:59 36.7 C 68 18 130/69 94 Room Air, CPAP 06/28/24 22:45 76 23 90 06/28/24 21:44 72 06/28/24 20:44 76 06/28/24 20:41 Room Air (4) Sepsis Sepsis type: sepsis due to unspecified organism Sepsis acute organ dysfunction status: without acute organ dysfunction Qualified Code(s): A41.9 - Sepsis, unspecified organism
[2024-06-29 12:11] VITALS: RESP 18
--- NOTE | 2024-06-29 12:11 | Electrocardiogram Report ---
Test Reason : Blood Pressure : */* mmHG Vent. Rate : 57 BPM Atrial Rate : 73 BPM P-R Int : * ms QRS Dur : 90 ms QT Int : 450 ms P-R-T Axes : 64 -1 58 degrees QTcB Int : 438 ms Sinus rhythm with 2nd degree A-V block (Mobitz I) Low voltage QRS Cannot rule out Anterior infarct (cited on or before 26-Jun-2024) Abnormal ECG When compared with ECG of 26-Jun-2024 11:36, Sinus rhythm is now with 2nd degree A-V block (Mobitz I) Vent. rate has decreased by 37 bpm Confirmed by Juan Cardona ([id number]) on 06/29/2024 12:11:13 PM Referred By: REFERRED SELF Confirmed By: Juan Cardona
--- NOTE | 2024-06-29 14:07 | Hospitalist Progress Note ---
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 Outpatient urine culture from 06/23 is growing >100,000 CFU/ml of E. coli so patient was started on Macrobid 100 mg BID and has taken two doses before arrival. Upon presentation to the ED, she met sepsis criteria based on tachycardia, leukocytosis, and known UTI. Lactate was normal. Creatinine is at baseline. Pt received one liter of IVF in the ED with marked improvement in her clinical status - HR normalized, BP remains normotensive, reports feeling improved. Pt was referred for admission for further management of complicated UTI with early sepsis. She is being managed for the following: Sepsis POA 2/2 Complicated UTI - c/i w/ septic picture. CTAP reviewed. - c/w rocephin 06/26. - f/u blood culture. No growth so far - pt reports feeling better. Second degree HB: Telereview w/ mobitz 1 w/ episodes of Mobitz II during night 06/27-06/28, pt w/ complain of skipping heart beat. Cardio evaled, tele monitoring and likely zio as an OP. LASHAWN on CPAP: Chronic, stable, Continue CPAP at Diabetes: Last A1c on 04/24/24 was 7.2. Diabetic diet. SSI while inpatient. Hypertension: Chronic, stable. Continue outpatient regimen with holds for SBP <100 Code status; DNR/DNI DVT prophylaxis: subq heparin PT/OT. cm to assist w/ dc plan. pending cardio clearance. Admission and Anticipated Discharge Date Admission Date: June 26, 2024 Subjective Patient was seen and examined at bedside. Patient was lying in bed, on room air, NAD, resting comfortably. Patient reports feeling better, reports improvement in her lower back pain. Patient reports eating okay and moving bowels okay. Pt denies new issues. Physical Exam Physical Exam: General: awake, alert, NAD HEENT: no scleral icterus, moist oral mucosa Heart: RRR Lungs: CTA bilaterally Abdomen: soft, obese, +BS, +right flank tenderness --> improved. Extremities: no pedal edema, distal pulses intact and equal Skin: warm, dry, no jaundice Neurologic: no confusion or dysarthria, moving all extremities Results & Data Results & Data Vital Signs (Past 12 Hours) Vital Signs Temp Pulse Pulse Resp BP Pulse Ox O2 Del Method 06/29/24 12:10 36.9 C 89 18 104/60 91 Room Air 06/29/24 10:31 97/65 L 06/29/24 08:59 36.9 C 67 16 102/68 88 L Room Air 06/29/24 08:15 63 06/29/24 03:26 36.6 C 72 20 104/51 L 93 Room Air (1) Sepsis Sepsis type: sepsis due to unspecified organism Sepsis acute organ dysfunction status: without acute organ dysfunction Qualified Code(s): A41.9 - Sepsis, unspecified organism
[2024-06-29 15:48] VITALS: BP 112/76; TEMP 98.8; O2SAT 96
--- NOTE | 2024-06-29 16:31 | Cardiology Progress Note ---
Date of Service June 29, 2024 Assessment & Plan (1) Second degree AV block, Mobitz type I: (2) Second degree Mobitz type II incomplete atrioventricular block: (3) Acute UTI (urinary tract infection): (4) Sepsis: Plan Urinary tract infection Sepsis Intermittent Mobitz 2 AV block and Mobitz type I Obstructive sleep apnea not using CPAP Hypertension Intermittent second-degree Mobitz type I and II AV block Telemetry reviewed most of the episodes have occurred during the night patient unable to use his CPAP provided with a hospital Daytime # sinus bradycardia no second-degree AV block noted Avoid AV zeinab blockers no indication for pacemaker at this time Zio patch monitor as outpatient Follow-up with cardiology in 1 month after ZIO monitor Please call with questions Cardiology will sign off Admission and Anticipated Discharge Date Admission Date: June 26, 2024 Supervising Physician Co-Signing Physician Notes . Review of Systems Constitutional: + fatigue; no fever Respiratory: + dyspnea Cardiovascular: + dyspnea on exertion; no chest pain wit h activity, no dyspnea at rest, no paroxysmal nocturnal dyspnea and no lightheadedness Gastrointestinal: no nausea Physical Exam Constitutional: well developed and + obese; no acute distress Neck: trachea midline, no thyromegaly Respiratory: normal respiratory effort, lungs clear to auscultation Cardiovascular: Rate/Rhythm: regular rate Heart Sounds: normal S1 and normal S2; no gallop, no murmur and no cardiac rub Gastrointestinal (Abdomen): Percussion/Palpation: abdomen soft Results & Data Vital Signs (Past 12 Hours) Vital Signs Temp Pulse Pulse Resp BP BP Pulse Ox 06/29/24 16:00 78 06/29/24 15:47 37.1 C 41 L 18 112/76 96 06/29/24 12:10 36.9 C 89 18 104/60 91 06/29/24 10:31 97/65 L 06/29/24 08:59 36.9 C 67 16 102/68 88 L 06/29/24 08:15 63 O2 Del Method 06/29/24 16:00 06/29/24 15:47 Room Air 06/29/24 12:10 Room Air 06/29/24 10:31 06/29/24 08:59 Room Air 06/29/24 08:15 (4) Sepsis Sepsis type: sepsis due to unspecified organism Sepsis acute organ dysfunction status: without acute organ dysfunction Qualified Code(s): A41.9 - Sepsis, unspecified organism
--- NOTE | 2024-06-29 17:28 | Discharge Summary ---
Date of Service June 29, 2024 Admission HPI Per Admitting Provider This is an 79 y/o female with history of recurrent UTI, nephrolithiasis, episode of septic shock secondary to complicated UTI/obstructive uropathy, hypothyroidism, LASHAWN on CPAP, GERD, DM2 on Trulicity, CKD, PSVT, HTN, hyperlipidemia/statin intolerance, and other history as outlined below who presents to the ED today with worsening malaise, aches, chills since yesterday. Pt reports 2-3 days ago she developed right flank pain, which she has had with UTIs previously so she went for a urine culture on 06/23. She was started on nitrofurantoin yesterday and had two doses, with last dose this morning. Overnight, she developed chills, nausea, generalized achiness, fatigue, and continued right flank pain so she came to the ED for evaluation. Outpatient urine culture from 06/23 shows >100,000 CFU/ml of E. coli that is resistant to ampicillin, ciprofloxacin, and levofloxacin, intermediate to amp/sulbactam. Upon initial evaluated in the ED, she was found to be tachycardic with a temp of 37.8C, leukocytosis on labs, normal lactate. She was given IVF and IV Rocephin with clinical improvement. Currently, pt's main concern is the generalized aches and pains that she attributes to her arthritis. She denies dysuria, hematuria, urinary frequency, or suprapubic pain/pressure. She checks her sugars regularly at home and reports no unexplained elevations. Her last urology follow-up with Dr. Armijo was in May, and she was reportedly doing well with no evidence of stone on renal ultrasound. Admission Exam Per Admitting Provider General: awake, alert, NAD HEENT: no scleral icterus, moist oral mucosa Heart: RRR Lungs: CTA bilaterally Abdomen: soft, obese, +BS, +right flank tenderness Extremities: no pedal edema, distal pulses intact and equal Skin: warm, dry, no jaundice Neurologic: no confusion or dysarthria, moving all extremities Principal Diagnosis Sepsis POA secondary to complicated UTI Secondary to heart block, Mobitz type I and type II LASHAWN on CPAP, noncompliant. Discharge Exam General: awake, alert, NAD HEENT: no scleral icterus, moist oral mucosa Heart: RRR Lungs: CTA bilaterally Abdomen: soft, obese, +BS, +right flank tenderness --> improved. Extremities: no pedal edema, distal pulses intact and equal Skin: warm, dry, no jaundice Neurologic: no confusion or dysarthria, moving all extremities Discharge Data Allergies Allergy/AdvReac Type Severity Reaction Status Date / Time ranitidine Allergy Intermediate HIVES, Verified 05/21/24 08:52 REDNESS rosuvastatin Allergy Intermediate itching/hiv Verified 05/21/24 08:52 es simvastatin Allergy Intermediate itching/hiv Verified 05/21/24 08:52 es Consultations 06/26/24 14:06 ED Decision to Admit Stat 06/28/24 08:21 Consult Cardiology Routine Ordered Studies 06/26/24 14:29 CT abd pelvis wo con Urgent Hospital Course (1) Sepsis: Plan 79 y/o female with history of recurrent UTI, nephrolithiasis, episode of septic shock secondary to complicated UTI/obstructive uropathy, hypothyroidism, LASHAWN on CPAP, GERD, DM2 on Trulicity, CKD, PSVT, HTN, hyperlipidemia/statin intolerance, and other history as outlined below who presents to the ED with worsening malaise, aches, chills since 1 day ago [employer]. Outpatient urine culture from 06/23 is growing >100,000 CFU/ml of E. coli so patient was started on Macrobid 100 mg BID and has taken two doses before arrival. Upon presentation to the ED, she met sepsis criteria based on tachycardia, leukocytosis, and known UTI. Lactate was normal. Creatinine is at baseline. Pt received one liter of IVF in the ED with marked improvement in her clinical status - HR normalized, BP remains normotensive, reports feeling improved. Pt was referred for admission for further management of complicated UTI with early sepsis. She was managed for the following: Sepsis POA 2/2 Complicated UTI - c/i w/ septic picture. CTAP reviewed. - c/w rocephin 06/26. - f/u blood culture. No growth so far - pt reports feeling better. Second degree HB: Telereview w/ mobitz 1 w/ episodes of Mobitz II during night 06/27-06/28, pt w/ complain of skipping heart beat. Cardio evaled, can dc and likely zio as an OP. LASHAWN on CPAP: Chronic, stable, Continue CPAP at Diabetes: Last A1c on 04/24/24 was 7.2. Diabetic diet. SSI while inpatient. Hypertension: Chronic, stable. Continue outpatient regimen with holds for SBP <100 Code status; DNR/DNI DVT prophylaxis: subq heparin PT/OT. cm to assist w/ dc plan. pending cardio clearance. Patient is being discharged home with family support with following instruction at the point of discharge: Follow-up with your primary care physician within a week time and likely you will need labs CBC/CMP/magnesium/phosphorus. You will be discharged on antibiotic to complete the course for UTI. You are also noted to have second-degree heart block Mobitz type II, cardiology evaluated you. Follow-up with cardiology in a week time upon discharge. Likely you will need zio patch monitor. Please maintain compliance with CPAP . Wear CPAP throughout the night as tolerated. Take your medications as prescribed. Please make sure that you are able to get your medications today by calling your pharmacy before you leave the hospital so that your treatment continuity is not broken. Home Health Attestation I certify that this patient is under my care and that I, or a physicians support assistant working with me, had a face to-face encounter that meets the home health [id number] encounter requirements with this patient. The encounter with the patient was in whole, or in part, for the following medical condition, which is the primary reason for home health care (list medical condition): I certify that, based on my findings, the following services are medically necessary home health services: My clinical findings support the need for the above services because: Further, I certify that my clinical findings support that this patient is homebound (i.e. absences from home require considerable and taxing effort and are for medical reasons or yazidism services or infrequently or of short duration when for other reasons) because: Certification for Home Health Services: Based on the above findings, I certify that this patient is confined to the home and needs intermittent senior living care, physical therapy and/or speech therapy or continues to need occupational therapy. The patient is under my care, and I have initiated the establishment of the plan of care. This patient will be followed by a physician who will periodically review the plan of care. Total Time Total Time Spent Total Time Spent (In Minutes): 45 Discharge Plan Discharge Items Patient Disposition: Home - Self-Care Reason For Visit: UTI, SEPSIS Discharge Diagnosis: Sepsis POA secondary to complicated UTI Secondary to heart block, Mobitz type I and type II LASHAWN on CPAP, noncompliant. Activity: Resume your previous activity Non-emergency contact: Primary Care Provider Call non-emergency contact if: you have any medication questions, your symptoms worsen and your temperature is above 101 Follow-up/Referrals: PCP,NO [Primary Care Provider] - Diet: Carb Consistent or DM2 Addtl Attending Provider Instructions: Follow-up with your primary care physician within a week time and likely you will need labs CBC/CMP/magnesium/phosphorus. You will be discharged on antibiotic to complete the course for UTI. You are also noted to have second-degree heart block Mobitz type II, cardiology evaluated you. Follow-up with cardiology in a week time upon discharge. Likely you will need zio patch monitor. Please maintain compliance with CPAP . Wear CPAP throughout the night as tolerated. Take your medications as prescribed. Please make sure that you are able to get your medications today by calling your pharmacy before you leave the hospital so that your treatment continuity is not broken. Pending Studies at Discharge: Yes Stand-Alone Forms: [facility], Smoking Cessation Medications and DC Order Prescriptions: New cefdinir 300 mg capsule 300 mg PO BID 4 Days Qty: 8 0RF Probiotic 3 billion cell capsule 3,000 mmu cells PO DAILY 7 Days Qty: 7 0RF Rx Instructions: administer with a meal Continued levothyroxine 50 mcg tablet 50 mcg PO QAM amlodipine 5 mg tablet 5 mg PO QAM naproxen sodium [Aleve] 220 mg Tablet 220 mg PO Q12H PRN (Reason: Pain) cholecalciferol (vitamin D3) [Vitamin D3] 50 mcg (2,000 unit) Capsule 50 mcg PO QAM lisinopril 20 mg Tablet 20 mg PO QAM latanoprost 0.005 % drops 1 drp ophthalmic (eye) HS Rx Instructions: Both eyes ezetimibe 10 mg tablet 10 mg PO QAM Trulicity 0.75 mg/0.5 mL pen injector 0.75 mg SUBCUT Q7D Patient Comments: on sundays trazodone 50 mg tablet 50 mg PO HS Discontinued nitrofurantoin monohyd/m-cryst [Macrobid] 100 mg capsule 100 mg PO Q12H 5 Days Qty: 10 0RF Rx Instructions: must administer with a meal/food Discharge Orders: Discharge Order (Routine); Ordered 06/29/24 Ordered By: Filiberto Cottrell Admission Data Admit Date/Time: 06/26/24 14:39 Attending Provider: Filiberto Cottrell Admit Provider: Natty Coronel Primary Care Provider: PCP,NO Other Providers: Natty Coronel; Sayra Scott
[2024-06-29 18:00] VITALS: PULSE 98
== END 2024-06-29 18:52 | disposition home or self-care (01) | DRG 872 ==
LOC: ED 11:15 → 2N 14:39 → SUATTDRO 14:39 → 2N 18:23

== ENCOUNTER 2024-10-23 16:21 | Observation (INO) ==
[2024-10-23 17:18] LABS: Hematocrit (blood only) 38.5 % (37.0-47.0); Hemoglobin 12.5 g/dl (12.0-16.0); Mean Corpuscular Hemoglobin 28.9 pg (25.0-34.0); Mean Corpuscular Hgb Conc 32.5 g/dL (32.0-36.0); Mean Corpuscular Volume 89.1 fL (80.0-100.0); Mean Platelet Volume 9.9 fL (9.4-12.4); Platelet Count 187 K/uL (130-400); RDW Coefficient of Variation 13.2 % (11.5-14.5); Red Blood Count 4.32 M/uL (4.20-5.40); White Blood Count 14.74 K/ul (4.8-10.8)
--- NOTE | 2024-10-23 17:20 | Emergency Department Note ---
Impression & Plan Sepsis, Acute UTI (urinary tract infection), Leukocytosis, Elevated procalcitonin, Influenza A H1N1 infection ED Provider Note HISTORY OF PRESENT ILLNESS: Patient is an 79-year-old female presenting with shortness of breath and malaise. Patient reports that she was diagnosed with UTI 48 hours ago. She was prescribed Macrobid and has been taking that. She states that starting last night she woke up drenched in sweat and has been having subjective fevers and chills ever since. Reports that she overall does not feel well. She has had multiple episodes of nausea and vomiting. Denies any diarrhea. She is complaining of lower back pain. She states that she is always short of breath, but feels slightly more short of breath over the last 48 hours. She has had a cough it has been nonproductive. She took Tylenol around noon for her subjective fevers and chills. She denies any recent sick contact exposures. Patient denies any chest pain. ROS: as above PHYSICAL EXAM: Constitutional: Patient appears in no acute distress. HENT: Head: Normocephalic and atraumatic. Eyes: EOMI, PERRL Mouth/Throat: Mucous membranes moist. Neck: Trachea midline. Neck supple. Cardiovascular: RRR, No murmurs, rubs or gallops. Intact distal pulses. Pulmonary/Chest: No respiratory distress. Breath sounds clear and equal bilaterally. No wheezes or rales. Abdominal: Abdomen soft, no tenderness, rebound or guarding. Musculoskeletal: No edema, tenderness or deformity noted. Skin: Warm and dry. No rash, erythema, pallor or cyanosis Psychiatric: Appropriate mood and affect for situation. Neurological: Alert and keenly responsive. CN II-XII grossly intact, moving all extremities equally and fully. MDM: - Vitals signs showed fever and tachycardia. - History obtained via patient. History as above. - Chronic conditions affecting care: recurrent kidney stones; DM-2; HTN; HLD; obesity - Differential diagnoses include, but are not limited to: UTI; ureteral stent; pyelonephritis; bacteremia; viral syndrome; pneumonia - Order placed for continuous cardiac monitoring. At this time, monitor showed rate of 88 bpm with normal sinus rhythm, per my interpretation. - External medical records reviewed. Discharge summary dated 06/29/2024 was reviewed. Patient was admitted at that time for sepsis secondary to a complicated UTI. On review of patient's microbiology, her urine culture from 10/20/2024 grew E. coli. - EKG interpreted by myself showed normal sinus rhythm. Rate 91 bpm. QT 372. No acute ischemic changes. Noted to have a first-degree AV block that has been noted on previous EKGs. - Laboratory workup interpreted by myself showed leukocytosis (WBC 14.74); hyponatremia (Na 132); CKD (Cr 1.46 - about baseline); hyperglycemia (glucose 182); normal troponin; normal AST/ALT - Given patient's history, procalcitonin, lactate and blood cultures added to workup - Procalcitonin elevated at 8.07. [] - 2L NS ordered for fluid resuscitation. Patient sepsis volume fluid calculation based on ideal body weight is 1772.70 mL - Given 2g IV rocephin, as patient's E coli from urine culture on 10/20/2024 is sensitive to ceftriaxone - Given patient's history of recurrent kidney stones in the setting of her UTI and low back pain, CT abdomen/pelvis with IV contrast obtained. - CT abdomen/pelvis with IV contrast showed acute or subacute mild compression fracture of superior endplate of L1. Noted to have stable mild prominence of the bilateral renal pelvises which could be a potential low-grade UPJ obstruction/stenosis. No stones noted. - CXR negative for pneumonia - Viral respiratory panel positive for H1N1 influenza A. - Discussion was had with case resource manager about patient's case and need for admission - Hospitalist consulted for admission - [facility] ASSESSMENT AND PLAN: Diagnosis: sepsis; acute UTI; leukocytosis; elevated procalcitonin; influenza A Plan: admit Past Med/Surg History Problem List (Updated 10/23/24 @ 19:09 by Kendra Duffy MD) Influenza A H1N1 infection (Acute) Elevated procalcitonin (Acute) Leukocytosis (Acute) Acute UTI (urinary tract infection) (Acute) Sepsis (Acute) Second degree Mobitz type II incomplete atrioventricular block Second degree AV block, Mobitz type I Failure of outpatient treatment (Acute) Pyelonephritis of right kidney (Acute) Sepsis Recurrent UTI (urinary tract infection) Encounter for pre-operative examination Acute blood loss anemia Anaerobic bacteremia Hematuria Demand ischemia Complicated UTI (urinary tract infection) Acute UTI (urinary tract infection) (Acute) Hypotension Hypomagnesemia (Acute) Elevated troponin I level (Acute) Abnormal EKG (Acute) Weakness (Acute) Syncope (Acute) Acute UTI (Acute) Hydronephrosis with urinary obstruction due to ureteral calculus (Acute) Septic shock treated at [facility] inpatient r/t kidney stones and UTI Acute left flank pain CHRIS (acute kidney injury) UTI (urinary tract infection) Left ureteral calculus DVT prophylaxis Chest pain (Acute) Arthritis Kidney stones recurrent kidney stones. Sepsis 09/08/22 after last cystoscopy procedure @ [facility]--pt admitted and treated--resolved LASHAWN on CPAP Depression HLD (hyperlipidemia) Diabetes NIDDM Hypertension Obesity (Chronic) BMI 43.5 Acid reflux (Chronic) Medical History History of anesthesia reaction SVT (supraventricular tachycardia) Glaucoma CKD (chronic kidney disease) stage 3, GFR 30-59 ml/min Hx of renal calculi Nausea and vomiting after administration of anesthetic agent Hypothyroidism Anxiety Surgical History Hx of cardiac catheterization S/P cystoscopy with ureteral stent placement History of cystoscopy History of cataract surgery History of appendectomy History of colonoscopy History of tonsillectomy History of right oophorectomy History of right knee joint replacement H/O: hysterectomy History of left knee replacement Family History Sister Breast cancer Other No family history of adverse response to anesthesia Denies family history of Coronary heart disease Social History Smoking Status: Never smoker Second Hand Exposure: No; Do You Dip or Chew Tobacco: No; Hx Alcohol Use: No Hx Substance Use: No Preferred Language: Mauritian Communication Ability: Effective Real Estate Teacher Required: No Beliefs That Will Affect Care: None marital status: Current Living Situation: Alone current occupational status: employed 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 Feels Safe at Home: Yes Assistive Devices: Cane, CPAP and Glasses Allergies Allergies Allergy/AdvReac Type Severity Reaction Status Date / Time ranitidine Allergy Intermediate HIVES, Verified 05/21/24 08:52 REDNESS rosuvastatin Allergy Intermediate itching/hiv Verified 05/21/24 08:52 es simvastatin Allergy Intermediate itching/hiv Verified 05/21/24 08:52 es Home Meds Home Medications Medication Instructions Recorded Confirmed levothyroxine 50 mcg tablet 50 mcg PO QAM 09/30/19 10/23/24 dulaglutide 0.75 mg/0.5 mL 0.75 mg subcut Q7D diabetes 07/14/22 10/23/24 subcutaneous pen injector (Trulicity) ezetimibe 10 mg tablet 10 mg PO QAM 07/14/22 10/23/24 latanoprost 0.005 % eye drops 1 drp OPB HS 07/14/22 10/23/24 amlodipine 5 mg tablet 5 mg PO QAM 09/29/22 10/23/24 naproxen sodium 220 mg tablet 220 mg PO Q12H PRN Pain 05/17/23 10/23/24 (Aleve) cholecalciferol (vitamin D3) 50 50 mcg PO QAM 05/28/23 10/23/24 mcg (2,000 unit) capsule (Vitamin D3) lisinopril 20 mg tablet 20 mg PO QAM 09/17/23 10/23/24 trazodone 50 mg tablet 50 mg PO HS 06/26/24 10/23/24 Previous Rx's Medication Instructions Recorded nitrofurantoin 100 mg PO Q12H 7 days #14 caps 10/22/24 monohydrate/macrocrystals 100 mg capsule (Macrobid) Results & Data (ED) Vital Signs Vital Signs - 24 hr 10/23/24 16:32 10/23/24 17:01 10/23/24 17:23 Temperature 37.6 C H Temperature Source Temporal Artery Scan Pulse Rate 95 H 88 Pulse Rate [Right Finger] 88 Respiratory Rate 20 20 Respiratory Effort / Characteristics Non-Labored Non-Labored Spontaneous Respiratory Depth Normal Normal Respiratory Pattern Regular Blood Pressure 120/77 Blood Pressure [Left Arm] 130/85 Blood Pressure Mean 91 Blood Pressure Mean [Left Arm] 100 Pulse Oximetry 92 91 Oxygen Delivery Method Room Air Room Air Sepsis Recent Fever Within 48 Hours Yes Sepsis New/Unexplained Change in Mental Status No Sepsis Action Taken by Nursing No Action Required Laboratory Data 10/23/24 16:54 10/23/24 16:54 Lab Results 10/23/24 10/23/24 10/23/24 Range/Units 16:54 17:25 18:34 WBC 14.74 H (4.8-10.8) K/ul RBC 4.32 (4.20-5.40) M/uL Hgb 12.5 (12.0-16.0) g/dl Hct 38.5 (37.0-47.0) % MCV 89.1 (80.0-100.0) fL MCH 28.9 (25.0-34.0) pg MCHC 32.5 (32.0-36.0) g/dL RDW Std Deviation 43.0 (36.4-46.3) fL RDW Coeff of Brijesh 13.2 (11.5-14.5) % Plt Count 187 (130-400) K/uL MPV 9.9 (9.4-12.4) fL Immature Gran % (Auto) 0.7 % Neut % (Auto) 93.0 % Lymph % (Auto) 3.1 % [place] % (Auto) 3.1 % Eos % (Auto) 0.0 % Baso % (Auto) 0.1 % Neut # (Auto) 13.71 H (1.40-6.50) K/uL Lymph # (Auto) 0.46 L (1.20-3.40) K/uL [place] # (Auto) 0.45 (0.11-0.59) K/uL Eos # (Auto) 0.00 (0.00-0.50) K/uL Baso # (Auto) 0.01 (0.00-0.20) K/uL Immature Gran # (Auto) 0.11 (0.01-0.20) K/uL Sodium 132 L (136-145) mmol/L Potassium 4.2 (3.5-5.1) mmol/L Chloride 99 (98-107) mmol/L Carbon Dioxide 26 (21-32) mmol/L Anion Gap 7 (3-11) BUN 19 (6-23) mg/dl Creatinine 1.46 H (0.6-1.2) mg/dl Est Cr Clr Drug Dosing 42.2 ml/min eGFR 36.16 BUN/Creatinine Ratio 13.0 (10-20) Glucose 182 H (70-99(Fasting)) mg/dl Lactate 1.4 (0.4-2.0) mmol/L Calcium 9.2 (8.6-10.3) mg/dl Total Bilirubin 0.6 (0.2-1.0) mg/dl AST 16 (13-39) U/L ALT 9 (7-52) U/L Alkaline Phosphatase 67 (34-104) U/L Troponin I High Sens 11.9 (0-14) pg/ml Total Protein 7.5 (6.0-8.3) gm/dl Albumin 4.3 (3.4-5.0) gm/dl Globulin 3.2 (2.5-4.0) gm/dl Albumin/Globulin Ratio 1.3 (0.9-2) Procalcitonin 8.07 H (0-0.5) ng/ml Nasal Influ A H1 2008 PCR DETECTED A (NotDetected) Adenovirus (PCR) Not Detected (NotDetected) B. pertussis DNA (PCR) Not Detected (NotDetected) B.parapertussis DNA PCR Not Detected (NotDetected) C. pneumoniae DNA (PCR) Not Detected (NotDetected) Coronavirus OC43 (PCR) Not Detected (NotDetected) Coronavirus HKU1 (PCR) Not Detected (NotDetected) Coronavirus 229E (PCR) Not Detected (NotDetected) SARS-CoV-2 (PCR) Not Detected (NotDetected) Coronavirus NL63 (PCR) Not Detected (NotDetected) Human Metapneumovir PCR Not Detected (NotDetected) Influenza Type B (PCR) Not Detected (NotDetected) M. pneumoniae (PCR) Not Detected (NotDetected) Parainfluenza 1 (PCR) Not Detected (NotDetected) Parainfluenza 2 (PCR) Not Detected (NotDetected) Parainfluenza 3 (PCR) Not Detected (NotDetected) Parainfluenza 4 (PCR) Not Detected (NotDetected) RSV (PCR) Not Detected (NotDetected) Entero/Rhino (PCR) Not Detected (NotDetected) Administered Medications Discontinued Medications Acetaminophen (Ofirmev) 1,000 mg in 100 mls @ 400 mls/hr IV NOW STA Stop: 10/23/24 17:11 Last Infusion: 10/23/24 18:22 Dose: Infused Documented By: Admin: 10/23/24 17:26 Dose: 400 mls/hr Documented By: NRB Sodium Chloride (Nss) 1,000 mls @ 999 mls/hr IV .Q1H1M ONE Stop: 10/23/24 17:57 Last Infusion: 10/23/24 18:27 Dose: Infused Documented By: Admin: 10/23/24 17:26 Dose: 999 mls/hr Documented By: NRB Ceftriaxone Sodium (Rocephin) 2,000 mg in 50 mls @ 100 mls/hr IV NOW STA Stop: 10/23/24 18:06 Last Infusion: 10/23/24 19:04 Dose: Infused Documented By: Admin: 10/23/24 18:36 Dose: 100 mls/hr Documented By: NRB Sodium Chloride (Nss) 1,000 mls @ 999 mls/hr IV .Q1H1M ONE Stop: 10/23/24 18:43 Last Admin: 10/23/24 18:24 Dose: 999 mls/hr Documented By: NRB Ioversol (Optiray 320 100ml) 95 ml IV ONCE ONE Stop: 10/23/24 18:13 Last Admin: 10/23/24 18:12 Dose: 95 ml Documented By: EAB Imaging Data Radiologist's Impression: Chest X-Ray 10/23/24 16:38 EXAM: Radiograph of the Chest 1 View INDICATION: Cough. TECHNIQUE: Frontal view of the chest. COMPARISON: 07/16/2022 and 09/07/2022 FINDINGS: Lungs and pleural spaces: Hyperinflation and stable interstitial scarring. No consolidation or pulmonary edema. No pleural effusion or pneumothorax. Heart: Stable large cardiac shadow. Mediastinum: Normal contour. Bones/joints: Degenerative changes noted throughout the spine and both shoulders. No lytic or blastic lesions noted. Soft tissues: No abnormality noted. No radiopaque foreign body noted. Upper abdomen: No abnormality noted. IMPRESSION: Stable chronic changes. No acute disease. ACT 112: Negative or not required by law. Electronically signed by Shonna Cortes 10-23-2024 6:04 PM Abdomen/Pelvis CT 10/23/24 17:27 EXAM: CT Abdomen and Pelvis With Intravenous Contrast INDICATION: Urinary tract infection. History of kidney stones. Low back pain. TECHNIQUE: Axial computed tomography images of the abdomen and pelvis with intravenous contrast. Sagittal and coronal reformatted images were created and reviewed. This CT exam was performed using one or more of the following dose reduction techniques: automated exposure control, adjustment of the mA and/or kV according to patient size, and/or use of iterative reconstruction technique. CONTRAST: 95ml of Optiray 320 was administered intravenously. COMPARISON: 05/04/2023 FINDINGS: Limitations: None. Lung bases: Stable 3 mm oval nodule in the left lower lobe. No further assessment required given size and location. Pleural space: No visualized pleural effusion or pneumothorax. Heart: No abnormality noted. Mediastinum: No abnormality noted. ABDOMEN: Liver: No abnormality noted. Gallbladder and bile ducts: No calcified stones or surrounding fluid. Pancreas: Homogeneous enhancement. No mass, inflammation or ductal dilation. Spleen: No significant abnormality noted. Adrenals: No significant abnormality noted. Kidneys and ureters: Stable mild bilateral renal pelvic dilatation. No ureteral dilatation. No kidney or ureteral stone. Right ureteral stent longer present. There is stable mild left parapelvic and perinephric edema. No urinary gas. Stomach and bowel: Redundant sigmoid colon with extensive diverticulosis. No inflammation, intestinal thickening or obstruction. PELVIS: Appendix: No findings to suggest acute appendicitis. Bladder: Incompletely distended urinary bladder grossly unremarkable. No gas or stones. Reproductive: Hysterectomy. Stable dense calcification of the right ovary. No mass noted. ABDOMEN and PELVIS: Intraperitoneal space: No free air. No significant fluid collection. Bones/joints: There is an acute or subacute mild compression fracture of the superior endplate of L1 without retropulsion or stenosis. There is diffuse moderate degenerative change of the visualized thoracolumbar vertebra. Soft tissues: No significant abnormality noted. Vasculature: Atherosclerotic calcification of the aorta and branches. No aneurysm. Lymph nodes: No pathologically enlarged lymph nodes. IMPRESSION: 1. There is an acute or subacute mild compression fracture of the superior endplate of L1 without retropulsion or stenosis. 2. Stable mild prominence of the bilateral renal pelves which could reflect low-grade UPJ obstruction/stenosis. There is stable, mild acute and/or chronic inflammation of the left renal pelvis. No stones. ACT 112: Negative or not required by law. Electronically signed by Shonna Cortes 10-23-2024 6:26 PM Discharge Plan Visit Data Chief Complaint: Urinary Symptoms Stated Complaint: UTI, ABD PAIN, CHEST PAIN, NAUSEA ED Provider: Kendra Duffy Discharge Problem: Sepsis, Acute UTI (urinary tract infection), Leukocytosis, Elevated procalcitonin, Influenza A H1N1 infection Forms Stand Alone Forms: [facility] Prescriptions Prescriptions: No Action nitrofurantoin monohyd/m-cryst [Macrobid] 100 mg capsule 100 mg PO Q12H 7 Days Qty: 14 0RF Rx Instructions: must administer with a meal/food levothyroxine 50 mcg tablet 50 mcg PO QAM amlodipine 5 mg tablet 5 mg PO QAM naproxen sodium [Aleve] 220 mg Tablet 220 mg PO Q12H PRN (Reason: Pain) cholecalciferol (vitamin D3) [Vitamin D3] 50 mcg (2,000 unit) Capsule 50 mcg PO QAM lisinopril 20 mg Tablet 20 mg PO QAM latanoprost 0.005 % drops 1 drp OPB HS Rx Instructions: Both eyes ezetimibe 10 mg tablet 10 mg PO QAM Trulicity 0.75 mg/0.5 mL pen injector 0.75 mg SUBCUT Q7D Patient Comments: on sundays trazodone 50 mg tablet 50 mg PO HS Referrals Referrals: Andrews Eden MD [Primary Care Provider] -
[2024-10-23 17:25] LABS: Albumin Globulin Ratio 1.3 (0.9-2); Albumin Level 4.3 gm/dl (3.4-5.0); Bilirubin,Total 0.6 mg/dl (0.2-1.0); Calcium 9.2 mg/dl (8.6-10.3); Creatinine Clr Calc Pharmacy 42.2 ml/min; Globulin 3.2 gm/dl (2.5-4.0); Potassium 4.2 mmol/L (3.5-5.1); Total Protein 7.5 gm/dl (6.0-8.3)
[2024-10-23] MEDS: SODIUM CHLORIDE 0.9% 1,000 ML IV ONE ×2 (17:26→18:24)
[2024-10-23] MEDS: ACETAMINOPHEN 1,000 MG/100 ML VIAL IV STA (17:26)
[2024-10-23 17:31] LABS: Troponin I High Sensitivity 11.9 pg/ml (0-14)
--- NOTE | 2024-10-23 18:04 | XRay Report ---
EXAM: Radiograph of the Chest 1 View INDICATION: Cough. TECHNIQUE: Frontal view of the chest. COMPARISON: 07/16/2022 and 09/07/2022 FINDINGS: Lungs and pleural spaces: Hyperinflation and stable interstitial scarring. No consolidation or pulmonary edema. No pleural effusion or pneumothorax. Heart: Stable large cardiac shadow. Mediastinum: Normal contour. Bones/joints: Degenerative changes noted throughout the spine and both shoulders. No lytic or blastic lesions noted. Soft tissues: No abnormality noted. No radiopaque foreign body noted. Upper abdomen: No abnormality noted. IMPRESSION: Stable chronic changes. No acute disease. ACT 112: Negative or not required by law. Electronically signed by Shonna Cortes 10-23-2024 6:04 PM
[2024-10-23] MEDS: OPTIRAY 320 100ml IV ONE (18:12)
--- NOTE | 2024-10-23 18:26 | CT Scan Report ---
EXAM: CT Abdomen and Pelvis With Intravenous Contrast INDICATION: Urinary tract infection. History of kidney stones. Low back pain. TECHNIQUE: Axial computed tomography images of the abdomen and pelvis with intravenous contrast. Sagittal and coronal reformatted images were created and reviewed. This CT exam was performed using one or more of the following dose reduction techniques: automated exposure control, adjustment of the mA and/or kV according to patient size, and/or use of iterative reconstruction technique. CONTRAST: 95ml of Optiray 320 was administered intravenously. COMPARISON: 05/04/2023 FINDINGS: Limitations: None. Lung bases: Stable 3 mm oval nodule in the left lower lobe. No further assessment required given size and location. Pleural space: No visualized pleural effusion or pneumothorax. Heart: No abnormality noted. Mediastinum: No abnormality noted. ABDOMEN: Liver: No abnormality noted. Gallbladder and bile ducts: No calcified stones or surrounding fluid. Pancreas: Homogeneous enhancement. No mass, inflammation or ductal dilation. Spleen: No significant abnormality noted. Adrenals: No significant abnormality noted. Kidneys and ureters: Stable mild bilateral renal pelvic dilatation. No ureteral dilatation. No kidney or ureteral stone. Right ureteral stent longer present. There is stable mild left parapelvic and perinephric edema. No urinary gas. Stomach and bowel: Redundant sigmoid colon with extensive diverticulosis. No inflammation, intestinal thickening or obstruction. PELVIS: Appendix: No findings to suggest acute appendicitis. Bladder: Incompletely distended urinary bladder grossly unremarkable. No gas or stones. Reproductive: Hysterectomy. Stable dense calcification of the right ovary. No mass noted. ABDOMEN and PELVIS: Intraperitoneal space: No free air. No significant fluid collection. Bones/joints: There is an acute or subacute mild compression fracture of the superior endplate of L1 without retropulsion or stenosis. There is diffuse moderate degenerative change of the visualized thoracolumbar vertebra. Soft tissues: No significant abnormality noted. Vasculature: Atherosclerotic calcification of the aorta and branches. No aneurysm. Lymph nodes: No pathologically enlarged lymph nodes. IMPRESSION: 1. There is an acute or subacute mild compression fracture of the superior endplate of L1 without retropulsion or stenosis. 2. Stable mild prominence of the bilateral renal pelves which could reflect low-grade UPJ obstruction/stenosis. There is stable, mild acute and/or chronic inflammation of the left renal pelvis. No stones. ACT 112: Negative or not required by law. Electronically signed by Shonna Cortes 10-23-2024 6:26 PM
[2024-10-23 18:33] LABS: Adenovirus PCR Not Detected (NotDetected); Bordetella parapertussis PCR Not Detected (NotDetected); Bordetella pertussis PCR Not Detected (NotDetected); Chlamydia pneumoniae PCR Not Detected (NotDetected); Coronavirus 229E PCR Not Detected (NotDetected); Coronavirus CoV-2 (COVID19)PCR Not Detected (NotDetected); Coronavirus HKU1 PCR Not Detected (NotDetected); Coronavirus NL63 PCR Not Detected (NotDetected); Coronavirus OC43PCR Not Detected (NotDetected); Human Metapneumovirus PCR Not Detected (NotDetected); Influenza A (H1 2009) PCR DETECTED (NotDetected); Influenza B PCR Not Detected (NotDetected); Mycoplasma pneumoniae PCR Not Detected (NotDetected); Parainfluenza Virus 1 PCR Not Detected (NotDetected); Parainfluenza Virus 2 PCR Not Detected (NotDetected); Parainfluenza Virus 3 PCR Not Detected (NotDetected); Parainfluenza Virus 4 PCR Not Detected (NotDetected); Respiratory Syncytial VirusPCR Not Detected (NotDetected); Rhinovirus/Enterovirus PCR Not Detected (NotDetected)
[2024-10-23] MEDS: cefTRIAXone SODIUM 2,000 MG/50 ML BAG IV STA (18:36)
[2024-10-23 18:55] LABS: Basophils # (auto) 0.01 K/uL (0.00-0.20); Basophils % (auto) 0.1 %; Immature Granulocytes # (auto) 0.11 K/uL (0.01-0.20); Immature Granulocytes % (auto) 0.7 %; Lymphocytes # (auto) 0.46 K/uL (1.20-3.40); Lymphocytes % (auto) 3.1 %; Monocytes # (auto) 0.45 K/uL (0.11-0.59); Monocytes % (auto) 3.1 %; Neutrophils # (auto) 13.71 K/uL (1.40-6.50)
--- NOTE | 2024-10-23 19:22 | History & Physical Report ---
<Statement entered by Andrea Garcia, - 10/23/24 20:09> I have seen and examined the patient and have discussed the case with the provider above. I have reviewed the advanced practitioner's documentation, and I agree with, and take responsibility for that plan of care. Patient seen and examined while still in ED. Complains of diffuse myalgias and fever. A little bit of back pain. Constitutional: Mildly ill in appearance Lungs: Decreased breath sounds CV: S1-S2 Patient with acute symptomatic influenza, agree with Tamiflu and other symptomatic care Continue Macrobid, based on sensitivities appropriate antibiotic for her UTI that was being treated and present on admission. Suspect mild compression fracture is subacute. At this time pain control and therapies if she continues to have significant back pain can pursue outpatient evaluation Further plan of care as outlined below and discussed with BRENDA Date of Service October 23, 2024 Assessment & Plan (1) Influenza A H1N1 infection: (2) Acute UTI (urinary tract infection): (3) CKD (chronic kidney disease) stage 3, GFR 30-59 ml/min: (4) LASHAWN on CPAP: (5) Diabetes: Plan This is a 79-year-old female who has a significant past medical history of T2DM, HTN, HLD, hypothyroidism, CKD stage IV, LASHAWN on CPAP, morbid obesity, nephrolithiasis, open-angle glaucoma, hx of recurrent UTI, statin intolerant and depression with anxiety who presents to ED secondary to R flank pain, weakness and fever over the past few days. Influenza A Acute Cystitis Generalized Weakness Admit to medical Supportive care for influenza Start Janie flu - renal dosed Complete course of macrobid for UTI Pt with leukocytosis, but doesn't meet criteria for sepsis PT/OT Acute/Subacute L1 comp fx PT/OT no acute tx needed Vit D ordered for a.m. recommend outpt dexa T2DM well controlled on trulicity, a1c 6.4 in september Novolog per protocol LASHAWN: CPAP at HS CKD III/IV: renal fxn stable, cr 1.4, encourage pt to avoid NSAIDS as she reports she was taking aleve at home, she is scheduled to establish with Nephro as OP HTN: chronic, stable, continue amlodipine and lisinopril Glaucoma: continue eye gtts DVT ppx: SQ Heparin FULL CODE PCP: Karey Dispo: admit to medical, PT/OT suspect 1-2 days of hospitalization prior to return home, she lives a lone at home, walks with walker at baseline Pt was seen and examined in collaboration with Dr. Garcia please see addendum I spent a total of 76 minutes reviewing notes, outpatient records, labs, medication, coordinating, documenting and providing care for this patient excluding time spent in the performance of separately billed services. History of Present Illness Chief Complaint: Abd pain, weakness, fever for a few days. Primary Care Provider: Andrews Eden MD This is a 79-year-old female who has a significant past medical history of T2DM, HTN, HLD, hypothyroidism, CKD stage IV, LASHAWN on CPAP, morbid obesity, nephrolithiasis, open-angle glaucoma, hx of recurrent UTI, statin intolerant and depression with anxiety who presents to ED secondary to shortness of breath and fatigue. Of significance patient was recently diagnosed with an E. coli UTI. It was sensitive to Macrobid for which she was started on. She has completed 2 days worth of treatment. She reports typically she gets dysuria, increased urg/freq and this has improved since starting antibiotics. She had some Right flank pain today and she thought maybe she had a kidney stone. She reports h aving a fever and sweats over the last 24 hrs, nausea, weakness, fatigue and a cough. She denies congestion, sore throat, diarrhea or constipation. Her R flank pain has since resolved. in ED patient was hemodynamically stable. Lab work was notable for a leukocytosis, creatinine of 1.46, procalcitonin of 8 and positive for influenza. CT scan revealed There is an acute or subacute mild compression fracture of the superior endplate of L1 without retropulsion or stenosis. 2. Stable mild prominence of the bilateral renal pelves which could reflect low-grade UPJ obstruction /stenosis. There is stable, mild acute and/or chronic inflammation of the left renal pelvis. No stones. She received IVF and a dose of IV rocephin. Allergies Allergy/AdvReac Type Severity Reaction Status Date / Time ranitidine Allergy Intermediate HIVES, Verified 05/21/24 08:52 REDNESS rosuvastatin Allergy Intermediate itching/hiv Verified 05/21/24 08:52 es simvastatin Allergy Intermediate itching/hiv Verified 05/21/24 08:52 es Home Medications Medication Instructions Recorded Confirmed Type levothyroxine 50 mcg tablet 50 mcg PO QAM 09/30/19 10/23/24 History dulaglutide 0.75 mg/0.5 mL 0.75 mg subcut Q7D diabetes 07/14/22 10/23/24 History subcutaneous pen injector (Trulicity) ezetimibe 10 mg tablet 10 mg PO QAM 07/14/22 10/23/24 History latanoprost 0.005 % eye drops 1 drp OPB HS 07/14/22 10/23/24 History amlodipine 5 mg tablet 5 mg PO QAM 09/29/22 10/23/24 History cholecalciferol (vitamin D3) 50 50 mcg PO QAM 05/28/23 10/23/24 History mcg (2,000 unit) capsule (Vitamin D3) lisinopril 20 mg tablet 20 mg PO QAM 09/17/23 10/23/24 History nitrofurantoin 100 mg PO Q12H 7 days #14 caps 10/22/24 10/23/24 Rx monohydrate/macrocrystals 100 mg capsule (Macrobid) aspirin 81 mg tablet,delayed 81 mg PO DAILY 10/23/24 10/23/24 History release Past Med/Surg History Problem List Influenza A H1N1 infection (Acute) Elevated procalcitonin (Acute) Leukocytosis (Acute) Acute UTI (urinary tract infection) (Acute) Sepsis (Acute) Second degree Mobitz type II incomplete atrioventricular block Second degree AV block, Mobitz type I Failure of outpatient treatment (Acute) Pyelonephritis of right kidney (Acute) Sepsis Recurrent UTI (urinary tract infection) Encounter for pre-operative examination Acute blood loss anemia Anaerobic bacteremia Hematuria Demand ischemia Complicated UTI (urinary tract infection) Acute UTI (urinary tract infection) (Acute) Hypotension Hypomagnesemia (Acute) Elevated troponin I level (Acute) Abnormal EKG (Acute) Weakness (Acute) Syncope (Acute) Acute UTI (Acute) Hydronephrosis with urinary obstruction due to ureteral calculus (Acute) Septic shock treated at [facility] inpatient r/t kidney stones and UTI Acute left flank pain CHRIS (acute kidney injury) UTI (urinary tract infection) Left ureteral calculus DVT prophylaxis Chest pain (Acute) Arthritis Kidney stones recurrent kidney stones. Sepsis 09/08/22 after last cystoscopy procedure @ [facility]--pt admitted and treated--resolved LASHAWN on CPAP Depression HLD (hyperlipidemia) Diabetes NIDDM Hypertension Obesity (Chronic) BMI 43.5 Acid reflux (Chronic) Medical History History of anesthesia reaction with most recent procedure at [facility], pt woke up with extremely dry mouth and had a sore throat for 4 days following her surgery SVT (supraventricular tachycardia) Glaucoma open angle per [facility] records CKD (chronic kidney disease) stage 3, GFR 30-59 ml/min Hx of renal calculi Nausea and vomiting after administration of anesthetic agent Hypothyroidism Anxiety Surgical History Hx of cardiac catheterization 01/22/23, shortness of breath>[facility] [place], no stents>no cardiac findings; f/u [facility] cardio-"only had to see once" S/P cystoscopy with ureteral stent placement w/laser destruction of kidney stone History of cystoscopy multiple--last 09/07/22 @ [facility] History of cataract surgery bilateral History of appendectomy History of colonoscopy History of tonsillectomy History of right oophorectomy History of right knee joint replacement H/O: hysterectomy vaginal hysterectomy History of left knee replacement Family History Sister Breast cancer Other No family history of adverse response to anesthesia Denies family history of Coronary heart disease Social History Smoking Status: Never smoker Second Hand Exposure: No; Do You Dip or Chew Tobacco: No; Hx Alcohol Use: No Hx Substance Use: No Preferred Language: Niuean Communication Ability: Effective Certified Nursing Assistant Instructor Required: No Beliefs That Will Affect Care: None marital status: Current Living Situation: Alone current occupational status: employed 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 Lung: Clear, no audible w/r/r + course cough noted Heart: RRR Extremities: No edema Skin: Warm, no rash, negative turgor. Results & Data Results & Data Vital Signs (Past 12 Hours) Vital Signs Temp Pulse Pulse Resp BP BP Pulse Ox 10/23/24 17:23 88 20 130/85 91 10/23/24 17:01 88 10/23/24 16:32 37.6 C H 95 H 20 120/77 92 O2 Del Method 10/23/24 17:23 Room Air 10/23/24 17:01 10/23/24 16:32 Room Air Laboratory Results I have independently reviewed and interpreted patient's admitting labs including CBC, CMP, procal, influenza, resp biofire Diagnostic Findings Chest X-Ray 10/23/24 16:38 EXAM: Radiograph of the Chest 1 View INDICATION: Cough. TECHNIQUE: Frontal view of the chest. COMPARISON: 07/16/2022 and 09/07/2022 FINDINGS: Lungs and pleural spaces: Hyperinflation and stable interstitial scarring. No consolidation or pulmonary edema. No pleural effusion or pneumothorax. Heart: Stable large cardiac shadow. Mediastinum: Normal contour. Bones/joints: Degenerative changes noted throughout the spine and both shoulders. No lytic or blastic lesions noted. Soft tissues: No abnormality noted. No radiopaque foreign body noted. Upper abdomen: No abnormality noted. IMPRESSION: Stable chronic changes. No acute disease. ACT 112: Negative or not required by law. Electronically signed by Shonna Cortes 10-23-2024 6:04 PM Abdomen/Pelvis CT 10/23/24 17:27 EXAM: CT Abdomen and Pelvis With Intravenous Contrast INDICATION: Urinary tract infection. History of kidney stones. Low back pain. TECHNIQUE: Axial computed tomography images of the abdomen and pelvis with intravenous contrast. Sagittal and coronal reformatted images were created and reviewed. This CT exam was performed using one or more of the following dose reduction techniques: automated exposure control, adjustment of the mA and/or kV according to patient size, and/or use of iterative reconstruction technique. CONTRAST: 95ml of Optiray 320 was administered intravenously. COMPARISON: 05/04/2023 FINDINGS: Limitations: None. Lung bases: Stable 3 mm oval nodule in the left lower lobe. No further assessment required given size and location. Pleural space: No visualized pleural effusion or pneumothorax. Heart: No abnormality noted. Mediastinum: No abnormality noted. ABDOMEN: Liver: No abnormality noted. Gallbladder and bile ducts: No calcified stones or surrounding fluid. Pancreas: Homogeneous enhancement. No mass, inflammation or ductal dilation. Spleen: No significant abnormality noted. Adrenals: No significant abnormality noted. Kidneys and ureters: Stable mild bilateral renal pelvic dilatation. No ureteral dilatation. No kidney or ureteral stone. Right ureteral stent longer present. There is stable mild left parapelvic and perinephric edema. No urinary gas. Stomach and bowel: Redundant sigmoid colon with extensive diverticulosis. No inflammation, intestinal thickening or obstruction. PELVIS: Appendix: No findings to suggest acute appendicitis. Bladder: Incompletely distended urinary bladder grossly unremarkable. No gas or stones. Reproductive: Hysterectomy. Stable dense calcification of the right ovary. No mass noted. ABDOMEN and PELVIS: Intraperitoneal space: No free air. No significant fluid collection. Bones/joints: There is an acute or subacute mild compression fracture of the superior endplate of L1 without retropulsion or stenosis. There is diffuse moderate degenerative change of the visualized thoracolumbar vertebra. Soft tissues: No significant abnormality noted. Vasculature: Atherosclerotic calcification of the aorta and branches. No aneurysm. Lymph nodes: No pathologically enlarged lymph nodes. IMPRESSION: 1. There is an acute or subacute mild compression fracture of the superior endplate of L1 without retropulsion or stenosis. 2. Stable mild prominence of the bilateral renal pelves which could reflect low-grade UPJ obstruction/stenosis. There is stable, mild acute and/or chronic inflammation of the left renal pelvis. No stones. ACT 112: Negative or not required by law. Electronically signed by Shonna Cortes 10-23-2024 6:26 PM Medications Administered Medication List Discontinued Medications Acetaminophen (Ofirmev) 1,000 mg in 100 mls @ 400 mls/hr IV NOW STA Stop: 10/23/24 17:11 Last Infusion: 10/23/24 18:22 Dose: Infused Documented By: NRLilia Admin: 10/23/24 17:26 Dose: 400 mls/hr Documented By: SHAN Sodium Chloride (Nss) 1,000 mls @ 999 mls/hr IV .Q1H1M ONE Stop: 10/23/24 17:57 Last Infusion: 10/23/24 18:27 Dose: Infused Documented By: NRLilia Admin: 10/23/24 17:26 Dose: 999 mls/hr Documented By: SHAN Ceftriaxone Sodium (Rocephin) 2,000 mg in 50 mls @ 100 mls/hr IV NOW STA Stop: 10/23/24 18:06 Last Infusion: 10/23/24 19:04 Dose: Infused Documented By: Admin: 10/23/24 18:36 Dose: 100 mls/hr Documented By: SHAN Sodium Chloride (Nss) 1,000 mls @ 999 mls/hr IV .Q1H1M ONE Stop: 10/23/24 18:43 Last Admin: 10/23/24 18:24 Dose: 999 mls/hr Documented By: SHAN Ioversol (Optiray 320 100ml) 95 ml IV ONCE ONE Stop: 10/23/24 18:13 Last Admin: 10/23/24 18:12 Dose: 95 ml Documented By: YOSVANY ECG Additional Comments: I have independently reviewed and interpreted patient's admitting EKG which revealed: 91 SR 1st degree AVB , qtc 457ms, t wave inv v1 and v2 unchanged from jun. COVID-19 Results Results COVID-19 Adm Lab Results: RBC 4.32 M/uL (4.20-5.40) 10/23/24 WBC 14.74 K/ul (4.8-10.8) H 10/23/24 Hgb 12.5 g/dl (12.0-16.0) 10/23/24 Hct 38.5 % (37.0-47.0) 10/23/24 Plt Count 187 K/uL (130-400) 10/23/24 Neutrophils (%) (Auto) 93.0 % 10/23/24 Lymphocytes (%) (Auto) 3.1 % 10/23/24 Monocytes # (Auto) 0.45 K/uL (0.11-0.59) 10/23/24 Eosinophils # (Auto) 0.00 K/uL (0.00-0.50) 10/23/24 Immature Granulocyte % (Auto) 0.7 % 10/23/24 Neutrophils # (Auto) 13.71 K/uL (1.40-6.50) H 10/23/24 Lymphocytes # (Auto) 0.46 K/uL (1.20-3.40) L 10/23/24 Monocytes # (Auto) 0.45 K/uL (0.11-0.59) 10/23/24 Eosinophils # (Auto) 0.00 K/uL (0.00-0.50) 10/23/24 Basophils # (Auto) 0.01 K/uL (0.00-0.20) 10/23/24 Immature Granulocyte # (Auto) 0.11 K/uL (0.01-0.20) 5 Na 132 mmol/L (136-145) L 10/23/24 K 4.2 mmol/L (3.5-5.1) 10/23/24 Cl 99 mmol/L (98-107) 10/23/24 CO2 26 mmol/L (21-32) 10/23/24 Anion Gap 7 (3-11) 10/23/24 BUN 19 mg/dl (6-23) 10/23/24 Creatinine 1.46 mg/dl (0.6-1.2) H 10/23/24 BUN/Creatinine Ratio 13.0 (10-20) 10/23/24 Glucose Level 182 mg/dl (70-99(Fasting)) H 10/23/24 Ca 9.2 mg/dl (8.6-10.3) 10/23/24 Total Bilirubin 0.6 mg/dl (0.2-1.0) 10/23/24 AST/SGOT 16 U/L (13-39) 10/23/24 ALT/SGPT 9 U/L (7-52) 10/23/24 Alkaline Phosphatase 67 U/L (34-104) 10/23/24 Total Protein 7.5 gm/dl (6.0-8.3) 10/23/24 Albumin 4.3 gm/dl (3.4-5.0) 10/23/24 Globulin 3.2 gm/dl (2.5-4.0) 10/23/24 Albumin/Globulin Ratio 1.3 (0.9-2) 10/23/24 Procalcitonin 8.07 ng/ml (0-0.5) H 10/23/24 Adenovirus (PCR) Not Detected (NotDetected) 10/23/24 B. parapertussis DNA (PCR) Not Detected (NotDetected) 10/08 04/01 B. pertussis DNA (PCR) Not Detected (NotDetected) 10/23/24 C. pneumoniae DNA (PCR) Not Detected (NotDetected) 5 Coronavirus Type OC43 (PCR) Not Detected (NotDetected) Coronavirus Type HKU1 (PCR) Not Detected (NotDetected) Coronavirus Type 229E (PCR) Not Detected (NotDetected) COVID-19 PCR Not Detected (NotDetected) 10/23/24 Coronavirus Type NL63 (PCR) Not Detected (NotDetected) Human Metapneumovirus (PCR) Not Detected (NotDetected) Influenza Virus Type B (PCR) Not Detected (NotDetected) M. pneumoniae (PCR) Not Detected (NotDetected) 10/23/24 Parainfluenza Type 1 (PCR) Not Detected (NotDetected) 10/08 04/01 Parainfluenza Type 2 (PCR) Not Detected (NotDetected) 10/08 04/01 Parainfluenza Type 3 (PCR) Not Detected (NotDetected) 10/08 04/01 Parainfluenza Type 4 (PCR) Not Detected (NotDetected) 10/08 04/01 RSV (PCR) Not Detected (NotDetected) 10/23/24 Enterovirus/Rhinovirus (PCR) Not Detected (NotDetected) Chest X-Ray 10/23/24 Code Status & VTE Plan Code Status FULL CODE VTE Prophylaxis Plan VTE Prophylaxis will be ordered: Yes (5) Diabetes Diabetes mellitus type: type 2 Diabetes mellitus intermediate insulin use: without intermediate use Diabetes mellitus complication status: with other specified complication Qualified Code(s): E11.69 - Type 2 diabetes mellitus with other specified complication
[2024-10-23] MEDS ORDERED: GLUCAGON FOR INJ 1 MG VIAL SQ PRN (20:53)
[2024-10-23] MEDS ORDERED: GLUCOSE 40% GEL 15 GM TUBE PO PRN (20:53)
[2024-10-23] MEDS ORDERED: CARBOHYDRATES FOR HYPOGLYCEMIA PO PRN (20:53)
[2024-10-23] MEDS ORDERED: ONDANSETRON INJ 2 MG/ML 2 ML VIAL IV PRN (20:53)
[2024-10-23] MEDS ORDERED: DEXTROSE 50% 50 ML SYRINGE IV PRN (20:53)
[2024-10-23] MEDS ORDERED: GLUCOSE 10 TAB/TUBE PO PRN (20:53)
[2024-10-23] MEDS ORDERED: POLYETHYLENE (MIRALAX) 17 GM PACK PO PRN (20:53)
[2024-10-23] MEDS: LATANOPROST 0.005% OP SOLN 2.5 ML BTL OPB SCH (21:30)
[2024-10-23] MEDS: HEPARIN SOD 5,000 UNIT/0.5 ML VIAL SQ SCH (21:30)
[2024-10-23] MEDS: NITROFURANTOIN MONOHYDRATE 100 MG CAP PO SCH (21:31)
[2024-10-23] MEDS: INSULIN ASPART PER UNIT CHARGE SC SCH (21:50)
[2024-10-23] MEDS: KETOROLAC TROMETHAMINE 15 MG/ML VIAL IV ONE (21:59)
[2024-10-23] MEDS: OSELTAMIVIR PHOSPHATE 75 MG CAP PO STA (22:10)
--- OUTSIDE RECORDS SUMMARY | 2024-10-23 23:09 | External Medical Summary | Summary of Care ---
Author Name Unknown Organization [facility] Address [address] [facility] [place] [address] Phone [phone] Care Team Providers Care Anodiser Name Role Phone Andrews Eden MD Primary Care Provide r Reason for Visit * Reason Comments Consultation Rm 16 Encounter Details Date Type Department Care Team (Latest Contact Info) Description 09/12/2024 9:15 AM EST Office Visit Cardiology, [facility] [address] [facility] [place] [address] Celsa Marshall, [address] [facility] [address] Intermittent complete atrioventricular block (HCC)*; NSVT (nonsustained ventricular tachycardia) (HCC); Essential hypertension with goal blood pressure less than 140/90; Hyperlipidemia with target LDL less than 70; Morbid obesity with BMI of 40.0-44.9, adult (HCC); SVT (supraventricular tachycardia) (HCC); Statin intolerance Allergies Active Allergy Reactions Criticality Noted Date Comments Rosuvastatin 07/08/2019 Muscle aches Simvastatin 02/04/2016 Muscle aches (2 other statins as well, tolerates low dose crestor ok) Ranitidine Hcl Anaphylaxis High 01/25/201601/21 ER visit-rash, ?lip swelling, throat closing feeling documented as of this encounter (statuses as of 10/20/2024) Medications Aspirin 81 MG Tablet Take 1 Tab by mouth daily. 90 Tab 3 9 Active CPAP every night at bedtime. Active OneTouch Verio In Vitro Strip (Glucose Blood) Use to test blood sugars once daily 100 Strip 3 07/11/2024 8:26 AM EDT 4 Active OneTouch Delica Lancets 33G Use to test blood sugars once daily 100 Each 3 07/11/2024 8:26 AM EDT 4 Active Vitamin D3 50 MCG (2000 UT) Oral Tablet Take 1 Tablet by mouth in the morning. 3 Active Trulicity 1.5 MG/0.5ML Subcutaneous Solution Pen-injector (Dulaglutide) Inject 1.5 mg under the skin once a week. DxE11.9 6 mL 3 07/21/2024 8:44 AM EDT 4 Active Lisinopril 20 MG Oral Tablet (Prinivil)Indicat ions:Benign hypertension with chronic kidney disease, stage IV (HCC) Take 1 Tablet by mouth in the morning. 100 Tablet 1 06/16/2024 10:25 AM EDT 4 Active amLODIPine Besylate 5 MG Oral Tablet (Norvasc)Indicati ons:blood pressure Take 1 Tablet by mouth in the morning. 90 Tablet 1 09/11/2024 12:30 PM EST 4 Active Ezetimibe 10 MG Oral Tablet (Zetia)Indication s:Dyslipidemia, goal LDL below 100 Take 1 Tablet by mouth in the morning. 90 Tablet 1 09/11/2024 12:30 PM EST 4 Active hydrOXYzine HCl 10 MG Oral Tablet (Atarax)Indicatio ns:Insomnia, unspecified type,Anxiety Take 1 Tablet by mouth at bedtime as needed for Anxiety or insomnia. 30 Tablet 2 09/12/2024 5:12 PM EST 4 Active Naproxen Sodium 220 MG Oral Tablet (Aleve) Take 1 Tablet by mouth daily as needed (arthritis) . 09/12/20 24 Discontinu ed(Medicat ion List Clean Up) Levothyroxine Sodium 50 MCG Oral Tablet (Levoxyl) TAKE ONE TABLET BY MOUTH EVERY DAY FOR THYROID 90 Tablet 1 07/11/2024 8:26 AM EDT 4 10/07/20 24 Discontinu ed(Refill) Latanoprost 0.005 % Ophthalmic Solution (Xalatan)Indicati ons:cataracts Instill 1 Drop into both eyes in the morning. 2.5 mL 2 4 09/12/20 24 Discontinu ed(Refill) documented as of this encounter (statuses as of 10/20/2024) Active Problems Problem Noted Date Diagnosed Date Insomnia 09/12/2024 Anxiety 09/12/2024 Type 2 diabetes mellitus wit h diabetic cataract, without long-term current use of insulin 09/12/2024 Open-angle glaucoma 09/12/2024 Moderate episode of recurrent major depressive d isorder 04/08/2024 Chronic kidney disease, stage 4 (severe) 024 Overview: Per CKD protocol Type 2 diabetes mellitus wit h stage 4 chronic kidney disease, without long-term current use of insulin 03/17/2024 Overview: Per CKD protocol Benign hypertension with chronic kidney disease, stage IV 03/17/2024 Overview: Per CKD protocol History of kidney stones 09/12/2023 SVT (supraventricular tachycardia) 10/26/2022 Nephrolithiasis 08/18/2022 Morbid obesity with BMI of 40.0-44.9, adult 07/08 Statin intolerance 02/15/2022 Chronic right shoulder pain 12/06/2020 Unspecified open-angle glaucoma, stage unspecifi ed 04/21/2020 Hypothyroidism, unspecified 04/21/2020 Mixed incontinence 06/21/2016 Overview (02/09/2020): Acute. Type 2 diabetes, HbA1C goal < 8% 02/04/2016 Overview (02/04/2016): Dx [id number] Essential hypertension with goal blood pressure less than 140/90 02/04/2016 Hyperlipidemia with target LDL less than 70 09/07 Overview (09/16/2009): Per Lipid Taxonomy. documented as of this encounter (statuses as of 10/20/2024) Resolved Problems Problem Noted Date Diagnosed Date Resolved Date Atherosclerosis of [place] co ronary artery without angina pectoris 02/21/2023 09/12/2024 Unspecified mood (affective) disorder 11/20/2022 09/26/2023 Chronic kidney disease, stage 3b 11/20/2022 03/20/2024 Overview: Per CKD protocol Type 2 diabetes mellitus wit h stage 3b chronic kidney disease 11/20/2022 03/20/2024 Overview: Per CKD protocol Benign hypertension with sta ge 3b chronic kidney disease 11/20/2022 03/20/2024 Overview: Per CKD protocol Chronic kidney disease, stage 3a 08/21/2022 11/22/2022 Overview: Per CKD protocol Major depressive disorder, s armando episode, in full remission 07/25/2022 09/26/2023 Type 2 diabetes mellitus wit h stage 3a chronic kidney disease, without long-term current use of insulin 07/20/2022 11/22/2022 Overview: Per CKD protocol Body mass index (BMI) of 45. 0 to 49.9 in adult 07/17/2022 08/18/2022 Overview: Per Obesity protocol - Per Obesity protocol Benign hypertension with sta ge 3a chronic kidney disease 07/17/2022 11/22/2022 Overview: Per CKD protocol Type II diabetes mellitus, uncontrolled 02/15/2022 02/15/2022 Cataracts, bilateral 02/15/2022 023 Body mass index (BMI) of 40. 0 to 44.9 in adult 03/22/2021 07/20/2022 Overview: Per Obesity protocol Urge incontinence 12/06/2020 02/15/2022 Type 2 diabetes mellitus with hyperglycemia 04/21/2020 02/21/2023 Major depressive disorder, s armando episode, unspecified 04/21/2020 02/15/2022 Gastro-esophageal reflux dis ease without esophagitis 04/21/2020 02/15/2022 Morbid obesity with body mas s index of 45.0-49.9 in adult 04/21/2020 03/24/2021 Overview: Per Obesity protocol Adjustment disorder with depressed mood 08/23/2017 02/15/2022 Overview (10/11/2017): / failed wellbutrin, declines other tx at this time Benign hypertension with CKD (chronic kidney disease) stage III 10/16/2016 07/20/2022 Overview: Per CKD protocol #1 Nocturnal hypoxia 07/03/2016 02/09/2020 Overview (02/09/2020): 07/03/16 nocturnal pulse ox mean sat 86% lowest 71% Acute. 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 Multiple joint pain 02/04/2016 02/09/20 20 Overview (02/09/2020): Acute. Migraine 02/23/2011 10/11/2017 ADVANCE DIRECTIVE INFORMATION 07/22/2007 02/15/2022 Overview (07/22/2007): Yes, Patient instructed to provide copy of advance directive for provider to review and to be scanned into Electronic Medical Record Obesity, morbid (more than 1 00 lbs over ideal weight or BMI > 40) 04/21/2020 Mixed dyslipidemia 9 Overview (09/16/2009): Per Lipid Taxonomy. Esophageal reflux 10/11/2017 GENERAL OSTEOARTHROSIS 10/11 LUMB-LUMBOSAC DISC DEGEN 01/2018 GENERALIZED ANXIETY DIS 08/08 Major depressive disorder Overview (07/31/2017): ICD-10 update of inactive term ANGINA PECTORIS NEC-NOS 08/09 Menopause 08/01/2017 OBESITY, UNSPECIFIED 009 Overview (11/05/2008): Resolved per Duplicate Protocol #2. hyperglycemia 08/23/2017 Knee joint replacement status 08/23/2017 documented as of this encounter (statuses as of 10/20/2024) Immunizations Name Administration Dates Next Due COVID-19 mRNA, LNP-s, No Pre serve, 2-Dose Series (Pfizer) 10/20/2021,12/26/2020,12/05/2020 Covid-19, Mrna, Lnp-s, Pf, B ivalent, 50 Mcg, IM, 12 yrs and above (Moderna) 06/08/2021,10/08/2020 Pneumococcal Conjugate Vacc, 13 Valent (Prevnar) 02/04/2016 Pneumococcal Polysaccharide PPV23 (Pneumovax) 08/01/2017 Season Influenza, Quad, PF, Adjuvanted, 65+ Yrs, IM (FLUAD) 06/23/2020 Seasonal Influenza Vac., MDV , IM, 0.5 mL (Fluzone) 07/07/2011 Seasonal Influenza, High Dos e, Trivalent, PF, IM (Fluzone HD) 07/04/2024 Seasonal Influenza, PF, 6 M & above, IM , (FluLaval or Fluzone) 08/01/2017 Seasonal Influenza, Quadriva lent Hd (Fluzone Hd) 09/26/2023,08/18/2022,06/25/2021 Seasonal Influenza, Quadriva lent, No Preserve, IM 06/21/2016 TDAP (age 10 and older)(Boostrix) 02/19/2023(Def erred: Patient Refused) documented as of this encounter Social History Tobacco Use Types Packs/Day Years Used Date Smoking Tobacco: Never Smokeless Tobacco: Never Alcohol Use Standard Drinks/Week Comments Yes 0 (1 standard drink = 0.6 oz pur e alcohol) Very rare. PHQ-2 Answer Date Recorded PHQ Adult Total Score 0 06/30/2024 Hunger Vital Sign Answer Date Recorded Within the past 12 months, y ou worried that your food would run out before you got the money to buy more. Never true 06/30/20 24 Within the past 12 months, t he food you bought just didn't last and you didn't have money to get more. Never true 06/30/2024 Childcare Answer Date Recorded Do you feel overwhelmed with taking care of a child, family member or friend? No 06/30/2024 Does your family need help f inding childcare? (Household - for ages 0-17 years) Not on file 06/30/2024 Clothing Answer Date Recorded Have you been unable to get clothing when it was really needed? No 06/30/2024 Is your family able to get c lothes or diapers when needed? (Household - for ages 0-17 years) Not on file 06/30/2024 Personal Safety Answer Date Recorded Do you feel unsafe or have concerns for your saf ety? No 06/30/2024 Do you have concerns for you r family's safety? (Household - for ages 0-17 years) Not on file 06/30/2024 Utilities Answer Date Recorded Do you have trouble paying y our heating, water, or electric bill? No 06/30/2024 Is your family able to pay t he heat, water, or electric bill? (Household - for ages 0-17 years) Not on file 06/30/2024 Does your family have access to good internet? (Household - for ages 0-17 years) Not on file 06/30/2024 Employment Status Answer Date Recorded Are you unemployed or without regular income? No 06/30/2024 Does the household have a re gular source of income? (Household - for ages 0-17 years) Not on file 06/30/2024 Social Connections Answer Date Recorded How often do you feel lonely or isolated from those around you? Sometimes 06/30/2024 Financial Resource Strain Answer Date R ecorded Do you have any trouble payi ng for your medications, or do you think you might in the future? No 06/30/2024 Does your family have troubl e paying for medicine? (Household - for ages 0-17 years) Not on file 06/30/2024 Transportation Needs Answer Date Record ed READ ONLY Do you have troubl e getting a ride to medical visits or work? Never True 06/30/2024 Does your family have a hard time getting a ride to doctors visits? (Household - for ages 0-17 years) Not on file 06/30/2024 Has lack of transportation k ept you from medical appointments, meetings, work, or from getting things needed for daily living? Check all that apply. No 06/30/2024 Do you (or your family) have trouble finding or paying for a ride (transportation)? (Household - for ages 0-17 years) Not on file 06/30/2024 Housing Stability Answer Date Recorded Do you currently live in a s helter or have no steady place to sleep at night? No 06/30/2024 READ ONLY Do you think you a re at risk of becoming homeless? No 06/30/2024 Does your family worry about paying for your home or becoming homeless? (Household - for ages 0-17 years) Not on file 0 06/30/2024 Are you homeless or worried that you might be in the future? No 06/30/2024 Are you (or your family) kiley eless or worried that you might be in the future? (Household - for ages 0-17 years) Not on file Food Insecurity Answer Date Recorded Do you need food for this week? No 06/30/2024 Are you able to get enough f ood for your family? (Household - for ages 0-17 years) Not on file 06/30/2024 Does your family need food t his week? (Household - for ages 0-17 years) Not on file 06/30/2024 Do you always have enough fo od for your family? (Household - for ages 0-17 years) Not on file 06/30/2024 Comments No Sex and Gender Information Value Date Recorded Sex Assigned at Female 02/19/2023 8:30 AM EDT Legal Sex Female 5:26 AM EST Gender Identity Female 02/19/2023 8:30 AM EDT Sexual Orientation Straight 02/19/2023 8: 30 AM EDT Occupation Industry Job Start Date Job End Date [employer]. Not on file Not on joseph e Not on file documented as of this encounter Last Filed Vital Signs Vital Sign Reading Time Taken Comments Blood Pressure 128/78 09/12/2024 9:11 AM EST Pulse 88 09/12/2024 9:11 AM EST Temperature - - Respiratory Rate 16 09/12/2024 9:11 AM EST Oxygen Saturation - - Inhaled Oxygen Concentration - - Weight 124.7 kg (275 lb) 09/12/2024 9:11 AM EST Height 167.6 cm (5' 6") 09/12/2024 9:11 AM EST Body Mass Index 44.39 09/12/2024 9:11 AM EST documented in this encounter Patient Instructions * Patient Instructions* Celsa Marshall DO - 09/12/2024 10:03 AM EST -We discussed possible symptoms of bradycardia (slow heart rates) to look out for which may included lightheadedness, dizziness, increased fatigue, generalized weakness, shortness of breath then reach out to see me sooner Your follow up appointment might be with an Jolene nolasco she is my nurse practitioner seeing myfollow ups but as long as I am not in the OR or off for the day I will pop in to see you as well documented in this encounter Progress Notes * Celsa Marshall DO - 09/12/2024 9:41 AM EST Subjective Kyung Meade is a 79 year old female. Chief Complaint Patient presents with Consultation Rm 16 Pt referred to EP due to intermittent CHB Referring Provider: Dr. Gant Cardiac Problems: Intermittent CHB on zio patch and hospitlal telemetry during sleeping hours mainly NSVT DM SVT HLD statin intolerance Obesity BMI 44 Hypothyroidism HTN LASHAWN on CPAP HPI: Pt presents with his daughter today She has been hospitalized at [facility] due to a UTI and kidney stones; while telemetry she had asymptomatic episodes of transient heart block; she was recommended a zio patch upon discharge She denies any lightheadedness/dizziness near syncope She reports sometimes her heart feels funny and she has some discomfort in the left side of her chest; this happens a couple times a week and does not last long she just ignore it. She reports always being SOB especially with exertion; this has slightly gotten worse She is compliant with her CPAP PMH: Patient Active Problem List Diagnosis Hyperlipidemia with target LDL less than 70 Type 2 diabetes, HbA1C goal < 8% (HCC) Essential hypertension with goal blood pressure less than 140/90 Mixed incontinence Unspecified open-angle glaucoma, stage unspecified Hypothyroidism, unspecified Chronic right shoulder pain Statin intolerance Morbid obesity with BMI of 40.0-44.9, adult ([facility]) Nephrolithiasis SVT (supraventricular tachycardia) ([facility]) History of kidney stones Chronic kidney disease, stage 4 (severe) ([facility]) Type 2 diabetes mellitus with stage 4 chronic kidney disease, without long-term current use of insulin (HCC) Benign hypertension with chronic kidney disease, stage IV ([facility]) Moderate episode of recurrent major depressive disorder ([facility]) Insomnia Anxiety Type 2 diabetes mellitus with diabetic cataract, without long-term current use of insulin ([facility]) Open-angle glaucoma Current Outpatient Medications Medication Sig Dispense Refill Aspirin 81 MG Tablet Take 1 Tab by mouth daily. 90 Tab 3 CPAP every night at bedtime. Vitamin D3 50 MCG (2000 UT) Oral Tablet Take 1 Tablet by mouth in the morning. Levothyroxine Sodium 50 MCG Oral Tablet (Levoxyl) TAKE ONE TABLET BY MOUTH EVERY DAY FOR THYROID 90Tablet 1 Trulicity 1.5 MG/0.5ML Subcutaneous Solution Pen-injector (Dulaglutide) Inject 1.5 mg under the skin once a week. DxE11.9 6 mL 3 Lisinopril 20 MG Oral Tablet (Prinivil) Take 1 Tablet by mouth in the morning. 100 Tablet 1 amLODIPine Besylate 5 MG Oral Tablet (Norvasc) Take 1 Tablet by mouth in the morning. 90 Tablet 1 Ezetimibe 10 MG Oral Tablet (Zetia) Take 1 Tablet by mouth in the morning. 90 Tablet 1 Latanoprost 0.005 % Ophthalmic Solution (Xalatan) Instill 1 Drop into both eyes in the morning. 2.5mL 2 hydrOXYzine HCl 10 MG Oral Tablet (Atarax) Take 1 Tablet by mouth at bedtime as needed for Other orAnxiety (insomnia). 30 Tablet 2 OneTouch Verio In Vitro Strip (Glucose Blood) Use to test blood sugars once daily 100 Strip 3 OneTouch Delica Lancets 33G Use to test blood sugars once daily 100 Each 3 No current facility-administered medications for this visit. Past Medical History: Diagnosis Date ADVANCE DIRECTIVE INFORMATION 07/22/2007 Yes, Patient instructed to provide copy of advance directive for provider to review and to be scanned into Electronic Medical Record Angina pectoris ([facility]) Anxiety state Cataracts, bilateral Degeneration of lumbosacral intervertebral disc 05/31/1992 L5 DISC EXTRUSION Depressive disorder, not elsewhere classified Esophageal reflux Essential hypertension with goal blood pressure less than 140/90 Gastro-esophageal reflux disease without esophagitis 04/21/2020 Generalized anxiety disorder Generalized osteoarthritis CERVICAL ARTHRITIS Generalized osteoarthritis of multiple sites Hypothyroidism, unspecified 04/21/2020 Knee joint replacement status josafat Major depressive disorder, single episode, in full remission ([facility]) Major depressive disorder, single episode, unspecified 04/21/2020 Migraine 02/23/2011 Mixed dyslipidemia Morbid obesity with body mass index of 45.0-49.9 in adult ([facility]) 04/21/2020 Multiple joint pain 02/04/2016 Nephrolithiasis Obesity, BMI not known 06/28/1981 Weight 191 Other urinary incontinence Sleep apnea, obstructive Tension headache Type 2 diabetes, HbA1C goal < 8% ([facility]) Dx thanksgiving 2013 Unspecified mood (affective) disorder ([facility]) Unspecified open-angle glaucoma, stage unspecified 04/21/2020 Urethral stricture 10/23/[address] Crain Urinary incontinence 06/21/2016 Well adult exam 05/03/201602/24 [facility] 12/24 declined dexa 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 Past Surgical History: Procedure Laterality Date ARTHROPLASTY KNEE TOTAL 2008,2009 josafat-Dr Tang CORONARY ANGIOGRAPHY W/LEFT HEART CATH Right 01/22/2023 CORONARY ANGIOGRAPHY W/LEFT HEART CATH performed by Kell Madison MD at [facility] [place] [facility] 1 EXTREMITY 11/28/2011 left upper extremity--normal PARTIAL HYSTERECTOMY age 29 heavy bleeding HI XCAPSL CTRC RMVL INSJ IO LENS PROSTH W/O ECP Bilateral 04/2022 REMOVAL OF KIDNEY STONE, OVER 2CM Right stent currently Dr. Armijo REMOVAL OF OVARY/OVIDUCT(S) left ovary present REMOVAL OF TONSILS, UNDER AGE 12 Review of patient's allergies indicates: Allergen Reactions Zantac [Ranitidine Hcl] Anaphylaxis 01/21 ER visit-rash, ?lip swelling, throat closing feeling Rosuvastatin Muscle aches Simvastatin Muscle aches (2 other statins as well, tolerates low dose crestor ok) Family History Problem Relation Name Age of Onset Hypertension Mother Hypertension Father Asthma Sister Breast Cancer Sister Leukemia Sister 74 in [place] Cancer Son Afshin 34 deceaed Hodgkins LYmpoma No Past Hx Son Bo Cancer Other Anthony 14 grandson/Paz sarcoma- 17 yo Family Status Relation Status Mo Fa Sis Alive Son (Not Specified) Son (Not Specified) Other (Not Specified) Social History Socioeconomic History Marital status: Spouse name: Not on file Number of children: 1 Years of education: Not on file Highest education level: Not on file Occupational History Occupation: [employer]. Tobacco Use Smoking status: Never Smokeless tobacco: Never Vaping Use Vaping status: Never Used Substance and Sexual Activity Alcohol use: Yes Comment: Very rare. Drug use: No Sexual activity: Never Comment: . 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 Social Needs Financial Resource Strain: Low Risk (06/30/2024) Financial Resource Strain Do you have any trouble paying for your medications, or do you think you might in the future? (Adult - for ages 18 years and over): No Does your family have trouble paying for medicine? (Household - for ages 0-17 years): Not on file Food Insecurity: No Food Insecurity (06/30/2024) Food Insecurity Do you need food for this week? (Adult - for ages 18 years and over): No Are you able to get enough food for your family? (Household - for ages 0-17 years): Not on file Does your family need food this week? (Household - for ages 0-17 years): Not on file Do you always have enough food for your family? (Household - for ages 0-17 years): Not on file Transportation Needs: No Transportation Needs (06/30/2024) Transportation Needs Do you have trouble getting a ride to medical visits or work? (Adult - for ages 18 years and over):Never True Does your family have a hard time getting a ride to doctors visits? (Household - for ages 0-17 years): Not on file Has lack of transportation kept you from medical appointments, meetings, work, or from getting things needed for daily living? Check all that apply. (Adult - for ages 18 years and over): No Do you (or your family) have trouble finding or paying for a ride (transportation)? (Household - for ages 0-17 years): Not on file Social Connections: Socially Integrated (06/30/2024) Social Connections How often do you feel lonely or isolated from those around you? (Adult - for ages 18 years and over): Sometimes Housing Stability: Low Risk (06/30/2024) Housing Stability Do you currently live in a senior living or have no steady place to sleep at night? (Adult - for ages 18 years and over): No Do you think you are at risk of becoming homeless? (Adult - for ages 18 years and over): No Does your family worry about paying for your home or becoming homeless? (Household - for ages 0-17 years): Not on file Are you homeless or worried that you might be in the future? (Adult - for ages 18 years and over): No Are you (or your family) homeless or worried that you might be in the future? (Household - for ages0-17 years): Not on file Review of Systems Constitutional: Negative for activity change, chills, fatigue, fever and unexpected weight change. HENT: Negative for postnasal drip, rhinorrhea and sinus pressure. Eyes: Negative for visual disturbance. Respiratory: Positive for shortness of breath. Cardiovascular: Positive for chest pain. Negative for palpitations and leg swelling. Gastrointestinal: Negative for blood in stool, constipation, diarrhea, nausea and vomiting. Genitourinary: Negative for dysuria and hematuria. Musculoskeletal: Positive for gait problem. Skin: Negative for rash. Neurological: Negative for dizziness, syncope and light-headedness. Objective BP 128/78 | Pulse 88 | Resp 16 | Ht 1.676 m (5' 6") | Wt 124.7 kg (275 lb) | BMI 44.39 kg/m | BSA2.41 m Physical Exam Vitals and nursing note reviewed. Constitutional: General: She is awake. Appearance: Normal appearance. She is well-developed. HENT: Head: Normocephalic and atraumatic. Eyes: General: No scleral icterus. Extraocular Movements: Extraocular movements intact. Neck: Vascular: Normal carotid pulses. No carotid bruit or JVD. Cardiovascular: Rate and Rhythm: Normal rate and regular rhythm. Pulses: Carotid pulses are 2+ on the right side and 2+ on the left side. Radial pulses are 2+ on the right side and 2+ on the left side. Posterior tibial pulses are 2+ on the right side and 2+ on the left side. Heart sounds: S1 normal and S2 normal. Murmur heard. Pulmonary: Effort: Pulmonary effort is normal. Breath sounds: Normal breath sounds. No decreased breath sounds, wheezing, rhonchi or rales. Abdominal: General: Abdomen is protuberant. Musculoskeletal: Cervical back: Neck supple. Right lower leg: No edema. Left lower leg: No edema. Skin: General: Skin is warm and dry. Neurological: General: No focal deficit present. Mental Status: She is alert and oriented to person, place, and time. Psychiatric: Attention and Perception: Attention normal. Mood and Affect: Mood normal. Speech: Speech normal. Behavior: Behavior normal. Behavior is cooperative. Thought Content: Thought content normal. Cognition and Memory: Cognition normal. Judgment: Judgment normal. RESULTS: Zio Patch: 07/04/2024: REASON FOR STUDY: intermittant 2nd degree AVB both type I CONCLUSIONS: Final Interpretation Indications: AV block Duration: 13 days 15 hours CONCLUSIONS: Preliminary Findings Prepared by Sindy Aguilar, FAUSTO 07/29/24 Patient had a min HR of 23 bpm, max HR of 146 bpm, and avg HR of 63 bpm. Predominant underlying rhythm was Sinus Rhythm. First Degree AV Block was present. 1 run of Wide complex tachycardia occurred lasting 18 beats with a max rate of 146 bpm (avg 125 bpm). 382 episode(s) of AV Block (3rd) occurred, lasting a total of 1 hour 37 mins. Second Degree AV Block-Mobitz I (Wenckebach) was present. Wenckebach was detected within +/- 45 seconds of symptomatic patient event(s). Isolated SVEs were rare (<1.0%), and no SVE Couplets or SVE Triplets were present. Isolated VEs were rare (<1.0%), and no VE Couplets or VE Triplets were present. The patient recorded for event markers and 1 diary entry episodes correlated with sinus rhythm withMobitz type 1 second-degree AV block Impression: Sinus rhythm, average rate 78 beats per minute with first-degree AV block, second-degree Mobitz type 1 AV block with intermittent two-to-one conduction and brief runs of third-degree AV block with AV dissociation. Derrick arrhythmias predominantly occurred in early a.m. hours Echocardiogram: 06/28/2024: Technically difficult study EF 55-60% Mild LVH Mild to moderate RV dilation ECGS: 08/18/2024: SR 57bpm Mobitz I 01/08/2023: SR 80bpm 1st degree AV block 10/04/2022: SR 85bpm 1st degree AV block 08/04/2022: SR 93bpm 03/02/2022: SR 80bpm 1st degree AV Block 04/24/2005: SR 79bpm Nuclear Stress Test: 12/26/2022: The Lexiscan myocardial perfusion imaging study is abnormal with a large sized partially reversible perfusion defect affecting the mid and apical portions of the anterior wall consistent with ischemia. Gated SPECT imaging reveals normal myocardial thickening and wall motion. The left ventricular ejection fraction was > 70% by qualitative inspection. Cardiac Catheterization: 01/22/2023: The coronary arteries are angiographically normal Labs a [facility] : Component Latest Ref Rng 08/08/2024 09/12/2024 BUN 6 - 20 mg/dL 20 20 CREATININE 0.5 - 1.0 mg/dL 1.6 (H) 1.4 (H) EGFR >=60 mL/min 33 (L) 37 (L) SODIUM 135 - 146 mmol/L 140 140 POTASSIUM 3.5 - 5.1 mmol/L 4.9 4.9 CHLORIDE 98 - 107 mmol/L 102 105 CO2 22 - 32 mmol/L 27 25 ANION GAP 7 - 15 mmol/L 11 10 GLUCOSE 70 - 120 mg/dL 124 (H) 124 (H) Albumin 3.8 - 5.0 g/dL 4.1 AST 10 - 35 U/L 13 Alkaline Phosphatase 35 - 130 U/L 89 Bilirubin, Total <=1.2 mg/dL 0.4 CALCIUM 8.4 - 10.2 mg/dL 9.6 9.2 Protein 6.0 - 8.3 g/dL 6.7 ALT 10 - 35 U/L 14 WBC 4.00 - 10.80 K/uL 6.30 Neutrophils % 40.0 - 75.0 % 59.7 Lymphocytes % 18.0 - 42.0 % 27.3 Monocytes % 1.0 - 11.0 % 9.8 Eosinophils % 0.0 - 6.0 % 1.9 Basophils % 0.0 - 2.0 % 0.8 Immature Granulocytes % 0.0 - 2.0 % 0.5 Absolute Neutrophils 1.80 - 7.70 K/uL 3.76 Absolute Lymphocytes 1.00 - 4.80 K/ul 1.72 Absolute Monocytes 0.00 - 1.10 K/uL 0.62 Absolute Eosinophils 0.00 - 0.70 K/uL 0.12 Absolute Basophils 0.00 - 0.20 K/uL 0.05 Absolute Immature Granulocytes 0.00 - 0.20 K/uL 0.03 WBC 4.00 - 10.80 K/uL 6.30 RBC 3.85 - 5.15 M/uL 4.18 HGB 12.0 - 15.3 g/dL 12.6 HCT 36.0 - 45.2 % 40.1 MCV 81.5 - 97.5 fL 95.9 MCH 27.0 - 34.0 pg 30.1 MCHC 32.0 - 36.0 g/dL 31.4 RDW 11.5 - 15.5 % 13.1 PLT 140 - 400 K/uL 229 MPV 6.6 - 11.1 fL 10.3 nRBCs <=0 /100 WBCs 0 Triglycerides <=174 mg/dL 87 Cholesterol <200 mg/dL 152 HDL Cholesterol >49 mg/dL 47 (L) Non-HDL Cholesterol <=159 mg/dL 105 LDL Cholesterol <=129 mg/dL 88 Hemoglobin A1C 4.0 - 5.6 % 6.4 (H) Estimated Average Glucose <126 mg/dL 137 (H) TSH 0.27 - 4.20 uIU/mL 4.39 (H) 3.21 T4, Free 0.9 - 1.7 ng/dL 1.3 BMP 06/2024 Ca 137 K 4.6 Cl 103 CO2 27 BUN 7 Cr 32 Glucose 1.47 Ca 9.7 T. Josafat 0.7 Alk Phos 94 AST 15 ALT 9 T. Protein 7.7 Albumin 4.4 CBC 06/29/2024: WBC 5.27 Hg 12 Hct 37 Plt 233 ASSESSMENT: Intermittent CHB on zio patch and hospitlal telemetry during sleeping hours mainly NSVT DM SVT HLD statin intolerance Obesity BMI 44 Hypothyroidism HTN LASHAWN on CPAP Glaucoma Depression Insomnia CKD stage IV with recurrent UTIs Anxiety Hospitalization for recurrent UTI and kidney stones PLAN: -I reviewed the cardiac conduction system and EGMS with the patient and her family and how it relates to her condition of asymptomatic intermittent CHB during sleeping hours -I would not recommend a pacemaker at this juncture given her recurrent infections -Continue norvasc, lisinopril, zetia -Emphasized the importance of CPAP use -We discussed possible symptoms of bradycardia to look out for which may included lightheadedness, dizziness, increased fatigue, generalized weakness, SOB/LEBLANC then reach out to see me sooner -EP f/u 6 month with general cardiology f/u in 1 year Celsa Marshall DO documented in this encounter Nursing Notes * Juliana Allen NRCMA - 09/12/2024 9:13 AM EST Patient was identified by name and date of . Examination Room: 16 Name: Kyung Meade Date of : (1945). Reason for Visit: consult Interim Hospitalization(s): none Problems/Concerns: SOB - mild exertion Chest Pain/SOB: SOB Medications reviewed and are up to date via: [employer] [facility] is a way you can talk to your provider online through e-mail. Would you like to sign up? I can activate it for you? DECLINES Do you have video visit capabilities (email and smart phone)? No. Would you be interested in 6 or 12 return visit being scheduled as a video visit if the provider approves? No Patient was instructed to not get up on the exam table/exam chair until directed and assisted by their provider; patient is to remain seated in the chair/ wheelchair/ exam table/ exam chair for fall prevention and safety reasons. Patient is aware to have assistance to step down off exam table/exam chair with personnel. Patient voiced full comprehension of instructions. ESTELLA Sabillon documented in this encounter Plan of Treatment Upcoming Encounters Date Type Department Care Team (Late st Contact Info) Description 10/29/2024 9:40 AM EST Office Visit Dermatology [address] [place] [address] Fariha Corral PA-C [address] [place] [address] [place] [id number] 11/21/2024 9:00 AM EST Office Visit Nephrology, [facility] [place] [address] [place] [id number] Edward Hester MD [address] [place] [id number] 12/12/2024 11:00 AM EST Office Visit Family Medicine [address] [place] [phone] Sarita Ashley CRNP [address] [place] [address] [place] [id number] 02/24/2025 8:00 AM EDT Nurse Only Ancillary [address] [place] [address] Jeovannyey, Nurse Annual [address] [place] [address] 03/17/2025 9:30 AM EDT Office Visit Cardiology, [facility] [address] [facility] [place] [address] Jolene Ortega CRNP [address] [place] [address] [place] [address] 08/03/2025 11:40 AM EDT Office Visit [facility] [address] [place] [phone] Brit Li, DO [address] [place] [address] 09/22/2025 9:30 AM EST Office Visit Cardiology, [facility] [address] [place] [address] Cayden Gant, DO [address] [place] [address] Health Maintenance Due Date Last Done Comments Nephrology Referral 1963 DTap/Tdap Vaccines (1 - Tdap) 1963 Zoster Vaccines (1 of 2) 1994 Diabetic Foot Exam 11/20/2023 11/20/2022, 0 02/15/2022, 12/06/2020, Additional history exists COVID-19 Vaccine (2023- season) 2024 10/20/2021, 06/08/2021, 12/26/2020, Additional history exists Phosphate 09/26/2024 09/26/2023, 01/06, 05/11/2022 Adult Wellness Visit 02/20/2025 02/21/2024, 02/20/20 23 GFR 03/13/2025 09/12/2024, 110 10/2023, 04/24/2024, Additional history exists HbA1c 03/13/2025 09/12/2024, 04/07, 09/26/2023, Additional history exists Albumin/Creatinine Ratio 04/24/2025 024, 03/06/2023, 02/21/2023, Additional history exists Depression Monitoring 06/30/2025 06/30/2024, 024 Diabetic Eye Exam 07/30/2025 07/30/2024, , 01/30/2024, Additional history exists Hgb 08/08/2025 08/08/2024, 04/07, 02/21/2023, Additional history exists PTH 09/12/2025 09/12/2024 TSH 09/12/2025 09/12/2024, 110 10/2023, 09/26/2023, Additional history exists DXA Scan 08/23/2030 08/23/2023, 08/08, 01/02/2012 Pneumococcal Vaccine: 50+ Years Completed 08/01/2017, 02/04/2016 Influenza Vaccine (FLU shot) Completed , 09/26/2023, 08/18/2022, Additional history exists HPV (Gardasil) Vaccine Aged Out No lo nger eligible based on patient's age to complete this topic Hepatitis B Vaccine Aged Out No longe r eligible based on patient's age to complete this topic MENINGOCOCCAL (MENACTRA/MENVEO) Aged Out No longer eligible based on patient's age to complete this topic documented as of this encounter Medical Devices Not on filedocumented as of this encounter Visit Diagnoses Diagnosis Intermittent complete atrioventricular block (HCC)- Primary Atrioventricular block, complete NSVT (nonsustained ventricular tachycardia) (HCC) Paroxysmal ventricular tachycardia Essential hypertension with goal blood pressure less than 140/90 Hyperlipidemia with target LDL less than 70 Other and unspecified hyperlipidemia Morbid obesity with BMI of 40.0-44.9, adult (HCC) Morbid obesity SVT (supraventricular tachycardia) (HCC) Other specified cardiac dysrhythmias Statin intolerance Other drug allergy documented in this encounter Advance Directives Documents on File Type Date Recorded Patient Director 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
[2024-10-24] MEDS: ACETAMINOPHEN 325 MG TAB PO PRN (06:12)
[2024-10-24 07:42] LABS: Basophils # (auto) 0.02 K/uL (0.00-0.20); Basophils % (auto) 0.1 %; Eosinophils # (auto) 0.08 K/uL (0.00-0.50); Eosinophils % (auto) 0.6 %; Hematocrit (blood only) 38.3 % (37.0-47.0); Hemoglobin 12.6 g/dl (12.0-16.0); Immature Granulocytes # (auto) 0.07 K/uL (0.01-0.20); Immature Granulocytes % (auto) 0.5 %; Lymphocytes # (auto) 0.86 K/uL (1.20-3.40); Lymphocytes % (auto) 6.3 %; Mean Corpuscular Hemoglobin 29.9 pg (25.0-34.0); Mean Corpuscular Hgb Conc 32.9 g/dL (32.0-36.0); Mean Platelet Volume 10.2 fL (9.4-12.4); Monocytes # (auto) 0.35 K/uL (0.11-0.59); Monocytes % (auto) 2.6 %; Neutrophils # (auto) 12.31 K/uL (1.40-6.50); Neutrophils % (auto) 89.9 %; Platelet Count 181 K/uL (130-400); RDW Coefficient of Variation 13.2 % (11.5-14.5); RDW Standard Deviation 43.5 fL (36.4-46.3); Red Blood Count 4.21 M/uL (4.20-5.40); White Blood Count 13.69 K/ul (4.8-10.8)
[2024-10-24 07:49] LABS: BUN Creatinine Ratio 15.8 (10-20); Calcium 8.8 mg/dl (8.6-10.3); Creatinine Clr Calc Pharmacy 37.7 ml/min; Magnesium 1.5 mg/dl (1.7-2.4); Potassium 3.8 mmol/L (3.5-5.1)
[2024-10-24] MEDS: ASPIRIN 81 MG ECTAB PO SCH (08:42)
[2024-10-24] MEDS: ADVANCED PROBIOTIC 625 MG CAPSULE PO SCH (08:42)
[2024-10-24] MEDS: amLODIPine BESYLATE 5 MG TAB PO SCH (08:42)
[2024-10-24] MEDS: EZETIMIBE 10 MG TAB PO SCH (08:42)
[2024-10-24] MEDS: CHOLECALCIFEROL 25 MCG (1000 UNITS) TAB PO SCH (08:42)
[2024-10-24] MEDS: lisinopril 20 MG TAB PO SCH (08:43)
[2024-10-24] MEDS: LEVOTHYROXINE SODIUM 50 MCG TABLET PO SCH (08:43)
[2024-10-24] MEDS: OSELTAMIVIR PHOSPHATE SUSP 30 MG/5 ML UDP PO SCH (08:53)
[2024-10-24] MEDS: cefTRIAXone SODIUM 2,000 MG/50 ML BAG IV SCH (09:20)
[2024-10-24 09:38] LABS: Appearance Urine Cloudy (Clear); Bacteria Urine Automated None Seen (None Seen); Bilirubin Urine Negative (Negative); Blood Urine Negative (Negative); Color Urine Yellow; Glucose Urine UA Negative (Negative); Ketones Urine 1+ (Negative); Leukocyte Esterase Urine Negative (Negative); Nitrite Urine Negative (Negative); Protein Urine 2+ (Negative); RBC Urine Automated 0-2 /hpf (0-2); Specific Gravity Urine 1.042 (1.000-1.030); Urobilinogen Urine Negative (Negative); WBC Urine Automated 0-5 /hpf (0-5)
--- NOTE | 2024-10-24 14:26 | Hospitalist Progress Note ---
Date of Service October 24, 2024 Assessment & Plan (1) Influenza A H1N1 infection: (2) Acute UTI (urinary tract infection): (3) CKD (chronic kidney disease) stage 3, GFR 30-59 ml/min: (4) LASHAWN on CPAP: (5) Diabetes: Plan This is a 79-year-old female who has a significant past medical history of T2DM, HTN, HLD, hypothyroidism, CKD stage IV, LASHAWN on CPAP, morbid obesity, nephrolithiasis, open-angle glaucoma, hx of recurrent UTI, statin intolerant and depression with anxiety who presents to ED secondary to R flank pain, weakness and fever over the past few days. Influenza A Acute Cystitis Generalized Weakness Patient presented with right flank pain, weakness and fever for few days Found to have influenza A Urine culture growing E. coli Blood culture pending Leukocytosis present Continue on Tamiflu; antibiotics switched over to ceftriaxone IV while patient is hospitalized; will follow-up on blood culture Continue PT OT Acute/Subacute L1 comp fx Vitamin D deficiency Patient denies any back pain, recent fall. CT abdomen pelvis showed acute to subacute mild compression fracture of superior endplate of L1 Vitamin D level slightly low Continue PT OT Continue vitamin D supplementation T2DM well controlled on trulicity, a1c 6.4 in september Novolog per protocol LASHAWN: CPAP at HS CKD III/IV: renal fxn stable, cr 1.4, encourage pt to avoid NSAIDS as she reports she was taking aleve at home, she is scheduled to establish with Nephro as OP HTN: chronic, stable, continue amlodipine and lisinopril Glaucoma: continue eye gtts DVT ppx: SQ Heparin FULL CODE PCP: Karey Dispo: admit to medical, PT/OT suspect 1-2 days of hospitalization prior to return home, she lives a lone at home, walks with walker at baseline Please note the above document was generated using voice recognition software. It may contain grammatical, syntax or spelling errors. Any formal questions or concerns about the content, text or information contained within the body of this dictation should be directly addressed to the provider for clarification Admission and Anticipated Discharge Date Admission Date: October 23, 2024 Subjective Patient seen and examined at bedside. She is sitting up at the side of the bed; not in distress . She reports mild shortness of breath on exertion. Vital signs are stable Review of Systems Review of Systems: All systems reviewed & are unremarkable except as noted in Subjective Physical Exam Physical Exam: Constitutional: Awake, alert oriented x 3; not in distress. Respiratory: normal respiratory effort, lungs clear to auscultation, no wheeze, rales, rhonchi. Normal insp/exp effort, no accessory muscle use Cardiovascular: RRR, no murmur, no edema Vessels: no JVD or carotid bruit Chest: normal inspection of chest Abdomen: normal bowel sounds, soft, nontender, no hepatosplenomegaly Musculoskeletal: no cyanosis or clubbing, extremities motor strength 5/5 Skin: no rashes, warm and dry normal turgor Neurologic: PERRL, EOMI, accommodation nl, no face palsy, no dysarthria CN's II- XI intact bilaterally and moves all extremities Psychiatric: A+Ox3, euthymic affect Results & Data Results & Data Vital Signs (Past 12 Hours) Vital Signs Temp Pulse Resp BP Pulse Ox O2 Del Method O2 Flow Rate 10/24/24 13:40 37.7 C H 63 18 121/58 L 95 Room Air 10/24/24 12:30 95 10/24/24 07:26 37.4 C 91 H 22 146/72 H 91 Nasal Cannula 2 10/24/24 06:12 38.3 C H (5) Diabetes Diabetes mellitus complication status: with other specified complication Diabetes mellitus jail insulin 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
[2024-10-24] MEDS: MELATONIN 3 MG TAB PO PRN (20:50)
--- NOTE | 2024-10-24 21:45 | Electrocardiogram Report ---
Test Reason : Blood Pressure : */* mmHG Vent. Rate : 91 BPM Atrial Rate : 91 BPM P-R Int : 246 ms QRS Dur : 90 ms QT Int : 372 ms P-R-T Axes : 59 -10 49 degrees QTcB Int : 457 ms Sinus rhythm with 1st degree A-V block Cannot rule out Anterior infarct (cited on or before 26-Jun-2024) Abnormal ECG When compared with ECG of 28-Jun-2024 08:07, Sinus rhythm is no longer with 2nd degree A-V block (Mobitz I) Vent. rate has increased by 34 bpm Confirmed by Alejandro Gupta ([id number]) on 10/24/2024 9:45:03 PM Referred By: Confirmed By: Alejandro Gupta
[2024-10-25 07:23] LABS: Basophils # (auto) 0.02 K/uL (0.00-0.20); Basophils % (auto) 0.4 %; Eosinophils # (auto) 0.22 K/uL (0.00-0.50); Eosinophils % (auto) 4.1 %; Hematocrit (blood only) 35.6 % (37.0-47.0); Hemoglobin 11.7 g/dl (12.0-16.0); Immature Granulocytes # (auto) 0.02 K/uL (0.01-0.20); Immature Granulocytes % (auto) 0.4 %; Lymphocytes # (auto) 1.03 K/uL (1.20-3.40); Lymphocytes % (auto) 19.1 %; Mean Corpuscular Hemoglobin 29.4 pg (25.0-34.0); Mean Corpuscular Hgb Conc 32.9 g/dL (32.0-36.0); Mean Corpuscular Volume 89.4 fL (80.0-100.0); Mean Platelet Volume 9.8 fL (9.4-12.4); Monocytes # (auto) 0.37 K/uL (0.11-0.59); Monocytes % (auto) 6.9 %; Neutrophils # (auto) 3.74 K/uL (1.40-6.50); Neutrophils % (auto) 69.1 %; Platelet Count 166 K/uL (130-400); RDW Coefficient of Variation 13.2 % (11.5-14.5); RDW Standard Deviation 43.2 fL (36.4-46.3); Red Blood Count 3.98 M/uL (4.20-5.40)
[2024-10-25 07:34] VITALS: BP 134/59
[2024-10-25 07:47] LABS: BUN Creatinine Ratio 20.8 (10-20); Calcium 8.5 mg/dl (8.6-10.3); Creatinine Clr Calc Pharmacy 47.7 ml/min
[2024-10-25 09:33] VITALS: TEMP 97.9
[2024-10-25 09:34] VITALS: PULSE 63
--- NOTE | 2024-10-25 09:51 | Hospitalist Progress Note ---
Date of Service October 25, 2024 Assessment & Plan (1) Influenza A H1N1 infection: (2) Acute UTI (urinary tract infection): (3) CKD (chronic kidney disease) stage 3, GFR 30-59 ml/min: (4) LASHAWN on CPAP: (5) Diabetes: Plan This is a 79-year-old female who has a significant past medical history of T2DM, HTN, HLD, hypothyroidism, CKD stage IV, LASHAWN on CPAP, morbid obesity, nephrolithiasis, open-angle glaucoma, hx of recurrent UTI, statin intolerant and depression with anxiety who presents to ED secondary to R flank pain, weakness and fever over the past few days. Influenza A Acute Cystitis Generalized Weakness Patient presented with right flank pain, weakness and fever for few days Found to have influenza A Urine culture growing E. coli Blood culture - NGTD Leukocytosis present on admission, improved Patient treated with IV antibiotics with ceftriaxone for the UTI. She is also started on Tamiflu for influenza A Two-step oxygen evaluation is done PT OT evaluation was done; recommend to go back home when medically stable. Acute/Subacute L1 comp fx Vitamin D deficiency Patient denies any back pain, recent fall. CT abdomen pelvis showed acute to subacute mild compression fracture of superior endplate of L1 Vitamin D level slightly low Continue PT OT Continue vitamin D supplementation T2DM well controlled on trulicity, a1c 6.4 in September Does not want diabetic diet while inpatient; insulin discontinued LASHAWN: CPAP at HS CKD III/IV: renal fxn stable, cr 1.4, encourage pt to avoid NSAIDS as she reports she was taking aleve at home, she is scheduled to establish with Nephro as OP HTN: chronic, stable, continue amlodipine and lisinopril Glaucoma: continue eye gtts DVT ppx: SQ Heparin FULL CODE PCP: Karey Dispo: admit to medical, PT/OT suspect 1-2 days of hospitalization prior to return home, she lives a lone at home, walks with walker at baseline Please note the above document was generated using voice recognition software. It may contain grammatical, syntax or spelling errors. Any formal questions or concerns about the content, text or information contained within the body of this dictation should be directly addressed to the provider for clarification Admission and Anticipated Discharge Date Admission Date: October 23, 2024 Subjective Patient seen and examined at bedside She is comfortable; not in distress Denies any pain or discomfort Vital signs are stable Review of Systems Review of Systems: All systems reviewed & are unremarkable except as noted in Subjective Physical Exam Physical Exam: Constitutional: Awake, alert oriented x 3; not in distress. Respiratory: normal respiratory effort, lungs clear to auscultation, no wheeze, rales, rhonchi. Normal insp/exp effort, no accessory muscle use Cardiovascular: RRR, no murmur, no edema Vessels: no JVD or carotid bruit Chest: normal inspection of chest Abdomen: normal bowel sounds, soft, nontender, no hepatosplenomegaly Musculoskeletal: no cyanosis or clubbing, extremities motor strength 5/5 Skin: no rashes, warm and dry normal turgor Neurologic: PERRL, EOMI, accommodation nl, no face palsy, no dysarthria CN's II- XI intact bilaterally and moves all extremities Psychiatric: A+Ox3, euthymic affect Results & Data Results & Data Vital Signs (Past 12 Hours) Vital Signs Temp Pulse Resp BP Pulse Ox O2 Del Method O2 Flow Rate 10/25/24 09:34 63 95 Nasal Cannula 2 10/25/24 09:32 36.6 C 61 85 L Room Air 10/25/24 07:34 36.5 C 51 L 18 134/59 L 96 Nasal Cannula 2 10/25/24 07:15 Nasal Cannula 2 (5) Diabetes Diabetes mellitus type: type 2 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
[2024-10-25 10:30] VITALS: RESP 17; O2SAT 93
--- NOTE | 2024-10-25 12:49 | Discharge Summary ---
Date of Service October 25, 2024 Admission HPI Per Admitting Provider This is a 79-year-old female who has a significant past medical history of T2DM, HTN, HLD, hypothyroidism, CKD stage IV, LASHAWN on CPAP, morbid obesity, nephrolithiasis, open-angle glaucoma, hx of recurrent UTI, statin intolerant and depression with anxiety who presents to ED secondary to shortness of breath and fatigue. Of significance patient was recently diagnosed with an E. coli UTI. It was sensitive to Macrobid for which she was started on. She has completed 2 days worth of treatment. She reports typically she gets dysuria, increased urg/freq and this has improved since starting antibiotics. She had some Right flank pain today and she thought maybe she had a kidney stone. She reports having a fever and sweats over the last 24 hrs, nausea, weakness, fatigue and a cough. She denies congestion, sore throat, diarrhea or constipation. Her R flank pain has since resolved. in ED patient was hemodynamically stable. Lab work was notable for a leukocytosis, creatinine of 1.46, procalcitonin of 8 and positive for influenza. CT scan revealed There is an acute or subacute mild compression fracture of the superior endplate of L1 without retropulsion or stenosis. 2. Stable mild prominence of the bilateral renal pelves which could reflect low-grade UPJ obstruction/stenosis. There is stable, mild acute and/or chronic inflammation of the left renal pelvis. No stones. She received IVF and a dose of IV rocephin. Admission Exam Per Admitting Provider Gen: WD/WN, F, NAD, A&O x3 HEENT: Normocephalic, atraumatic, conjunctivae moist, sclerae anicteric, mucous membranes moist. Lung: Clear, no audible w/r/r + course cough noted Heart: RRR Extremities: No edema Skin: Warm, no rash, negative turgor. Principal Diagnosis Acute UTI Influenza A Discharge Exam Constitutional: Awake, alert oriented x 3; not in distress. Respiratory: normal respiratory effort, lungs clear to auscultation, no wheeze, rales, rhonchi. Normal insp/exp effort, no accessory muscle use Cardiovascular: RRR, no murmur, no edema Vessels: no JVD or carotid bruit Chest: normal inspection of chest Abdomen: normal bowel sounds, soft, nontender, no hepatosplenomegaly Musculoskeletal: no cyanosis or clubbing, extremities motor strength 5/5 Skin: no rashes, warm and dry normal turgor Neurologic: PERRL, EOMI, accommodation nl, no face palsy, no dysarthria CN's II- XI intact bilaterally and moves all extremities Psychiatric: A+Ox3, euthymic affect Discharge Data Allergies Allergy/AdvReac Type Severity Reaction Status Date / Time ranitidine Allergy Intermediate HIVES, Verified 05/21/24 08:52 REDNESS rosuvastatin Allergy Intermediate itching/hiv Verified 05/21/24 08:52 es simvastatin Allergy Intermediate itching/hiv Verified 05/21/24 08:52 es Consultations 10/23/24 19:04 ED Decision to Admit Stat Ordered Studies 10/23/24 17:27 CT Abd and Pelvis [CT abd pelvis IV con only] Stat Hospital Course (1) Influenza A H1N1 infection: (2) Acute UTI (urinary tract infection): (3) CKD (chronic kidney disease) stage 3, GFR 30-59 ml/min: (4) LASHAWN on CPAP: (5) Diabetes: Plan This is a 79-year-old female who has a significant past medical history of T2DM, HTN, HLD, hypothyroidism, CKD stage IV, LASHAWN on CPAP, morbid obesity, nephrolithiasis, open-angle glaucoma, hx of recurrent UTI, statin intolerant and depression with anxiety who presents to ED secondary to R flank pain, weakness and fever over the past few days. Influenza A Acute Cystitis Generalized Weakness Patient presented with right flank pain, weakness and fever for few days Found to have influenza A Urine culture growing E. coli Blood culture - NGTD Leukocytosis present on admission, improved Patient treated with IV antibiotics with ceftriaxone for the UTI. She was switch over to PO antibiotics at discharge. patient are treated with Tamiflu for influenza A Two-step oxygen evaluation is done; patient doesn't require supplemental oxygen. PT OT evaluation was done; recommend to go back home when medically stable Acute/Subacute L1 comp fx Vitamin D deficiency Patient denies any back pain, recent fall. CT abdomen pelvis showed acute to subacute mild compression fracture of superior endplate of L1 Vitamin D level slightly low Continue vitamin D supplementation DEXA scan as outpatient recommended. Please note the above document was generated using voice recognition software. It may contain grammatical, syntax or spelling errors. Any formal questions or concerns about the content, text or information contained within the body of this dictation should be directly addressed to the provider for clarification Total Time Total Time Spent Total Time Spent (In Minutes): 45 Total Time Includes: Examination of the Patient, Discharge Planning, Medication Reconciliation, Communication With Other Providers and Other Discharge Plan Discharge Items Patient Disposition: Home - Self-Care Reason For Visit: INFLUENZA UTI Discharge Diagnosis: Influenza A Acute UTI Activity: Resume your previous activity Non-emergency contact: Primary Care Provider Call non-emergency contact if: you have any medication questions and your symptoms worsen Follow-up/Referrals: Andrews Eden MD [Primary Care Provider] - Diet: Regular Addtl Attending Provider Instructions: You were admitted to the hospital for UTI and influenza A. For the UTI, you are prescribed cefdinir to be taken twice a day for 4 days For the flu, you are prescribed Tamiflu to be taken for 4 days. For the bronchitis, you are prescribed azithromycin to be taken once a day for 3 days. Take Mucinex 600 mg twice a day for 5 days. An appointment with your primary care doctor will be set up for you for next week for posthospital follow-up. Pending Studies at Discharge: No Stand-Alone Forms: My [facility] [employer], Smoking Cessation Medications and DC Order Prescriptions: New oseltamivir [Tamiflu] 6 mg/mL Suspension For Reconstitution 30 mg PO BID 4 Days Qty: 40 0RF cefdinir 300 mg capsule 300 mg PO BID 4 Days Qty: 8 0RF azithromycin 500 mg tablet 500 mg PO DAILY 3 Days Qty: 3 0RF guaifenesin [Mucinex] 600 mg tablet extended release 12hr 600 mg PO BID 5 Days Qty: 10 0RF Continued levothyroxine 50 mcg tablet 50 mcg PO QAM amlodipine 5 mg tablet 5 mg PO QAM cholecalciferol (vitamin D3) [Vitamin D3] 50 mcg (2,000 unit) Capsule 50 mcg PO QAM lisinopril 20 mg Tablet 20 mg PO QAM latanoprost 0.005 % drops 1 drp OPB HS Rx Instructions: Both eyes ezetimibe 10 mg tablet 10 mg PO QAM Trulicity 0.75 mg/0.5 mL pen injector 0.75 mg SUBCUT Q7D Patient Comments: on sundays aspirin 81 mg Tablet,Delayed Release (Dr/Ec) 81 mg PO DAILY Discontinued nitrofurantoin monohyd/m-cryst [Macrobid] 100 mg capsule 100 mg PO Q12H 7 Days Qty: 14 0RF Rx Instructions: must administer with a meal/food Discharge Orders: Discharge Order (Routine); Ordered 10/25/24 Ordered By: Josiah Gonzales/Other Patient Handouts: UTIs, ED Influenza (Adult) Admission Data Admit Date/Time: 10/23/24 19:14 Attending Provider: Josiah Bhakta Admit Provider: Andrea Garcia Primary Care Provider: Andrews Eden Other Providers: Darci Guillory
== END 2024-10-25 14:00 | disposition home or self-care (01) ==
LOC: ED 16:21 → 3E 16:21 → SUATTDRO 19:14 → 3E 20:41

== ENCOUNTER 2025-06-15 14:15 | Inpatient (IN) ==
--- NOTE | 2025-06-15 14:40 | Emergency Department Note ---
Impression & Plan Heart block AV second degree, First degree heart block ED Provider Note NAME: MICA JIMÉNEZ AGE: 80 SEX: F : 1945 ARRIVES VIA: Walk-In INFORMANT: Patient, ED PROVIDER(S): Juan Gill DO CHIEF COMPLAINT: Heart block HPI: The patient is an 80-year-old female who presented to the emergency department for an evaluation of generalized weakness. The patient was seen in her primary care physician's office today. She was sent home after her visit. She did have an EKG. Cardiology over read her EKG and they were concerned the patient needed a pacemaker. The patient has a history of first-degree heart block in the past but today she was bradycardic with what appeared to be a second-degree heart block as well. She was sent to the emergency department for further evaluation. ROS: See above HPI for pertinent positives & negatives. A total of 10 systems reviewed and were otherwise negative. PAST MEDICAL HISTORY: See Below PAST SURGICAL HISTORY: See Below FAMILY HISTORY: See Below SOCIAL HISTORY: See Below HOME MEDICATIONS: See Below ALLERGIES: See Below VITALS: See Below PHYSICAL EXAMINATION: GENERAL: Patient is awake alert in no acute distress patient is resting comfortably and showing no signs of anxiety EYES: The conjunctivae are clear. The pupils are round and reactive. EARS, NOSE, MOUTH AND THROAT: The nose is without any evidence of any deformity. NECK: The neck is nontender and supple. RESPIRATORY: Normal respiratory effort is noted there is no evidence of wheezing rhonchi or rales CARDIOVASCULAR: Irregular heart sounds were noted to auscultation. There is no definite murmur. GASTROINTESTINAL: The abdomen is soft. Abdomen is nontender. MUSCULOSKELETAL/EXTREMITIES: There is no evidence of gross deformity full range of motion is noted in the hips and shoulders. SKIN: There is no obvious evidence of any rash. There are no petechiae, pallor or cyanosis noted. NEUROLOGIC: Patient is awake alert and oriented x3 MEDICAL DECISION MAKING: The patient is an 80-year-old female who presented to the emergency department at the request of her primary care physician and her primary cardiology group. The patient was found to be in heart block. She has a history of a first-degree heart block but seems to be having signs of second-degree heart block. At time she had type I as well as type II heart block on the cardiac surgeon. The patient is relatively asymptomatic but given her findings she was felt to be a better candidate for inpatient evaluation as well as possible pacemaker placement. I discussed her condition with the on-call [facility] management trainee as well as the on-call [facility] hospitalist group. They have agreed to evaluate the patient in the emergency department for further management and disposition. The patient does have a documented O2 sat of 42% which was incorrectly documented. The patient was not hypoxic during her time in the emergency department. Triage Nursing notes reviewed. Prior medical records reviewed Vital Signs: reviewed and remarkable for no significant abnormalities Differential diagnosis: Premature contractions, electrolyte abnormality, cardiac dysrhythmia, thyroid dysfunction, pulmonary embolism, infection, gastrointestinal, as well as other pathologies. ER treatment provided: See below Diagnostics interpreted by me: ECG: EKG was obtained in the emergency department. My interpretation is second- degree heart block type II with an underlying first-degree heart block noted. Fusion beats were noted. There was no acute ST segment abnormalities noted. Poor R wave progression was noted. This was compared to a tracing from October 23, 2024. The previous EKG did show first-degree heart block. Cardiac Monitoring: An order was placed for continuous cardiac monitoring. The monitor shows a rate of 44 bpm with second-degree heart block. Laboratory studies: As stated above and show below. Imaging studies: See below. Radiographic imaging was reviewed by myself Consultation(s): I discussed this case with Dr. Holland who is on-call for the [facility] cardiology group. I discussed this case with Denise who is on for the [facility] hospitalist group. Past Med/Surg History Problem List First degree heart block (Acute) Heart block AV second degree (Acute) Influenza A H1N1 infection (Acute) Elevated procalcitonin (Acute) Leukocytosis (Acute) Sepsis (Acute) Second degree Mobitz type II incomplete atrioventricular block Second degree AV block, Mobitz type I Failure of outpatient treatment (Acute) Pyelonephritis of right kidney (Acute) Sepsis Recurrent UTI (urinary tract infection) Encounter for pre-operative examination Acute blood loss anemia Anaerobic bacteremia Hematuria Demand ischemia Complicated UTI (urinary tract infection) Acute UTI (urinary tract infection) (Acute) Hypotension Hypomagnesemia (Acute) Elevated troponin I level (Acute) Abnormal EKG (Acute) Weakness (Acute) Syncope (Acute) Acute UTI (Acute) Hydronephrosis with urinary obstruction due to ureteral calculus (Acute) Septic shock treated at [facility] inpatient r/t kidney stones and UTI Acute left flank pain CHRIS (acute kidney injury) UTI (urinary tract infection) Left ureteral calculus DVT prophylaxis Chest pain (Acute) Arthritis Kidney stones recurrent kidney stones. Sepsis 09/08/22 after last cystoscopy procedure @ [facility]--pt admitted and treated--resolved LASHAWN on CPAP Depression HLD (hyperlipidemia) Diabetes NIDDM Hypertension Obesity (Chronic) BMI 43.5 Acid reflux (Chronic) Medical History History of anesthesia reaction with most recent procedure at [facility], pt woke up with extremely dry mouth and had a sore throat for 4 days following her surgery SVT (supraventricular tachycardia) Glaucoma open angle per [facility] records CKD (chronic kidney disease) stage 3, GFR 30-59 ml/min Hx of renal calculi Nausea and vomiting after administration of anesthetic agent Hypothyroidism Anxiety Surgical History Hx of cardiac catheterization 01/22/23, shortness of breath>s [place], no stents>no cardiac findings; f/u [facility] cardio-"only had to see once" S/P cystoscopy with ureteral stent placement w/laser destruction of kidney stone History of cystoscopy multiple--last 09/07/22 @ [facility] History of cataract surgery bilateral History of appendectomy History of colonoscopy History of tonsillectomy History of right oophorectomy History of right knee joint replacement H/O: hysterectomy vaginal hysterectomy History of left knee replacement Family History Sister Breast cancer Other No family history of adverse response to anesthesia Denies family history of Coronary heart disease Social History Smoking Status: Never smoker Tobacco Type: Cigarettes Second Hand Exposure: No; Do You Dip or Chew Tobacco: No; Hx Alcohol Use: No Hx Substance Use: No Preferred Language: Nepali Communication Ability: Effective Slot Floorman Required: No Beliefs That Will Affect Care: None marital status: Current Living Situation: Alone current occupational status: employed 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 Feels Safe at Home: Yes Assistive Devices: Glasses and Walker Allergies Allergies Allergy/AdvReac Type Severity Reaction Status Date / Time ranitidine Allergy Severe ?LIP Verified 06/15/25 15:02 SWELLING, THROAT CLOSING-FEELING HIVES, REDNESS rosuvastatin AdvReac Intermediate Muscle Pain Verified 06/15/25 15:02 simvastatin AdvReac Intermediate Muscle Pain Verified 06/15/25 15:02 Home Meds Home Medications Medication Instructions Recorded Confirmed levothyroxine 50 mcg tablet 50 mcg PO DAILYBB 09/30/19 06/15/25 ezetimibe 10 mg tablet 10 mg PO QAM 07/14/22 06/15/25 latanoprost 0.005 % eye drops 1 drp OPB HS 07/14/22 06/15/25 amlodipine 5 mg tablet 5 mg PO QAM 09/29/22 06/15/25 cholecalciferol (vitamin D3) 50 50 mcg PO QAM 05/28/23 06/15/25 mcg (2,000 unit) capsule (Vitamin D3) lisinopril 20 mg tablet 20 mg PO QAM 09/17/23 06/15/25 aspirin 81 mg tablet,delayed 81 mg PO DAILY 10/23/24 06/15/25 release gabapentin 300 mg capsule 300 mg PO TID 06/15/25 06/15/25 hydroxyzine HCl 25 mg tablet 50 mg PO HS 06/15/25 06/15/25 tirzepatide 2.5 mg/0.5 mL 2.5 mg subcut WK 06/15/25 06/15/25 subcutaneous pen injector ([place]unana) Results & Data (ED) Vital Signs Vital Signs - 24 hr 06/15/25 14:24 06/15/25 14:36 Temperature 36.8 C Temperature Source Oral Pulse Rate 80 Pulse Rate [Apical] 60 Pulse Rhythm [Apical] Irregular Respiratory Rate 16 18 Respiratory Effort / Characteristics Non-Labored Non-Labored Respiratory Depth Normal Normal Blood Pressure 155/59 H Blood Pressure Mean 91 Pulse Oximetry 95 95 Oxygen Delivery Method Room Air Room Air Sepsis Recent Fever Within 48 Hours No Sepsis New/Unexplained Change in Mental Status N/A Sepsis Action Taken by Nursing No Action Required Home Medications Current Medication List: was personally reviewed by me Laboratory Data Attestation: I reviewed the patient's lab results. 06/15/25 14:40 06/15/25 14:40 Administered Medications Discontinued Medications Bupivacaine HCl (Bupivacaine 0.25% Pf 30 Ml Vial) Confirm Administered Dose 30 ml .ROUTE .ST-MED ONE Stop: 06/15/25 14:44 Last Admin: 06/15/25 16:26 Dose: 30 ml Documented By: ARCADIO Cefazolin Sodium (Cefazolin 330 Mg/Ml 1 Gm Vial) Confirm Administered Dose 2,970 mg .ROUTE .STK-MED ONE Stop: 06/15/25 15:30 Last Admin: 06/15/25 16:26 Dose: 2,970 mg Documented By: ARCADIO Fentanyl Citrate (Fentanyl Citrate Pf 100 Mcg/2 Ml Vial) Confirm Administered Dose 100 mcg .ROUTE .STK-MED ONE Stop: 06/15/25 15:31 Last Admin: 06/15/25 17:04 Dose: 100 mcg Documented By: ARCADIO Lidocaine HCl (Lidocaine 1% Local 20 Ml Vial) Confirm Administered Dose 20 ml .ROUTE .ST-MED ONE Stop: 06/15/25 14:43 Last Admin: 06/15/25 16:25 Dose: 20 ml Documented By: ARCADIO Midazolam HCl (Midazolam Hcl 5 Mg/Ml 1 Ml Vial) Confirm Administered Dose 5 mg .ROUTE .STK-MED ONE Stop: 06/15/25 15:31 Last Increment: 06/15/25 17:04 Dose: 4 mg Documented By: ARCADIO Sterile Water (Water, Sterile For Inj 10 Ml Vial) Confirm Administered Dose 10 ml .ROUTE .STK-MED ONE Stop: 06/15/25 14:44 Last Admin: 06/15/25 16:26 Dose: 10 ml Documented By: ARCADIO Vancomycin HCl (Vancomycin Hcl 1000mg/20ml Vial) Confirm Administered Dose 50 mg .ROUTE .ST-MED ONE Stop: 06/15/25 14:44 Last Admin: 06/15/25 16:26 Dose: 50 mg Documented By: ARCADIO Discharge Plan Visit Data Chief Complaint: Referred by Doctor Stated Complaint: DOC REF, [employer]ED [employer] ED Provider: Juan Gill Discharge Problem: Heart block AV second degree, First degree heart block Patient Disposition: Admitted As Inpatient Condition: Fair Discharge Instructions Interventions: ED Discharge Assessment Last Done: 06/15/25 15:13
[2025-06-15 15:05] LABS: Hematocrit (blood only) 38.5 % (37.0-47.0); Hemoglobin 12.3 g/dl (12.0-16.0); Immature Granulocytes # (auto) 0.02 K/uL (0.01-0.20); Immature Granulocytes % (auto) 0.3 %; Mean Corpuscular Hemoglobin 29.5 pg (25.0-34.0); Mean Corpuscular Volume 92.3 fL (80.0-100.0); Platelet Count 192 K/uL (130-400); RDW Standard Deviation 43.8 fL (36.4-46.3); Red Blood Count 4.17 M/uL (4.20-5.40); White Blood Count 7.86 K/ul (4.8-10.8)
--- NOTE | 2025-06-15 15:06 | History & Physical Report ---
Date of Service June 15, 2025 Assessment & Plan (1) Heart block AV second degree: Plan: Patient is a 80 year old F with a past medical history of DM Type II, HLD with statin intolerance, Hypothyroidism, HTN, known AV block, morbid obesity, LASHAWN, CKD Stage IV, presenting with bradycardia. Patient was at PCP office today with shortness of breath, left arm pain. Found to be bradycardic with HR 30's. Known AV block with new onset bradycardia today. EKG consistent with 2:1 Heart block and advised to come to [facility] for further workup. [facility] made aware. Patient reports having shortness of breath and left chest"uncomfortable feeling" for several years, now with difficulty walking d/t SOB. Reports having periodic lower leg swelling as well, mostly in warmer weather. Heart block AV second degree #Bradycardia * Admit for pacemaker placement and further management PCU Tele * HR's 38-46 on exam, no CP, + SOB, LEBLANC with minimal change of position, w/ fluid retention BLE * Cardiology consulted in ED with plan for pacemaker placement today-> PCU Tele following pacer * Cardiology to follow patient post pacer placement #Hypertension #CKD Stage IV * Goal BP 140/90; BP 155/59 while in ED * Continue home amlodipine and lisinopril and trend * Renal functioning slightly above baseline; Creatinine 1.43, GFR 36; no hx diuretic use #Diabetes Type II, non-insulin dependent * Hold home trulicity * SSI while inpatient for goal bsg 110-140; adjust as needed * most recent A1C 6.4%; will check with AM labs #Obstructive sleep apnea * Intolerant CPAP, only able to use ~4 hours at home * O2 as needed to maintain sats >92% * Will order CPAP while inpatient #Hyperlipidemia * Statin intolerant * Continue home ezetimibe #Hypothyroidism * TSH 2.9 * Continue home levothyroxine DVT Ppx: SCDs Code status: DNR/DNI PCP: Dr. Sindy Leonard Dispo: Admit Patient seen in collaboration with Dr. Dyer. Please see addendum.I spent a total of 45 minutes coordinating, documenting and providing care for this patient excluding time spent in the performance of separately billed services or time spent by another provider/QHP. (2) Hypertension: (3) CKD (chronic kidney disease) stage 3, GFR 30-59 ml/min: (4) Diabetes: (5) LASHAWN on CPAP: (6) HLD (hyperlipidemia): (7) Hypothyroidism: History of Present Illness Primary Care Provider: Andrews Eden MD Patient is a 80 year old F with a past medical history of DM Type II, HLD with statin intolerance, Hypothyroidism, HTN, known AV block, morbid obesity, LASHAWN, CKD Stage IV, presenting with bradycardia. Patient was at PCP office today with shortness of breath, left arm pain. Found to be bradycardic with HR 30's. Known AV block with new onset bradycardia today. EKG consistent with 2:1 Heart block and advised to come to [facility] for further workup. [facility] made aware. Patient reports having shortness of breath and left chest"uncomfortable feeling" for several years, now with difficulty walking d/t SOB. Reports having periodic lower leg swelling as well, mostly in warmer weather. Denies fever, chills, weight loss, weakness, headache, cognitive changes, vision/hearing changes, difficulty breathing, urinary concerns, N/V/D, joint swelling/pain, ambulation difficulty, skin rashes, lesions, bleeding, bruising. In the emergency department, patient was bradycardiac 38-mid 40's. Hemodynamically stable. She had no chest pain, but was short of breath with repositioning in bed. ECG monitoring showed 2nd degree heart block which then progressed to third degree per Cardiology. Taken for pacemaker placement from ED. As per external chart review, known to have intermittent complete atrioventricular block with sleep and was last seen by EP Cardiology in 05/2025. No indication for pacemaker at that time. Patient was wearing CPAP nightly at that time, but is now not able to tolerate the mask. Also with history of well- controlled, non-insulin dependent Type 2 diabetes and on Trulicity. Per external chart review, most recent HbA1c 6.4%. Hypertensive chronic kidney disease is present with well-controlled blood pressure, On amlodipine, lisinopril currently. History obtained primarily from the patient and via hospitalization record. The patient's family was at the bedside and assisted with history of present illness and past medical history. External chart review obtained from [facility]. Allergies Allergy/AdvReac Type Severity Reaction Status Date / Time ranitidine Allergy Severe ?LIP Verified 06/15/25 15:02 SWELLING, THROAT CLOSING-FEELING HIVES, REDNESS rosuvastatin AdvReac Intermediate Muscle Pain Verified 06/15/25 15:02 simvastatin AdvReac Intermediate Muscle Pain Verified 06/15/25 15:02 Home Medications Medication Instructions Recorded Confirmed Type levothyroxine 50 mcg tablet 50 mcg PO DAILYBB 09/30/19 06/15/25 History ezetimibe 10 mg tablet 10 mg PO QAM 07/14/22 06/15/25 History latanoprost 0.005 % eye drops 1 drp OPB HS 07/14/22 06/15/25 History amlodipine 5 mg tablet 5 mg PO QAM 09/29/22 06/15/25 History cholecalciferol (vitamin D3) 50 50 mcg PO QAM 05/28/23 06/15/25 History mcg (2,000 unit) capsule (Vitamin D3) lisinopril 20 mg tablet 20 mg PO QAM 09/17/23 06/15/25 History aspirin 81 mg tablet,delayed 81 mg PO DAILY 10/23/24 06/15/25 History release gabapentin 300 mg capsule 300 mg PO TID 06/15/25 06/15/25 History hydroxyzine HCl 25 mg tablet 50 mg PO HS 06/15/25 06/15/25 History tirzepatide 2.5 mg/0.5 mL 2.5 mg subcut WK 06/15/25 06/15/25 History subcutaneous pen injector (Ronaldo) Past Med/Surg History Problem List (Updated 06/15/25 @ 18:14 by Cayden Gant, DO) Third degree atrioventricular block First degree heart block (Acute) Heart block AV second degree (Acute) Influenza A H1N1 infection (Acute) Elevated procalcitonin (Acute) Leukocytosis (Acute) Sepsis (Acute) Second degree Mobitz type II incomplete atrioventricular block Second degree AV block, Mobitz type I Failure of outpatient treatment (Acute) Pyelonephritis of right kidney (Acute) Sepsis Recurrent UTI (urinary tract infection) Encounter for pre-operative examination Acute blood loss anemia Anaerobic bacteremia Hematuria Demand ischemia Complicated UTI (urinary tract infection) Acute UTI (urinary tract infection) (Acute) Hypotension Hypomagnesemia (Acute) Elevated troponin I level (Acute) Abnormal EKG (Acute) Weakness (Acute) Syncope (Acute) Acute UTI (Acute) Hydronephrosis with urinary obstruction due to ureteral calculus (Acute) Septic shock treated at [facility] inpatient r/t kidney stones and UTI Acute left flank pain CHRIS (acute kidney injury) UTI (urinary tract infection) Left ureteral calculus DVT prophylaxis Chest pain (Acute) Arthritis Kidney stones recurrent kidney stones. Sepsis 09/08/22 after last cystoscopy procedure @ [facility]--pt admitted and treated--resolved LASHAWN on CPAP Depression HLD (hyperlipidemia) Diabetes NIDDM Hypertension Obesity (Chronic) BMI 43.5 Acid reflux (Chronic) Medical History History of anesthesia reaction with most recent procedure at [facility], pt woke up with extremely dry mouth and had a sore throat for 4 days following her surgery SVT (supraventricular tachycardia) Glaucoma open angle per [facility] records CKD (chronic kidney disease) stage 3, GFR 30-59 ml/min Hx of renal calculi Nausea and vomiting after administration of anesthetic agent Hypothyroidism Anxiety Surgical History Hx of cardiac catheterization 01/22/23, shortness of breath>[place], no stents>no cardiac findings; f/u [facility] cardio-"only had to see once" S/P cystoscopy with ureteral stent placement w/laser destruction of kidney stone History of cystoscopy multiple--last 09/07/22 @ [facility] History of cataract surgery bilateral History of appendectomy History of colonoscopy History of tonsillectomy History of right oophorectomy History of right knee joint replacement H/O: hysterectomy vaginal hysterectomy History of left knee replacement Family History Sister Breast cancer Other No family history of adverse response to anesthesia Denies family history of Coronary heart disease Social History Smoking Status: Never smoker Tobacco Type: Cigarettes Second Hand Exposure: No; Do You Dip or Chew Tobacco: No; Hx Alcohol Use: No Hx Substance Use: No Preferred Language: Bolivian Communication Ability: Effective Financial Reserve Clerk Required: No Beliefs That Will Affect Care: None marital status: Current Living Situation: Alone current occupational status: employed 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 WEIGHT/BMI reviewed. GEN: Obese, well-developed, NAD. PSYCH: Good Judgment. AOx4. Normal memory, mood, and affect. HEENT -Head: NC/AT; -Eyes: PERRL, EOMI. No discharge or redn ess; -Ears: External ears are normal. -Nose: Normal nares. -Mouth and throat: MMM. Normal gums, muc lashawn, palate,. Good dentition. NECK: Supple, with no masses. CV: Derrick low 40's, +2 pitting edema BLE, no murmurs, no JVD LUNGS: CTAB, mild WOB with position change ABD: Soft, NT/ND, NBS, no masses or organomegaly. : N/A SKIN: Warm, well perfused. No skin rashes or abnormal lesions. MSK: No deformities, Normal gait. EXT: No clubbing, cyanosis, or edema. NEURO: CN II-XII grossly intact, no focal deficits, speech clear, swallowing w/o difficulty Results & Data Results & Data Vital Signs (Past 12 Hours) Vital Signs Temp Pulse Pulse Resp BP Pulse Ox O2 Del Method 06/15/25 14:59 47 L 06/15/25 14:36 60 18 95 Room Air 06/15/25 14:24 36.8 C 80 16 155/59 H 95 Room Air Laboratory Results Short CBC 06/15/25 Range/Units 14:40 WBC 7.86 (4.8-10.8) K/ul Hgb 12.3 (12.0-16.0) g/dl Hct 38.5 (37.0-47.0) % Plt Count 192 (130-400) K/uL Supervising Physician Co-Signing Physician Notes Attending addendum: The patient was seen and examined in telemetry unit He was sent in from PCPs office with bradycardia Complaint of generalized weakness but no episode of chest pain palpitation or dizziness and no syncope Noted to have second-degree AV block and also third-degree AV block associated with Reviewed by relief pharmacist and has had dual-chamber pacemaker placed On examination Lying in bed without any acute distress except minimal pain at the pacemaker insertion site Remains hemodynamically stable with blood pressure on the upper side at 150 systolic Chestdecreased breath sound bilaterally with minimal crackles at the base HeartS1-S2, regular Abdomendistended, soft and bowel sound present Extremities1+ edema bilateral Hide admission labs, EKG reviewed Second and third-degree AV block with bradycardia arrhythmia status post dual- chamber pacemaker insertion Remains stable following the procedure Her other significant medical conditions remained stable as mentioned above Agree with assessment and plan as outlined above by Denise CABRALES and take the full responsibility of care in the hospital DR Kirk Dyer (2) Hypertension Hypertension type: unspecified Qualified Code(s): I10 - Essential (primary) hypertension (4) Diabetes Diabetes mellitus complication status: with other specified complication Diabetes mellitus nursing home insulin use: without nursing home use Diabetes mellitus type: type 2 Qualified Code(s): E11.69 - Type 2 diabetes mellitus with other specified complication
[2025-06-15 15:23] LABS: Alanine Aminotransferase 9.0 U/L (7-52); Albumin Globulin Ratio 1.2 (0.9-2); Alkaline Phosphatase 68.0 U/L (34-104); Anion Gap 5.0 (3-11); Bilirubin,Total 0.5 mg/dl (0.2-1.0); Blood Urea Nitrogen 25.0 mg/dl (6-23); Calcium 9.3 mg/dl (8.6-10.3); Carbon Dioxide 31.0 mmol/L (21-32); Chloride 106.0 mmol/L (98-107); Creatinine Clr Calc Pharmacy 37.3 ml/min; Globulin 3.3 gm/dl (2.5-4.0); Glucose 103.0 mg/dl (70-99(Fasting)); Magnesium 1.9 mg/dl (1.7-2.4); Potassium 4.8 mmol/L (3.5-5.1); Sodium 142.0 mmol/L (136-145); Total Protein 7.1 gm/dl (6.0-8.3)
--- NOTE | 2025-06-15 15:28 | Cardiology Consultation ---
Date of Consultation June 15, 2025 Assessment & Plan (1) Third degree atrioventricular block: (2) Heart block AV second degree: Patient with findings of 2: 1 AV block as well as third-degree heart block. Currently hemodynamically stable. She has a history of underlying conduction system disease, with intermittent asymptomatic third-degree heart block noted on a desk monitor performed a year ago. No recent infectious symptoms. A bedside echocardiogram was performed shortly after arrival and was reviewed independently by the undersigned with findings of a trace to small circumferential pericardial effusion without tamponade. The left ventricular systolic function is normal, LVEF of 55%. Moderate right ventricular chamber enlargement is noted with normal RV systolic function which is a chronic finding for her and likely related to her underlying obesity and sleep apnea. EKG performed on arrival to the emergency department today at 1435 and interpret independently revealed third-degree AV block with ventricular rate of 62 bpm. Proceed with Dual-chamber permanent pacemaker today. Case reviewed with Dr Gill of emergency medicine, the admitting team, and Dr Marshall of EP For the purpose of coordination of care. Anticipate admission to telemetry unit post pacemaker. I spent a total of 60 minutes on the date of service in preparation, delivery, and documentation of the care provided to this patient, excluding any time spent in the performance of separately billed services. Milagro Gant, History of Present Illness History of Present Illness Kyung Meade is an 80-year-old female seen in cardiology consultation per the request of Dr. Gill for the evaluation of bradycardia. The patient is accompanied in the emergency department by her [id number]. The patient describes a chronic degree of exertional shortness of breath that has been acutely worse for the last 3 to 4 days. She states that she gets breathless with minimal walking activity. She had a routine visit with primary care today and an EKG was performed revealing sinus bradycardia with second-degree atrioventricular block and 2: 1 conduction with ventricular rate of 37 bpm. Her primary care provider had reach ed out to Dr Marshall and the patient was referred to the emergency department for further evaluation. On arrival, intermittent third-degree heart block with a ventricular rate in the 50s noted. Patient's blood pressure is stable with systolic blood pressures in the 130s to 150s on arrival. She denies any recent lightheadedness, dizziness, syncope or near syncope. The patient has a history of underlying conduction system disease. A Zio patch was worn for 14 days in June, with findings of brief episodes of intermittent third-degree heart block. At that time the patient was asympt omatic from a rhythm standpoint, an ongoing observation was recommended. She has a history of cardiac catheterization which took place in January, with angiographically normal coronary arteries. Allergies Allergy/AdvReac Type Severity Reaction Status Date / Time ranitidine Allergy Severe ?LIP Verified 06/15/25 15:02 SWELLING, THROAT CLOSING-FEELING HIVES, REDNESS rosuvastatin AdvReac Intermediate Muscle Pain Verified 06/15/25 15:02 simvastatin AdvReac Intermediate Muscle Pain Verified 06/15/25 15:02 Home Medications Medication Instructions Recorded Confirmed Type levothyroxine 50 mcg tablet 50 mcg PO DAILYBB 09/30/19 06/15/25 History ezetimibe 10 mg tablet 10 mg PO QAM 07/14/22 06/15/25 History latanoprost 0.005 % eye drops 1 drp OPB HS 07/14/22 06/15/25 History amlodipine 5 mg tablet 5 mg PO QAM 09/29/22 06/15/25 History cholecalciferol (vitamin D3) 50 50 mcg PO QAM 05/28/23 06/15/25 History mcg (2,000 unit) capsule (Vitamin D3) lisinopril 20 mg tablet 20 mg PO QAM 09/17/23 06/15/25 History aspirin 81 mg tablet,delayed 81 mg PO DAILY 10/23/24 06/15/25 History release gabapentin 300 mg capsule 300 mg PO TID 06/15/25 06/15/25 History hydroxyzine HCl 25 mg tablet 50 mg PO HS 06/15/25 06/15/25 History tirzepatide 2.5 mg/0.5 mL 2.5 mg subcut WK 06/15/25 06/15/25 History subcutaneous pen injector (Mounjaro) Patient History Medical History History of anesthesia reaction with most recent procedure at [facility], pt woke up with extremely dry mouth and had a sore throat for 4 days following her surgery SVT (supraventricular tachycardia) Glaucoma open angle per [facility] records CKD (chronic kidney disease) stage 3, GFR 30-59 ml/min Hx of renal calculi Nausea and vomiting after administration of anesthetic agent Hypothyroidism Anxiety Surgical History Hx of cardiac catheterization 01/22/23, shortness of breath>[facility] [place], no stents>no cardiac findings; f/u [facility] cardio-"only had to see once" S/P cystoscopy with ureteral stent placement w/laser destruction of kidney stone History of cystoscopy multiple--last 09/07/22 @ [facility] History of cataract surgery bilateral History of appendectomy History of colonoscopy History of tonsillectomy History of right oophorectomy History of right knee joint replacement H/O: hysterectomy vaginal hysterectomy History of left knee replacement Family History Sister Breast cancer Other No family history of adverse response to anesthesia Denies family history of Coronary heart disease Social History Smoking Status: Never smoker Tobacco Type: Cigarettes Second Hand Exposure: No; Do You Dip or Chew Tobacco: No; Hx Alcohol Use: No Hx Substance Use: No Preferred Language: Portuguese Communication Ability: Effective Application Consultant Required: No Beliefs That Will Affect Care: None marital status: Current Living Situation: Alone current occupational status: employed 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 Other Information That Helps Us Care for You: No Feels Safe at Home: Yes Safety Concerns: Feels Safe At This Time Assistive Devices: Cane, Glasses and Walker Review of Systems Review of Systems: All systems reviewed & are unremarkable except as noted in HPI & below Physical Exam Physical Exam: General: no acute distress and stated age Eyes: conjunctiva are pink and non-injected, sclera clear Neck: normal jugular venous pulse, no hepatojugular reflux Chest: normal shape and normal respiratory effort Lungs: clear to auscultation and percussion Cardiac Exam: -Bradycardic, no murmur Abdomen: abdomen soft, non-tender, no abnormal masses and no hepatosplenomegaly Musculoskeletal: no gait disturbance, no weakness Extremities: no edema and no cyanosis Neuro:awake, conversant, follows commands, no focal motor deficits Results & Data Vital Signs (Past 12 Hours) Vital Signs Temp Pulse Pulse Resp BP Pulse Ox O2 Del Method 06/15/25 14:59 47 L 06/15/25 14:36 60 18 95 Room Air 06/15/25 14:24 36.8 C 80 16 155/59 H 95 Room Air Coding Level of Care Code 43860 IN/OBS CONSULT LVL 4,60M Diagnoses Third degree atrioventricular block I44.2 Heart block AV second degree I44.1
[2025-06-15 15:36] LABS: INR 1.0 (0.9-1.1); Partial Thromboplastin Time 26 Seconds (21-31); Prothrombin Time 10.7 Seconds (9.0-12.0)
[2025-06-15 15:38] LABS: Thyroid Stimulating Hormone 2.979 uIu/ml (0.300-4.500)
--- NOTE | 2025-06-15 16:01 | History & Physical Bridge Note ---
Date of Service June 15, 2025 History & Physical Bridge Note I have examined the patient, reviewed the History & Physical and in the interval since the performance of the History & Physical I have noted the following changes of clinical significance: pt with 2:1 AV block symptomatic recommending dual chamber pacemaker prior to discharge; discussed the risks and the procedure-she expressed an understanding and consents signed.
--- NOTE | 2025-06-15 16:02 | Pre Anesthesia Assessment ---
Date of Service June 15, 2025 Pre Sedation Assessment Vital Signs Temp Pulse Pulse Resp BP BP Pulse Ox 06/15/25 15:15 36.8 C 44 L 18 139/66 42 L 06/15/25 14:59 47 L 06/15/25 14:36 60 18 95 06/15/25 14:24 36.8 C 80 16 155/59 H 95 O2 Del Method 06/15/25 15:15 Room Air 06/15/25 14:59 06/15/25 14:36 Room Air 06/15/25 14:24 Room Air Cardiovascular + bradycardic Respiratory normal respiratory effort, lungs clear to auscultation Pre-Sedation Airway Assessment Smoking Status: Never smoker Hx Sleep Apnea: Yes Hx Difficult Intubation: No Short, Thick Neck: Yes Thyromental Distance: < 3.5 Finger Breadths Oral Cavity: + WNL Mallampati Class: II ASA: ASA3 NPO Status Date of Last Intake of Fluids: 06/14/25 Date of Last Intake of Solid Food: 06/14/25 Procedure Planning Contraindications for Sedation: none Current Medications Reviewed: Yes Notes The planned sedation has been discussed with the patient. Informed Consent was obtained. I have identified the patient, determined the appropriateness of sedation and have assessed the patient immediately prior to the procedure. All medicine(s) and interventions are by my order.
[2025-06-15] MEDS: LIDOCAINE 1% LOCAL 20 ML VIAL ONE (16:25)
[2025-06-15] MEDS: VANCOMYCIN HCL 1000MG/20ML VIAL ONE (16:26)
[2025-06-15] MEDS: WATER, STERILE FOR INJ 10 ML VIAL ONE (16:26)
[2025-06-15] MEDS: BUPIVACAINE 0.25% PF 30 ML VIAL ONE (16:26)
[2025-06-15] MEDS: ceFAZolin 330 MG/ML 1 GM VIAL ONE (16:26)
[2025-06-15] MEDS: MIDAZOLAM HCL 5 MG/ML 1 ML VIAL ONE (17:04)
--- NOTE | 2025-06-15 17:15 | Post Anesthesia Assessment ---
Date of Service June 15, 2025 Post Sedation Assessment Vital Signs Temp Pulse Pulse Resp BP BP Pulse Ox 06/15/25 15:15 36.8 C 44 L 18 139/66 42 L 06/15/25 14:59 47 L 06/15/25 14:36 60 18 95 06/15/25 14:24 36.8 C 80 16 155/59 H 95 O2 Del Method 06/15/25 15:15 Room Air 06/15/25 14:59 06/15/25 14:36 Room Air 06/15/25 14:24 Room Air Recovery Score Activity: Moves 4 extremities Respiration: Deep Breath/Cough Circulation: +/-20% PreAnes Value Consciousness: Fully Awake Oxygen Saturation: > 92% On Room Air Discharge Sedation Level of Care: Fast Track Phase II Post Sedation Plan On clinical assessment, the patient appears to have tolerated the sedation without complications. Patient is recovering as anticipated. Patient will continue to be monitored by nursing and may be discharged when sedation discharge criteria are met per below protocol. Upon Completions of procedure up to 15 minutes continue every 5 minute vital signs and the P.A.R. score; then discharge to a Phase I or Fast Track to Phase II per the following guidelines: * Discharge Patient to appropriate Phase II area if PAR is 8 or greater or return to pre- procedure baseline. The post - procedure orders will be as directed. * If PAR score is less than 8 or not return to pre-procedure baseline then patient will follow Phase I monitoring till PAR is reached for Phase II. The Phase I may be done in procedure room or may call to secure a Phase I area. * If naloxone or flumazenil are used for reversal, hold in Phase I for continued monitoring from when last reversal dose was given for a minimum of 60 minutes or longer pending the nurse and/or physician discretion of patient condition before discharge to Phase II. Please call the Sedation Physician to re-evaluate and complete post-note for discharge to Phase II area. Do NOT discharge from procedure sedation or Phase 1 until post- sedation evaluation note is complete by procedure /sedation MD Sedation Discharge Instructions to be given to the patient at discharge to home.
[2025-06-15] MEDS ORDERED: GLUCOSE 10 TAB/TUBE PO PRN (17:45)
[2025-06-15] MEDS ORDERED: MAGNESIUM HYDROXIDE SUSP 30 ML UDC PO PRN (17:45)
[2025-06-15] MEDS ORDERED: GLUCAGON FOR INJ 1 MG VIAL SQ PRN (17:45)
[2025-06-15] MEDS ORDERED: POLYETHYLENE (MIRALAX) 17 GM PACK PO PRN (17:45)
[2025-06-15] MEDS ORDERED: CARBOHYDRATES FOR HYPOGLYCEMIA PO PRN (17:45)
[2025-06-15] MEDS ORDERED: ALUMINUM/MAGNESIUM SUSP 30 ML UDC PO PRN (17:45)
[2025-06-15] MEDS ORDERED: GLUCOSE 40% GEL 15 GM TUBE PO PRN (17:45)
[2025-06-15] MEDS ORDERED: DEXTROSE 50% 50 ML SYRINGE IV PRN (17:45)
[2025-06-15] MEDS: INSULIN ASPART PER UNIT CHARGE SC SCH (18:23)
[2025-06-15] MEDS: ACETAMINOPHEN 325 MG TAB PO PRN (19:31)
--- NOTE | 2025-06-15 20:06 | XRay Report ---
Exam: Chest one view portable Reason for exam: Pneumonia. Previous studies: 10/23/2024. FINDINGS: Left-sided pacemaker with twin leads is now noted. Heart is enlarged with chronic pulmonary venous hypertension but otherwise no acute CHF. Lungs remain free of active infiltrate, collapse or edema. IMPRESSION: Stable cardiomegaly. Otherwise no acute disease seen at this time. Electronically signed by Ubaldo Stark 06-15-2025 8:05 PM
[2025-06-15] MEDS: GABAPENTIN 300 MG CAP PO SCH (20:29)
[2025-06-15] MEDS ORDERED: LATANOPROST 0.005% OP SOLN 2.5 ML BTL OPB SCH (21:00)
[2025-06-16] MEDS: LEVOTHYROXINE SODIUM 50 MCG TABLET PO SCH (06:26)
[2025-06-16 06:51] LABS: Hematocrit (blood only) 37.7 % (37.0-47.0); Hemoglobin 12.0 g/dl (12.0-16.0); Mean Corpuscular Hemoglobin 29.6 pg (25.0-34.0); Mean Corpuscular Volume 93.1 fL (80.0-100.0); Platelet Count 175 K/uL (130-400); RDW Standard Deviation 44.1 fL (36.4-46.3); Red Blood Count 4.05 M/uL (4.20-5.40); White Blood Count 6.49 K/ul (4.8-10.8)
[2025-06-16 07:14] LABS: Anion Gap 4.0 (3-11); Blood Urea Nitrogen 21.0 mg/dl (6-23); Calcium 8.9 mg/dl (8.6-10.3); Carbon Dioxide 30.0 mmol/L (21-32); Chloride 105.0 mmol/L (98-107); Creatinine Clr Calc Pharmacy 44.5 ml/min; Glucose 119.0 mg/dl (70-99(Fasting)); Magnesium 1.9 mg/dl (1.7-2.4); Potassium 4.8 mmol/L (3.5-5.1); Sodium 139.0 mmol/L (136-145)
[2025-06-16 07:56] LABS: Hemoglobin A1C 6.0 % (4.5-5.6)
[2025-06-16] MEDS ORDERED: ASPIRIN 81 MG ECTAB PO SCH (09:00)
--- NOTE | 2025-06-16 09:39 | Electrocardiogram Report ---
Test Reason : Blood Pressure : */* mmHG Vent. Rate : 62 BPM Atrial Rate : * BPM P-R Int : * ms QRS Dur : 94 ms QT Int : 418 ms P-R-T Axes : * -11 -12 degrees QTcB Int : 424 ms Normal sinus rhythm with 2nd degree A-V block (Mobitz I) with occasional Premature ventricular comple xes Inferior infarct , age undetermined Anterolateral infarct (cited on or before 26-Jun-2024) Abnormal ECG When compared with ECG of 23-Oct-2024 16:59, Questionable change in initial forces of Lateral leads T wave inversion now evident in Inferior leads Confirmed by Juan Cardona ([id number]) on 06/16/2025 9:39:22 AM Referred By: Andrews Eden Confirmed By: Juan Cardona
--- NOTE | 2025-06-16 09:46 | Electrocardiogram Report ---
Test Reason : Blood Pressure : */* mmHG Vent. Rate : 73 BPM Atrial Rate : 73 BPM P-R Int : 168 ms QRS Dur : 138 ms QT Int : 442 ms P-R-T Axes : 42 -44 -16 degrees QTcB Int : 486 ms Atrial-sensed ventricular-paced rhythm Abnormal ECG When compared with ECG of 15-Jun-2025 14:35, (unconfirmed) Electronic ventricular pacemaker has replaced Junctional rhythm Confirmed by Juan Cardona ([id number]) on 06/16/2025 9:46:12 AM Referred By: Andrews Eden Confirmed By: Juan Cardona
[2025-06-16] MEDS: EZETIMIBE 10 MG TAB PO SCH (09:57)
[2025-06-16] MEDS: CHOLECALCIFEROL 25 MCG (1000 UNITS) TAB PO SCH (09:57)
--- NOTE | 2025-06-16 10:47 | Cardiology Progress Note ---
Date of Service June 16, 2025 Assessment & Plan (1) Third degree atrioventricular block: (2) Heart block AV second degree: (3) Pacemaker: (4) Pericardial effusion: Plan: 80-year-old female presented with symptomatic bradycardia (symptoms of progressive dyspnea on exertion) and was found to be in second-degree atrioventricular block and intermittent third-degree atrioventricular block. Patient underwent echocardiogram with findings of normal biventricular systolic function. A trace to small circumferential pericardial effusion was noted on the echocardiogram. Patient subsequently underwent implantation of an [employer] dual-chamber permanent pacemaker on 06/15/2025 with implantation of right atrial lead, left bundle lead. Telemetry findings are stable. Pacemaker interrogated with the assistance of the [facility] medical resident today with normal findings. Patient rate ventricular paced 100% of the time with underlying rhythm still with 2: 1 AV block this morning. Patient stable for discharge from cardiology standpoint. Specialty Impression: (1) Third degree atrioventricular block: (2) Heart block AV second degree: (3) Pacemaker: (4) Pericardial effusion: Recommended medication(s) at discharge: Amlodipine 5 mg by mouth daily Ezetimibe 10 mg by mouth daily Lisinopril 20 mg by mouth daily Recommended discharge testing: Repeat limited echo as an outpatient in 2 weeks to ensure stability of the trace to small circumferential pericardial effusion I was present on echocardiogram before the pacemaker was placed. Other recommended care at discharge: Pacemaker site care: Do not raise the left elbow over the left shoulder for 1 month Do not lift more than 10 pounds with the left arm for 2 weeks Keep dressing on & dry until wound check-no shower Device and wound check as scheduled at [facility] Cardiology Follow- up in Specialty Clinic: As noted above. I spent a total of 50 minutes on the date of service in preparation, delivery, and documentation of the care provided to this patient, excluding any time spent in the performance of separately billed services. Milagro Gant DO Admission and Anticipated Discharge Date Admission Date: June 15, 2025 Bandar Tracey is seen in cardiology follow-up of symptomatic bradycardia. Feels well. She is in the bedside chair. Only complaint was some musculoskeletal shoulder pain this morning which has resolved. Her pain from her procedure site is well- controlled. Telemetry reveals sinus rhythm with ventricular pacing in the 80s. Review of Systems Review of Systems: All systems reviewed & are unremarkable except as noted in HPI & below Physical Exam Physical Exam: General: no acute distress and stated age Eyes: conjunctiva are pink and non-injected, sclera clear Neck: normal jugular venous pulse, no hepatojugular reflux Chest: normal shape and normal respiratory effort -Left infraclavicular pacemaker pocket n oted with dressing. Dressing not removed. Lungs: clear to auscultation and percussion Cardiac Exam: Regular rate and rhythm, no murmurs Abdomen: abdomen soft, non-tender, no abnormal masses and no hepatosplenomegaly Musculoskeletal: no gait disturbance, no weakness Extremities: no edema and no cyanosis Neuro:awake, conversant, follows commands, no focal motor deficits Results & Data Vital Signs (Past 12 Hours) Vital Signs Temp Pulse Pulse Resp BP Pulse Ox O2 Del Method 06/16/25 10:14 Room Air 06/16/25 07:55 36.8 C 83 19 131/82 94 Room Air 06/16/25 03:13 36.5 C 76 24 129/69 91 Room Air 06/15/25 23:40 76 06/15/25 23:24 36.5 C 75 20 110/72 92 Room Air Laboratory Results Cardiac Enzymes 06/15/25 Range/Units 14:40 AST 14 (13-39) U/L Troponin I High Sens 7.0 (0-14) pg/ml Coagulation 06/15/25 Range/Units 14:40 PT 10.7 (9.0-12.0) Seconds APTT 26 (21-31) Seconds CBC 06/15/25 06/16/25 Range/Units 14:40 05:32 WBC 7.86 6.49 (4.8-10.8) K/ul RBC 4.17 L 4.05 L (4.20-5.40) M/uL Hgb 12.3 12.0 (12.0-16.0) g/dl Hct 38.5 37.7 (37.0-47.0) % Plt Count 192 175 (130-400) K/uL Neut # (Auto) 5.41 (1.40-6.50) K/uL Lymph # (Auto) 1.59 (1.20-3.40) K/uL Shannon # (Auto) 0.66 H (0.11-0.59) K/uL Eos # (Auto) 0.13 (0.00-0.50) K/uL Baso # (Auto) 0.05 (0.00-0.20) K/uL Comprehensive Metabolic Panel 06/15/25 06/16/25 Range/Units 14:40 05:32 Sodium 142 139 (136-145) mmol/L Potassium 4.8 4.8 (3.5-5.1) mmol/L Chloride 106 105 (98-107) mmol/L Carbon Dioxide 31 30 (21-32) mmol/L BUN 25 H 21 (6-23) mg/dl Creatinine 1.43 H 1.33 H (0.6-1.2) mg/dl Glucose 103 H 119 H (70-99(Fasting)) mg/dl Calcium 9.3 8.9 (8.6-10.3) mg/dl AST 14 (13-39) U/L ALT 9 (7-52) U/L Alkaline Phosphatase 68 (34-104) U/L Total Protein 7.1 (6.0-8.3) gm/dl Albumin 3.8 (3.4-5.0) gm/dl Diagnostic Findings EKG performed post pacemaker last evening on 06/15/2025 at 20: 13 reviewed/interpreted independently: Atrial sensed and ventricular paced rhythm at 73 bpm. Compared to the previous tracing dated 06/15/2025 paced rhythm has replaced Mobitz type I second-degree AV block. Chest x-ray performed evening of 06/15/2025 post pacemaker revealed no evidence of pneumothorax with dual-chamber pacemaker leads in the appropriate position PG Care Time/CCT Total # of Minutes Spent Total Time Spent with Patient: Total time spent is greater than 50% in coordination of care (as documented) at patient's floor/unit and/or counseling patient: Coding Level of Care Code 81068 SUB INP/OBS CARE 3/50MIN Diagnoses Third degree atrioventricular block I44.2 Heart block AV second degree I44.1 Pacemaker Z95.0 Pericardial effusion I31.39
--- NOTE | 2025-06-16 11:21 | Discharge Summary ---
Discharge Summary Date of Service June 16, 2025 Principal Dx & Hospital Course #1 = Principal Diagnosis (1) Heart block AV second degree: Patient is a 80 year old F with a past medical history of DM Type II, HLD with statin intolerance, Hypothyroidism, HTN, known AV block, morbid obesity, LASHAWN, CKD Stage IV, presenting with bradycardia. Patient was at PCP office today with shortness of breath, left arm pain. Found to be bradycardic with HR 30's. Known AV block with new onset bradycardia today. EKG consistent with 2:1 Heart block and advised to come to [facility] for further workup. Cardio and EP were consulted s/p PPM yesterday. Feeling well today without any complaints. eager to go home. cleared for dc by cardio. vitals and labs are stable for dc home. she was instructed to f/u with her PCP, clerical secretary and EP as OP. Heart block AV second degree #Bradycardia * Admit for pacemaker placement and further management PCU Tele * HR's 38-46 on exam, no CP, + SOB, LEBLANC with minimal change of position, w/ fluid retention BLE * Cardiology consulted in ED with plan for pacemaker placement today-> PCU Tele following pacer * Cardiology to follow patient post pacer placement #Hypertension #CKD Stage IV * Goal BP 140/90; BP 155/59 while in ED * Continue home amlodipine and lisinopril and trend * Renal functioning slightly above baseline; Creatinine 1.43, GFR 36; no hx diuretic use #Diabetes Type II, non-insulin dependent * Hold home trulicity * SSI while inpatient for goal bsg 110-140; adjust as needed * most recent A1C 6.4%; will check with AM labs #Obstructive sleep apnea * Intolerant CPAP, only able to use ~4 hours at home * O2 as needed to maintain sats >92% * Will order CPAP while inpatient #Hyperlipidemia * Statin intolerant * Continue home ezetimibe #Hypothyroidism * TSH 2.9 * Continue home levothyroxine DVT Ppx: SCDs Code status: DNR/DNI PCP: Dr. Sindy Leonard Dispo: Admit I spent a total of 36 minutes coordinating, documenting, and providing care for this patient excluding time spent in the performance of separately billed services. This included personally reviewing all current laboratories and imaging studies, medical reconciliation, outpatient chart review and discussion with specialists (2) Hypertension: (3) CKD (chronic kidney disease) stage 3, GFR 30-59 ml/min: (4) Diabetes: (5) LASHAWN on CPAP: (6) HLD (hyperlipidemia): (7) Hypothyroidism: Notes For Next Care Provider Medication Changes From Visit none Admission HPI Per Admitting Provider Patient is a 80 year old F with a past medical history of DM Type II, HLD with statin intolerance, Hypothyroidism, HTN, known AV block, morbid obesity, LASHAWN, CKD Stage IV, presenting with bradycardia. Patient was at PCP office today with shortness of breath, left arm pain. Found to be bradycardic with HR 30's. Known AV block with new onset bradycardia today. EKG consistent with 2:1 Heart block and advised to come to [facility] for further workup. [facility]iology made aware. Patient reports having shortness of breath and left chest"uncomfortable feeling" for several years, now with difficulty walking d/t SOB. Reports having periodic lower leg swelling as well, mostly in warmer weather. Denies fever, chills, weight loss, weakness, headache, cognitive changes, vision/hearing changes, difficulty breathing, urinary concerns, N/V/D, joint swelling/pain, ambulation difficulty, skin rashes, lesions, bleeding, bruising. In the emergency department, patient was bradycardiac 38-mid 40's. Hemodynamically stable. She had no chest pain, but was short of breath with repositioning in bed. ECG monitoring showed 2nd degree heart block which then progressed to third degree per Cardiology. Taken for pacemaker placement from ED. As per external chart review, known to have intermittent complete atrioventricular block with sleep and was last seen by EP Cardiology in 05/2025. No indication for pacemaker at that time. Patient was wearing CPAP nightly at that time, but is now not able to tolerate the mask. Also with history of well- controlled, non-insulin dependent Type 2 diabetes and on Trulicity. Per external chart review, most recent HbA1c 6.4%. Hypertensive chronic kidney disease is present with well-controlled blood pressure, On amlodipine, lisinopril currently. History obtained primarily from the patient and via hospitalization record. The patient's family was at the bedside and assisted with history of present illness and past medical history. External chart review obtained from [facility]. Discharge Exam Vitals and labs reviewed General: Well appearing, NAD HEENT: EOMI, PERRLA Neck: Supple Cardiac: RRR no rubs gallops or murmurs Lungs: CTA no rhonchi wheezing or rales Abd: S NT ND BS positive MSK: Full ROM. No obvious deformities Ext: No Edema cyanosis Skin: Warm, Dry Neuro: AOx3 No focal deficits. Psych: Normal Mood Updated Medication List Medication Instructions Recorded Confirmed Type levothyroxine 50 mcg tablet 50 mcg PO DAILYBB 09/30/19 06/15/25 History ezetimibe 10 mg tablet 10 mg PO QAM 07/14/22 06/15/25 History latanoprost 0.005 % eye drops 1 drp OPB HS 07/14/22 06/15/25 History amlodipine 5 mg tablet 5 mg PO QAM 09/29/22 06/15/25 History cholecalciferol (vitamin D3) 50 50 mcg PO QAM 05/28/23 06/15/25 History mcg (2,000 unit) capsule (Vitamin D3) lisinopril 20 mg tablet 20 mg PO QAM 09/17/23 06/15/25 History aspirin 81 mg tablet,delayed 81 mg PO DAILY 10/23/24 06/15/25 History release gabapentin 300 mg capsule 300 mg PO TID 06/15/25 06/15/25 History hydroxyzine HCl 25 mg tablet 50 mg PO HS 06/15/25 06/15/25 History tirzepatide 2.5 mg/0.5 mL 2.5 mg subcut WK 06/15/25 06/15/25 History subcutaneous pen injector (Mounjaro) Hospital Stay Data Consultations 06/15/25 14:40 Consult Cardiology Stat 06/15/25 14:45 ED Decision to Admit Stat Procedures Performed Operation Date: 06/15/25 15:30 Actual Procedures p Pacer with A/V Leads (Dual) - Celsa Marshall DO s Venogram, Unilateral - Celsa Marshall DO Diagnostic Imagining Performed 06/15/25 14:45 EP Lab Images for PACS ONCE Pending Results Patient Have Any Pending Studies at Discharge: No Discharge Instructions Given to Patient (Per Discharging Provider) Pacemaker site care: Do not raise the left elbow over the left shoulder for 1 month Do not lift more than 10 pounds with the left arm for 2 weeks Keep dressing on & dry until wound check-no shower Device and wound check as scheduled at [facility] Cardiology Total Time Total Time Spent Total Time Spent (In Minutes): 36
[2025-06-16 11:53] VITALS: BP 136/84; RESP 20; TEMP 97.9; O2SAT 97
[2025-06-16] MEDS: DICLOFENAC SOD 1% GEL 100 GM TUBE EXT PRN (13:00)
[2025-06-16 14:45] VITALS: PULSE 88
== END 2025-06-16 15:20 | disposition home health service (06) | DRG 243 ==
LOC: ED 14:15 → SUATTDRO 14:39 → 2E 14:39